=== PATIENT | male | born 1945 | race Caucasian/White ===

== ENCOUNTER → 2017-04-22 09:14 | Outpatient (CLI) | payer MEDICARE, OTHER, SELFPAY ==
[2017-04-22 12:48] LABS: ALB/GLOB Ratio 0.9 RATIO (0.9-2.4); AST(SGOT) 19 U/L (15-37); Absolute Lymphocyte Count 3.19 X10^3/ul (0.83-4.51); Absolute Neutrophil Count 5.1 X10^3/uL (2.0-7.7); Alanine Aminotransfer ALT/SGPT 41 U/L (16-61); Albumin, Serum 3.5 g/dL (3.2-5.0); Alkaline Phosphatase 57 U/L (45-117); Anion Gap 8 (5-15); BUN 15 mg/dL (7-18); BUN/Creat Ratio 13.5 RATIO (10-20); Basophil# 0.03 X10^3/uL; Basophil% 0.3 % (0-1); Calcium,Total 9.2 mg/dL (8.5-10.1); Chloride 104 mmol/L (98-107); Creatinine, Serum 1.11 mg/dL (0.70-1.30); EST Glomerular Filtration Rate 69 mL/min (>60); Eosinophil# 0.08 X10^3/uL; Eosinophils% 0.9 % (0-5); Est Glom Filt Rate - Afr Amer 84 mL/min (>60); Glucose 193 mg/dL (70-110); Hematocrit 46.2 % (40-54); Hemoglobin 15.2 g/dl (13.0-16.5); Lymphocyte # 3.19 X10^3/ul (4.0); Lymphocyte % 34.1 % (19-41); Mean Corp Hgb Conc 32.9 g/gl (32-36); Mean Corpuscular Hgb 31.5 pg (27.0-32.0); Mean Corpuscular Volume 95.7 fL (80-94); Mean Platelet Vol. 10.9 fl (6.2-12.0); Monocyte# 0.89 X10^3/uL; Monocyte% 9.5 % (0-10); Neutrophil # 5.09 X10^3/uL (2.7-7.7); Neutrophil % 54.3 % (47-70); POSITIVE COUNT NO; POSITIVE DIFFERENTIAL NO; POSITIVE MORPHOLOGY NO; Platelet Count 211 K/mm3 (150-450); Potassium 4.7 mmol/L (3.5-5.1); Protein, Total 7.5 g/dL (6.4-8.2); RBC Distribution Width CV 12.8 % (11.6-14.6); RBC Distribution Width SD 44.1 fl (35.1-43.9); Red Blood Count 4.83 M/mm3 (4.6-6.2); Sodium Level 139 mmol/L (136-145); Thyroid Stim Hormone (TSH) 0.69 uIU/mL (0.358-3.74); White Blood Count 9.4 K/mm3 (4.4-11.0)
== END ==
PROVIDERS: Family Provider Family Medicine Geriatric Medicine; PCP Family Medicine Geriatric Medicine; Visit Provider Family Medicine Geriatric Medicine
DX: E11.9 Type 2 diabetes mellitus without complications (principal); I10 Essential (primary) hypertension
CPT/HCPCS: 36415; 80053; 84443; 85025

== ENCOUNTER → 2017-07-22 09:55 | Outpatient (CLI) | payer MEDICARE, OTHER, SELFPAY ==
[2017-07-22 12:35] LABS: Absolute Lymphocyte Count 2.66 X10^3/ul (0.83-4.51); Absolute Neutrophil Count 4.4 X10^3/uL (2.0-7.7); Basophil# 0.06 X10^3/uL; Basophil% 0.7 % (0-1); Eosinophil# 0.11 X10^3/uL; Eosinophils% 1.3 % (0-5); Hematocrit 45.7 % (40-54); Hemoglobin 15.4 g/dl (13.0-16.5); Lymphocyte # 2.66 X10^3/ul (4.0); Lymphocyte % 32.6 % (19-41); Mean Corp Hgb Conc 33.7 g/gl (32-36); Mean Platelet Vol. 10.9 fl (6.2-12.0); Monocyte# 0.81 X10^3/uL; Monocyte% 9.9 % (0-10); Neutrophil # 4.41 X10^3/uL (2.7-7.7); Neutrophil % 54.2 % (47-70); Platelet Count 216 K/mm3 (150-450); RBC Distribution Width SD 43.9 fl (35.1-43.9); Red Blood Count 4.81 M/mm3 (4.6-6.2); White Blood Count 8.2 K/mm3 (4.4-11.0)
[2017-07-22 12:42] LABS: POSITIVE COUNT NO; POSITIVE DIFFERENTIAL NO; POSITIVE MORPHOLOGY NO
[2017-07-22 12:55] LABS: Vitamin D,25 Hydroxy 24.3 ng/mL (29.95-100.01)
[2017-07-22 12:59] LABS: AST(SGOT) 23 U/L (15-37); Alanine Aminotransfer ALT/SGPT 43 U/L (16-61); Albumin, Serum 3.5 g/dL (3.2-5.0); Alkaline Phosphatase 54 U/L (45-117); Anion Gap 8 (5-15); BUN 15 mg/dL (7-18); BUN/Creat Ratio 12.7 RATIO (10-20); Calcium,Total 8.9 mg/dL (8.5-10.1); Chloride 104 mmol/L (98-107); Creatinine, Serum 1.18 mg/dL (0.70-1.30); EST Glomerular Filtration Rate 65 mL/min (>60); Est Glom Filt Rate - Afr Amer 78 mL/min (>60); Globulin 3.6 g/dL (2.2-4.2); Glucose 205 mg/dL (74-106); Potassium 4.8 mmol/L (3.5-5.1); Protein, Total 7.1 g/dL (6.4-8.2); Sodium Level 136 mmol/L (136-145); Thyroid Stim Hormone (TSH) 0.72 uIU/mL (0.358-3.74)
== END ==
PROVIDERS: Family Provider Family Medicine Geriatric Medicine; PCP Family Medicine Geriatric Medicine; Visit Provider Family Medicine Geriatric Medicine
DX: E11.9 Type 2 diabetes mellitus without complications (principal); E55.9 Vitamin D deficiency, unspecified; I10 Essential (primary) hypertension
CPT/HCPCS: 36415; 80053; 82306; 84443; 85025

== ENCOUNTER → 2017-09-13 17:37 | Outpatient (CLI) | payer MEDICARE, OTHER, SELFPAY | PROVIDERS: Family Provider Family Medicine Geriatric Medicine; PCP Family Medicine Geriatric Medicine; Visit Provider Family Medicine Geriatric Medicine | DX: R68.83 Chills (without fever) (principal) | CPT/HCPCS: 87633 ==

== ENCOUNTER → 2017-10-26 10:22 | Outpatient (CLI) | payer MEDICARE, OTHER, SELFPAY ==
[2017-10-26 13:06] LABS: Absolute Lymphocyte Count 2.48 X10^3/ul (0.83-4.51); Absolute Neutrophil Count 6.2 X10^3/uL (2.0-7.7); Basophil# 0.04 X10^3/uL; Basophil% 0.4 % (0-1); Eosinophil# 0.07 X10^3/uL; Eosinophils% 0.7 % (0-5); Hematocrit 46.4 % (40-54); Hemoglobin 15.3 g/dl (13.0-16.5); Lymphocyte # 2.48 X10^3/ul (4.0); Lymphocyte % 25.5 % (19-41); Mean Corpuscular Hgb 31.5 pg (27.0-32.0); Mean Corpuscular Volume 95.7 fL (80-94); Mean Platelet Vol. 10.8 fl (6.2-12.0); Monocyte# 0.85 X10^3/uL; Monocyte% 8.8 % (0-10); Neutrophil # 6.15 X10^3/uL (2.7-7.7); Neutrophil % 63.4 % (47-70); Platelet Count 197 K/mm3 (150-450); RBC Distribution Width CV 13.3 % (11.6-14.6); RBC Distribution Width SD 46.1 fl (35.1-43.9); Red Blood Count 4.85 M/mm3 (4.6-6.2); White Blood Count 9.7 K/mm3 (4.4-11.0)
[2017-10-26 13:08] LABS: POSITIVE COUNT NO; POSITIVE DIFFERENTIAL NO; POSITIVE MORPHOLOGY NO
[2017-10-26 13:18] LABS: Vitamin D,25 Hydroxy 20.9 ng/mL (29.95-100.01)
[2017-10-26 13:24] LABS: ALB/GLOB Ratio 0.9 RATIO (0.9-2.4); AST(SGOT) 23 U/L (15-37); Alanine Aminotransfer ALT/SGPT 49 U/L (16-61); Albumin, Serum 3.5 g/dL (3.2-5.0); Alkaline Phosphatase 54 U/L (45-117); Anion Gap 11 (5-15); BUN 17 mg/dL (7-18); BUN/Creat Ratio 17.2 RATIO (10-20); Calcium,Total 9.1 mg/dL (8.5-10.1); Chloride 105 mmol/L (98-107); Creatinine, Serum 0.99 mg/dL (0.70-1.30); EST Glomerular Filtration Rate 79 mL/min (>60); Est Glom Filt Rate - Afr Amer 96 mL/min (>60); Globulin 3.9 g/dL (2.2-4.2); Glucose 116 mg/dL (74-106); Potassium 4.7 mmol/L (3.5-5.1); Protein, Total 7.4 g/dL (6.4-8.2); Sodium Level 142 mmol/L (136-145); Thyroid Stim Hormone (TSH) 0.71 uIU/mL (0.358-3.74)
== END ==
PROVIDERS: Family Provider Family Medicine Geriatric Medicine; PCP Family Medicine Geriatric Medicine; Visit Provider Family Medicine Geriatric Medicine
DX: E11.9 Type 2 diabetes mellitus without complications (principal); E55.9 Vitamin D deficiency, unspecified; I10 Essential (primary) hypertension
CPT/HCPCS: 36415; 80053; 82306; 84443; 85025

== ENCOUNTER → 2018-01-27 09:12 | Outpatient (CLI) | payer MEDICARE, OTHER, SELFPAY ==
[2018-01-27 12:28] LABS: Absolute Lymphocyte Count 3.44 X10^3/ul (0.83-4.51); Absolute Neutrophil Count 6.3 X10^3/uL (2.0-7.7); Basophil# 0.04 X10^3/uL; Basophil% 0.4 % (0-1); Eosinophil# 0.09 X10^3/uL; Eosinophils% 0.8 % (0-5); Hematocrit 49.3 % (40-54); Hemoglobin 16.2 g/dl (13.0-16.5); Lymphocyte # 3.44 X10^3/ul (4.0); Lymphocyte % 31.8 % (19-41); Mean Corp Hgb Conc 32.9 g/gl (32-36); Mean Corpuscular Volume 97.4 fL (80-94); Mean Platelet Vol. 11.4 fl (6.2-12.0); Monocyte# 0.89 X10^3/uL; Monocyte% 8.2 % (0-10); Neutrophil % 58.2 % (47-70); Platelet Count 207 K/mm3 (150-450); RBC Distribution Width CV 13.1 % (11.6-14.6); RBC Distribution Width SD 46.4 fl (35.1-43.9); Red Blood Count 5.06 M/mm3 (4.6-6.2); White Blood Count 10.8 K/mm3 (4.4-11.0)
[2018-01-27 12:32] LABS: POSITIVE COUNT NO; POSITIVE DIFFERENTIAL NO; POSITIVE MORPHOLOGY NO
[2018-01-27 12:40] LABS: ALB/GLOB Ratio 0.9 RATIO (0.9-2.4); AST(SGOT) 31 U/L (15-37); Alanine Aminotransfer ALT/SGPT 54 U/L (16-61); Albumin, Serum 3.5 g/dL (3.2-5.0); Alkaline Phosphatase 60 U/L (45-117); Anion Gap 11 (5-15); BUN 12 mg/dL (7-18); BUN/Creat Ratio 10.3 RATIO (10-20); Calcium,Total 8.7 mg/dL (8.5-10.1); Chloride 103 mmol/L (98-107); Creatinine, Serum 1.17 mg/dL (0.70-1.30); EST Glomerular Filtration Rate 65 mL/min (>60); Est Glom Filt Rate - Afr Amer 79 mL/min (>60); Glucose 148 mg/dL (74-106); Potassium 4.2 mmol/L (3.5-5.1); Protein, Total 7.5 g/dL (6.4-8.2); Sodium Level 138 mmol/L (136-145); Thyroid Stim Hormone (TSH) 0.66 uIU/mL (0.358-3.74)
[2018-01-27 13:15] LABS: Vitamin D,25 Hydroxy 19.2 ng/mL (29.95-100.01)
== END ==
PROVIDERS: Family Provider Family Medicine Geriatric Medicine; PCP Family Medicine Geriatric Medicine; Visit Provider Family Medicine Geriatric Medicine
DX: E11.9 Type 2 diabetes mellitus without complications (principal); E55.9 Vitamin D deficiency, unspecified; I10 Essential (primary) hypertension
CPT/HCPCS: 36415; 80053; 82306; 84443; 85025

== ENCOUNTER → 2018-02-01 12:50 | Outpatient (CLI) | payer MEDICARE, OTHER, SELFPAY ==
--- NOTE | 2018-02-01 12:53 | ECHOCS_ITS ---
Reason For Study: DYSPNEA/SOB Procedure This was a 2D Doppler, Color Flow transthoracic echocardiogram. The study was technically difficult. Due to body habitus. Contrast injection was performed. Exam performed in department. Left Ventricle Normal size and thickness. The estimated ejection fraction is 55 %. Septal motion consistent with IVCD. No regional wall motion abnormalities noted. Right Ventricle Normal size and thickness. Normal systolic function. Atria Normal left atrium. Normal right atrium. Normal atrial septum. Mitral Valve The mitral valve is structurally normal. No prolapse or stenosis seen. Tricuspid Valve Normal tricuspid valve. Trivial tricuspid valve insufficiency. Unable to estimate RV systolic pressure due to inadequate jet, pulmonary artery pressure probably normal. Aortic Valve Normal aortic valve. Trisinus/trileaflet aortic valve. Trivial aortic valve insufficiency. Pulmonic Valve Normal pulmonic valve. Great Vessels Normal aortic root. Normal arch. Normal inferior vena cava. Inferior vena cava collapse with sniff. Pericardium/Pleural No pericardial effusion. Medication 22 gauge I.V. with prn adaptor inserted into right arm. Diluted definity 2.0ml given slow IV push to enhance endocardial definition. Performed a rapid injection of agitated mix of 9 cc saline and 1cc air to assess for atrial septal defect. MMode/2D Measurements & Calculations LVIDd: 4.0 cm IVSd: 0.99 cm Ao root diam: 3.6 cm LVIDs: 2.7 cm LVPWd: 0.97 cm RVDd: 3.2 cm FS: 34.1 % LAV(MOD-bp): 55.3 ml LA A4 area: 19.9 cm2 LA dimension(2D): 3.2 cm LAV(MOD-bp) Indexed: 23.4 ml/m2 LAV(MOD-sp2): 47.2 ml LAV(MOD-sp4): 55.2 ml RA A4 area: 16.3 cm2 Doppler Measurements & Calculations MV E max nikos: 92.3 cm/sec Lat Peak E' Nikos: 10.1 cm/sec Med Peak E' Nikos: 6.1 cm/sec MV A max nikos: 41.8 cm/sec E/E' lat: 9.1 E/E' med: 15.0 MV E/A: 2.2 Ao V2 max: 119.4 cm/sec LV V1 max: 79.6 cm/sec PA V2 max: 76.9 cm/sec Ao max P.7 mmHg LV V1 max P.5 mmHg Interpretation Summary The estimated ejection fraction is 55 %. Unable to estimate RV systolic pressure due to inadequate jet, pulmonary artery pressure probably normal. Trivial aortic valve insufficiency. Compared to echo report dated 10/26/2013, no appreciable changes noted. Ordering Physician: Jose Avery Referring Physician: Maximino Figueroa Chi Performed By: Charlotte Lantigua RDCS, RVT
== END ==
PROVIDERS: Family Provider Family Medicine Geriatric Medicine; PCP Family Medicine Geriatric Medicine; Referring Provider Internal Medicine Cardiovascular Disease; Visit Provider Internal Medicine Cardiovascular Disease
DX: I45.2 Bifascicular block (principal)
CPT/HCPCS: 93306; Q9957; A4216; C8929

== ENCOUNTER → 2018-07-27 | Outpatient (CLI) | payer MEDICARE, OTHER, SELFPAY ==
[2018-05-25 09:46] VITALS: BMI 37.4
[2018-07-27 12:44] LABS: Absolute Neutrophil Count 5.4 X10^3/uL (2.0-7.7); Basophil# 0.05 X10^3/uL; Basophil% 0.5 % (0-1); Eosinophil# 0.16 X10^3/uL; Eosinophils% 1.7 % (0-5); Hematocrit 42.8 % (40-54); Hemoglobin 14.3 g/dl (13.0-16.5); Lymphocyte % 32.2 % (19-41); Mean Corp Hgb Conc 33.4 g/gl (32-36); Mean Corpuscular Hgb 31.4 pg (27.0-32.0); Mean Corpuscular Volume 93.9 fL (80-94); Mean Platelet Vol. 11.2 fl (6.2-12.0); Monocyte# 0.81 X10^3/uL; Monocyte% 8.4 % (0-10); Neutrophil # 5.41 X10^3/uL (2.7-7.7); Neutrophil % 56.2 % (47-70); Platelet Count 220 K/mm3 (150-450); RBC Distribution Width CV 13.2 % (11.6-14.6); RBC Distribution Width SD 45.1 fl (35.1-43.9); Red Blood Count 4.56 M/mm3 (4.6-6.2); White Blood Count 9.6 K/mm3 (4.4-11.0)
[2018-07-27 12:45] LABS: POSITIVE COUNT NO; POSITIVE DIFFERENTIAL NO; POSITIVE MORPHOLOGY NO
[2018-07-27 12:57] LABS: Vitamin D,25 Hydroxy 15.4 ng/mL (29.95-100.01)
[2018-07-27 13:03] LABS: ALB/GLOB Ratio 0.9 RATIO (0.9-2.4); AST(SGOT) 28 U/L (15-37); Alanine Aminotransfer ALT/SGPT 36 U/L (16-61); Albumin, Serum 3.4 g/dL (3.2-5.0); Alkaline Phosphatase 55 U/L (45-117); Anion Gap 10 (5-15); BUN 13 mg/dL (7-18); BUN/Creat Ratio 10.6 RATIO (10-20); Calcium,Total 8.9 mg/dL (8.5-10.1); Chloride 106 mmol/L (98-107); Creatinine, Serum 1.23 mg/dL (0.70-1.30); EST Glomerular Filtration Rate 61 mL/min (>60); Est Glom Filt Rate - Afr Amer 74 mL/min (>60); Globulin 3.8 g/dL (2.2-4.2); Glucose 135 mg/dL (74-106); Potassium 4.8 mmol/L (3.5-5.1); Protein, Total 7.2 g/dL (6.4-8.2); Sodium Level 142 mmol/L (136-145); Thyroid Stim Hormone (TSH) 0.54 uIU/mL (0.358-3.74)
== END | disposition home or self-care (01) ==
LOC: POLAB3 09:13
PROVIDERS: Family Provider Family Medicine Geriatric Medicine; PCP Family Medicine Geriatric Medicine; Visit Provider Family Medicine Geriatric Medicine
DX: E11.9 Type 2 diabetes mellitus without complications (principal); E55.9 Vitamin D deficiency, unspecified; I10 Essential (primary) hypertension
CPT/HCPCS: 36415; 80053; 82306; 84443; 85025

== ENCOUNTER 2018-08-18 15:05 | Emergency (ER) | payer MEDICARE, OTHER, SELFPAY ==
[2018-07-27 14:36] VITALS: BMI 36.2
[2018-08-18 15:07] VITALS: BP 153/82; PULSE 84; RESP 16; TEMP 36.4; O2SAT 96; BMI 38.5
--- NOTE | 2018-08-18 15:24 | CT_ITS ---
STUDY: CT BRAIN WITHOUT CONTRAST REASON FOR EXAM: Male, 73 years old. Dizziness and history of strokes RADIATION DOSAGE (If Supplied By Facility): CTDIvol = ( 60.81 ) mGy, DLP = ( 1044.28 ) mGycm TECHNIQUE: Transaxial CT imaging of the brain was performed without administration of intravenous contrast material. Individualized dose optimization techniques were used for this CT. COMPARISON: 03/03/2014 FINDINGS: Normal soft tissue structures. Normal calvarium. There is moderate cerebral atrophy with widening of the extra-axial spaces and ventricular dilatation. There are areas of decreased attenuation within the white matter tracts of the supratentorial brain, consistent with microvascular disease changes. Normal basal ganglia and thalami. Normal brainstem. Normal cerebellum. There is no intracranial hemorrhage. There are no findings of an acute ischemic infarction. Prior stroke in the right MCA territory. Normal visualized paranasal sinuses. CT/Brain/Head without Contrast IMPRESSION: Chronic involutional changes of the brain. Electronically Signed: Prabhu Mendez DO at 16:40 EDT Tel , Service support ,
--- NOTE | 2018-08-18 15:25 | RAD_ITS ---
STUDY: X-RAY - RIGHT SHOULDER REASON FOR EXAM: Male, 73 years old. Shoulder pain TECHNIQUE: 4 view(s) of the shoulder. COMPARISON: None. FINDINGS: Normal glenohumeral articulation. There is degenerative arthrosis of the acromioclavicular joint without inferior osseous spur formation. Normal acromion. Normal humeral head and visualized proximal humerus. The soft tissue structures are unremarkable. Normal visualized pulmonary apex. RAD/Shoulder min 2 Views IMPRESSION: No acute finding Electronically Signed: Prabhu Mendez DO at 17:22 EDT Tel , Service support ,
--- NOTE | 2018-08-18 15:25 | RAD_ITS ---
STUDY: X-RAY CHEST REASON FOR EXAM: Male, 73 years old. Pain and dizziness TECHNIQUE: PA and lateral views of the chest. COMPARISON: None. FINDINGS: The lungs are clear and expanded. There is no demonstrated pleural abnormality. Normal size heart. Normal mediastinum and ana. Normal visualized pulmonary arteries. Normal visualized aortic arch and descending thoracic aorta. Normal visualized thoracic spine. Normal visualized ribs, clavicles, and shoulders. There is no demonstrated abnormality of the visualized soft tissue structures of the upper abdomen. RAD/Chest PA and Lateral IMPRESSION: Normal x-ray examination of the chest. Electronically Signed: Prabhu Mendez DO at 17:21 EDT Tel , Service support ,
--- NOTE | 2018-08-18 15:25 | EKG12_ITS ---
Test Reason : DIZZINESS Blood Pressure : / mmHG Vent. Rate : 081 BPM Atrial Rate : 081 BPM P-R Int : 192 ms QRS Dur : 146 ms QT Int : 416 ms P-R-T Axes : -13 -51 068 degrees QTc Int : 483 ms Normal sinus rhythm Right bundle branch block Left anterior fascicular block Bifascicular block Possible Left ventricular hypertrophy Abnormal ECG Confirmed by LUCRECIA EWNIG, SAMUEL ([id number]), associate entertainment editor JENARO COLON ([id number]) on 08/21/2018 1:40:25 PM Referred By: VIANEY Confirmed By:SAMUEL SINGER MD
--- NOTE | 2018-08-18 15:29 | ED.DCSUM_ITS ---
- ER Visit Summary Date of Service: 08/18/18 Chief Complaint: Dizziness History of Present Illness: The patient is a 73 M who states that he has had the sensation of being dizzy for years. He has seen to neurologist, ENT, ophthalmology, and his primary care physician. He takes nothing for dizziness. He states he has had a prior stroke. He notes coronary artery disease. He states that today was worse than normal and he was nauseated. He states he is better now than when he was at home. He states when he is really dizzy he cannot turn his head but he can turn his head now without any problems. When asked to explain what he means when he feels dizzy he states he feels lightheaded. He denies any sensation of spinning. He also notes pain in the right shoulder which she would like to have checked out. He states he can move his shoulder all the way around it just aches. Physical Examination: Afebrile vital signs are stable Gen: Well-nourished well-developed obese Head: Normocephalic atraumatic Eyes: Perrl EOMI ENT: TMs clear no rhinorrhea moist mucous membranes Neck: Supple no lymphadenopathy no JVD nontender CVS: Regular rate rhythm no murmurs normal S1-S2 Respiratory: No distress clear to auscultation bilaterally chest nontender Abdomen: Soft nontender nondistended normal bowel sounds no masses Back: Nontender Extremity: Nontender no edema Skin: Normal color no rash Neuro: alert orientated ?3 CN II-XII intact normal strength sensation reflexes cerebellar ([id number] and heel yip) Psych: Normal affect normal mood Test Results: CBC CMP troponin negative. Chest x-ray shoulder films no acute disease had brain CT no acute disease EKG sinus rhythm with right bundle branch block and left anterior fascicular block a rate of 81 without ectopy. Orthostatics were negative. Emergency Department Course and Treatment: Patient is able to ambulate here. As the patient is ever done any physical therapy since his stroke he said no. Perhaps there is a muscular imbalance issue?. It sounds like the patient is seen multiple subspecialist for this problem with no cause. I do not see an emergent cause today. As far as his shoulder pain he does have a little bit of arthritic changes. He states he does not see orthopedics. I can refer him to 1. Impression: 1. Lightheadedness 2. Right shoulder pain This note was generated with [employer]AR[employer] dictation software. It may contain incorrect words, spelling, and punctuation that were not noted in review of the chart prior to signing ED Disposition - Plan for ED Patient: Disposition: Home or Assisted Living Instructions: ED Dizziness [facility] Referrals: Maximino Figueroa Chi, MD [Primary Care Provider] - (Call to arrange follow-up) Bentley Ashby MD [STAFF PHYSICIAN] - (Call if you would like to see a orthopedic surgeon for your shoulder pain.) Additional Instructions: You may discuss with your doctor the possibility of seeing physical therapy.
[2018-08-18 16:01] LABS: Absolute Neutrophil Count 4.8 X10^3/uL (2.0-7.7); Basophil# 0.05 X10^3/uL; Basophil% 0.5 % (0-1); Eosinophil# 0.15 X10^3/uL; Eosinophils% 1.6 % (0-5); Hematocrit 43.2 % (40-54); Hemoglobin 14.6 g/dl (13.0-16.5); Lymphocyte % 34.9 % (19-41); Mean Corp Hgb Conc 33.8 g/gl (32-36); Mean Corpuscular Hgb 31.4 pg (27.0-32.0); Mean Corpuscular Volume 92.9 fL (80-94); Mean Platelet Vol. 10.6 fl (6.2-12.0); Monocyte# 0.88 X10^3/uL; Monocyte% 9.6 % (0-10); Neutrophil # 4.81 X10^3/uL (2.7-7.7); Neutrophil % 52.5 % (47-70); Platelet Count 224 K/mm3 (150-450); RBC Distribution Width CV 13.1 % (11.6-14.6); RBC Distribution Width SD 43.7 fl (35.1-43.9); Red Blood Count 4.65 M/mm3 (4.6-6.2); White Blood Count 9.2 K/mm3 (4.4-11.0)
[2018-08-18 16:04] VITALS: BP 149/70; PULSE 79; RESP 19; O2SAT 95
[2018-08-18 16:04] LABS: POSITIVE COUNT NO; POSITIVE DIFFERENTIAL NO; POSITIVE MORPHOLOGY NO
[2018-08-18 16:21] LABS: ALB/GLOB Ratio 0.9 RATIO (0.9-2.4); AST(SGOT) 26 U/L (15-37); Alanine Aminotransfer ALT/SGPT 34 U/L (16-61); Albumin, Serum 3.5 g/dL (3.2-5.0); Alkaline Phosphatase 58 U/L (45-117); Anion Gap 8 (5-15); BUN 15 mg/dL (7-18); BUN/Creat Ratio 13.8 RATIO (10-20); Calcium,Total 8.7 mg/dL (8.5-10.1); Chloride 106 mmol/L (98-107); Creatinine, Serum 1.09 mg/dL (0.70-1.30); EST Glomerular Filtration Rate 71 mL/min (>60); Est Glom Filt Rate - Afr Amer 85 mL/min (>60); Estimated Creatinine Clearance 63.25 ml/min; Globulin 3.8 g/dL (2.2-4.2); Glucose 158 mg/dL (74-106); Potassium 4.2 mmol/L (3.5-5.1); Protein, Total 7.3 g/dL (6.4-8.2); Sodium Level 139 mmol/L (136-145)
[2018-08-18 16:57] VITALS: BP 149/78; BP 154/77; BP 164/79; PULSE 74; PULSE 78
[2018-08-18 16:58] LABS: Bacteria 0 SEEN /hpf (None Seen); Mucous, Urine 0 SEEN /hpf (<or=2+); Red Blood Cells-Urine 0 SEEN /hpf (0-5); White Blood Cells 0 SEEN /hpf (0-5)
[2018-08-18 17:30] LABS: Color, Urine Yellow (Yellow); Glucose, Dipstick 100 mg/dl (Normal); Ketone-Dipstick Negative (Negative); Leukocyte Esterase-Dipstick Negative /ul (Negative); Nitrite-Dipstick Negative (Negative); Occult Blood-Urine Negative /ul (Negative); Protein-Dipstick Negative (Negative); Urine Bilirubin Dipstick Negative (Negative); Urine Clarity Clear (Clear); Urine Urobilinogen Normal (Normal)
[2018-08-18 17:51] LABS: Squamous Epithelial Cells - UA 0-5 SEEN /hpf (0-5)
[2018-08-18 18:12] VITALS: BP 150/70; PULSE 67; RESP 18; O2SAT 98
== END 2018-08-18 18:13 | disposition home or self-care (01) ==
PROVIDERS: Emergency Provider Emergency Medicine; Family Provider Family Medicine Geriatric Medicine; PCP Family Medicine Geriatric Medicine
DX: R42 Dizziness and giddiness (principal); M25.511 Pain in right shoulder; R11.0 Nausea; E66.9 Obesity, unspecified; I44.4 Left anterior fascicular block; I45.10 Unspecified right bundle-branch block; I25.10 Atherosclerotic heart disease of native coronary artery without angina pectoris; E11.9 Type 2 diabetes mellitus without complications; I10 Essential (primary) hypertension; E78.00 Pure hypercholesterolemia, unspecified; F32.9 Major depressive disorder, single episode, unspecified; G47.33 Obstructive sleep apnea (adult) (pediatric); Q21.1 Atrial septal defect; Z86.73 Personal history of transient ischemic attack (TIA), and cerebral infarction without residual deficits; Z86.718 Personal history of other venous thrombosis and embolism; Z79.02 Long term (current) use of antithrombotics/antiplatelets; Z79.84 Long term (current) use of oral hypoglycemic drugs; Z79.899 Other long term (current) drug therapy; Z87.891 Personal history of nicotine dependence
CPT/HCPCS: 70450; 71046; 73030; 80053; 81001; 84484; 85025; 93005; 99284; A4216

== ENCOUNTER → 2018-12-06 12:27 | Outpatient (CLI) | payer MEDICARE, OTHER, SELFPAY ==
--- NOTE | 2018-12-06 12:31 | CT_ITS ---
STUDY: CTA HEAD AND NECK WITH CONTRAST REASON FOR EXAM: Male, 73 years old. Dizziness RADIATION DOSAGE (If Supplied By Facility): CTDIvol = ( 28.63 ) mGy, DLP = ( 1608.54 ) mGycm TECHNIQUE: CT angiography was performed with a multi-detector CT scanner. Data acquisition was obtained from the skull base through the vertex following intravenous administration of 100mL IV Isovue 370. MIP images were reconstructed from the axial data set. Post-processing of the angiographic images was performed, with multiplanar reformation and 3D reconstruction. Individualized dose optimization techniques were used for this CT. COMPARISON: 05/07/2014 FINDINGS: Normal bilateral petrous carotid arteries. Normal right cavernous carotid artery with a normal supraclinoid bifurcation. Normal left cavernous carotid artery with a normal supraclinoid bifurcation. Normal right A1 segments of the anterior cerebral artery. Normal left A1 segments of the anterior cerebral artery. Normal intact anterior communicating artery (ACOM). Normal bilateral A2 segments of the anterior cerebral arteries. Normal right M1 and M2 segments of the middle cerebral arteries, with a normal M1 bifurcation. Normal left M1 and M2 segments of the middle cerebral arteries, with a normal M1 bifurcation. Normal right posterior communicating artery (PCOM). Normal left posterior communicating artery (PCOM). Normal bilateral vertebral arteries. Normal basilar artery with a normal basilar bifurcation. The visualized bilateral superior cerebellar (SCA) arteries are normal. Normal bilateral P1, P2 and visualized P3 segments of the posterior cerebral arteries. There is no demonstrated aneurysm of the [place]. There is no demonstrated abnormality of the visualized brain. AORTIC ARCH: Normal visualized aortic arch. Normal origins of the brachiocephalic, left common carotid, and left subclavian arteries. RIGHT CAROTID ARTERIES: Normal right common carotid artery (CCA). Normal right common carotid bulb. Normal origin of the right internal carotid (ICA) artery without a hemodynamically significant stenosis. Normal visualized cervical portion of the right internal carotid artery. Normal origin of the right external carotid artery (ECA). LEFT CAROTID ARTERIES: Normal left common carotid artery (CCA). Normal left common carotid bulb. Normal origin of the left internal carotid (ICA) artery without a hemodynamically significant stenosis. Normal visualized cervical portion of the left internal carotid artery. Normal origin of the left external carotid artery (ECA). VERTEBRAL ARTERIES: There is enhancement within the bilateral vertebral arteries with a small left vertebral artery, and a dominant right vertebral artery. Soft tissue windows show multiple thyroid nodules or cysts. No suspicious enhancing lesion or airway narrowing or deviation. There is evidence of an old right parietal/occipital lobe infarct. Extensive degenerative changes noted in the cervical spine. CT/CTA Head AND Neck W/ Contrast IMPRESSION: Normal CTA Head and neck with contrast. 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
[2018-12-06 12:50] LABS: CREATININE FINGERSTICK 0.9 mg/dL (0.70-1.30)
== END ==
PROVIDERS: Family Provider Family Medicine Geriatric Medicine; PCP Family Medicine Geriatric Medicine; Referring Provider Psychiatry & Neurology Neurology; Visit Provider Psychiatry & Neurology Neurology
DX: I65.09 Occlusion and stenosis of unspecified vertebral artery (principal)
CPT/HCPCS: 70496; 70498; Q9967

== ENCOUNTER → 2019-01-05 09:51 | Outpatient (CLI) | payer MEDICARE, OTHER, SELFPAY ==
--- NOTE | 2019-01-05 09:56 | RAD_ITS ---
STUDY: X-RAY - CERVICAL SPINE REASON FOR EXAM: Male, 73 years old. Neck pain with dizziness TECHNIQUE: 8 view(s) of the cervical spine were obtained. COMPARISON: None FINDINGS: Normal anterior atlantoaxial articulation. Normal odontoid process. No subluxation on flexion, extension or neutral views. Normal cervical lordosis. Mild anterior spondylosis with disc space narrowing most conspicuous at C6-C7. Multilevel facet arthropathy suspected. Remaining disc heights are relatively preserved. Limited evaluation of the neural foramina due to suboptimal positioning but there appears to be foraminal stenosis at bilateral C3-C4 and C4-C5 as well as possibly lower levels on the right side. The soft tissue structures are unremarkable. RAD/Cerv Spine Obl/Flex/Ext Comp IMPRESSION: Multilevel degenerative disc disease with foraminal stenosis, as above. Electronically Signed: Elias Santiago MD ([place]) at 15:13 EDT , Service support ,
== END ==
PROVIDERS: Family Provider Family Medicine Geriatric Medicine; PCP Family Medicine Geriatric Medicine; Referring Provider Psychiatry & Neurology Neurology; Visit Provider Psychiatry & Neurology Neurology
DX: M54.2 Cervicalgia (principal)
CPT/HCPCS: 72052

== ENCOUNTER → 2019-01-29 10:44 | Outpatient (CLI) | payer MEDICARE, OTHER, SELFPAY ==
[2019-01-29 12:24] LABS: Absolute Lymphocyte Count 3.05 X10^3/uL (0.83-4.51); Absolute Neutrophil Count 5.9 X10^3/uL (2.0-7.7); Basophil# 0.12 X10^3/uL; Basophil% 1.2 % (0-1); Eosinophil# 0.17 X10^3/uL; Eosinophils% 1.7 % (0-5); Hematocrit 44.5 % (40-54); Hemoglobin 14.4 g/dL (13.0-16.5); Lymphocyte # 3.05 X10^3/ul (4.0); Lymphocyte % 30.2 % (19-41); Mean Corp Hgb Conc 32.4 g/dL (32-36); Mean Corpuscular Volume 95.7 fL (80-94); Mean Platelet Vol. 11.4 fl (6.2-12.0); Monocyte# 0.71 X10^3/uL; NRBC Flagged by Analyzer 0 % (0-5); Neutrophil # 5.94 X10^3/uL (2.7-7.7); Neutrophil % 58.8 % (47-70); Platelet Count 217 K/mm3 (150-450); RBC Distribution Width CV 12.7 % (11.6-14.6); RBC Distribution Width SD 45.1 fl (35.1-43.9); Red Blood Count 4.65 M/mm3 (4.6-6.2); White Blood Count 10.1 K/mm3 (4.4-11.0)
[2019-01-29 12:46] LABS: ALB/GLOB Ratio 0.9 RATIO (0.9-2.4); AST(SGOT) 18 U/L (15-37); Alanine Aminotransfer ALT/SGPT 25 U/L (16-61); Albumin, Serum 3.5 g/dL (3.2-5.0); Alkaline Phosphatase 53 U/L (45-117); Anion Gap 9 (5-15); BUN 29 mg/dL (7-18); BUN/Creat Ratio 23.4 RATIO (10-20); Calcium,Total 9.2 mg/dL (8.5-10.1); Chloride 105 mmol/L (98-107); Creatinine, Serum 1.24 mg/dL (0.70-1.30); EST Glomerular Filtration Rate 61 mL/min (>60); Est Glom Filt Rate - Afr Amer 74 mL/min (>60); Globulin 3.8 g/dL (2.2-4.2); Glucose 117 mg/dL (74-106); Potassium 4.9 mmol/L (3.5-5.1); Protein, Total 7.3 g/dL (6.4-8.2); Sodium Level 140 mmol/L (136-145); Thyroid Stim Hormone (TSH) 0.64 uIU/mL (0.358-3.74); Vitamin D,25 Hydroxy 16.6 ng/mL (29.95-100.01)
== END ==
PROVIDERS: Family Provider Family Medicine Geriatric Medicine; PCP Family Medicine Geriatric Medicine; Visit Provider Family Medicine Geriatric Medicine
DX: E11.9 Type 2 diabetes mellitus without complications (principal); E23.6 Other disorders of pituitary gland; E55.9 Vitamin D deficiency, unspecified; I10 Essential (primary) hypertension
CPT/HCPCS: 36415; 80053; 82306; 84403; 84443; 85025

== ENCOUNTER 2019-02-01 11:30 | Outpatient (RCR) | payer MEDICARE, OTHER, SELFPAY ==
--- NOTE | 2018-12-04 10:47 | HP.PTEVAL ---
Patient's Visit Information BERTO DAVIS Jr. is a 73 year old M referred to Physical Therapy by Glenn Bravo MD with a diagnosis of vertigo likely cervicogenic. cervicalgia. Date of Evaluation: 12/04/18 Physical Therapist: Jeffrey Bailon, DPT, OCS, CSCS - Visit Plan Frequency: 2x /Week Duration: 2 Months Plan: 2x/week for 4-8 weeks . Start with STM to cervical muscles, scap ROM and cervical ROM adn manual traction, emphasize L rotation and retraction /ext. Stretch cervical muscles. postural strength of scap and cervical to HEP. Monitor need for further vestibualr intervention(nothing sticking out at me today on eval.) - Subjective Findings: Dizzy spinning and falling down for the last year. Not sure why it started. Went to ER with neck pain a couple months ago with spasms. Got dizzy spinning at that time. His doctor thought it was migraines. x rays in ER and describes MRI of head. Hard time walking at the time. 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 Got it twice since then. Put on pills which helps and heart monitor. Took off migraine meds. Usually wakes up dizzy in morning which lasts two hours every morning. takes pill upon waking not sure what it is. Low level dizzynes sis always present. Has two falls, one in shower and feet went out and could not get up. Uses cane to get around, [facility]. Has a walker with wheels which he uses. Describes constant feeling as a numbness in head present since last Novemebr. Stopped driving. Spends the day sitting and mowing yard. Doesn't make him worse dizzy lopez. Dresses self and batha dn shower I. No exercises. No real pain, has some neck discomfort looking down and feels pull in center of back. - Objective L arm weak from previous stroke. R ankle weak form another stroke. ROM UE WFL. C/S AROM R 75 and L 40 rotation, ext 40 with pain centrally. - c/s compression. Posture is extreme forward head and extended upper cervical spine. Kyphosis in T/S. Very poor scapular muscle planning and coordination, hard to do scap crcles or retraction. - VAT. - B hallpike laura and - roll test. Oculomotor is unremarkable today: no nystagmus with head shake or gaze. - skew eye deviation. convergence normal. pursuit and saccades alejandro and asymptomatic. No problem withVOR horiz or veritcal. Unable to increase dizzyness with oculomotor, or positional changes today. Or with repeated neck movements. But has some cervical deficitis to wrok on. - Balance Scores Functional Gait Assessment Score: 22 % Disability: 26.6700 CATSIB Score (Max score 120 seconds): 33 - Goals Goal 1:: FGA 25/30 to diminish fall risk. Goal Time Frame: 6-8 Weeks Goal 2:: Patient feel dizzyness 75% improved adn <25% on DHI Goal Time Frame: 6-8 Weeks Goal 3:: Neck ROM symmetrical and no stiffness with retraction or L rotation. Goal Time Frame: 6-8 Weeks Goal 4:: I approp HEp to minimize future problems. Goal Time Frame: 6-8 Weeks - Rehabilitation Potential Physical Therapy Diagnosis: cervicalgia and dizzyness. Rehabilitation Potential: Fair - Anticipated Interventions Patient/Client Instruction: Educate patient on: Condition, Plan of Care For the Purpose of:: To increase tolerance to activity/condition/position, To improve balance Therapeutic Exercise to Include: Strength training, Postural training, Flexibilty training, Passive ROM, Dynamic Lumbar Stabilization, Scapular Strength/Stabilization For the Purpose of:: To improve muscle performance and motor function, To increase tolerance to activity/condition/position, To improve balance Manual Therapy Techniques to Include: Mobilization, Soft tissue mobilization For the Purpose of:: To decrease pain, To improve nutrient delivery to tissue, To increase tolerance to activity/condition/position, To improve ability of physical actions for home/community/work/leisure Thermo therapy (hot pack): Yes For the Purpose of:: To improve nutrient delivery to tissue Thank you for the opportunity to evaluate your patient. For Medicare and Medicare HMO plans, please review the plan of care and approve it. It will need to be FAXED BACK to us at [phone] for Medicare purposes. For Medicare only, by signing this I certify the plan of care. Please let me know if there are questions or concerns regarding this plan of care. Physician Signature: Date:
--- NOTE | 2019-01-03 10:58 | HP.PTREVAL ---
Glenn Bravo MD, It has been my pleasure to treat BERTO DAVIS Jr. over the last 8 visits for vertigo likely cervicogenic. cervicalgia. Please see the progress note below for an update on the physical therapy plan of care! Subjective: Doctor's visit tomorrow cancelled as they are still running tests. Says arteries in neck were cleared. Feels like dizzyness is better, can get out of bed without being dizzy. Not sure if it is therapy or a pill doctor gave him(not sure what it is) whcih he has been taking about a month. 90% better as long as he takes pill. Neck work in therapy seems to help and doing exercises at home. Numbness in neck is relieved for 2-3 days but then it comes back. Sleep is OK. Balance is a little wavy but is using quad cane 100% of time. Wants to hold on further therapy until after see doctor as dizzyness is pretty good. Objective/Function: 75 degree R rot c/s and 63 L with contrlateral pain. 60 degrees extension. Balance is +1 on the FGA. Getting around slow but safe even without cane today. Recommended he keep using it. Improved DHI but cannot recreate symptoms with head movements or activities of VOR today. - B hallpike laura. - roll test. SOB after steps adn 250 foot walk slightly. OVERALL BETTER, REASON FOR IMPROVEMENT NOT FULLY UNDERSTOOD PATIENT STARTED MEDS RIGHT AFTER STARTING THERAPY. APPROPRIATE TO COTNINUE FAIR PROGNOSIS. Plan Plan: 2x/week for 4 weeks per script for : 1. continue gentle adn wean STM neck. Ensure stretching of neck. Work on balance emphasizing vestibular inptu and head movoements. Lots of walking. Let therapist know if dizzyness returns. Emphasize SUZY of fucntional LE strength, balance with vestibular emphasis. Goals Goal 1:: FGA 25/30 to diminish fall risk. Goal Time Frame: 6-8 Weeks Goal Progress: Progressing Goal 2:: Patient feel dizzyness 75% improved adn <25% on DHI Goal Time Frame: 6-8 Weeks Goal Progress: yes on meds Goal 3:: Neck ROM symmetrical and no stiffness with retraction or L rotation. Goal Time Frame: 6-8 Weeks Goal Progress: Progressing Goal 4:: I approp HEp to minimize future problems. Goal Time Frame: 6-8 Weeks Goal Progress: Progressing Anticipated Interventions Patient/Client Instruction: Educate patient on: Condition, Plan of Care For the Purpose of:: To increase tolerance to activity/condition/position, To improve balance Therapeutic Exercise to Include: Strength training, Postural training, Flexibilty training, Passive ROM, Dynamic Lumbar Stabilization, Scapular Strength/Stabilization For the Purpose of:: To improve muscle performance and motor function, To increase tolerance to activity/condition/position, To improve balance Manual Therapy Techniques to Include: Mobilization, Soft tissue mobilization For the Purpose of:: To decrease pain, To improve nutrient delivery to tissue, To increase tolerance to activity/condition/position, To improve ability of physical actions for home/community/work/leisure Thermo therapy (hot pack): Yes For the Purpose of:: To improve nutrient delivery to tissue Please do not hesitate to contact me at [phone] by phone or if you have questions or concerns regarding this new plan of care! Sincerely, Jeffrey Bailon, DPT, OCS, CSCS
--- NOTE | 2019-03-29 18:23 | HP.PT.NRP ---
HP - Discharge Summary (1) - Patient Information BERTO DAVIS Jr. was seen in my office for initial evaluation on 12/04/18. The following Plan of Care was established for this patient: Initial Frequency: 2x /Week Initial Duration: 2 Months - Anticipated Interventions Patient/Client Instruction: Educate patient on: Condition, Plan of Care For the Purpose of:: To increase tolerance to activity/condition/position, To improve balance Therapeutic Exercise to Include: Strength training, Postural training, Flexibilty training, Passive ROM, Dynamic Lumbar Stabilization, Scapular Strength/Stabilization For the Purpose of:: To improve muscle performance and motor function, To increase tolerance to activity/condition/position, To improve balance Manual Therapy Techniques to Include: Mobilization, Soft tissue mobilization For the Purpose of:: To decrease pain, To improve nutrient delivery to tissue, To increase tolerance to activity/condition/position, To improve ability of physical actions for home/community/work/leisure Thermo therapy (hot pack): Yes For the Purpose of:: To improve nutrient delivery to tissue This patient was last seen in our office 02/01/19. Pertinent comments regarding their Physical therapy will appear below: Pt seen 15 visits in POC adn was 90% better at last recheck. He did not stay for his recheck after last visit. It has been over 6 weeks adn I iwll discontinue him at this time. At this point I will be discontinuing this patient from physical therapy. I would be happy to see this patient again in the future if found appropriate by the physician. Thank you! Jeffrey Bailon, DPT, OCS, CSCS
== END 2019-02-01 19:00 | disposition home or self-care (01) ==
LOC: PT 11:30
PROVIDERS: Family Provider Family Medicine Geriatric Medicine; PCP Family Medicine Geriatric Medicine; Referring Provider Psychiatry & Neurology Neurology; Visit Provider Psychiatry & Neurology Neurology
DX: M54.2 Cervicalgia (principal); R42 Dizziness and giddiness
CPT/HCPCS: 97110; 97140; 97162; 97530

== ENCOUNTER 2019-06-24 19:57 | Inpatient (IN) | payer MEDICARE, OTHER, SELFPAY ==
[2019-02-19 13:51] VITALS: BMI 35.2
[2019-06-24] VITALS (8 sets, daily range): BP systolic 96–187; BP diastolic 64–92; PULSE 92–107; RESP 12–18; TEMP 35.8–36.5; O2SAT 92–97; BMI 35.9; BMI 33.0; BMI 33.1
--- NOTE | 2019-06-24 20:01 | CT_ITS ---
STUDY: CT FACIAL BONES WITHOUT CONTRAST REASON FOR EXAM: Male, 74 years old. MULTIPLE FALLS RECENTLY, ALT LOC, BLACK EYE LT SIDE, LAST KNOWN WELL: YESTERDAY. RADIATION DOSAGE (If Supplied By Facility): CTDIvol = ( 29.38 ) mGy, DLP = ( 574.19 ) mGycm TECHNIQUE: The patient was scanned in a multi detector CT scanner. Sagittal and coronal images were reconstructed. Individualized dose optimization techniques were used for this CT. COMPARISON: None. FINDINGS: There is soft tissue swelling overlying the forehead and left eye. Normal orbital hyatt and orbital contents. Normal nasal bones and anterior nasal spine. Normal facial bones. There is no demonstrated fracture. Normal visualized paranasal sinuses. CT/Sinus/Facial Bone IMPRESSION: Soft tissue swelling overlying the forehead and left eye. No orbital hematoma. No facial fracture. Clear sinuses. Electronically Signed: Bentley Eisenberg, at 20:47 EDT Tel , Service support ,
--- NOTE | 2019-06-24 20:01 | CT_ITS ---
STUDY: CT BRAIN WITHOUT CONTRAST REASON FOR EXAM: Male, 74 years old. Fall. Stroke alert. RADIATION DOSAGE (If Supplied By Facility): CTDIvol = ( 44.99 ) mGy, DLP = ( 796.11 ) mGycm TECHNIQUE: Transaxial CT imaging of the brain was performed without administration of intravenous contrast material. Individualized dose optimization techniques were used for this CT. COMPARISON: 08/18/2018 FINDINGS: There are stable old infarcts in the right temporal and parietal lobes and right cerebellum. There is no acute bleed or infarct. There are stable chronic ischemic and atrophic changes. The ventricles are normal in configuration. There is no hydrocephalus. The visualized paranasal sinuses are clear. The mastoid air cells are well aerated. There is no skull fracture. CT/Brain/Head without Contrast IMPRESSION: 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 Stable chronic ischemic and atrophic changes. No acute intracranial abnormality. N.B. : The above information has been verbally conveyed by Bentley Eisenberg to Jose Lopez on 06/24/2019 20:28:12 (ET). Electronically Signed: Bentley Eisenberg, at 20:29 EDT Tel , Service support ,
--- NOTE | 2019-06-24 20:01 | EKG12_ITS ---
Test Reason : DYSRHYTHMIA Blood Pressure : / mmHG Vent. Rate : 104 BPM Atrial Rate : 104 BPM P-R Int : 264 ms QRS Dur : 144 ms QT Int : 380 ms P-R-T Axes : 000 -60 089 degrees QTc Int : 499 ms Sinus tachycardia with 1st degree A-V block Right bundle branch block Left anterior fascicular block Bifascicular block Consider Left ventricular hypertrophy Abnormal ECG Confirmed by LUCRECIA EWING, SAMUEL ([id number]), writer editor SYLVIA HACKETT ([id number]) on 06/26/2019 1:20:43 PM Referred By: Angel Mason Confirmed By:SAMUEL SINGER MD
--- NOTE | 2019-06-24 20:01 | CT_ITS ---
STUDY: CT CERVICAL SPINE WITHOUT CONTRAST REASON FOR EXAM: Male, 74 years old. Fall RADIATION DOSAGE (If Supplied By Facility): CTDIvol = ( 27.82 ) mGy, DLP = ( 602.78 ) mGycm TECHNIQUE: High resolution transaxial imaging was performed without contrast material. Sagittal and coronal images were reconstructed. Individualized dose optimization techniques were used for this CT. COMPARISON: None available. FINDINGS: There is no evidence of fracture or dislocation in the cervical spine. The dens is intact. There is straightening of the normal cervical lordosis which may be due to paraspinal muscle spasm or may be positional in nature. The vertebral body heights are well-maintained. There are mild multilevel degenerative changes with disc space narrowing, facet hypertrophy and anterior osteophytes. This is most pronounced at C6/C7. The visualized paraspinal soft tissues are within normal limits. CT/Spine Cervical without Contras IMPRESSION: No fracture or dislocation in the cervical spine. Mild degenerative change. Straightening of the normal cervical lordosis which may be due to paraspinal muscle spasm or may be positional in nature. Electronically Signed: Bentley Eisenberg, at 21:17 EDT Tel , Service support ,
--- NOTE | 2019-06-24 20:10 | RAD_ITS ---
STUDY: X-RAY CHEST REASON FOR EXAM: Male, 74 years old. Confusion. Fall. TECHNIQUE: Frontal view of the chest COMPARISON: 06/18/2018. FINDINGS: The lungs are clear. There are no pleural effusions. There is no pneumothorax. The heart is stable in size. The visualized osseous structures are within normal limits. RAD/Chest 1 View (Portable) IMPRESSION: No acute thoracic pathology. Electronically Signed: Bentley Eisenberg, at 20:42 EDT Tel , Service support ,
[2019-06-24 20:42] LABS: Bacteria 0 SEEN /hpf (None Seen); Mucous, Urine 0 SEEN /hpf (<or=2+); Red Blood Cells-Urine 0 SEEN /hpf (0-5); Squamous Epithelial Cells - UA 0 SEEN /hpf (0-5); White Blood Cells 0 SEEN /hpf (0-5)
[2019-06-24 20:47] LABS: Color, Urine Yellow (Yellow); Glucose, Dipstick 250 mg/dl (Normal); Ketone-Dipstick Negative (Negative); Leukocyte Esterase-Dipstick Negative /ul (Negative); Nitrite-Dipstick Negative (Negative); Occult Blood-Urine Negative /ul (Negative); Protein-Dipstick Negative (Negative); Urine Bilirubin Dipstick Negative (Negative); Urine Clarity Clear (Clear); Urine Urobilinogen Normal (Normal)
[2019-06-24 20:58] LABS: Prothrombin Time (Protime)PT. 12.9 SECONDS (11.7-14.9)
[2019-06-24 20:59] LABS: Absolute Lymphocyte Count 0.98 X10^3/uL (0.83-4.51); Basophil# 0.01 X10^3/uL; Basophil% 0.1 % (0-1); Hematocrit 44.6 % (40-54); Hemoglobin 14.9 g/dL (13.0-16.5); Lymphocyte # 0.98 X10^3/ul (4.0); Lymphocyte % 13.4 % (19-41); Mean Corp Hgb Conc 33.4 g/dL (32-36); Mean Corpuscular Hgb 30.5 pg (27.0-32.0); Mean Corpuscular Volume 91.4 fL (80-94); Monocyte# 0.23 X10^3/uL; Monocyte% 3.2 % (0-10); NRBC Flagged by Analyzer 0 % (0-5); Neutrophil # 6.03 X10^3/uL (2.7-7.7); Neutrophil % 82.6 % (47-70); Partial Thromboplast Time 26.9 Seconds (24.1-36.2); Platelet Count 202 K/mm3 (150-450); RBC Distribution Width CV 12.1 % (11.6-14.6); RBC Distribution Width SD 40.6 fl (35.1-43.9); Red Blood Count 4.88 M/mm3 (4.6-6.2); White Blood Count 7.3 K/mm3 (4.4-11.0)
[2019-06-24 21:12] LABS: Alcohol, Blood (Medical)-Serum < 3.0 mg/dL
[2019-06-24 21:13] LABS: ALB/GLOB Ratio 0.9 RATIO (0.9-2.4); AST(SGOT) 21 U/L (15-37); Alanine Aminotransfer ALT/SGPT 32 U/L (16-61); Albumin, Serum 3.6 g/dL (3.2-5.0); Alkaline Phosphatase 60 U/L (45-117); Anion Gap 8 (5-15); BUN 41 mg/dL (7-18); BUN/Creat Ratio 27.5 RATIO (10-20); Calcium,Total 9.1 mg/dL (8.5-10.1); Chloride 108 mmol/L (98-107); Creatinine, Serum 1.49 mg/dL (0.70-1.30); EST Glomerular Filtration Rate 49 mL/min (>60); Est Glom Filt Rate - Afr Amer 59 mL/min (>60); Estimated Creatinine Clearance 45.59 ml/min; Globulin 3.8 g/dL (2.2-4.2); Glucose 300 mg/dL (74-106); Protein, Total 7.4 g/dL (6.4-8.2); Sodium Level 135 mmol/L (136-145); Thyroid Stim Hormone (TSH) 0.17 uIU/mL (0.358-3.74)
[2019-06-24 21:22] LABS: Amphetamine Urine VISTA NEGATIVE (<1000 ng/mL); Barbiturate Urine VISTA NEGATIVE (< 200 ng/mL); Benzodiazepine Urine VISTA NEGATIVE (< 200 ng/mL); Cocaine Urine VISTA NEGATIVE (< 300 ng/mL); Ecstacy Urine VISTA NEGATIVE (< 500 ng/mL); Methadone Urine VISTA NEGATIVE (< 300 ng/mL); PCP Urine VISTA NEGATIVE (< 25 ng/mL); THC Urine VISTA NEGATIVE (< 50 ng/mL); Vista UDS pH Range 6
--- NOTE | 2019-06-24 21:35 | PCM.HP.STD ---
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 (9) Right bundle branch block Status: Chronic (10) Bifascicular block Status: Chronic (11) Atrial septal defect Status: Chronic (12) CVA (cerebral vascular accident) Status: Chronic (13) TIA (transient ischemic attack) Status: Chronic (14) Diabetes mellitus, type II Status: Chronic Comment: for at least 20 years (15) CRYSTAL (obstructive sleep apnea) Status: Chronic (16) HTN (hypertension) Status: Chronic (17) Hyperlipidemia Status: Chronic History of Present Illness Date of Admission: 06/24/19 Chief Complaint: altered mental status The patient is a 74 year old M with a significant history of diabetes mellitus; hypertension; hyperlipidemia and TIA who presents emergency department with altered mental status that started on the same day of presentation. Associated for symptoms is weakness. Patient fell twice a day before presentation and twice on the same day of presentation. History was taken from emergency department doctor and patient daughter since patient is confused. Per daughter patient's is weak. His legs buckled up and he fall. Patient has visual hallucination. Patient was noted to be dozing off and waving in his hand in the air. Emergent department doctor and imaging department nurse reported akathisia-like symptoms with patient picking up things whiles at emergency department. Patient has had back pain for about a week. He saw his PCP Dr. Figueroa who started patient on prednisone; baclofen; naproxen and gabapentin. His follow medications were started a day before presentation. Brain CT showed stable old infarcts. CT facial bones without contrast showed soft tissue swelling overlying the forehead and left eye. Past Medical History Past Medical History (Chronic Problems): Chronic Problems (Last Reviewed 06/24/19 @ 22:[address] 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) Right bundle branch block (Chronic) Bifascicular block (Chronic) Atrial septal defect (Chronic) CVA (cerebral vascular accident) (Chronic ~07/2006) TIA (transient ischemic attack) (Chronic ~10/2013) Diabetes mellitus, type II (Chronic) for at least 20 years CRYSTAL (obstructive sleep apnea) (Chronic) HTN (hypertension) (Chronic) Hyperlipidemia (Chronic) Medical History: Medical History (Last Reviewed 06/24/19 @ 22:[address] Angel Mason MD) Anterolisthesis (Chronic) M43.10 L5 on S1 DDD (degenerative disc disease), lumbar (Chronic) M51.36 Deep vein thrombophlebitis of right leg (Chronic) I80.201 Right bundle branch block (Chronic) I45.10 Bifascicular block (Chronic) I45.2 Atrial septal defect (Chronic) Q21.1 CVA (cerebral vascular accident) (Chronic) Onset Date: ~07/2006 I63.9 TIA (transient ischemic attack) (Chronic) Onset Date: ~10/2013 G45.9 Diabetes mellitus, type II (Chronic) E11.9 for at least 20 years CRYSTAL (obstructive sleep apnea) (Chronic) G47.33 HTN (hypertension) (Chronic) I10 Hyperlipidemia (Chronic) E78.5 Migraines G43.909 Syncope and collapse R55 x2 episodes in October 2013 Depression F32.9 Allergies Sulfa (Sulfonamide Antibiotics) Allergy (Verified 06/24/19 20:07) Hives Home Medications: Ambulatory Orders Medication Instructions Recorded Clopidogrel Bisulfate [Plavix] 75 mg PO DAILY 12/21/13 atorvastatin 80 mg tablet 80 mg PO QHS tab 06/22/17 diltiazem HCl 240 mg 240 mg PO QDAY cap 06/22/17 capsule,extended release 24 hr metformin 1,000 mg tablet 1,000 mg PO BID 06/22/17 albuterol sulfate 90 mcg/actuation 1 puff INHALATION Q6H PRN 01/23/18 aerosol inhaler glimepiride 4 mg tablet 4 mg PO QDAY tab 01/23/18 lisinopril 40 mg tablet 40 mg PO DAILY 01/23/18 furosemide 20 mg tablet 20 mg PO DAILY #90 tab 07/27/18 Baclofen 10 mg PO QHS PRN PRN 08/18/18 Diclofenac [Voltaren] 50 mg PO BIDCM 08/18/18 meclizine 25 mg tablet 25 mg PO .qid PRN tab 02/19/19 Surgical History: Surgical History (Last Reviewed 06/24/19 @ 22:[address] Angel Mason MD) Hx of local excision of skin lesion Z98.890 from chest 2014 Surgical History: - - Skin CA removal on chest. Psychiatric History: No pertinent psych hx Smoking Status: Unknown if ever smoked - *Family History Maternal Family History: Family History (Last Reviewed 06/24/19 @ 22:[address] Agnel Mason MD) Mother Hypertension History Items: Hypertension Paternal Family History: Family History (Last Reviewed 06/24/19 @ 22:[address] Angel Mason MD) Mother Hypertension History Items: - - of an aneurysm Review of Systems Constitutional: Reports: Weakness. Denies: Chills, Fever, Weight Change HEENT: Denies: Head Aches, Sinus Congestion, Sinus Drainage Cardiovascular: Denies: Chest Pain, Palpitations Respiratory: Denies: Cough, Shortness of breath at rest, Sputum production Gastrointestinal: Denies: Abdominal Pain, Nausea, Vomiting Genitourinary: Denies: Dysuria Musculoskeletal: Denies: Joint Pain, Joint Tenderness Skin: Denies: Rash, Wounds Neurological: Reports: Confusion. Denies: Focal weakness, Numbness, Tingling Psychiatric: Denies: Anxiety, Depression, Homicidal Ideations, Suicidal Ideations Hematologic/ Lymphatic: Denies: Easy Bruising, Easy Bleeding VTE Information - Inpt Only VTE Present on Admission: No VTE Mechan Device Prophylaxis: None VTE Pharm Prophylaxis ordered?: Yes Patient Problems: Active and Suspected Problems (Last Reviewed 06/24/19 @ 22:[address] Angel Mason MD) Encephalopathy acute (Acute) - Physical Exam Vitals/I&O's: Vital Signs Temp Pulse Resp BP Pulse Ox 97.7 F L 96 12 103/68 93 06/24/19 19:59 06/24/19 21:28 06/24/19 21:28 06/24/19 21:28 06/24/19 21:28 Oxygen Flow Rate (L/min) 2 Oxygen Delivery Method Room Air Weight: 113.4 kg Body Mass Index (BMI) 35.9 Finger Stick Blood Glucose 298 Intake and Output for Last 24 Hours 06/22/19 06/23/19 06/24/19 23:59 23:59 23:59 Intake Total 500 / 500 Balance 500 / 500 General: Alert, Confused HEENT: Normocephalic, - - Swelling of left forehead and alek-orbital ecchymosis of the left eye. Neck: Supple, Trachea Midline Lungs: Clear to auscultation, Normal air movement, No rhonchi, No wheeze, No rales Cardiovascular: Regular rate, Regular Rhythm, Normal S1, Normal S2, No murmurs Abdomen: Bowel Sounds Present, Soft, Non Tender Extremities: No edema, Capillary Refill Less than 3 Seconds Skin: No rashes, No breakdown Musculoskeletal: No Tenderness to Palpation of Joints or Extremities Neurological: Cranial nerves II-XII grossly intact Psych/Mental Status: Normal Affect, Appropriate Laboratory Results 06/24/19 20:35: WBC 7.3, RBC 4.88, Hgb 14.9, Hct 44.6, MCV 91.4, MCH 30.5, MCHC 33.4, RDW Std Deviation 40.6, RDW Coeff of Blanco 12.1, Plt Count 202, MPV 11.0, Immature Gran % (Auto) 0.700, Neut % (Auto) 82.6 H, Lymph % (Auto) 13.4 L, Guthrie % (Auto) 3.2, Eos % (Auto) 0.0, Baso % (Auto) 0.1, Absolute Neuts (auto) 6.0, Absolute Lymphs (auto) 0.98, Nucleated RBC % 0 06/24/19 20:35: PT 12.9, INR 1.0, APTT 26.9 06/24/19 20:35: Sodium 135 L, Potassium 5.0, Chloride 108 H, Carbon Dioxide 19.0 L, Anion Gap 8, BUN 41 H, Creatinine 1.49 H, Estim Creat Clear Calc 45.59, Est GFR (MDRD) Af Amer 59 L, Est GFR (MDRD) Non-Af 49 L, BUN/Creatinine Ratio 27.5 H, Glucose 300 H, Calcium 9.1, Total Bilirubin 0.60, AST 21, ALT 32, Alkaline Phosphatase 60, Troponin I < 0.015, Total Protein 7.4, Albumin 3.6, Globulin 3.8, Albumin/Globulin Ratio 0.9, TSH 0.17 L 06/24/19 20:35: Ethyl Alcohol < 3.0 06/24/19 20:35: Urine Opiates Screen NEGATIVE, Urine Methadone Screen NEGATIVE, Ur Barbiturates Screen NEGATIVE, Ur Phencyclidine Scrn NEGATIVE, Ur Amphetamines Screen NEGATIVE, U Methamphetamin-MDMA NEGATIVE, U Benzodiazepines Scrn NEGATIVE, Urine Cocaine Screen NEGATIVE, U Cannabinoids Screen NEGATIVE, Ur Drug Screen Comment 06/24/19 20:35: Urine Color Yellow, Urine Clarity Clear, Urine pH 5.0, Ur Specific [place] 1.010, Urine Protein Negative, Urine Glucose (UA) 250 H, Urine Ketones Negative, Urine Occult Blood Negative, Urine Nitrite Negative, Urine Bilirubin Negative, Urine Urobilinogen Normal, Ur Leukocyte Esterase Negative, Urine RBC 0 SEEN, Urine WBC 0 SEEN, Ur Squamous Epith Cells 0 SEEN, Urine Bacteria 0 SEEN, Urine Mucus 0 SEEN Assessment/Plan All Active Problems (Last Reviewed 06/24/19 @ 22:[address] Angel Mason MD) Encephalopathy acute (Acute) The patient is a 74 year old M with a significant history of diabetes mellitus; hypertension; hyperlipidemia and TIA who presents at the emergency department with altered mental status; weakness; and multiple falls in the setting of being started on new medication for back pain. Acute encephalopathy Likely from new medication started for back pain. Hold prednisone; baclofen; and gabapentin. His TSH was low. We will get a T4 level. SIOMARA On presentation his creatinine was 1.49. Review of old records shows a creatinine baseline around 1.09-1.24. Urine over creatinine is 27.5. Likely prerenal. IV hydration. Avoid nephrotoxins. Hold JENNIFER inhibitor's and NSAIDs. Hold home Lasix. Trend BMP. Diabetes mellitus with hyperglycemia on presentation: Blood glucose on presentation was 300. Hold home metformin since it is too early in his admission. Continue glimepiride if patient is still taking. Accu-Cheks QACHS with correction scale insulin. Generalized weakness After encephalopathy resolved consider PT OT consult for further evaluation and training. Swelling of left forehead; and left periorbital area swelling and ecchymosis Likely from fall. Ice to affected area Hypertension Patient with some normal to low normal blood pressures. Hold home lisinopril. And of note the patient is an SIOMARA. Hold home Cardizem. Trend blood pressures. Resume blood pressure medication when necessary. DVT prophylaxis Subcutaneous Lovenox Inpatient E&M: 29862 Init Hosp L3
--- NOTE | 2019-06-24 21:57 | ED.VISSUMM ---
- ER Visit Summary Date of Service: 06/24/19 Chief Complaint: Altered mental status History of Present Illness: The patient is a 74 M who presents by EMS for altered mental status and possible stroke. Patient had difficulty providing history because he was confused and hard of hearing, so it was obtained from EMS and from his daughter Catherine. It sounds like the patient fell twice yesterday. He hit his left eye and has a black eye. He had been complaining of back pain and was prescribed baclofen, gabapentin, naproxen, and prednisone. Today, he fell again. At one point his legs gave out. He was also confused today. Family thought he might of had some slurred speech. He was hallucinating. They called his primary doctor who advised stopping his new medicines and following up tomorrow, but he fell again. EMS noted that he had incoordination with his bilateral upper extremities, and so they were concerned for stroke. His blood glucose was normal. Physical Examination: Afebrile and vital signs unremarkable except for heart rate of 107. Patient is oriented to person only. HEENT exam is unremarkable except for left eye ecchymosis. Neck is nontender. Heart regular. Lungs clear. Abdomen soft. Extremities nontender with no edema. Skin otherwise unremarkable. Cranial nerves grossly intact. Normal strength and sensation. He is incoordinated with his upper extremities on the cerebellar testing. This is bilateral. He is also picking at things like his IV. His speech is otherwise unremarkable without dysarthria. Nursing noted that he was restless and tapping his feet, but I did not appreciate this on my exam. Test Results: EKG showed sinus rhythm at a rate of 104 with first-degree AV block, right bundle branch block and left anterior fascicular block pattern. No signs of acute ischemia or infarction pattern. Chest x-ray showed nothing acute. CT brain showed old and stable infarcts with nothing acute. CT cervical spine and face showed soft tissue swelling over his forehead and left eye but otherwise unremarkable for anything acute. CBC unremarkable. Sodium 135, chloride 108. Glucose 300, BUN 41, creatinine 1.49. Hepatic panel and coags unremarkable. Urinalysis unremarkable. Troponin normal. TSH 0.17. Alcohol negative. Tox negative. Emergency Department Course and Treatment: I did not activate a stroke team. The patient did not have any focal neurologic abnormalities. It was unclear when his symptoms started today and if they started suddenly. He has more of a delirium presentation and restlessness/akathisia. He was placed on the monitor. Eldridge catheter was obtained to monitor output. Work-up as above was all fairly unremarkable. TSH was low, he is hyperglycemic, but otherwise everything looks chronic. He is not having any other symptoms or complaints. He is resting comfortably on reevaluation. Patient will need further inpatient evaluation and hospitalist was contacted. Treatment Plan: As above Disposition: PCU Impression: Delirium Frequent falls Facial contusion This note was generated with [employer] dictation software. It may contain incorrect words, spelling, and punctuation that were not noted in review of the chart prior to signing
[2019-06-24 22:58] LABS: T4 Free Direct 1.18 ng/dL (0.76-1.46)
[2019-06-24] MEDS: 0.9% Normal Saline 1,000 ML 75 ML IV (23:15)
[2019-06-24 23:26] LABS: Bedside Glucose 186 mg/dL (70-110)
[2019-06-24] MEDS: Insulin Lispro 100 UNIT/ML INSULN.PEN SC (23:31)
[2019-06-25] VITALS (13 sets, daily range): BP systolic 122–139; BP diastolic 55–73; PULSE 47–81; RESP 16–20; TEMP 36.4–36.8; O2SAT 96–97
[2019-06-25 06:21] LABS: Absolute Lymphocyte Count 2.43 X10^3/uL (0.83-4.51); Absolute Neutrophil Count 7.8 X10^3/uL (2.0-7.7); Basophil# 0.03 X10^3/uL; Basophil% 0.3 % (0-1); Eosinophils% 0.9 % (0-5); Hematocrit 43.9 % (40-54); Hemoglobin 14.5 g/dL (13.0-16.5); Lymphocyte # 2.43 X10^3/ul (4.0); Mean Corpuscular Hgb 30.5 pg (27.0-32.0); Mean Corpuscular Volume 92.2 fL (80-94); Mean Platelet Vol. 11.3 fl (6.2-12.0); Monocyte# 1.11 X10^3/uL; Monocyte% 9.6 % (0-10); NRBC Flagged by Analyzer 0 % (0-5); Neutrophil # 7.81 X10^3/uL (2.7-7.7); Neutrophil % 67.5 % (47-70); Platelet Count 178 K/mm3 (150-450); RBC Distribution Width CV 12.6 % (11.6-14.6); RBC Distribution Width SD 42.5 fl (35.1-43.9); Red Blood Count 4.76 M/mm3 (4.6-6.2); White Blood Count 11.6 K/mm3 (4.4-11.0)
[2019-06-25 06:41] LABS: Anion Gap 8 (5-15); BUN 34 mg/dL (7-18); BUN/Creat Ratio 26.8 RATIO (10-20); Calcium,Total 8.8 mg/dL (8.5-10.1); Chloride 113 mmol/L (98-107); Creatinine, Serum 1.27 mg/dL (0.70-1.30); EST Glomerular Filtration Rate 59 mL/min (>60); Est Glom Filt Rate - Afr Amer 71 mL/min (>60); Estimated Creatinine Clearance 55.17 ml/min; Glucose 113 mg/dL (74-106); Potassium 4.6 mmol/L (3.5-5.1); Sodium Level 140 mmol/L (136-145)
[2019-06-25 06:55] LABS: Bedside Glucose 99 mg/dL (70-110)
[2019-06-25] MEDS: Nystatin Powder 15gm Bottle 1 APPLIC TOPICAL ×2 (09:24→21:44)
[2019-06-25] MEDS: Clopidogrel Bisulfate 75 MG Tablet PO (09:25)
[2019-06-25] MEDS: Glimepiride 4 MG Tablet PO (09:25)
--- NOTE | 2019-06-25 11:18 | CASEMGMT ---
RN CM assessment: Call to for initial transition planning/care coordination assessment as pt has a GCS of 14 at this time. RN CM introduced self and role at [facility], voices and consents to assessment via phone at this time. answers all questions appropriately at this time. Care providers, pharmacy, and demographics verified at this time. Presentation: To [facility] ED via EMS for frequents falls and confusion Admitting dx: Acute encephalopathy PCP: Henry Specialists: Lawrence, neuro for vertigo Preferred Pharmacy: [facility] Insurance: MCR A/B, [employer] Prescription Benefit: [employer] LNOK: Tameka Kiser, edson Living Arrangements: Per , pt is normally A/Ox4 and able to care for self at home but states that pt has had falls for the last week or so and pt has refused to shower or change clothing. states that pt was scared to shower d/t vertigo and risk for fall but she is not sure why pt would not change clothing. states pt has no hx of dementia. states they live in 1 story home with ramp entrance and she has been assisting with ADL's since last tuesday. Transportation: states that she drives pt and states no transportation concerns at this time. DME/HHC: states that pt has a cane, walker, w/c and bench in shower/tub. states no need for any further DME at this time. states no hx of HHC or SNF in the past but states pt has had OP therapy set up in the past at [facility]. does state concerns with pt coming home at discharge d/t freq falls and states 'I can't get him up.' This RN CM discussed options at discharge, including but not limited to: SNF, Home w/ HHC, or OP therapy. states that she would like to speak with other family at this time and and then call this RN CM back. Therapy has not evaluated pt yet at this time. Per , pt is retired and does chew tobacco throughout the day, but pt does not drink ETOH. Per , she has no further questions/concerns/needs at this time. CM to follow for PT/OT evals and for any further discharge planning/needs. Advised to call this RN CM for any further questions/concerns/needs, voices understanding. Plan: TBD [place] RN CM
--- NOTE | 2019-06-25 11:19 | PN_ITS ---
Patient Problems: Active and Suspected Problems (Last Reviewed 06/24/19 @ 22:[address] Angel Mason MD) Encephalopathy acute (Acute) Reason for Visit: Altered mental status on top of mild dementia Objective: Patient is admitted with confusion, altered mental status and recurrent fall, 4 times in the last 2 days prior to admission. Currently, patient is alert, awake and oriented x3. Patient has retrograde amnesia and forgot the name of current year and has hard time to recall. Patient still independent on activities of daily living but he does not do grocery, finances care independently with for the same. Patient has history of chronic dizziness and disequilibrium and was on Antivert at one time recently. Patient further said, his knees gave out on walking and was the reason for fall but not dizziness this time. As per H&P, patient was also noted to be dozing off and waving his hand in the air and visual hallucinations Vitals/I&O's: Vital Signs Temp Pulse Resp BP Pulse Ox 98 F 70 18 122/73 H 96 06/25/19 09:21 06/25/19 09:21 06/25/19 09:21 06/25/19 09:21 06/25/19 09:21 Oxygen Flow Rate (L/min) 2 Oxygen Delivery Method Room Air Weight: 240 lb 11.916 oz Body Mass Index (BMI) 33.0 Finger Stick Blood Glucose 298 Intake and Output for Last 24 Hours 06/23/19 06/24/19 06/25/19 23:59 23:59 23:59 Intake Total 500 / 500 120 / 120 Output Total 1500 / 1500 Balance 500 / -200 -1380 / -1380 General: Alert, Oriented x3, Cooperative HEENT: Atraumatic, PERRLA, EOMI, Normocephalic Oral: No Gingival or Mucosal Lesions/ Ulcerations, Dry Mucosa Neck: Supple, No JVD, Negative Carotid Bruits Lungs: Clear to auscultation, Normal air movement, No rhonchi, No wheeze, No rales Cardiovascular: Regular rate, Regular Rhythm, Normal S1, Normal S2, No murmurs Abdomen: Bowel Sounds Present, Soft, Non Tender, Non-Distended Extremities: No edema, Capillary Refill Less than 3 Seconds Skin: No rashes, No breakdown Musculoskeletal: No Tenderness to Palpation of Joints or Extremities, Arthritic Changes Neurological: Cranial nerves II-XII grossly intact, Deep Tendon Reflexes 2+/4 and Symmetrical, Neuro grossly intact, Motor Exam 5/5 strength throughout Psych/Mental Status: Restless Laboratory Results 06/24/19 20:35: WBC 7.3, RBC 4.88, Hgb 14.9, Hct 44.6, MCV 91.4, MCH 30.5, MCHC 33.4, RDW Std Deviation 40.6, RDW Coeff of Blanco 12.1, Plt Count 202, MPV 11.0, Immature Gran % (Auto) 0.700, Neut % (Auto) 82.6 H, Lymph % (Auto) 13.4 L, Mower % (Auto) 3.2, Eos % (Auto) 0.0, Baso % (Auto) 0.1, Absolute Neuts (auto) 6.0, Absolute Lymphs (auto) 0.98, Nucleated RBC % 0 06/24/19 20:35: PT 12.9, INR 1.0, APTT 26.9 06/24/19 20:35: Sodium 135 L, Potassium 5.0, Chloride 108 H, Carbon Dioxide 19.0 L, Anion Gap 8, BUN 41 H, Creatinine 1.49 H, Estim Creat Clear Calc 45.59, Est GFR (MDRD) Af Amer 59 L, Est GFR (MDRD) Non-Af 49 L, BUN/Creatinine Ratio 27.5 H , Glucose 300 H, Calcium 9.1, Total Bilirubin 0.60, AST 21, ALT 32, Alkaline Phosphatase 60, Troponin I < 0.015, Total Protein 7.4, Albumin 3.6, Globulin 3.8, Albumin/Globulin Ratio 0.9, TSH 0.17 L 06/24/19 20:35: Ethyl Alcohol < 3.0 06/24/19 20:35: Urine Opiates Screen NEGATIVE, Urine Methadone Screen NEGATIVE, Ur Barbiturates Screen NEGATIVE, Ur Phencyclidine Scrn NEGATIVE, Ur Amphetamines Screen NEGATIVE, U Methamphetamin-MDMA NEGATIVE, U Benzodiazepines Scrn NEGATIVE, Urine Cocaine Screen NEGATIVE, U Cannabinoids Screen NEGATIVE, Ur Drug Screen Comment 06/24/19 20:35: Urine Color Yellow, Urine Clarity Clear, Urine pH 5.0, Ur Specific Falkner 1.010, Urine Protein Negative, Urine Glucose (UA) 250 H, Urine Ketones Negative, Urine Occult Blood Negative, Urine Nitrite Negative, Urine Bilirubin Negative, Urine Urobilinogen Normal, Ur Leukocyte Esterase Negative, Urine RBC 0 SEEN, Urine WBC 0 SEEN, Ur Squamous Epith Cells 0 SEEN, Urine Bacteria 0 SEEN, Urine Mucus 0 SEEN 06/24/19 20:35: Free T4 1.18 06/24/19 23:18: POC Glucose 186 H 06/25/19 06:10: WBC 11.6 H, RBC 4.76, Hgb 14.5, Hct 43.9, MCV 92.2, MCH 30.5, MCHC 33.0, RDW Std Deviation 42.5, RDW Coeff of Blanco 12.6, Plt Count 178, MPV 11.3, Immature Gran % (Auto) 0.700, Neut % (Auto) 67.5, Lymph % (Auto) 21.0, Mower % (Auto) 9.6, Eos % (Auto) 0.9, Baso % (Auto) 0.3, Absolute Neuts (auto) 7.8 H, Absolute Lymphs (auto) 2.43, Nucleated RBC % 0 06/25/19 06:10: Sodium 140, Potassium 4.6, Chloride 113 H, Carbon Dioxide 19.0 L , Anion Gap 8, BUN 34 H, Creatinine 1.27, Estim Creat Clear Calc 55.17, Est GFR (MDRD) Af Amer 71, Est GFR (MDRD) Non-Af 59 L, BUN/Creatinine Ratio 26.8 H, Glucose 113 H, Calcium 8.8 06/25/19 06:41: POC Glucose 99 Current Medications Acetaminophen (Tylenol) 650 mg PO Q6H PRN PRN PRN Reason: Pain Score 1-10/Temp > 100.7 F Atorvastatin Calcium (Lipitor) 80 mg PO QHS [facility] Clopidogrel Bisulfate (Plavix) 75 mg PO DAILY [facility] Last Admin: 06/25/19 09:25 Dose: 75 mg Documented by: Dextrose (D50w Syringe) 0 gm IV X1 PRN; Protocol PRN Reason: Hypoglycemia [facility] Last Admin: 06/25/19 09:25 Dose: 4 mg Documented by: Glucagon () 1 mg IM .X1 PRN PRN Reason: Hypoglycemia Sodium Chloride () 1,000 mls @ 75 mls/hr IV .[id number] [facility] Last Admin: 06/24/19 23:15 Dose: 75 mls/hr Documented by: Insulin Human Lispro (Humalog Kwikpen (Bkc)) 0 unit SC ACHS [facility]; Protocol Last Admin: 06/25/19 07:35 Dose: Not Given Documented by: Nystatin (Mycostatin Powder) 1 applic TOPICAL BID [facility]; Protocol Last Admin: 06/25/19 09:24 Dose: 1 applicatio Documented by: Ondansetron HCl (Zofran) 4 mg IV Q8H PRN PRN PRN Reason: NAUSEA/VOMITING Sodium Chloride () 10 - 40 ml IV UD PRN PRN Reason: SALINE FLUSH STROKE Vital Signs/Narrative: Vital Signs Temp Pulse Resp BP Pulse Ox 06/25/19 09:21 98 F 70 18 122/73 H 96 06/25/19 08:32 96 Medical Necessity - Tobacco Use Smoking Status: Unknown if ever smoked Assessment/Plan All Active Problems (Last Reviewed 06/24/19 @ 22:[address] Angel Mason MD) Encephalopathy acute (Acute) The patient is a 74 year old M with a significant history of diabetes mellitus; hypertension; hyperlipidemia and TIA who presents at the emergency department with altered mental status; weakness; and multiple falls in the setting of being started on new medication for back pain. 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 No acute change. No enlargement of ventricles. Hold prednisone, baclofen and gabapentin. I think acute encephalopathy is resolved. U tox negative and alcohol level normal SIOMARA on CKD stage III: Patient baseline creatinine is about 1.0-1.24. Elevated with 1.49. It got better 1.27 with IV fluid. Likely prerenal. IV hydration. Avoid nephrotoxins. Hold JENNIFER inhibitor's and NSAIDs. Hold home Lasix. Trend BMP. UA is negative. Diabetes mellitus with hyperglycemia on presentation: Blood glucose on presentation was 300. Blood sugar is controlled. Is between 100 to 150 mg/dL. Hold metformin. Continue glimepiride. Accu-Cheks QACHS with correction sliding scale insulin. Generalized weakness: PT and OT ordered. Swelling of left forehead; and left periorbital area swelling and ecchymosis patient fell down from toilet seat forward and hit the sidewall. Conservative management. Hypertension: Admitted with low normal blood pressure 103/68, 96/64. Currently 123/73. Hold home lisinopril. Hold home Cardizem. Heart rate is 70/min DVT prophylaxis Subcutaneous Lovenox Subclinical hyperthyroidism: TSH low 0.17. Free T4 normal 1.18. Repeat thyroid function test in 6 weeks as an outpatient. Laboratory Results 06/24/19 20:35: WBC 7.3, RBC 4.88, Hgb 14.9, Hct 44.6, MCV 91.4, MCH 30.5, MCHC 33.4, RDW Std Deviation 40.6, RDW Coeff of Blanco 12.1, Plt Count 202, MPV 11.0, Immature Gran % (Auto) 0.700, Neut % (Auto) 82.6 H, Lymph % (Auto) 13.4 L, Mower % (Auto) 3.2, Eos % (Auto) 0.0, Baso % (Auto) 0.1, Absolute Neuts (auto) 6.0, Absolute Lymphs (auto) 0.98, Nucleated RBC % 0 06/24/19 20:35: PT 12.9, INR 1.0, APTT 26.9 06/24/19 20:35: Sodium 135 L, Potassium 5.0, Chloride 108 H, Carbon Dioxide 19.0 L, Anion Gap 8, BUN 41 H, Creatinine 1.49 H, Estim Creat Clear Calc 45.59, Est GFR (MDRD) Af Amer 59 L, Est GFR (MDRD) Non-Af 49 L, BUN/Creatinine Ratio 27.5 H , Glucose 300 H, Calcium 9.1, Total Bilirubin 0.60, AST 21, ALT 32, Alkaline Ph osphatase 60, Troponin I < 0.015, Total Protein 7.4, Albumin 3.6, Globulin 3.8, Albumin/Globulin Ratio 0.9, TSH 0.17 L 06/24/19 20:35: Ethyl Alcohol < 3.0 06/24/19 20:35: Urine Opiates Screen NEGATIVE, Urine Methadone Screen NEGATIVE, Ur Barbiturates Screen NEGATIVE, Ur Phencyclidine Scrn NEGATIVE, Ur Amphetamines Screen NEGATIVE, U Methamphetamin-MDMA NEGATIVE, U Benzodiazepines Scrn NEGATIVE, Urine Cocaine Screen NEGATIVE, U Cannabinoids Screen NEGATIVE, Ur Drug Screen Comment 06/24/19 20:35: Urine Color Yellow, Urine Clarity Clear, Urine pH 5.0, Ur Specific Falkner 1.010, Urine Protein Negative, Urine Glucose (UA) 250 H, Urine Ketones Negative, Urine Occult Blood Negative, Urine Nitrite Negative, Urine Bilirubin Negative, Urine Urobilinogen Normal, Ur Leukocyte Esterase Negative, Urine RBC 0 SEEN, Urine WBC 0 SEEN, Ur Squamous Epith Cells 0 SEEN, Urine Bacteria 0 SEEN, Urine Mucus 0 SEEN 06/24/19 20:35: Free T4 1.18 06/24/19 23:18: POC Glucose 186 H 06/25/19 06:10: WBC 11.6 H, RBC 4.76, Hgb 14.5, Hct 43.9, MCV 92.2, MCH 30.5, MCHC 33.0, RDW Std Deviation 42.5, RDW Coeff of Blanco 12.6, Plt Count 178, MPV 11.3, Immature Gran % (Auto) 0.700, Neut % (Auto) 67.5, Lymph % (Auto) 21.0, Mower % (Auto) 9.6, Eos % (Auto) 0.9, Baso % (Auto) 0.3, Absolute Neuts (auto) 7.8 H, Absolute Lymphs (auto) 2.43, Nucleated RBC % 0 06/25/19 06:10: Sodium 140, Potassium 4.6, Chloride 113 H, Carbon Dioxide 19.0 L , Anion Gap 8, BUN 34 H, Creatinine 1.27, Estim Creat Clear Calc 55.17, Est GFR (MDRD) Af Amer 71, Est GFR (MDRD) Non-Af 59 L, BUN/Creatinine Ratio 26.8 H, Glucose 113 H, Calcium 8.8 06/25/19 06:41: POC Glucose 99 06/25/19 11:34: POC Glucose 147 H Clinical Impression(s) from Imaging Studies Brain CT 06/24/19 20:01 IMPRESSION: 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 Stable chronic ischemic and atrophic changes. No acute intracranial abnormality. Cervical Spine CT 06/24/19 20:01 IMPRESSION: No fracture or dislocation in the cervical spine. Mild degenerative change. Straightening of the normal cervical lordosis which may be due to paraspinal muscle spasm or may be positional in nature. Electronically Signed: Bentley Eisenberg, at 21:17 EDT Tel , Service support , Facial/Sinus 06/24/19 20:01 IMPRESSION: Soft tissue swelling overlying the forehead and left eye. No orbital hematoma. No facial fracture. Clear sinuses. Electronically Signed: Bentley Eisenberg, at 20:47 EDT Tel , Service support , Chest X-Ray 06/24/19 20:10 IMPRESSION: No acute thoracic pathology. Inpatient E&M: 16343 Subs Hosp L2
[2019-06-25] MEDS: 0.9% Normal Saline 1,000 ML 75 ML IV (11:36)
[2019-06-25 11:45] LABS: Bedside Glucose 147 mg/dL (70-110)
--- NOTE | 2019-06-25 14:26 | CASEMGMT ---
Patient's called RN TAMIKO and left her a voice mail indicating they would like patient to go to a assisted. SW called patient's back and went over assisted list with her. Her choices were [facility] and [facility]. WENDY told her SW will reach out to these facilities and SW will be in touch. She asked if there was anyway one of them can come into the hospital to talk with him and explain why they want him to go to a assisted. WENDY told her due to COVID no visitors are allowed. SW told her she can call him. She said he would not be able to hear. WENDY also told her they would not be allowed to visit him at the assisted and when he gets there he will be quarantined for 14 days. She verbalized understanding. Juli OSEGUERA
--- NOTE | 2019-06-25 15:13 | CASEMGMT ---
SW faxed referrals to both [facility] and [facility]. WENDY also called both facilities with referral. Juli VELASCO MSW
[2019-06-25 17:11] LABS: Bedside Glucose 161 mg/dL (70-110)
[2019-06-25] MEDS: dilTIAZem CD 240 MG Capsule PO (17:12)
[2019-06-25] MEDS: Furosemide 20 MG Tablet PO (17:12)
[2019-06-25] MEDS: Insulin Lispro 100 UNIT/ML INSULN.PEN SC (17:19)
[2019-06-25] MEDS: Atorvastatin Calcium 80 MG Tablet PO (21:44)
[2019-06-25 22:01] LABS: Bedside Glucose 146 mg/dL (70-110)
[2019-06-26] VITALS (11 sets, daily range): BP systolic 124–154; BP diastolic 44–68; PULSE 49–73; RESP 15–18; TEMP 36.4–36.9; O2SAT 95–98
[2019-06-26] MEDS: 0.9% Normal Saline 1,000 ML 75 ML IV (00:37)
[2019-06-26 06:50] LABS: Bedside Glucose 133 mg/dL (70-110)
--- NOTE | 2019-06-26 07:24 | CASEMGMT ---
SW received messages from both facilities stating they can accept patient. [facility] did say if patient chooses their facility they have some screening questions they have to ask and the referral will have to be looked at daily to determine if they can still accept. SW will talk with patient's . Juli VELASCO MSW
[2019-06-26] MEDS: Furosemide 20 MG Tablet PO (08:50)
[2019-06-26] MEDS: Clopidogrel Bisulfate 75 MG Tablet PO (08:50)
[2019-06-26] MEDS: dilTIAZem CD 240 MG Capsule PO (08:50)
[2019-06-26] MEDS: Glimepiride 4 MG Tablet PO (08:50)
[2019-06-26] MEDS: Nystatin Powder 15gm Bottle 1 APPLIC TOPICAL ×2 (08:51→23:04)
[2019-06-26] MEDS: Acetaminophen 325 MG Tablet 650 MG PO ×2 (08:53→17:02)
--- NOTE | 2019-06-26 09:39 | CASEMGMT ---
WENDY spoke with patient's and let her know [facility] can take her and she would like [facility]. WENDY told her he will likely go tomorrow. She thanked WENDY for the update. Patient is still confused so WENDY has not talked with patient. Plan: [facility] under skilled level of care Juli OSEGUERA
--- NOTE | 2019-06-26 10:00 | RAD_ITS ---
STUDY: X-RAY - PELVIS AND RIGHT HIP REASON FOR EXAM: Male, 74 years old. PATIENT FELL. PAIN IN RIGHT HIP. TECHNIQUE: 3 views of the pelvis and hip. COMPARISON: None. FINDINGS: There is a non-specific bowel gas pattern. Normal visualized soft tissue structures. Normal bilateral iliac wings, sacroiliac joints and visualized sacrum. Normal bilateral superior and inferior pubic rami. Normal pubic symphysis. Normal bilateral ischial tuberosities. Normal visualized femoral head. Normal acetabulum. There is severe articular joint space narrowing of the hip. Moderate degree of degenerative changes involving the left hip joint. Bilateral femoral acetabular impingement. RAD/HIP, UNI W/ Pelvis 2-3 Views IMPRESSION: Osteoarthritis and joint space narrowing bilaterally worse on the right side. Bilateral femoral acetabular impingement. Electronically Signed: Ruel Caro, at 10:24 EDT , Service support ,
--- NOTE | 2019-06-26 10:10 | CASEMGMT ---
WENDY notified Sue at [facility] that patient will be coming to them tomorrow. WENDY also left a message for Nahomi at [facility] letting her know family's choice. Juli VELASCO MSW
--- NOTE | 2019-06-26 10:58 | PN_ITS ---
Patient Problems: Active and Suspected Problems (Last Reviewed 06/24/19 @ 22:[address] Angel Mason MD) Encephalopathy acute (Acute) Reason for Visit: Recurrent fall, acute encephalopathy on dementia. Objective: Patient walked on walker under the supervision of physical therapist. He complained of pain over the right lateral pelvic wall. Chest x-ray of pelvis and hip ordered as it was not done in ER. Patient is more awake and alert oriented times. PT recommended SNF. Blood pressure 154/68. Vitals/I&O's: Vital Signs Temp Pulse Resp BP Pulse Ox 98.4 F 73 17 154/68 H 97 06/26/19 08:24 06/26/19 08:24 06/26/19 08:24 06/26/19 08:24 06/26/19 08:24 Oxygen Flow Rate (L/min) 2 Oxygen Delivery Method Room Air Weight: 240 lb 11.916 oz Body Mass Index (BMI) 33.0 Finger Stick Blood Glucose 298 Intake and Output for Last 24 Hours 06/24/19 06/25/19 06/26/19 23:59 23:59 23:59 Intake Total 500 / 500 2478.75 / 2978.75 1343.75 / 1343.75 Output Total 1500 / 2250 1250 / 1250 Balance 500 / -200 978.75 / 728.75 93.75 / 93.75 General: Alert, Oriented x3, Cooperative HEENT: Atraumatic, PERRLA, EOMI, Normocephalic Neck: Supple, No JVD, Negative Carotid Bruits Lungs: Clear to auscultation, No rhonchi, No wheeze, No rales, Diminished Cardiovascular: Regular rate, Regular Rhythm, Normal S1, Normal S2, No murmurs Abdomen: Bowel Sounds Present, Soft, Non Tender, Non-Distended Extremities: No edema, Capillary Refill Less than 3 Seconds Skin: No rashes, No breakdown Musculoskeletal: Arthritic Changes, Tenderness - Mild tenderness on deep palpation over right lateral pelvic wall and ASIS. Neurological: Cranial nerves II-XII grossly intact, Deep Tendon Reflexes 2+/4 and Symmetrical, Neuro grossly intact Psych/Mental Status: Normal Affect, Appropriate Laboratory Results 06/25/19 11:34: POC Glucose 147 H 06/25/19 17:05: POC Glucose 161 H 06/25/19 21:42: POC Glucose 146 H 06/26/19 06:43: POC Glucose 133 H Current Medications Acetaminophen (Tylenol) 650 mg PO Q6H PRN PRN PRN Reason: Pain Score 1-10/Temp > 100.7 F Last Admin: 06/26/19 08:53 Dose: 650 mg Documented by: Albuterol Sulfate (Ventolin Aerosols) 2.5 mg INHALATION Q6H PRN PRN Reason: SOB & OR WHEEZING Atorvastatin Calcium (Lipitor) 80 mg PO QHS [facility] Last Admin: 06/25/19 21:44 Dose: 80 mg Documented by: Clopidogrel Bisulfate (Plavix) 75 mg PO DAILY [facility] Last Admin: 06/26/19 08:50 Dose: 75 mg Documented by: Dextrose (D50w Syringe) 0 gm IV X1 PRN; Protocol PRN Reason: Hypoglycemia Diltiazem HCl (Cardizem Cd) 240 mg PO DAILY [facility] Last Admin: 06/26/19 08:50 Dose: 240 mg Documented by: Furosemide (Lasix) 20 mg PO DAILY [facility] Last Admin: 06/26/19 08:50 Dose: 20 mg Documented by: Glimepiride (Amaryl) 4 mg PO DAILYCM [facility] Last Admin: 06/26/19 08:50 Dose: 4 mg Documented by: Glucagon () 1 mg IM .X1 PRN PRN Reason: Hypoglycemia Sodium Chloride () 1,000 mls @ 75 mls/hr IV .[id number] [facility] Last Admin: 06/26/19 00:37 Dose: 75 mls/hr Documented by: Insulin Human Lispro (Humalog Kwikpen (Bkc)) 0 unit SC ACHS [facility]; Protocol Last Admin: 06/26/19 06:44 Dose: Not Given Documented by: Nystatin (Mycostatin Powder) 1 applic TOPICAL BID [facility]; Protocol Last Admin: 06/26/19 08:51 Dose: 1 applicatio Documented by: Ondansetron HCl (Zofran) 4 mg IV Q8H PRN PRN PRN Reason: NAUSEA/VOMITING Sodium Chloride () 10 - 40 ml IV UD PRN PRN Reason: SALINE FLUSH STROKE Vital Signs/Narrative: Vital Signs Temp Pulse Resp BP Pulse Ox 06/26/19 08:24 98.4 F 73 17 154/68 H 97 06/26/19 07:52 96 06/26/19 07:19 60 Medical Necessity - Tobacco Use Smoking Status: Unknown if ever smoked Assessment/Plan All Active Problems (Last Reviewed 06/24/19 @ 22:[address] Angel Mason MD) Encephalopathy acute (Acute) The patient is a 74 year old M with a significant history of diabetes mellitus; hypertension; hyperlipidemia and TIA who presents at the emergency department with altered mental status; weakness; and multiple falls in the setting of being started on new medication for back pain. 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 No acute change. No enlargement of ventricles. Hold prednisone, baclofen and gabapentin. I think acute encephalopathy is resolved. U tox negative and alcohol level normal 06/25: Patient is on baseline mental status. No confusion. Acute encephalopathy resolved. SIOMARA on CKD stage III: Patient baseline creatinine is about 1.0-1.24. Elevated with 1.49. It got better 1.27 with IV fluid. Likely prerenal. IV hydration. Avoid nephrotoxins. Hold JENNIFER inhibitor's and NSAIDs. Hold home Lasix. Trend BMP. UA is negative. 06/25: SIOMARA resolved. Diabetes mellitus with hyperglycemia on presentation: Blood glucose on presentation was 300. Blood sugar is controlled. Is between 100 to 150 mg/dL. Hold metformin. Continue glimepiride. Accu-Cheks QACHS with correction sliding scale insulin. 06/25: Glucose is in good control. Generalized weakness: PT and OT ordered. Patient was seen by physical and occupational therapist recommended additional PT. Possible SNF. Patient has impaired bed mobility, ambulation status and transfer ability. Swelling of left forehead; and left periorbital area swelling and ecchymosis patient fell down from toilet seat forward and hit the sidewall. Conservative management. Hypertension: Admitted with low normal blood pressure 103/68, 96/64. Currently 123/73. Hold home lisinopril. Hold home Cardizem. Heart rate is 70/min DVT prophylaxis Subcutaneous Lovenox Subclinical hyperthyroidism: TSH low 0.17. Free T4 normal 1.18. Repeat thyroid function test in 6 weeks as an outpatient. Laboratory Results 06/24/19 20:35: Free T4 1.18 06/24/19 23:18: POC Glucose 186 H 06/25/19 06:10: WBC 11.6 H, RBC 4.76, Hgb 14.5, Hct 43.9, MCV 92.2, MCH 30.5, MCHC 33.0, RDW Std Deviation 42.5, RDW Coeff of Blanco 12.6, Plt Count 178, MPV 11.3, Immature Gran % (Auto) 0.700, Neut % (Auto) 67.5, Lymph % (Auto) 21.0, [place] % (Auto) 9.6, Eos % (Auto) 0.9, Baso % (Auto) 0.3, Absolute Neuts (auto) 7.8 H, Absolute Lymphs (auto) 2.43, Nucleated RBC % 0 06/25/19 06:10: Sodium 140, Potassium 4.6, Chloride 113 H, Carbon Dioxide 19.0 L , Anion Gap 8, BUN 34 H, Creatinine 1.27, Estim Creat Clear Calc 55.17, Est GFR (MDRD) Af Amer 71, Est GFR (MDRD) Non-Af 59 L, BUN/Creatinine Ratio 26.8 H, Glucose 113 H, Calcium 8.8 06/25/19 06:41: POC Glucose 99 06/25/19 11:34: POC Glucose 147 H Clinical Impression(s) from Imaging Studies Brain CT 06/24/19 20:01 IMPRESSION: 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 Stable chronic ischemic and atrophic changes. No acute intracranial abnormality. Cervical Spine CT 06/24/19 20:01 IMPRESSION: No fracture or dislocation in the cervical spine. Mild degenerative change. Straightening of the normal cervical lordosis which may be due to paraspinal muscle spasm or may be positional in nature. Electronically Signed: Bentley Eisenebrg, at 21:17 EDT Tel , Service support , Facial/Sinus 06/24/19 20:01 IMPRESSION: Soft tissue swelling overlying the forehead and left eye. No orbital hematoma. No facial fracture. Clear sinuses. Electronically Signed: Bentley Eisenberg at 20:47 EDT Tel , Service support , Chest X-Ray 06/24/19 20:10 IMPRESSION: No acute thoracic pathology. Hip/Pelvis X-Ray 06/26/19 10:00 IMPRESSION: Osteoarthritis and joint space narrowing bilaterally worse on the right side. Bilateral femoral acetabular impingement. Inpatient E&M: 10709 Subs Hosp L2
[2019-06-26 12:01] LABS: Bedside Glucose 165 mg/dL (70-110)
[2019-06-26] MEDS: Insulin Lispro 100 UNIT/ML INSULN.PEN SC (12:01)
[2019-06-26] MEDS: Meclizine 12.5 MG Tablet PO (14:17)
--- NOTE | 2019-06-26 15:14 | CHAPLAIN ---
Type of Pastoral Visit _x__ Initial Visit ___ Follow-up Visit ___ On-call Visit ___ General Patient Visit ___ Spiritual Assessment ___ Family Conference ___ Bereavement ___ Rapid Response ___ Code Blue ___ Other (describe below) Pastoral Care Referral From _x__ Patient ___ Family _x__ Nurse ___ Physician ___ [place] ___ Business Process Associate ___ Other (describe below) Sacrament/Intervention _x__ Active listening ___ Anointing ___ Episcopal ___ Bereavement ___ Communion ___ Mayda exploration ___ ___ Life review _x__ Prayer ___ Reconciliation ___ Sacrament of Sick _x__ Supportive presence ___ Wedding ___ Other (describe below) Pastoral Comments
[2019-06-26 17:35] LABS: Bedside Glucose 135 mg/dL (70-110)
[2019-06-26] MEDS: Atorvastatin Calcium 80 MG Tablet PO (23:04)
[2019-06-26 23:10] LABS: Bedside Glucose 130 mg/dL (70-110)
[2019-06-27 03:00] VITALS: PULSE 66
[2019-06-27 05:12] VITALS: BP 148/67; PULSE 71; RESP 16; TEMP 37.1; O2SAT 97
[2019-06-27 06:28] LABS: Anion Gap 5 (5-15); BUN 20 mg/dL (7-18); BUN/Creat Ratio 18.9 RATIO (10-20); Calcium,Total 8.7 mg/dL (8.5-10.1); Chloride 114 mmol/L (98-107); Creatinine, Serum 1.06 mg/dL (0.70-1.30); EST Glomerular Filtration Rate 73 mL/min (>60); Est Glom Filt Rate - Afr Amer 88 mL/min (>60); Glucose 101 mg/dL (74-106); Potassium 4.1 mmol/L (3.5-5.1); Sodium Level 141 mmol/L (136-145)
[2019-06-27] MEDS: Meclizine 12.5 MG Tablet PO (06:37)
[2019-06-27 06:41] LABS: Bedside Glucose 99 mg/dL (70-110)
[2019-06-27 07:00] VITALS: PULSE 70
[2019-06-27 08:55] VITALS: BP 138/64; PULSE 77; RESP 16; TEMP 36.6; O2SAT 97
[2019-06-27] MEDS: Glimepiride 4 MG Tablet PO (08:57)
[2019-06-27] MEDS: Nystatin Powder 15gm Bottle 1 APPLIC TOPICAL (08:59)
[2019-06-27] MEDS: Clopidogrel Bisulfate 75 MG Tablet PO (08:59)
[2019-06-27] MEDS: dilTIAZem CD 240 MG Capsule PO (09:00)
[2019-06-27] MEDS: Furosemide 20 MG Tablet PO (09:00)
[2019-06-27] MEDS: Lisinopril 10 MG Tablet PO (09:02)
--- NOTE | 2019-06-27 11:01 | PCM.TXEXTCAR ---
- Diet 06/24/19 22:27 Diet: Cardiac: Calorie-Controlled How many daily calories?: 1800 calorie - Routine Orders/Code Status Suppository Type: Dulcolax 10mg Suppository Frequency: Daily PRN Code Status: Full Code - Wound(s) bilat shins Wound Type: healing scabs - Therapies Physical Therapy: Eval and Treat Occupational Therapy: Eval and Treat Speech Therapy: Eval and Treat - Allergies/Procedures Done in Hospital Allergies/Adverse Reactions: Allergies Sulfa (Sulfonamide Antibiotics) Allergy (Verified 06/24/19 20:07) Hives - Type of Care/Length of Stay Estimated LOS: Convalescent Care Less Than 30 days Type of Care Needed: Skilled Rehab Potential: Good Prognosis: Good - Additional Orders/Day of Discharge Day of Discharge: 06/27/19 - Dietary and Speech Recommendations Dietitian Recommendations/Changes: Continue 1800 gorge/cardiac diet. - Follow Up Care Primary Care Physician: Maximino Figueroa Chi, MD [Primary Care Provider] - Please follow up with your Primary Care Physician in: in 2 weeks
--- NOTE | 2019-06-27 11:04 | DS.PCM_ITS ---
Discharge Date and Diagnosis Date of Admission: 06/24/19 Date of Discharge: 06/27/19 - Primary Discharge Diagnosis Active and Suspected Problems (Last Reviewed 06/24/19 @ 22:[address] Angel Mason MD) Encephalopathy acute (Acute) - Secondary Discharge Diagnosis Chronic Problems (Last Reviewed 06/24/19 @ 22:[address] 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) Right bundle branch block (Chronic) Bifascicular block (Chronic) Atrial septal defect (Chronic) CVA (cerebral vascular accident) (Chronic ~07/2006) TIA (transient ischemic attack) (Chronic ~10/2013) Diabetes mellitus, type II (Chronic) for at least 20 years CRYSTAL (obstructive sleep apnea) (Chronic) HTN (hypertension) (Chronic) Hyperlipidemia (Chronic) Hospital Course and Treatment Summary of Care Provided: [] The patient is a 74 year old M with a significant history of diabetes mellitus; hypertension; hyperlipidemia and TIA who presents at the emergency department with altered mental status; weakness; and multiple falls in the setting of being started on new medication for back pain. 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 No acute change. Hold prednisone, baclofen and gabapentin. I think acute encephalopathy is resolved. U tox negative and alcohol level normal 06/25: Patient is on baseline mental status. No confusion. Acute encephalopathy resolved. 06/26: On gabapentin regimen. Baclofen as needed for muscle spasm. Meclizine as needed for dizziness/vertigo. SIOMARA on CKD stage III: Patient baseline creatinine is about 1.0-1.24. Elevated with 1.49. It got better 1.27 with IV fluid. Likely prerenal. IV hydration. Avoid nephrotoxins. Hold JENNIFER inhibitor's and NSAIDs. Hold home Lasix. Trend BMP. UA is negative. 06/25: SIOMARA resolved. Diabetes mellitus with hyperglycemia on presentation: Blood glucose on presentation was 300. Blood sugar is controlled. Is between 100 to 150 mg/dL. Hold metformin. Continue glimepiride. Accu-Cheks QACHS with correction sliding scale insulin. 06/25: Glucose is in good control. 06/26: Continue holding metformin for 3 more days. Generalized weakness: PT and OT ordered. Patient was seen by physical and occupational therapist recommended additional PT. Possible SNF. Patient has impaired bed mobility, ambulation status and transfer ability. Swelling of left forehead; and left periorbital area swelling and ecchymosis patient fell down from toilet seat forward and hit the sidewall. Conservative management. Hypertension: Admitted with low normal blood pressure 103/68, 96/64. Currently 123/73. Hold home lisinopril. Hold home Cardizem. Heart rate is 70/min DVT prophylaxis Subcutaneous Lovenox Subclinical hyperthyroidism: TSH low 0.17. Free T4 normal 1.18. Repeat thyroid function test in 6 weeks as an outpatient Discharge medication reconciliation done. Discharge follow-up instructions completed. Discharge process discussed with the patient and all questions were answered to patient's satisfaction. Total time spent, exact 35 minutes on discharge meds reconciliation, examination, coordination of care with nurses and ancillary staff, review of imaging and blood test and discussion with the patient on follow-up instructions Subjective: Patient is hemodynamically stable blood pressure 138/64. Heart rate 77/min. Patient approved for SNF. Complain of sometimes hard stool/mild constipation. On Colace at home - Physical Exam Vitals/I&O's: Vital Signs Temp Pulse Resp BP Pulse Ox 97.8 F 77 16 138/64 H 97 06/27/19 08:55 06/27/19 08:55 06/27/19 08:55 06/27/19 08:55 06/27/19 08:55 Oxygen Flow Rate (L/min) 2 Oxygen Delivery Method Room Air Weight: 240 lb 11.916 oz Body Mass Index (BMI) 33.0 Finger Stick Blood Glucose 298 Intake and Output for Last 24 Hours 06/25/19 06/26/19 06/27/19 23:59 23:59 23:59 Intake Total 2478.75 / 2978.75 3193.75 / 3693.75 1040 / 1040 Output Total 1500 / 2250 1250 / 1550 1050 / 1050 Balance 978.75 / 728.75 1943.75 / 2143.75 -10 General: Alert, Oriented x3, Cooperative HEENT: Atraumatic, PERRLA, EOMI, Normocephalic Neck: Supple, No JVD, Negative Carotid Bruits Lungs: Clear to auscultation, Normal air movement, No rhonchi, No wheeze, No rales Cardiovascular: Regular rate, Regular Rhythm, Normal S1, Normal S2, No murmurs Abdomen: Bowel Sounds Present, Soft, Non Tender Extremities: No edema, Capillary Refill Less than 3 Seconds Skin: No rashes, No breakdown Musculoskeletal: No Tenderness to Palpation of Joints or Extremities, Arthritic Changes Neurological: Cranial nerves II-XII grossly intact, Deep Tendon Reflexes 2+/4 and Symmetrical, Neuro grossly intact Psych/Mental Status: Normal Affect, Appropriate Laboratory Results 06/26/19 11:57: POC Glucose 165 H 06/26/19 16:50: POC Glucose 135 H 06/26/19 23:02: POC Glucose 130 H 06/27/19 06:02: Sodium 141, Potassium 4.1, Chloride 114 H, Carbon Dioxide 22.0, Anion Gap 5, BUN 20 H, Creatinine 1.06, Estim Creat Clear Calc 66.10, Est GFR (M DRD) Af Amer 88, Est GFR (MDRD) Non-Af 73, BUN/Creatinine Ratio 18.9, Glucose 101, Calcium 8.7 06/27/19 06:32: POC Glucose 99 Current Medications Acetaminophen (Tylenol) 650 mg PO Q6H PRN PRN PRN Reason: Pain Score 1-10/Temp > 100.7 F Last Admin: 06/26/19 17:02 Dose: 650 mg Documented by: Albuterol Sulfate (Ventolin Aerosols) 2.5 mg INHALATION Q6H PRN PRN Reason: SOB & OR WHEEZING Atorvastatin Calcium (Lipitor) 80 mg PO QHS [facility] Last Admin: 06/26/19 23:04 Dose: 80 mg Documented by: Clopidogrel Bisulfate (Plavix) 75 mg PO DAILY [facility] Last Admin: 06/27/19 08:59 Dose: 75 mg Documented by: Dextrose (D50w Syringe) 0 gm IV X1 PRN; Protocol PRN Reason: Hypoglycemia Diltiazem HCl (Cardizem Cd) 240 mg PO DAILY [facility] Last Admin: 06/27/19 09:00 Dose: 240 mg Documented by: Furosemide (Lasix) 20 mg PO DAILY [facility] Last Admin: 06/27/19 09:00 Dose: 20 mg Documented by: Glimepiride (Amaryl) 4 mg PO DAILYCM [facility] Last Admin: 06/27/19 08:57 Dose: 4 mg Documented by: Glucagon () 1 mg IM .X1 PRN PRN Reason: Hypoglycemia Insulin Human Lispro (Humalog Kwikpen (Bkc)) 0 unit SC [facility]; Protocol Last Admin: 06/27/19 06:38 Dose: Not Given Documented by: Lisinopril (Zestril) 10 mg PO DAILY [facility] Last Admin: 06/27/19 09:02 Dose: 10 mg Documented by: Meclizine HCl (Antivert) 12.5 mg PO 4X/DAY PRN PRN PRN Reason: VERTIGO/DIZZINESS Last Admin: 06/27/19 06:37 Dose: 12.5 mg Documented by: Nystatin (Mycostatin Powder) 1 applic TOPICAL BID [facility]; Protocol Last Admin: 06/27/19 08:59 Dose: 1 applicatio Documented by: Ondansetron HCl (Zofran) 4 mg IV Q8H PRN PRN PRN Reason: NAUSEA/VOMITING Sodium Chloride () 10 - 40 ml IV UD PRN PRN Reason: SALINE FLUSH Home Medications: Medications to take at Discharge Clopidogrel Bisulfate [Plavix] 75 mg PO DAILY 12/21/13 atorvastatin 80 mg tablet 80 mg PO QHS tab 06/22/17 diltiazem HCl 240 mg capsule,extended release 24 hr 240 mg PO QDAY cap 06/22/17 albuterol sulfate 90 mcg/actuation aerosol inhaler 1 puff INHALATION Q6H PRN 01/23/18 glimepiride 4 mg tablet 4 mg PO QDAY tab 01/23/18 meclizine 25 mg tablet 25 mg PO .qid PRN tab 02/19/19 Furosemide [Lasix] 20 mg PO DAILY 06/25/19 Baclofen 10 mg PO QHS PRN PRN #0 06/27/19 Gabapentin 300 mg PO DAILY #0 06/27/19 Insulin Lispro [Humalog KwikPen] See Protocol [facility] insuln.pen 06/27/19 Lisinopril [Zestril] 10 mg PO DAILY tab 06/27/19 Meclizine HCl [Antivert] 12.5 mg PO 4X/DAY PRN PRN tab 06/27/19 Nystatin Powder [Mycostatin Powder] 1 applic TOPICAL BID bottle 06/27/19 metFORMIN HCl [Glucophage] 500 mg PO BID #0 06/27/19 Primary Care Physician: Maximino Figueroa Chi, MD [Primary Care Provider] - Please follow up with your Primary Care Physician in: in 2 weeks Medical Necessity - Tobacco Use Smoking Status: Unknown if ever smoked Meaningful Use Info Meaningful Use Diagnoses (Choose all that apply): None applicable Inpatient E&M: 40176 [facility]
[2019-06-27] MEDS: Insulin Lispro 100 UNIT/ML INSULN.PEN SC (11:17)
--- NOTE | 2019-06-27 11:28 | CASEMGMT ---
Patient is ready for discharge to [facility]. WENDY faxed orders to [facility] Completed convalescent on [facility]. Called [facility] and arranged for patient to get picked up at 1200 via [facility] van. WENDY notified Sue at [facility], RN, patient, left messages for his daughter and . WENDY then did get a return call from patient's daughter and she is aware of charge for [facility] van. They already dropped of patient's clothes at [facility]. All in agreement with d/c plan. Plan: [facility] under skilled level of care on a convalescent stay. [facility] transported via [employer] van. [facility]
[2019-06-27 11:31] LABS: Bedside Glucose 226 mg/dL (70-110)
== END 2019-06-27 12:24 | disposition skilled nursing facility (03) | DRG 92 ==
LOC: ED 20:07 → PCU 22:01
PROVIDERS: Admitting Provider Hospitalist; Emergency Provider Emergency Medicine; PCP Family Medicine Geriatric Medicine; Referring Provider Hospitalist; Visit Provider Internal Medicine
DX: G92 Toxic encephalopathy (principal); I45.2 Bifascicular block; Q21.1 Atrial septal defect; N17.9 Acute kidney failure, unspecified; T38.0X5A Adverse effect of glucocorticoids and synthetic analogues, initial encounter; T42.8X5A Adverse effect of antiparkinsonism drugs and other central muscle-tone depressants, initial encounter; T39.315A Adverse effect of propionic acid derivatives, initial encounter; T42.6X5A Adverse effect of other antiepileptic and sedative-hypnotic drugs, initial encounter; Y92.9 Unspecified place or not applicable; I12.9 Hypertensive chronic kidney disease with stage 1 through stage 4 chronic kidney disease, or unspecified chronic kidney disease; N18.3 Chronic kidney disease, stage 3 (moderate); M51.36 Other intervertebral disc degeneration, lumbar region; M99.02 Segmental and somatic dysfunction of thoracic region; M99.03 Segmental and somatic dysfunction of lumbar region; M99.05 Segmental and somatic dysfunction of pelvic region; I45.10 Unspecified right bundle-branch block; G47.33 Obstructive sleep apnea (adult) (pediatric); E78.5 Hyperlipidemia, unspecified; M43.17 Spondylolisthesis, lumbosacral region; Z86.73 Personal history of transient ischemic attack (TIA), and cerebral infarction without residual deficits; E11.22 Type 2 diabetes mellitus with diabetic chronic kidney disease; E11.65 Type 2 diabetes mellitus with hyperglycemia; F03.90 Unspecified dementia, unspecified severity, without behavioral disturbance, psychotic disturbance, mood disturbance, and anxiety; Z79.02 Long term (current) use of antithrombotics/antiplatelets; Z79.84 Long term (current) use of oral hypoglycemic drugs; Z86.72 Personal history of thrombophlebitis; Z79.899 Other long term (current) drug therapy
CPT/HCPCS: 36415; 70450; 70486; 71045; 72125; 73502; 80048; 80053; 80307; 80320; 81001; 82962; 84439; 84443; 84484; 85025; 85610; 85730; 93005; 97110; 97116; 97162; 97166; 97530; 99285; J7030; J7040; P9612; A4216; G0480

== ENCOUNTER → 2019-07-31 15:53 | Outpatient (CLI) | payer MEDICARE, OTHER, SELFPAY ==
[2019-06-24 22:37] VITALS: BMI 33.0
[2019-07-31 17:33] LABS: Absolute Lymphocyte Count 2.95 X10^3/uL (0.83-4.51); Absolute Neutrophil Count 5.5 X10^3/uL (2.0-7.7); Basophil# 0.07 X10^3/uL; Basophil% 0.7 % (0-1); Eosinophil# 0.17 X10^3/uL; Eosinophils% 1.8 % (0-5); Hematocrit 43.5 % (40-54); Lymphocyte # 2.95 X10^3/ul (4.0); Lymphocyte % 30.5 % (19-41); Mean Corp Hgb Conc 32.2 g/dL (32-36); Mean Corpuscular Hgb 30.4 pg (27.0-32.0); Mean Corpuscular Volume 94.6 fL (80-94); Mean Platelet Vol. 11.2 fl (6.2-12.0); Monocyte# 0.89 X10^3/uL; Monocyte% 9.2 % (0-10); NRBC Flagged by Analyzer 0 % (0-5); Neutrophil % 56.9 % (47-70); Platelet Count 227 K/mm3 (150-450); RBC Distribution Width CV 12.6 % (11.6-14.6); RBC Distribution Width SD 43.2 fl (35.1-43.9); White Blood Count 9.7 K/mm3 (4.4-11.0)
[2019-07-31 17:37] LABS: ALB/GLOB Ratio 0.8 RATIO (0.9-2.4); AST(SGOT) 21 U/L (15-37); Alanine Aminotransfer ALT/SGPT 31 U/L (16-61); Albumin, Serum 3.3 g/dL (3.2-5.0); Alkaline Phosphatase 68 U/L (45-117); Anion Gap 10 (5-15); BUN 20 mg/dL (7-18); BUN/Creat Ratio 14.8 RATIO (10-20); Calcium,Total 8.9 mg/dL (8.5-10.1); Chloride 103 mmol/L (98-107); Creatinine, Serum 1.35 mg/dL (0.70-1.30); EST Glomerular Filtration Rate 55 mL/min (>60); Est Glom Filt Rate - Afr Amer 67 mL/min (>60); Glucose 251 mg/dL (74-106); Potassium 4.6 mmol/L (3.5-5.1); Protein, Total 7.3 g/dL (6.4-8.2); Sodium Level 141 mmol/L (136-145); Thyroid Stim Hormone (TSH) 0.64 uIU/mL (0.358-3.74)
== END ==
PROVIDERS: PCP Family Medicine Geriatric Medicine; Visit Provider Family Medicine Geriatric Medicine
DX: E11.9 Type 2 diabetes mellitus without complications (principal); E55.9 Vitamin D deficiency, unspecified; I10 Essential (primary) hypertension
CPT/HCPCS: 36415; 80053; 82306; 84443; 85025

== ENCOUNTER → 2019-08-07 16:12 | Outpatient (CLI) | payer MEDICARE, OTHER, SELFPAY ==
[2019-06-24 22:37] VITALS: BMI 33.0
[2019-08-07 16:59] LABS: Anion Gap 11 (5-15); BUN 25 mg/dL (7-18); BUN/Creat Ratio 16.8 RATIO (10-20); Calcium,Total 9.3 mg/dL (8.5-10.1); Chloride 98 mmol/L (98-107); Creatinine, Serum 1.49 mg/dL (0.70-1.30); EST Glomerular Filtration Rate 49 mL/min (>60); Est Glom Filt Rate - Afr Amer 59 mL/min (>60); Glucose 304 mg/dL (74-106); Potassium 4.4 mmol/L (3.5-5.1); Sodium Level 136 mmol/L (136-145)
== END ==
PROVIDERS: PCP Family Medicine Geriatric Medicine; Visit Provider Family Medicine Geriatric Medicine
DX: R60.9 Edema, unspecified (principal)
CPT/HCPCS: 36415; 80048

== ENCOUNTER → 2019-08-23 16:16 | Outpatient (CLI) | payer MEDICARE, OTHER, SELFPAY ==
[2019-08-23 13:52] VITALS: BMI 34.0
[2019-08-23 17:17] LABS: Absolute Lymphocyte Count 3.62 X10^3/uL (0.83-4.51); Absolute Neutrophil Count 8.8 X10^3/uL (2.0-7.7); Basophil% 0.7 % (0-1); Eosinophil# 0.13 X10^3/uL; Eosinophils% 0.9 % (0-5); Hematocrit 48.6 % (40-54); Hemoglobin 15.7 g/dL (13.0-16.5); Lymphocyte # 3.62 X10^3/ul (4.0); Lymphocyte % 25.8 % (19-41); Mean Corp Hgb Conc 32.3 g/dL (32-36); Mean Platelet Vol. 11.4 fl (6.2-12.0); Monocyte# 1.15 X10^3/uL; Monocyte% 8.2 % (0-10); NRBC Flagged by Analyzer 0 % (0-5); Neutrophil # 8.82 X10^3/uL (2.7-7.7); Neutrophil % 62.8 % (47-70); Platelet Count 211 K/mm3 (150-450); RBC Distribution Width CV 12.6 % (11.6-14.6); RBC Distribution Width SD 44.5 fl (35.1-43.9); Red Blood Count 5.06 M/mm3 (4.6-6.2); White Blood Count 14.1 K/mm3 (4.4-11.0)
[2019-08-23 17:58] LABS: ALB/GLOB Ratio 0.8 RATIO (0.9-2.4); AST(SGOT) 17 U/L (15-37); Alanine Aminotransfer ALT/SGPT 39 U/L (16-61); Albumin, Serum 3.4 g/dL (3.2-5.0); Alkaline Phosphatase 70 U/L (45-117); Anion Gap 10 (5-15); BUN 33 mg/dL (7-18); BUN/Creat Ratio 24.6 RATIO (10-20); Chloride 105 mmol/L (98-107); Creatinine, Serum 1.34 mg/dL (0.70-1.30); EST Glomerular Filtration Rate 56 mL/min (>60); Est Glom Filt Rate - Afr Amer 67 mL/min (>60); Globulin 4.1 g/dL (2.2-4.2); Glucose 194 mg/dL (74-106); Potassium 4.8 mmol/L (3.5-5.1); Protein, Total 7.5 g/dL (6.4-8.2); Sodium Level 137 mmol/L (136-145)
== END ==
PROVIDERS: PCP Family Medicine Geriatric Medicine; Visit Provider Family Medicine Geriatric Medicine
DX: R53.83 Other fatigue (principal)
CPT/HCPCS: 36415; 80053; 85025

== ENCOUNTER 2019-10-22 10:00 | Outpatient (RCR) | payer MEDICARE, OTHER, SELFPAY ==
[2019-06-24 22:37] VITALS: BMI 33.0
[2019-08-23 13:52] VITALS: BMI 34.0
--- NOTE | 2019-09-10 10:01 | HP.PTEVAL_ITS ---
Patient's Visit Information BERTO DAVIS Jr. is a 74 year old M referred to Physical Therapy by Dr. Maximino Figueroa MD with a diagnosis of BPPV. Date of Evaluation: 09/10/19 Physical Therapist: KENIA Curtis - Visit Plan Frequency: 1-2x /Week Duration: 6 Weeks Plan: Progress vertical saccades and horizontal VOR X 1. Test pts balance. - Subjective Pt reports that he is taking meclazine in the morning before he showers but it is not as affective as it was in the begining. It started 2-3 years ago... he feel standing up and just fell down. The first of June he got really bad and looked like he was having a stroke and they took him to ER and only found vertigo and then was in hospital for 2 months. He is not dizzy sitting here right now. He did get dizzy with his driving up here. He uses a rollator. He has not thrown up in a long time. If he stands for a long time he wants to fall to his Right side. He complains of neck numbness and in the side of his R face and his ears go numb. He had x-rays of his neck and came up normal. PT in home did the R EPLY.... and it seemed to help. He sleeps in a recliner... and does not get dizzy. If he is walking and has to look R and L fast, he will get dizzy. He did fall and he thinks that his R hip is bruised. He feel several times the weekend the squad came.....and hit his head a few times. He feels that his dizziness has gotten worse since then. He gets dizziness and room spins and lasts 5-10 minutes..... - Objective -Hallpike B for dizziness and nystagmus. Saccades horizontal in sitting X 60 sec... no dizziness and able to track fairly well with only a few catchups at extreme end ranges. Saccades vertical.... pt had a hard time staying focused on the pen each time he looked down he would overshoot the pen..... VOR X 1 hor izontal in sitting X 28 seconds... + dizziness and pt had to touch the table to brace himself. VOR X 1 vertical in sitting.... no dizziness. Pt could feel pressure in his eyes with eye movements - Goals Goal 1:: I HEP Goal Time Frame: 4-6 Weeks Goal 2:: Be able to complete vertical and horizontal saccades without issue X 60 seconds... Goal Time Frame: 4-6 Weeks Goal 3:: Be able to complete VOR X 1 horizontal with walking X 150 feet without getting dizzy Goal Time Frame: 4-6 Weeks Goal 4:: Test balance Goal Time Frame: 2 Weeks - Rehabilitation Potential Rehabilitation Potential: Good - Anticipated Interventions Patient/Client Instruction: Educate patient on: Plan of Care For the Purpose of:: To improve nutrient delivery to tissue, To improve muscle performance and motor function, To improve ability to perform ADL's, To increase tolerance to activity/condition/position, To improve performance and independence with ADL's, To decrease level of supervision to perform tasks, To improve ability of physical actions for home/community/work/leisure, To improve gait and locomotor functions, To improve endurance, To improve balance, To improve safety with gait Therapeutic Exercise to Include: Strength training, Endurance training, Balance training, Gait and locomotor training For the Purpose of:: To improve nutrient delivery to tissue, To improve muscle performance and motor function, To improve ability to perform ADL's, To increase tolerance to activity/condition/position, To improve performance and independence with ADL's, To decrease level of supervision to perform tasks, To improve ability of physical actions for home/community/work/leisure, To improve gait and locomotor functions, To improve balance, To improve safety with gait Functional Training to Include: Gait training For the Purpose of:: To improve gait and locomotor functions, To improve balance Thank you for the opportunity to evaluate your patient. For Medicare and Medicare HMO plans, please review the plan of care and approve it. It will need to be FAXED BACK to us at [phone] for Medicare purposes. For Medicare only, by signing this I certify the plan of care. Please let me know if there are questions or concerns regarding this plan of care. Physician Signature: Date:
--- NOTE | 2019-10-22 11:57 | HP.PTDCSUM ---
It has been my pleasure to treat BERTO DAVIS Jr. referred by Dr. Maximino Figueroa MD, with the diagnosis of BPPV for a total of 11 visit(s). Discharge Date: 10/22/19 Please see the following information for a summary of their discharge status. Subjective: I was dizzy all morning. He felt good after last time he was here but he just got up and felt his head numb. no spinning. He wants to be done with PT today. He does not feel like he will fall. He is does his exercises at home. Walking and turning his head does make him feel dizzy. neck pain Pain Intensity (Out of 10): 0 % Improvement: 60 Objective/Function: standing with head turns brings on his dizziness when he does get dizzy. Standing head turns did bring on the dizziness after about 20 seconds today. Pt sat and recovered quicly. Walking with slow head turns did not elicit dizziness today only standing with medium pace head turns. Goal 1:: I HEP Goal Progress: Goal Met Goal 2:: Be able to complete vertical and horizontal saccades without issue X 60 seconds... Goal Progress: Goal Met Goal 3:: Be able to complete VOR X 1 horizontal with walking X 150 feet without getting dizzy Goal Progress: Progressing Goal 4:: Test balance Plan: DC PT to HEP per pt request. Discharge Comments: DC PT per pt request. He will continue to do his HEP. If there are questions or concerns regarding this patient's physical therapy, please feel free to call me at [phone]. Thank you for the referral of this patient. Sincerely, Praveena Stroud, MPT
== END 2019-10-22 19:00 | disposition home or self-care (01) ==
LOC: PT 10:00
PROVIDERS: PCP Family Medicine Geriatric Medicine; Referring Provider Family Medicine Geriatric Medicine; Visit Provider Family Medicine Geriatric Medicine
DX: H81.10 Benign paroxysmal vertigo, unspecified ear (principal)
CPT/HCPCS: 97110; 97161

== ENCOUNTER → 2019-10-31 14:39 | Outpatient (CLI) | payer MEDICARE, OTHER, SELFPAY ==
[2019-08-23 13:52] VITALS: BMI 34.0
[2019-10-31 15:44] LABS: Absolute Lymphocyte Count 3.12 X10^3/uL (0.83-4.51); Basophil# 0.11 X10^3/uL; Basophil% 1.3 % (0-1); Eosinophil# 0.09 X10^3/uL; Eosinophils% 1.1 % (0-5); Lymphocyte # 3.12 X10^3/ul (4.0); Lymphocyte % 37.2 % (19-41); Mean Corp Hgb Conc 33.3 g/dL (32-36); Mean Corpuscular Hgb 31.1 pg (27.0-32.0); Mean Corpuscular Volume 93.4 fL (80-94); Mean Platelet Vol. 11.4 fl (6.2-12.0); Monocyte# 0.89 X10^3/uL; Monocyte% 10.6 % (0-10); NRBC Flagged by Analyzer 0 % (0-5); Neutrophil # 3.97 X10^3/uL (2.7-7.7); Neutrophil % 47.4 % (47-70); Platelet Count 191 K/mm3 (150-450); RBC Distribution Width CV 12.6 % (11.6-14.6); RBC Distribution Width SD 43.2 fl (35.1-43.9); Red Blood Count 4.82 M/mm3 (4.6-6.2); White Blood Count 8.4 K/mm3 (4.4-11.0)
[2019-10-31 15:54] LABS: Vitamin D,25 Hydroxy 25.7 ng/mL
[2019-10-31 16:04] LABS: ALB/GLOB Ratio 0.9 RATIO (0.9-2.4); AST(SGOT) 18 U/L (15-37); Alanine Aminotransfer ALT/SGPT 26 U/L (16-61); Albumin, Serum 3.4 g/dL (3.2-5.0); Alkaline Phosphatase 55 U/L (45-117); Anion Gap 5 (5-15); BUN 14 mg/dL (7-18); BUN/Creat Ratio 12.5 RATIO (10-20); Calcium,Total 8.6 mg/dL (8.5-10.1); Chloride 107 mmol/L (98-107); Creatinine, Serum 1.12 mg/dL (0.70-1.30); EST Glomerular Filtration Rate 68 mL/min (>60); Est Glom Filt Rate - Afr Amer 83 mL/min (>60); Globulin 3.9 g/dL (2.2-4.2); Glucose 256 mg/dL (74-106); Potassium 4.5 mmol/L (3.5-5.1); Protein, Total 7.3 g/dL (6.4-8.2); Sodium Level 139 mmol/L (136-145); Thyroid Stim Hormone (TSH) 0.57 uIU/mL (0.358-3.74)
== END ==
PROVIDERS: PCP Family Medicine Geriatric Medicine; Visit Provider Family Medicine Geriatric Medicine
DX: E11.9 Type 2 diabetes mellitus without complications (principal); E55.9 Vitamin D deficiency, unspecified; I10 Essential (primary) hypertension
CPT/HCPCS: 36415; 80053; 82306; 84443; 85025

== ENCOUNTER → 2020-01-31 14:25 | Outpatient (CLI) | payer MEDICARE, OTHER, SELFPAY ==
[2019-08-23 13:52] VITALS: BMI 34.0
[2020-01-31 16:47] LABS: Absolute Lymphocyte Count 2.71 X10^3/uL (0.83-4.51); Basophil# 0.08 X10^3/uL; Basophil% 0.9 % (0-1); Eosinophil# 0.22 X10^3/uL; Eosinophils% 2.5 % (0-5); Hematocrit 43.6 % (40-54); Hemoglobin 13.4 g/dL (13.0-16.5); Lymphocyte # 2.71 X10^3/ul (4.0); Lymphocyte % 30.4 % (19-41); Mean Corp Hgb Conc 30.7 g/dL (32-36); Mean Corpuscular Hgb 30.3 pg (27.0-32.0); Mean Corpuscular Volume 98.6 fL (80-94); Monocyte# 0.82 X10^3/uL; Monocyte% 9.2 % (0-10); NRBC Flagged by Analyzer 0 % (0-5); Neutrophil # 5.02 X10^3/uL (2.7-7.7); Neutrophil % 56.2 % (47-70); Platelet Count 227 K/mm3 (150-450); RBC Distribution Width CV 13.6 % (11.6-14.6); RBC Distribution Width SD 49.1 fl (35.1-43.9); Red Blood Count 4.42 M/mm3 (4.6-6.2); White Blood Count 8.9 K/mm3 (4.4-11.0)
[2020-01-31 16:57] LABS: Vitamin D,25 Hydroxy 17.7 ng/mL
[2020-01-31 17:03] LABS: ALB/GLOB Ratio 0.8 RATIO (0.9-2.4); AST(SGOT) 16 U/L (15-37); Alanine Aminotransfer ALT/SGPT 25 U/L (16-61); Albumin, Serum 3.2 g/dL (3.2-5.0); Alkaline Phosphatase 53 U/L (45-117); Anion Gap 6 (5-15); BUN 18 mg/dL (7-18); BUN/Creat Ratio 16.2 RATIO (10-20); Calcium,Total 8.4 mg/dL (8.5-10.1); Chloride 108 mmol/L (98-107); Creatinine, Serum 1.11 mg/dL (0.70-1.30); EST Glomerular Filtration Rate 69 mL/min (>60); Est Glom Filt Rate - Afr Amer 83 mL/min (>60); Globulin 4.1 g/dL (2.2-4.2); Glucose 146 mg/dL (74-106); Potassium 4.9 mmol/L (3.5-5.1); Protein, Total 7.3 g/dL (6.4-8.2); Sodium Level 141 mmol/L (136-145); Thyroid Stim Hormone (TSH) 0.78 uIU/mL (0.358-3.74)
== END ==
PROVIDERS: PCP Family Medicine Geriatric Medicine; Visit Provider Family Medicine Geriatric Medicine
DX: I10 Essential (primary) hypertension (principal); E55.9 Vitamin D deficiency, unspecified; E11.9 Type 2 diabetes mellitus without complications
CPT/HCPCS: 36415; 80053; 82306; 84443; 85025

== ENCOUNTER → 2020-03-12 06:27 | Outpatient (CLI) | payer MEDICARE, OTHER, SELFPAY ==
[2020-02-28 16:16] VITALS: BMI 36.0
--- NOTE | 2020-03-12 06:29 | ECHOD_ITS ---
Reason For Study: DYSPNEA ON EXERTION Procedure This was a 2D Doppler, Color Flow transthoracic echocardiogram. The study was technically difficult. Technically difficult due to body habitus. Contrast injection was performed. Exam performed in department. Left Ventricle Based upon the 2D echocardiographic and contrast enhanced images obtained there appears to be grossly normal left ventricular size, wall motion, and systolic function. The estimated ejection fraction is 70 %. Diastolic function is indeterminate. Right Ventricle Based upon the 2D echocardiographic and contrast enhanced images obtained there appears to be grossly normal right ventricular size and systolic function. Atria Normal left atrium. Normal right atrium. No doppler evidence for ASD. Mitral Valve There is no mitral annular calcification. Normal mitral valve. Trivial mitral valve insufficiency. Tricuspid Valve The tricuspid valve is not well visualized. Trivial tricuspid valve insufficiency. Right ventricular systolic pressure estimated to be 24 mmHg. Aortic Valve Trisinus/trileaflet aortic valve. The aortic valve is not well visualized. Pulmonic Valve The pulmonic valve is not well visualized. Great Vessels The aortic root is not well visualized. Pericardium/Pleural No pericardial effusion. Medication Diluted definity 4.0ml given slow IV push to enhance endocardial definition. MMode/2D Measurements & Calculations LVIDd: 5.5 cm IVSd: 1.0 cm Ao root diam: 3.7 cm LVIDs: 3.3 cm LVPWd: 1.1 cm FS: 40.0 % LAV(MOD-bp): 82.7 ml LA A4 area: 27.9 cm2 LA dimension(2D): 4.0 cm LAV(MOD-bp) Indexed: 36.0 ml/m2 LAV(MOD-sp2): 70.0 ml LAV(MOD-sp4): 77.8 ml RA A4 area: 24.9 cm2 Doppler Measurements & Calculations MV E max nikos: 44.0 cm/sec Lat Peak E' Nikos: 9.7 cm/sec Med Peak E' Nikos: 6.2 cm/sec MV A max nikos: 101.6 cm/sec E/E' lat: 4.5 E/E' med: 7.1 MV E/A: 0.43 Ao V2 max: 133.6 cm/sec LV V1 max: 86.7 cm/sec PA V2 max: 94.2 cm/sec Ao max P.1 mmHg LV V1 max P.0 mmHg TR max nikos: 231.1 cm/sec TR max P.4 mmHg Interpretation Summary The study was technically difficult. Contrast injection was performed. Based upon the 2D echocardiographic and contrast enhanced images obtained there appears to be grossly normal left ventricular size, wall motion, and systolic function. The estimated ejection fraction is 70 %. Trivial mitral valve insufficiency. Trivial tricuspid valve insufficiency. Right ventricular systolic pressure estimated to be 24 mmHg. Diastolic function is indeterminate. Ordering Physician: Dimitri Richard Referring Physician: Maximino Figueroa Performed By: Charlotte Lantigua, ABELINO, RVT
--- NOTE | 2020-03-12 10:52 | STRESSREP_ITS ---
Stress Test Report Date: 03-12-2020 Procedure: Pharmacologic stress nuclear imaging study Indications: Shortness of breath/dyspnea on exertion Consent: Per the patient Procedure: The patient underwent pharmacologic (Regadenoson) evaluation with a peak heart rate of 106 beats per minute (72%predicted maximal heart rate) and a peak blood pressure of 148/62 mmHg. The baseline ECG demonstrated sinus rhythm; right bundle branch block pattern. The peak pharmacologic ECG demonstrated no obvious ECG changes. There were no cardiac dysrhythmias pretest, during pharmacologic infusion, or recovery. There was no complaint of chest discomfort during pharmacologic infusion or recovery. The examination was discontinued secondary to completion of protocol. Impression: 1. Pharmacologic (Regadenoson) evaluation 2. Peak pharmacologic ECG with no obvious ECG changes. 3. There were no cardiac dysrhythmias pretest, during pharmacologic infusion, or recovery. 4. Nuclear images pending Myocardial perfusion imaging study: Technique: The patient was injected with 14.5 millicuries of technetium 99m Cardiolite and subsequently rest SPECT Cardiolite nuclear imaging was obtained in the horizontal long, vertical long, and short axis views. The patient underwent pharmacologic (Regadenoson) evaluation with a peak heart rate of 106 beats per minute (72% percent predicted maximal heart rate) and a peak blood pressure of 148/62 mmHg. The patient was injected with 44.6 millicuries of technetium 99m Cardiolite and subsequently stress SPECT Cardiolite nuclear imaging was obtained in the horizontal long, vertical long, and short axis views. A gated Cardiolite study at peak stress was obtained. Interpretation: Rest and stress SPECT Cardiolite nuclear imaging status post realignment, normalization, and attenuation correction demonstrate relative uniform tracer uptake and myocardial perfusion appearing within normal limits. There is end systolic thickening and brightening. The gated Cardiolite study demonstrates myocardial thickening and inward wall motion. The reported LVEF is 61%. Impression: 1. Rest and stress SPECT Cardiolite nuclear imaging demonstrate relative uniform tracer uptake and myocardial perfusion appearing within normal limits. 2. The gated Cardiolite study reports an LVEF of 61%. This note was generated with [employer]roec[employer] software. It may contain incorrect words, spelling, and punctuation that were not noted in checking the note before signing.
== END ==
PROVIDERS: PCP Family Medicine Geriatric Medicine; Referring Provider Internal Medicine Cardiovascular Disease; Visit Provider Internal Medicine Cardiovascular Disease
DX: R06.00 Dyspnea, unspecified (principal)
CPT/HCPCS: 78452; 93017; 93306; A9500; Q9957; A4216; C8929; J2785

== ENCOUNTER → 2020-05-05 15:16 | Outpatient (CLI) | payer MEDICARE, OTHER, SELFPAY ==
[2020-05-05 15:48] LABS: Absolute Lymphocyte Count 3.02 X10^3/uL (0.83-4.51); Absolute Neutrophil Count 4.8 X10^3/uL (2.0-7.7); Basophil# 0.07 X10^3/uL; Basophil% 0.8 % (0-1); Eosinophil# 0.15 X10^3/uL; Eosinophils% 1.7 % (0-5); Hematocrit 46.7 % (40-54); Hemoglobin 14.7 g/dL (13.0-16.5); Lymphocyte # 3.02 X10^3/ul (4.0); Lymphocyte % 33.8 % (19-41); Mean Corp Hgb Conc 31.5 g/dL (32-36); Mean Corpuscular Hgb 29.8 pg (27.0-32.0); Mean Corpuscular Volume 94.7 fL (80-94); NRBC Flagged by Analyzer 0 % (0-5); Neutrophil # 4.83 X10^3/uL (2.7-7.7); Platelet Count 219 K/mm3 (150-450); RBC Distribution Width CV 13.9 % (11.6-14.6); Red Blood Count 4.93 M/mm3 (4.6-6.2); White Blood Count 8.9 K/mm3 (4.4-11.0)
[2020-05-05 16:13] LABS: Vitamin D,25 Hydroxy 21.9 ng/mL
[2020-05-05 16:19] LABS: ALB/GLOB Ratio 0.8 RATIO (0.9-2.4); AST(SGOT) 16 U/L (15-37); Alanine Aminotransfer ALT/SGPT 23 U/L (16-61); Albumin, Serum 3.4 g/dL (3.2-5.0); Alkaline Phosphatase 60 U/L (45-117); Anion Gap 8 (5-15); BUN 25 mg/dL (7-18); BUN/Creat Ratio 21.9 RATIO (10-20); Calcium,Total 9.2 mg/dL (8.5-10.1); Chloride 109 mmol/L (98-107); Creatinine, Serum 1.14 mg/dL (0.70-1.30); EST Glomerular Filtration Rate 67 mL/min (>60); Est Glom Filt Rate - Afr Amer 81 mL/min (>60); Glucose 128 mg/dL (74-106); Potassium 4.4 mmol/L (3.5-5.1); Protein, Total 7.4 g/dL (6.4-8.2); Sodium Level 141 mmol/L (136-145); Thyroid Stim Hormone (TSH) 0.82 uIU/mL (0.358-3.74); Uric Acid 4.7 mg/dL (3.5-7.2)
== END ==
PROVIDERS: PCP Family Medicine Geriatric Medicine; Referring Provider Family Medicine Geriatric Medicine; Visit Provider Family Medicine Geriatric Medicine
DX: E11.9 Type 2 diabetes mellitus without complications (principal); E55.9 Vitamin D deficiency, unspecified; I10 Essential (primary) hypertension; M10.9 Gout, unspecified
CPT/HCPCS: 36415; 80053; 82306; 84443; 84550; 85025

== ENCOUNTER 2020-05-14 13:32 | Outpatient (RCR) | payer MEDICARE, OTHER, SELFPAY ==
[2020-02-28 16:16] VITALS: BMI 36.0
== END 2020-05-14 23:59 ==
LOC: IMMUN 13:32
PROVIDERS: PCP Family Medicine Geriatric Medicine; Referring Provider Family Medicine; Visit Provider Family Medicine
DX: Z23 Encounter for immunization (principal)
CPT/HCPCS: 0011A; 0012A

== ENCOUNTER → 2020-08-11 17:00 | Outpatient (CLI) | payer MEDICARE, OTHER, SELFPAY ==
[2020-08-11 17:23] LABS: Absolute Lymphocyte Count 2.53 X10^3/uL (0.83-4.51); Absolute Neutrophil Count 4.5 X10^3/uL (2.0-7.7); Basophil# 0.06 X10^3/uL; Basophil% 0.8 % (0-1); Eosinophil# 0.13 X10^3/uL; Eosinophils% 1.6 % (0-5); Hemoglobin 14.1 g/dL (13.0-16.5); Lymphocyte # 2.53 X10^3/ul (0.83-4.51); Lymphocyte % 31.8 % (19-41); Mean Corpuscular Hgb 30.4 pg (27.0-32.0); Mean Corpuscular Volume 94.8 fL (80-94); Mean Platelet Vol. 10.5 fl (6.2-12.0); Monocyte# 0.71 X10^3/uL; Monocyte% 8.9 % (0-10); NRBC Flagged by Analyzer 0 % (0-5); Neutrophil # 4.47 X10^3/uL (2.7-7.7); Neutrophil % 56.1 % (47-70); Platelet Count 229 K/mm3 (150-450); RBC Distribution Width CV 13.6 % (11.6-14.6); RBC Distribution Width SD 47.3 fl (35.1-43.9); Red Blood Count 4.64 M/mm3 (4.6-6.2)
[2020-08-11 18:33] LABS: ALB/GLOB Ratio 0.8 RATIO (0.9-2.4); AST(SGOT) 17 U/L (15-37); Alanine Aminotransfer ALT/SGPT 17 U/L (16-61); Albumin, Serum 3.5 g/dL (3.2-5.0); Alkaline Phosphatase 69 U/L (45-117); Anion Gap 4 (5-15); BUN 17 mg/dL (7-18); BUN/Creat Ratio 13.4 RATIO (10-20); Calcium,Total 9.6 mg/dL (8.5-10.1); Chloride 107 mmol/L (98-107); Creatinine, Serum 1.27 mg/dL (0.70-1.30); EST Glomerular Filtration Rate 59 mL/min (>60); Est Glom Filt Rate - Afr Amer 71 mL/min (>60); Globulin 4.3 g/dL (2.2-4.2); Glucose 110 mg/dL (74-106); Potassium 4.9 mmol/L (3.5-5.1); Protein, Total 7.8 g/dL (6.4-8.2); Sodium Level 139 mmol/L (136-145); Thyroid Stim Hormone (TSH) 0.58 uIU/mL (0.358-3.74)
[2020-08-14 12:42] LABS: Vitamin D,25 Hydroxy 21.6 ng/mL
== END ==
PROVIDERS: PCP Family Medicine Geriatric Medicine; Visit Provider Family Medicine Geriatric Medicine
DX: E11.9 Type 2 diabetes mellitus without complications (principal); E55.9 Vitamin D deficiency, unspecified; I10 Essential (primary) hypertension
CPT/HCPCS: 36415; 80053; 82306; 84443; 85025

== ENCOUNTER → 2020-11-19 10:09 | Outpatient (CLI) | payer MEDICARE, OTHER, SELFPAY ==
[2020-11-19 10:40] LABS: Absolute Lymphocyte Count 2.05 X10^3/uL (0.83-4.51); Absolute Neutrophil Count 3.7 X10^3/uL (2.0-7.7); Basophil# 0.05 X10^3/uL; Basophil% 0.8 % (0-1); Eosinophil# 0.12 X10^3/uL; Eosinophils% 1.8 % (0-5); Hematocrit 44.3 % (40-54); Lymphocyte # 2.05 X10^3/ul (0.83-4.51); Lymphocyte % 31.2 % (19-41); Mean Corp Hgb Conc 31.6 g/dL (32-36); Mean Corpuscular Hgb 30.8 pg (27.0-32.0); Mean Corpuscular Volume 97.4 fL (80-94); Monocyte# 0.64 X10^3/uL; Monocyte% 9.7 % (0-10); NRBC Flagged by Analyzer 0 % (0-5); Neutrophil # 3.68 X10^3/uL (2.7-7.7); Neutrophil % 55.9 % (47-70); Platelet Count 217 K/mm3 (150-450); RBC Distribution Width CV 14.4 % (11.6-14.6); RBC Distribution Width SD 51.7 fl (35.1-43.9); Red Blood Count 4.55 M/mm3 (4.6-6.2); White Blood Count 6.6 K/mm3 (4.4-11.0)
[2020-11-19 11:26] LABS: Vitamin D,25 Hydroxy 33.6 ng/mL
[2020-11-19 11:43] LABS: ALB/GLOB Ratio 0.8 RATIO (0.9-2.4); AST(SGOT) 14 U/L (15-37); Alanine Aminotransfer ALT/SGPT 19 U/L (16-61); Albumin, Serum 3.6 g/dL (3.2-5.0); Alkaline Phosphatase 53 U/L (45-117); Anion Gap 7 (5-15); BUN 24 mg/dL (7-18); BUN/Creat Ratio 19.2 RATIO (10-20); Calcium,Total 9.3 mg/dL (8.5-10.1); Chloride 107 mmol/L (98-107); Creatinine, Serum 1.25 mg/dL (0.70-1.30); EST Glomerular Filtration Rate 60 mL/min (>60); Est Glom Filt Rate - Afr Amer 73 mL/min (>60); Globulin 4.3 g/dL (2.2-4.2); Glucose 88 mg/dL (74-106); Potassium 3.7 mmol/L (3.5-5.1); Protein, Total 7.9 g/dL (6.4-8.2); Sodium Level 139 mmol/L (136-145); Thyroid Stim Hormone (TSH) 0.36 uIU/mL (0.358-3.74)
== END ==
PROVIDERS: PCP Family Medicine Geriatric Medicine; Referring Provider Family Medicine Geriatric Medicine; Visit Provider Family Medicine Geriatric Medicine
DX: E11.9 Type 2 diabetes mellitus without complications (principal); E55.9 Vitamin D deficiency, unspecified; I10 Essential (primary) hypertension; M10.9 Gout, unspecified
CPT/HCPCS: 36415; 80053; 82306; 84443; 84550; 85025

== ENCOUNTER → 2021-02-05 11:25 | Outpatient (CLI) | payer MEDICARE, OTHER, SELFPAY ==
[2021-02-05 12:30] LABS: Absolute Lymphocyte Count 2.53 X10^3/uL (0.83-4.51); Absolute Neutrophil Count 3.8 X10^3/uL (2.0-7.7); Basophil# 0.08 X10^3/uL; Basophil% 1.1 % (0-1); Eosinophil# 0.14 X10^3/uL; Eosinophils% 1.9 % (0-5); Hemoglobin 15.1 g/dL (13.0-16.5); Lymphocyte # 2.53 X10^3/ul (0.83-4.51); Lymphocyte % 34.6 % (19-41); Mean Corp Hgb Conc 31.5 g/dL (32-36); Mean Corpuscular Hgb 30.9 pg (27.0-32.0); Mean Corpuscular Volume 98.4 fL (80-94); Mean Platelet Vol. 10.9 fl (6.2-12.0); Monocyte# 0.71 X10^3/uL; Monocyte% 9.7 % (0-10); NRBC Flagged by Analyzer 0 % (0-5); Neutrophil # 3.77 X10^3/uL (2.7-7.7); Neutrophil % 51.5 % (47-70); Platelet Count 240 K/mm3 (150-450); RBC Distribution Width CV 13.8 % (11.6-14.6); RBC Distribution Width SD 50.1 fl (35.1-43.9); Red Blood Count 4.88 M/mm3 (4.6-6.2); White Blood Count 7.3 K/mm3 (4.4-11.0)
[2021-02-05 12:43] LABS: Vitamin D,25 Hydroxy 21.9 ng/mL
[2021-02-05 12:46] LABS: ALB/GLOB Ratio 0.7 RATIO (0.9-2.4); AST(SGOT) 20 U/L (15-37); Alanine Aminotransfer ALT/SGPT 30 U/L (16-61); Albumin, Serum 3.1 g/dL (3.2-5.0); Alkaline Phosphatase 64 U/L (45-117); Anion Gap 5 (5-15); BUN 17 mg/dL (7-18); BUN/Creat Ratio 12.8 RATIO (10-20); Calcium,Total 9.2 mg/dL (8.5-10.1); Chloride 109 mmol/L (98-107); Creatinine, Serum 1.33 mg/dL (0.70-1.30); EST Glomerular Filtration Rate 56 mL/min (>60); Est Glom Filt Rate - Afr Amer 67 mL/min (>60); Globulin 4.2 g/dL (2.2-4.2); Glucose 128 mg/dL (74-106); Potassium 5.3 mmol/L (3.5-5.1); Protein, Total 7.3 g/dL (6.4-8.2); Sodium Level 141 mmol/L (136-145); Thyroid Stim Hormone (TSH) 0.85 uIU/mL (0.358-3.74)
== END ==
PROVIDERS: PCP Family Medicine Geriatric Medicine; Visit Provider Family Medicine Geriatric Medicine
DX: E11.9 Type 2 diabetes mellitus without complications (principal); E55.9 Vitamin D deficiency, unspecified; I10 Essential (primary) hypertension
CPT/HCPCS: 36415; 80053; 82306; 84443; 85025

== ENCOUNTER → 2021-02-07 15:53 | Outpatient (CLI) | payer MEDICARE, OTHER, SELFPAY ==
[2021-02-07 16:31] LABS: Anion Gap 6 (5-15); BUN 12 mg/dL (7-18); BUN/Creat Ratio 12.4 RATIO (10-20); Calcium,Total 8.8 mg/dL (8.5-10.1); Chloride 108 mmol/L (98-107); Creatinine, Serum 0.96 mg/dL (0.70-1.30); EST Glomerular Filtration Rate 81 mL/min (>60); Est Glom Filt Rate - Afr Amer 98 mL/min (>60); Glucose 109 mg/dL (74-106); Potassium 3.4 mmol/L (3.5-5.1); Sodium Level 139 mmol/L (136-145)
== END ==
PROVIDERS: PCP Family Medicine Geriatric Medicine; Visit Provider Family Medicine Geriatric Medicine
DX: E87.5 Hyperkalemia (principal)
CPT/HCPCS: 36415; 80048

== ENCOUNTER 2021-06-15 14:15 | Outpatient (CLI) | payer MEDICARE, OTHER, SELFPAY ==
--- NOTE | 2021-06-15 14:21 | RAD_ITS ---
STUDY: X-RAY - PELVIS AND RIGHT HIP REASON FOR EXAM: Male, 76 years old. RT HIP INJURY -- PT HARD OF HEARING TECHNIQUE: XR Hip Unilateral with Pelvis when performed; 2-3 Views COMPARISON: None. FINDINGS: There is a non-specific bowel gas pattern. There are atherosclerotic vascular calcifications of the pelvic arteries. There are degenerative changes of the lumbar spine. Normal bilateral iliac wings, sacroiliac joints and visualized sacrum. Normal bilateral superior and inferior pubic rami. Normal pubic symphysis. Normal bilateral ischial tuberosities. There are osteoarthritic changes of the femoral head with marginal osteophyte formation. There is osteoarthritic spur formation of the acetabular rim. There is mild articular joint space narrowing of the hip. IMPRESSION:There is mild articular joint space narrowing of the right hip. Electronically Signed: Tao Jacques MD at 17:16 EDT Reading Location ID and State: [facility] / [place] , Service support , RAD/HIP, UNI W/ Pelvis 2-3 Views
== END 2021-06-15 23:59 | disposition home or self-care (01) ==
LOC: RAD 14:18
PROVIDERS: PCP Family Medicine Geriatric Medicine; Referring Provider Anesthesiology Pain Medicine; Visit Provider Anesthesiology Pain Medicine
DX: M25.551 Pain in right hip (principal)
CPT/HCPCS: 73502

== ENCOUNTER → 2021-08-06 | Outpatient (CLI) | payer MEDICARE, OTHER, SELFPAY ==
[2021-08-06 12:37] LABS: Absolute Lymphocyte Count 3.45 X10^3/uL (0.83-4.51); Absolute Neutrophil Count 5.1 X10^3/uL (2.0-7.7); Basophil# 0.07 X10^3/uL; Basophil% 0.7 % (0-1); Eosinophil# 0.11 X10^3/uL; Eosinophils% 1.1 % (0-5); Hematocrit 44.9 % (40-54); Hemoglobin 14.6 g/dL (13.0-16.5); Lymphocyte # 3.45 X10^3/ul (0.83-4.51); Mean Corp Hgb Conc 32.5 g/dL (32-36); Mean Corpuscular Hgb 31.1 pg (27.0-32.0); Mean Corpuscular Volume 95.5 fL (80-94); Mean Platelet Vol. 11.1 fl (6.2-12.0); Monocyte# 0.78 X10^3/uL; Monocyte% 8.1 % (0-10); NRBC Flagged by Analyzer 0 % (0-5); Neutrophil # 5.07 X10^3/uL (2.7-7.7); Platelet Count 243 K/mm3 (150-450); RBC Distribution Width CV 14.1 % (11.6-14.6); RBC Distribution Width SD 50.1 fl (35.1-43.9); White Blood Count 9.6 K/mm3 (4.4-11.0)
[2021-08-06 12:46] LABS: Vitamin D,25 Hydroxy 17.2 ng/mL
[2021-08-06 13:02] LABS: ALB/GLOB Ratio 0.8 RATIO (0.9-2.4); AST(SGOT) 14 U/L (15-37); Alanine Aminotransfer ALT/SGPT 18 U/L (16-61); Albumin, Serum 3.2 g/dL (3.2-5.0); Alkaline Phosphatase 59 U/L (45-117); Anion Gap 10 (5-15); BUN 14 mg/dL (7-18); BUN/Creat Ratio 12.2 RATIO (10-20); Calcium,Total 9.4 mg/dL (8.5-10.1); Chloride 101 mmol/L (98-107); Creatinine, Serum 1.15 mg/dL (0.70-1.30); EST Glomerular Filtration Rate 66 mL/min (>60); Est Glom Filt Rate - Afr Amer 80 mL/min (>60); Globulin 4.1 g/dL (2.2-4.2); Glucose 136 mg/dL (74-106); Potassium 4.7 mmol/L (3.5-5.1); Protein, Total 7.3 g/dL (6.4-8.2); Sodium Level 138 mmol/L (136-145); Thyroid Stim Hormone (TSH) 0.55 uIU/mL (0.358-3.74); Uric Acid 5.6 mg/dL (3.5-7.2)
== END | disposition home or self-care (01) ==
LOC: POLAB3 11:43
PROVIDERS: PCP Family Medicine Geriatric Medicine; Visit Provider Family Medicine Geriatric Medicine
DX: E11.9 Type 2 diabetes mellitus without complications (principal); E55.9 Vitamin D deficiency, unspecified; I10 Essential (primary) hypertension; M10.9 Gout, unspecified
CPT/HCPCS: 36415; 80053; 82306; 84443; 84550; 85025

== ENCOUNTER 2022-02-18 13:55 | Outpatient (CLI) | payer MEDICARE, OTHER, SELFPAY ==
[2022-02-18 16:59] LABS: Absolute Lymphocyte Count 2.71 X10^3/uL (0.83-4.51); Absolute Neutrophil Count 4.9 X10^3/uL (2.0-7.7); Basophil# 0.07 X10^3/uL; Basophil% 0.8 % (0-1); Eosinophils% 1.2 % (0-5); Hematocrit 44.9 % (40-54); Hemoglobin 14.2 g/dL (13.0-16.5); Lymphocyte # 2.71 X10^3/ul (0.83-4.51); Lymphocyte % 31.5 % (19-41); Mean Corp Hgb Conc 31.6 g/dL (32-36); Mean Corpuscular Hgb 30.3 pg (27.0-32.0); Mean Corpuscular Volume 95.9 fL (80-94); Mean Platelet Vol. 11.2 fl (6.2-12.0); Monocyte# 0.73 X10^3/uL; Monocyte% 8.5 % (0-10); NRBC Flagged by Analyzer 0 % (0-5); Neutrophil # 4.93 X10^3/uL (2.7-7.7); Neutrophil % 57.4 % (47-70); Platelet Count 233 K/mm3 (150-450); RBC Distribution Width CV 13.4 % (11.6-14.6); RBC Distribution Width SD 47.4 fl (35.1-43.9); Red Blood Count 4.68 M/mm3 (4.6-6.2); White Blood Count 8.6 K/mm3 (4.4-11.0)
[2022-02-18 17:36] LABS: Vitamin D,25 Hydroxy 22.1 ng/mL
[2022-02-18 17:54] LABS: ALB/GLOB Ratio 0.9 RATIO (0.9-2.4); AST(SGOT) 14 U/L (15-37); Alanine Aminotransfer ALT/SGPT 20 U/L (16-61); Albumin, Serum 3.4 g/dL (3.2-5.0); Alkaline Phosphatase 65 U/L (45-117); Anion Gap 11 (5-15); BUN 23 mg/dL (7-18); BUN/Creat Ratio 17.4 RATIO (10-20); Calcium,Total 8.8 mg/dL (8.5-10.1); Chloride 101 mmol/L (98-107); Creatinine, Serum 1.32 mg/dL (0.70-1.30); EST Glomerular Filtration Rate 56 mL/min (>60); Est Glom Filt Rate - Afr Amer 68 mL/min (>60); Globulin 3.9 g/dL (2.2-4.2); Glucose 180 mg/dL (74-106); Potassium 4.3 mmol/L (3.5-5.1); Protein, Total 7.3 g/dL (6.4-8.2); Sodium Level 137 mmol/L (136-145); Thyroid Stim Hormone (TSH) 0.82 uIU/mL (0.358-3.74)
== END 2022-02-18 23:59 | disposition home or self-care (01) ==
LOC: POLAB3 13:57
PROVIDERS: PCP Family Medicine Geriatric Medicine; Visit Provider Family Medicine Geriatric Medicine
DX: I10 Essential (primary) hypertension (principal); E11.9 Type 2 diabetes mellitus without complications; E55.9 Vitamin D deficiency, unspecified
CPT/HCPCS: 36415; 80053; 82306; 84443; 85025

== ENCOUNTER 2022-06-28 16:13 | Observation (INO) | payer MEDICARE, OTHER, SELFPAY ==
[2022-06-28 16:14] VITALS: BP 156/70; PULSE 109; RESP 18; TEMP 36.6; O2SAT 100
[2022-06-28 17:03] VITALS: TEMP 36.6; O2SAT 97
--- NOTE | 2022-06-28 17:08 | ED.RN ---
PT IS ON BLOOD THINNERS PER PT .
[2022-06-28 17:31] LABS: Bedside Glucose 177 mg/dL (74-106)
[2022-06-28] MEDS: HYDROcodone Bitartrate/Apap 5/325 Tablet PO (18:25)
[2022-06-28 18:26] LABS: Absolute Lymphocyte Count 1.16 X10^3/uL (0.83-4.51); Absolute Neutrophil Count 11.1 X10^3/uL (2.0-7.7); Basophil# 0.07 X10^3/uL; Basophil% 0.5 % (0-1); Eosinophil# 0.01 X10^3/uL; Eosinophils% 0.1 % (0-5); Hematocrit 44.6 % (40-54); Hemoglobin 14.1 g/dL (13.0-16.5); Lymphocyte # 1.16 X10^3/ul (0.83-4.51); Lymphocyte % 8.6 % (19-41); Mean Corp Hgb Conc 31.6 g/dL (32-36); Mean Corpuscular Hgb 30.7 pg (27.0-32.0); Mean Platelet Vol. 10.6 fl (6.2-12.0); Monocyte# 1.04 X10^3/uL; Monocyte% 7.7 % (0-10); NRBC Flagged by Analyzer 0 % (0-5); Neutrophil # 11.09 X10^3/uL (2.7-7.7); Neutrophil % 82.4 % (47-70); Platelet Count 231 K/mm3 (150-450); RBC Distribution Width SD 50.2 fl (35.1-43.9); White Blood Count 13.5 K/mm3 (4.4-11.0)
[2022-06-28 18:29] VITALS: BMI 36.1
[2022-06-28 18:42] LABS: Bacteria 0 SEEN /hpf (None Seen); Mucous, Urine 0 SEEN /hpf (<or=2+); Red Blood Cells-Urine 0 SEEN /hpf (0-5); Squamous Epithelial Cells - UA 0 SEEN /hpf (0-5); White Blood Cells 0 SEEN /hpf (0-5)
[2022-06-28 18:46] LABS: Anion Gap 5 (5-15); BUN 21 mg/dL (7-18); BUN/Creat Ratio 16.4 RATIO (10-20); Calcium,Total 9.2 mg/dL (8.5-10.1); Chloride 108 mmol/L (98-107); Creatinine, Serum 1.28 mg/dL (0.70-1.30); EST Glomerular Filtration Rate 58 mL/min (>60); Est Glom Filt Rate - Afr Amer 70 mL/min (>60); Estimated Creatinine Clearance 50.69 ml/min; Glucose 171 mg/dL (74-106); Potassium 4.3 mmol/L (3.5-5.1); Sodium Level 140 mmol/L (136-145)
--- NOTE | 2022-06-28 18:50 | RAD_ITS ---
STUDY: XR Hip Unilateral with Pelvis when performed; 2-3 Views 06/28/2022 6:49 PM REASON FOR EXAM: Male, 77 years old. pain Pain TECHNIQUE: XR Hip Unilateral with Pelvis when performed; 2-3 Views COMPARISON: None FINDINGS: There is a non-specific bowel gas pattern. There are atherosclerotic vascular calcifications of the pelvic arteries.There are degenerative changes of the lumbar spine. Normal bilateral iliac wings, sacroiliac joints and visualized sacrum. Normal visualized bilateral superior and inferior pubic rami. Normal pubic symphysis. Normal ischial tuberosities. There are osteoarthritic changes of the right femoral head with marginal osteophyte formation. There is osteoarthritic spur formation of the right acetabular rim. There is mild articular joint space narrowing of the right hip. There are osteoarthritic changes of the left femoral head with marginal osteophyte formation. There is osteoarthritic spur formation of the left acetabular rim. There is mild articular joint space narrowing of the left hip. RAD/HIP, UNI W/ Pelvis 2-3 Views IMPRESSION: Degenerative findings of the hips. Electronically Signed: Tao Jacques MD at 19:14 EDT Reading Location ID and State: [facility] / [place] , Service support ,
--- NOTE | 2022-06-28 18:50 | RAD_ITS ---
EXAM: XR CHEST, 1 VIEW CLINICAL INDICATION: weakness TECHNIQUE: Frontal view of the chest. This report was created using [employer] report generation technology. COMPARISON: 06.24.19 FINDINGS: LUNGS AND PLEURAL SPACES: Unremarkable. No consolidation or edema. No pneumothorax. No effusion. HEART: Unremarkable. Cardiac silhouette not enlarged. MEDIASTINUM: Central airways and mediastinal contour are unremarkable. BONES/JOINTS: Unremarkable. SOFT TISSUES: Unremarkable. RAD/Chest 1 View (Portable) IMPRESSION: No radiographic evidence of acute cardiopulmonary disease. Electronically Signed: Tao Jacques MD at 19:14 EDT ,
--- NOTE | 2022-06-28 18:50 | RAD_ITS ---
STUDY: XR Knee Complete 4 Views or More 06/28/2022 7:11 PM REASON FOR EXAM: Male, 77 years old. pain TECHNIQUE: XR Knee Complete 4 Views or More LEFT COMPARISON: None FINDINGS: Normal visualized distal femur. Normal visualized proximal tibia and fibula. Normal proximal tibiofibular articulation. There is moderate degenerative arthrosis of the medial femorotibial compartment with moderate joint space narrowing. There is moderate degenerative arthrosis of the lateral femorotibial compartment with moderate joint space narrowing. There is moderate degenerative arthrosis of the patellofemoral articulation. There is a moderate volume joint effusion. There are atherosclerotic calcifications. RAD/Knee 4 or More Views IMPRESSION: Degenerative arthrosis.There is a moderate volume joint effusion. Electronically Signed: Tao Jacques MD at 19:13 EDT ,
[2022-06-28 18:57] LABS: Color, Urine Yellow (Yellow); Glucose, Dipstick Normal (Normal); Ketone-Dipstick 5 mg/dl (Negative); Leukocyte Esterase-Dipstick Negative /ul (Negative); Nitrite-Dipstick Negative (Negative); Occult Blood-Urine 10 /ul (Negative); Protein-Dipstick Negative (Negative); Specific Gravity, Urine 1.015 (1.002-1.030); Urine Bilirubin Dipstick Negative (Negative); Urine Clarity Clear (Clear); Urine Urobilinogen Normal (Normal)
--- NOTE | 2022-06-28 20:12 | ED.VIS.LOWEX ---
HPI History of Present Illness Chief Complaint: Fall Narrative Narrative: 77-year-old male presenting with left knee pain and right hip pain. He states his left knee gave out and he fell down hitting his left knee and somehow his back. He thinks he may have fallen backwards onto his hip. No head injury or LOC. Patient states he is unable to ambulate. states that he initially refused EMS to the hospital. He sat at home all day. He was not taking his meds today. She is not sure why. Patient's states he cannot take care of him at home and this condition. He is too heavy. [facility] Medical History Anterolisthesis Atrial septal defect Bifascicular block CVA (cerebral vascular accident) (~07/2006) DDD (degenerative disc disease), lumbar Deep vein thrombophlebitis of right leg Depression Diabetes mellitus, type II Essential hypertension Hyperlipidemia Migraines CRYSTAL (obstructive sleep apnea) Right bundle branch block Syncope and collapse TIA (transient ischemic attack) (~10/2013) Home Medications atorvastatin 80 mg tablet 80 mg PO QHS cholesterol 06/22/17 [History Last Taken Unknown] diltiazem HCl 240 mg capsule,extended release 24 hr (Cardizem CD) 240 mg PO QDAY blood pressure 06/22/17 [History Last Taken Unknown] meclizine 12.5 mg tablet 12.5 mg PO 4X/DAY PRN PRN VERTIGO/DIZZINESS 06/27/19 [Rx Last Taken Unknown] insulin degludec 100 unit/mL (3 mL) subcutaneous pen (Tresiba FlexTouch U-100 insulin) 20 unit subcut QHS 02/28/20 [History Last Taken Unknown] metformin 1,000 mg tablet 1,000 mg PO BID diabetes 02/28/20 [History Last Taken Unknown] pioglitazone 30 mg tablet 30 mg PO QHS 02/28/20 [History Last Taken Unknown] clopidogrel 75 mg tablet (Plavix) 75 mg PO DAILY 09/03/20 [History Last Taken Unknown] furosemide 20 mg tablet (Lasix) 20 mg PO DAILY #30 tabs 08/24/21 [Rx Last Taken Unknown] Allergy/AdvReac Type Severity Reaction Status Date / Time Sulfa (Sulfonamide Allergy Hives Verified 06/28/22 17:01 Antibiotics) Family History Mother Hypertension Surgical History Hx of local excision of skin lesion Social History (Updated 06/28/22 @ 22:[address] Linda Berrios DO) household members: spouse housing: house Smoking Status: Former smoker alcohol intake: never substance use type: does not use what type of physical activity do you participate in: none ROS ROS ED Constitutional Constitutional ED: Denies chills or fever(s) Eyes Eyes: Denies change in vision or diplopia ENT ENT ED: Denies rhinorrhea or sore throat Cardiovascular Cardiovascular: Denies chest pain or palpitations Respiratory/Chest Respiratory/Chest: Denies cough or dyspnea Gastrointestinal Gastrointestinal: Denies nausea or vomiting Genitourinary Genitourinary ED: Denies dysuria Musculoskeletal Musculoskeletal: Reports other Details: Left knee pain and right hip pain. Integumentary Denies abscess Neurologic Neurologic: Denies headache(s) Psychiatric Psychiatric: Denies anxiety or depression EXAM Physical Exam Const Vital Signs: 06/28/22 16:14 06/28/22 17:03 06/28/22 20:29 Temperature 98 F 98 F Temperature Source Temporal Pulse Rate 109 H 88 Respiratory Rate 18 18 Respiratory Effort Normal Non-Labored Respiratory Depth Normal Respiratory Pattern Normal Blood Pressure 156/70 H 147/58 H Blood Pressure Mean 98 87 Pulse Ox 100 97 95 Oxygen Delivery Method Room Air Room Air Room Air 06/28/22 22:43 Temperature 97.7 F L Temperature Source Temporal Pulse Rate 98 Respiratory Rate 17 Respiratory Effort Respiratory Depth Respiratory Pattern Blood Pressure 148/70 H Blood Pressure Mean 96 Pulse Ox 57 Oxygen Delivery Method Room Air Positive well nourished General Appearance ED: NAD HEENT Reports moist mucous membranes normocephalic Resp normal respiratory effort and no retractions Cardio regular rate and regular rhythm Extremity Extremity Narrative: Tenderness to palpation over the left knee diffusely. There is some edema here. There is pain and swelling to the medial aspect of the knee. No obvious deformity. Right hip minimally tender to palpation. No deformity. Patient able to flex to off the bed. Negative logroll. Neuro oriented x3 and CN's II-XII intact bilaterally Sensorium / Orientation: alert Motor Exam: strength 5/5 throughout Psych mental status grossly normal MDM MDM MDM Narrative Medical decision making narrative: Patient given [place] for pain. Examination of his left knee shows tenderness and swelling. He points to the medial aspect of the left knee. Is difficult to examine his extensor mechanism because he refuses to hold his leg up because it hurts. It does appear that his extensor mechanism is intact. X-ray of the left knee on my interpretation shows degenerative changes and a moderate effusion. No fracture. Right hip x-ray on my interpretation shows no acute fracture either. Because of the patient's debility and inability to ambulate I did obtain blood work and his CBC shows a leukocytosis of 13.5. Hemoglobin macular stable. Platelets are normal. Creatinine near baseline. Glucose 171 without anion gap. Chest x-ray which does not show any acute cardiopulmonary findings. Urinalysis was negative. Patient's expressed concern that the patient would need to be admitted due to debility. I spoke with the hospitalist about this. Patient will be admitted pending placement. Impression: 1. Mechanical fall 2. Left knee contusion 3. Right hip contusion 4. Debility Lab Data Labs: Laboratory Results - last 24 hr 06/28/22 06/28/22 06/28/22 17:11 18:19 18:19 WBC 13.5 H RBC 4.60 Hgb 14.1 Hct 44.6 MCV 97.0 H MCH 30.7 MCHC 31.6 L RDW Std Deviation 50.2 H RDW Coeff of Blanco 14.0 Plt Count 231 MPV 10.6 Immature Gran % (Auto) 0.700 Neut % (Auto) 82.4 H Lymph % (Auto) 8.6 L [place] % (Auto) 7.7 Eos % (Auto) 0.1 Baso % (Auto) 0.5 Absolute Neuts (auto) 11.1 H Absolute Lymphs (auto) 1.16 Nucleated RBC % 0 Sodium 140 Potassium 4.3 Chloride 108 H Carbon Dioxide 27.0 Anion Gap 5 BUN 21 H Creatinine 1.28 Estim Creat Clear Calc 50.69 Est GFR (MDRD) Af Amer 70 Est GFR (MDRD) Non-Af 58 L BUN/Creatinine Ratio 16.4 Glucose 171 H Calcium 9.2 Urine Color Urine Clarity Urine pH Ur Specific [place] Urine Protein Urine Glucose (UA) Urine Ketones Urine Occult Blood Urine Nitrite Urine Bilirubin Urine Urobilinogen Ur Leukocyte Esterase Urine RBC Urine WBC Ur Squamous Epith Cells Urine Bacteria Urine Mucus POC Glucose 177 H 06/28/22 18:35 WBC RBC Hgb Hct MCV MCH MCHC RDW Std Deviation RDW Coeff of [place] Plt Count MPV Immature Gran % (Auto) Neut % (Auto) Lymph % (Auto) [place] % (Auto) Eos % (Auto) Baso % (Auto) Absolute Neuts (auto) Absolute Lymphs (auto) Nucleated RBC % Sodium Potassium Chloride Carbon Dioxide Anion Gap BUN Creatinine Estim Creat Clear Calc Est GFR (MDRD) Af Amer Est GFR (MDRD) Non-Af BUN/Creatinine Ratio Glucose Calcium Urine Color Yellow Urine Clarity Clear Urine pH 5.0 Ur Specific [place] 1.015 Urine Protein Negative Urine Glucose (UA) Normal Urine Ketones 5 H Urine Occult Blood 10 H Urine Nitrite Negative Urine Bilirubin Negative Urine Urobilinogen Normal Ur Leukocyte Esterase Negative Urine RBC 0 SEEN Urine WBC 0 SEEN Ur Squamous Epith Cells 0 SEEN Urine Bacteria 0 SEEN Urine Mucus 0 SEEN POC Glucose Radiography Diagnostic Testing: Clinical Impression(s) from Imaging Studies Chest X-Ray 06/28/22 18:50 IMPRESSION: No radiographic evidence of acute cardiopulmonary disease. Electronically Signed: Tao Jacques MD at 19:14 EDT , Hip/Pelvis X-Ray 06/28/22 18:50 IMPRESSION: Degenerative findings of the hips. Electronically Signed: Tao Jacques MD at 19:14 EDT , Knee X-Ray 06/28/22 18:50 IMPRESSION: Degenerative arthrosis.There is a moderate volume joint effusion. Electronically Signed: Tao Jacques MD at 19:13 EDT , Discharge Plan Disposition Disposition: Acute Care Hospital [facility] Discharge Date/Time: 06/28/22 23:02
[2022-06-28 20:29] VITALS: BP 147/58; PULSE 88; RESP 18; O2SAT 95
--- NOTE | 2022-06-28 22:29 | PCM.HP.STD ---
HPI - General General Date of Admission: 06/28/22 Date of Service: 06/28/22 Chief Complaint: Mechanical fall/inability to ambulate HPI Narrative BERTO DAVIS, is a 77 M who presented to the emergency department at [facility] on 06/28/2022 after experiencing a mechanical fall where his right knee gave way and he fell and hit his left hip and knee. He came in because he was having pain and difficulty ambulating. He reported prior to that he was feeling fine and would not have come in if it was not due to the fall. Since his fall he has had increased pain in the left knee with swelling. The swelling was not there prior to the fall and he is currently not able to ambulate. His indicates she is not able to take him home because she will not be able to help him get around. They are amenable to group home facility that he with preference to the TCU if possible at the time of discharge if needed. Vital signs at presentation demonstrated temperature of 98, heart rate 109 with improvement to 88 subsequently, blood pressure 156/70, respiratory to 18 and oxygen saturations have been 95 to 100% on room air. CBC shows a mild leukocytosis with a left shift but no signs of acute infection. CBC was otherwise unremarkable. Chemistry panel is overall unremarkable other than a glucose of 171. Urine is unremarkable. EKG shows normal sinus rhythm with no interval changes and no ST-T wave changes concerning for acute ischemia. Chest x-ray is unremarkable for any acute findings. Hip and pelvis x-ray showed degenerative changes with no acute fractures. Left knee imaging shows degenerative arthrosis with moderate joint effusion. Given patient's inability to ambulate and go home with his he was admitted for placement. [facility] Medical History Anterolisthesis Atrial septal defect Bifascicular block CVA (cerebral vascular accident) (~07/2006) DDD (degenerative disc disease), lumbar Deep vein thrombophlebitis of right leg Depression Diabetes mellitus, type II Essential hypertension Hyperlipidemia Migraines CRYSTAL (obstructive sleep apnea) Right bundle branch block Syncope and collapse TIA (transient ischemic attack) (~10/2013) Home Medications atorvastatin 80 mg tablet 80 mg PO QHS cholesterol 06/22/17 [History Last Taken Unknown] diltiazem HCl 240 mg capsule,extended release 24 hr (Cardizem CD) 240 mg PO QDAY blood pressure 06/22/17 [History Last Taken Unknown] meclizine 12.5 mg tablet 12.5 mg PO 4X/DAY PRN PRN VERTIGO/DIZZINESS 06/27/19 [Rx Last Taken Unknown] insulin degludec 100 unit/mL (3 mL) subcutaneous pen (Tresiba FlexTouch U-100 insulin) 20 unit subcut QHS 02/28/20 [History Last Taken Unknown] metformin 1,000 mg tablet 1,000 mg PO BID diabetes 02/28/20 [History Last Taken Unknown] pioglitazone 30 mg tablet 30 mg PO QHS 02/28/20 [History Last Taken Unknown] clopidogrel 75 mg tablet (Plavix) 75 mg PO DAILY 09/03/20 [History Last Taken Unknown] furosemide 20 mg tablet (Lasix) 20 mg PO DAILY #30 tabs 08/24/21 [Rx Last Taken Unknown] Allergy/AdvReac Type Severity Reaction Status Date / Time Sulfa (Sulfonamide Allergy Hives Verified 06/28/22 17:01 Antibiotics) Family History Mother Hypertension Surgical History Hx of local excision of skin lesion Social History household members: spouse housing: house Smoking Status: Former smoker alcohol intake: never substance use type: does not use what type of physical activity do you participate in: none ROS Constitutional Constitutional: Denies anorexia, change in weight, chills, fatigue, fever(s), malaise, night sweats, weakness or other Eyes Eyes: Denies blurry vision, change in eye color, change in vision, discharge from eye(s), double vision, erythema, eye pain, loss of vision or other ENT HEENT: Reports abnormal hearing and hearing loss; Denies dysphagia, ear pain, epistaxis, headache(s), nasal congestion, nasal discharge, post nasal drip, sinus pressure, sore throat or other Cardiovascular Cardiovascular: Denies chest pain, claudication, dyspnea on exertion, edema, lightheadedness, orthopnea, palpitations, paroxysmal nocturnal dyspnea, rapid heart rate, syncope or other Respiratory/Chest Respiratory/Chest: Denies cough, dyspnea, excessive phlegm production, hemoptysis, productive cough, shortness of breath at rest, shortness of breath with exertion, wheezing or other Gastrointestinal Gastrointestinal: Denies abdominal pain, coffee ground emesis, constipation, diarrhea, dyspepsia, hematemesis, hematochezia, loose stools, melena, nausea, vomiting or other Genitourinary Genitourinary: Denies burning urination, difficulty urinating, dysuria, hematuria, nocturia, urinary frequency, urinary hesitancy, urinary incontinence, urinary urgency or other Musculoskeletal Musculoskeletal: Reports back pain, joint pain, joint stiffness and joint swelling; Denies arthralgias, myalgias, neck pain or other Neurologic Neurologic: Reports abnormal gait; Denies abnormal speech, confusion, disequilibrium, dizziness, focal weakness, headache(s), numbness, paresthesias, seizure-like activity, seizures, syncope, tingling, tremor(s) or other Psychiatric Psychiatric: Denies anxiety, depression, homicidal ideation, suicidal ideation or other Endocrine Endocrinology: Denies change in body appearance, cold intolerance, excessive sweating, heat intolerance, polydipsia, polyuria or other Hematologic/Lymphatic Hematologic/Lymphatic: Denies anemia, easy bleeding, easy bruising, lymphadenopathy or other Allergic/Immunologic Allergic/Immunologic: Denies rhinitis, hives, eczemia, asthma or other Vital Signs Vital Signs Vital Signs: 06/28/22 16:14 06/28/22 17:03 06/28/22 20:29 Temperature 98 F 98 F Temperature Source Temporal Pulse Rate 109 H 88 Respiratory Rate 18 18 Respiratory Effort Normal Non-Labored Respiratory Depth Normal Respiratory Pattern Normal Blood Pressure 156/70 H 147/58 H Blood Pressure Mean 98 87 Pulse Ox 100 97 95 Oxygen Delivery Method Room Air Room Air Room Air Weight Weight: 114.1 kg Body Mass Index (BMI) 36.1 Physical Exam Const alert, oriented x3, no apparent distress and well nourished Constitutional Narrative: Very pleasant, elderly, obese, white male, sitting up in bed, at bedside, appears comfortable, joking intermittently, nontoxic HEENT normocephalic, head/scalp atraumatic and moist oral mucous membranes; Negative for hearing grossly normal bilaterally HEENT Narrative: Moderate to severe hearing loss, Mallampati 3, no thrush, dentition is fair Eyes PERRL, EOMs intact bilaterally and conjunctivae normal Eyes Narrative: No scleral icterus Neck no lymphadenopathy, supple, no JVD and no carotid bruits Neck Narrative: Achy midline, neck is short and thick Resp normal respiratory effort, no retractions, no use of accessory muscles and clear to auscultation bilaterally Auscultation: Negative for rales, rhonchi or wheezes Cardio regular rate, regular rhythm, S1 normal heart sound, S2 normal heart sound, no murmurs, no rub, no gallops and no clicks GI normal to inspection, nondistended, normoactive bowel sounds, soft to palpation and non-tender Extremity no clubbing, cyanosis or edema Peripheral Pulses: Yes pulses 2+ throughout Right Lower Extremity: knee joint other (Positive changes consistent with osteoarthritis in appearance but no swelling) Left Lower Extremity: knee joint ROM (Reduced secondary to pain but patient can independently extend and bend knee) and other (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, joint effusion with ballotable patella) Skin No no rashes or lesions noted, no wounds, skin turgor normal, no jaundice, no petechiae and no mottling Skin Narrative: Ecchymosis over left foot from fall, bilateral lower extremity onychomycosis, tinea on right leg Neuro oriented x3, CN's II-XII intact bilaterally, moves all extremities and no focal motor deficits Neuro Narrative: Decreased movement left lower extremity secondary to pain Speech: speech normal Psych affect normal Psych Narrative: Very pleasant, jovial, appropriately interactive Results Lab / Micro Data Attestation: I reviewed the patient's lab results. Result Diagrams: 06/28/22 18:19 06/28/22 18:19 Labs: Laboratory Results - last 24 hr 06/28/22 17:11: POC Glucose 177 H 06/28/22 18:19: WBC 13.5 H, RBC 4.60, Hgb 14.1, Hct 44.6, MCV 97.0 H, MCH 30.7, MCHC 31.6 L, RDW Std Deviation 50.2 H, RDW Coeff of Blanco 14.0, Plt Count 231, MPV 10.6, Immature Gran % (Auto) 0.700, Neut % (Auto) 82.4 H, Lymph % (Auto) 8.6 L, [place] % (Auto) 7.7, Eos % (Auto) 0.1, Baso % (Auto) 0.5, Absolute Neuts (auto) 11.1 H, Absolute Lymphs (auto) 1.16, Nucleated RBC % 0 06/28/22 18:19: Sodium 140, Potassium 4.3, Chloride 108 H, Carbon Dioxide 27.0, Anion Gap 5, BUN 21 H, Creatinine 1.28, Estim Creat Clear Calc 50.69, Est GFR (MDRD) Af Amer 70, Est GFR (MDRD) Non-Af 58 L, BUN/Creatinine Ratio 16.4, Glucose 171 H, Calcium 9.2 06/28/22 18:35: Urine Color Yellow, Urine Clarity Clear, Urine pH 5.0, Ur Specific [place] 1.015, Urine Protein Negative, Urine Glucose (UA) Normal, Urine Ketones 5 H, Urine Occult Blood 10 H, Urine Nitrite Negative, Urine Bilirubin Negative, Urine Urobilinogen Normal, Ur Leukocyte Esterase Negative, Urine RBC 0 SEEN, Urine WBC 0 SEEN, Ur Squamous Epith Cells 0 SEEN, Urine Bacteria 0 SEEN, Urine Mucus 0 SEEN Radiology Impression Chest X-Ray 06/28/22 18:50 IMPRESSION: No radiographic evidence of acute cardiopulmonary disease. Electronically Signed: Tao Jacques MD at 19:14 EDT , Hip/Pelvis X-Ray 06/28/22 18:50 IMPRESSION: Degenerative findings of the hips. Electronically Signed: Tao Jacques MD at 19:14 EDT , Knee X-Ray 06/28/22 18:50 IMPRESSION: Degenerative arthrosis.There is a moderate volume joint effusion. Electronically Signed: Tao Jacques MD at 19:13 EDT , Assessment & Plan Assessment/Plan (1) Left knee pain: (2) Fall: (3) Debility: (4) Effusion, left knee: PLAN: Plan Mechanical fall -PT/OT consultation -Case management consultation as patient will likely need place -Family and patient are preferring TCU at this time if bed available and required Left knee pain/left knee effusion -Effusion was not present prior to fall -Imaging on admission was unremarkable but if does not improve may need more extensive visualization -Extensor mechanism seems to be intact but if does not improve would recommend CT of the knee to rule any occult fracture -PT/OT consultation -Scheduled Tylenol -As needed oxycodone -Topical lidocaine patch -We will avoid NSAIDs with age and comorbidities -Ice pack Debility -See above History of stroke/TIA -Continue Plavix -No significant residual deficits Remote history of DVT -Patient is currently not anticoagulated -Prophylaxis ordered Hypertension/HPL -Continue diltiazem -Continue home Lasix -continue home statin DM-2 -Continue home basal insulin -Hold home metformin and Actos while hospitalized -SSI -Accu-Cheks as ordered -Cardiac/carb controlled diet History of vertigo -Continue as needed meclizine Obesity -BMI 34.9 -Complicates treatment, prognosis, outcomes -Recommend weight loss DVT prophylaxis -Lovenox daily CODE STATUS -DNR CCA as per discussion on admission-no intubation Charges/Coding Visit Charges Inpatient E&M: 94027 Init Hosp L2
[2022-06-28 22:43] VITALS: BP 148/70; PULSE 98; RESP 17; TEMP 36.5; O2SAT 57
[2022-06-28 23:19] VITALS: BMI 34.8
[2022-06-28 23:30] VITALS: BP 149/97; PULSE 90; RESP 17; TEMP 36.6; O2SAT 95
[2022-06-29] MEDS: Acetaminophen 500 MG Tablet 1000 MG PO ×3 (05:24→22:09)
[2022-06-29] MEDS: Menthol/Lanolin/Calamine/Znox 113 GM Tube 1 APPLIC TOPICAL ×3 (05:25→22:01)
[2022-06-29] MEDS: Nystatin Powder 15gm Bottle 1 APPLIC TOPICAL ×3 (05:25→22:02)
[2022-06-29 05:30] VITALS: BP 116/71; PULSE 88; RESP 18; TEMP 36.8; O2SAT 93
[2022-06-29 06:55] LABS: Bedside Glucose 151 mg/dL (74-106)
[2022-06-29 06:55] LABS: Absolute Lymphocyte Count 2.21 X10^3/uL (0.83-4.51); Basophil# 0.04 X10^3/uL; Basophil% 0.4 % (0-1); Eosinophil# 0.04 X10^3/uL; Eosinophils% 0.4 % (0-5); Hematocrit 39.1 % (40-54); Hemoglobin 12.7 g/dL (13.0-16.5); Lymphocyte # 2.21 X10^3/ul (0.83-4.51); Lymphocyte % 23.1 % (19-41); Mean Corp Hgb Conc 32.5 g/dL (32-36); Mean Corpuscular Hgb 30.9 pg (27.0-32.0); Mean Corpuscular Volume 95.1 fL (80-94); Mean Platelet Vol. 10.5 fl (6.2-12.0); Monocyte# 1.22 X10^3/uL; Monocyte% 12.8 % (0-10); NRBC Flagged by Analyzer 0 % (0-5); Neutrophil % 62.8 % (47-70); Platelet Count 209 K/mm3 (150-450); RBC Distribution Width CV 14.2 % (11.6-14.6); RBC Distribution Width SD 49.5 fl (35.1-43.9); Red Blood Count 4.11 M/mm3 (4.6-6.2); White Blood Count 9.6 K/mm3 (4.4-11.0)
[2022-06-29 07:16] LABS: Magnesium 1.7 mg/dL (1.6-2.6); Phosphorus 3.7 mg/dL (2.5-4.9); Thyroid Stim Hormone (TSH) 0.48 uIU/mL (0.358-3.74)
[2022-06-29] MEDS: Enoxaparin 40 MG/0.4 ML Syringe SC (08:52)
[2022-06-29] MEDS: dilTIAZem CD 240 MG Capsule PO (08:53)
[2022-06-29] MEDS: Clopidogrel Bisulfate 75 MG Tablet PO (08:53)
[2022-06-29] MEDS: Lidocaine 5% Patch 1 PATCH TOPICAL (08:53)
[2022-06-29] MEDS: Furosemide 20 MG Tablet PO (08:53)
[2022-06-29 09:10] VITALS: BP 143/70; PULSE 80; RESP 18; TEMP 37.2; O2SAT 95
[2022-06-29] MEDS: oxyCODONE 5 MG Tablet PO (09:14)
--- NOTE | 2022-06-29 11:26 | CASEMGMT ---
Social work SW spoke to pt , Tameka, on TC. Tameka reports pt does have HCPOA/LW documents and named herself, pt , as agent. SW asked Tameka to bring in documents when Tameka comes to [facility]. Tameka agreeable, stated would be in to [facility] later this afternoon. JESSE Haque
--- NOTE | 2022-06-29 11:28 | CASEMGMT ---
Addendum entered by Elizabeth Orosco 06/29/22 13:22: WENDY noticed therapy evaluations were entered into [facility]. SW in to speak with pt and reviewed PT/OT recommendations with pt. Pt stated willing to go somewhere for therapy. Pt declined a list of SNF providers including quality and resource use data consistent with the patient?s preferred geographic region, medical needs, and insurance network from the [employer] and stated prefers the place that DR. Figueroa runs ([facility]). WENDY reached out to Rebeca at [facility]. Rebeca able to accept pt but will not have a bed open until tomorrow. SW notified pt, MD Brody and pt , aTmeka, of acceptance and discharge to TCU tomorrow. All parties voiced understanding. Original Note: Social Work SW spoke to pt , Tameka via telephone. Tameka asking questions regarding discharge planning and what the next steps would be for pt. SW explained waiting on therapy evaluation to determine level of need for rehab/skilled therapy. Tameka expressed concern about the process and appeared anxious to have a plan in place and indicated TCU would be family choice for SNF. WENDY offered support and validation for anxious feelings regarding the situation. WENDY explained once therapy has completed an evaluation a referral can be sent to [facility], if pt is agreeable to this plan. Tameka voiced understanding. SW to follow for therapy evaluations. WENDY received message from Rebeca at [facility]. Rebeca aware of pt as family spoke to MD Figueroa before pt admitted to [facility]. Rebeca planning to review pt case for acceptance, if necessary. WENDY explained therapy has not yet seen pt but Rebeca welcome to review information that is available at this time. PLAN: TBD, pending therapy evaluations JESSE Haque
[2022-06-29] MEDS: Insulin Lispro 100 UNIT/ML INSULN.PEN SC ×2 (11:43→16:35)
[2022-06-29 11:56] LABS: Bedside Glucose 203 mg/dL (74-106)
--- NOTE | 2022-06-29 13:49 | CASEMGMT ---
BOYD CM in to discuss CROW form with patient. RN CM explained CROW form, patient voiced understanding. Pt signed form and filed in chart. Pt provided with a copy of signed CROW form. Patient had no further questions or concerns at this time.
[2022-06-29 15:30] VITALS: BP 140/67; PULSE 71; RESP 17; TEMP 36.5; O2SAT 95
[2022-06-29 16:56] LABS: Bedside Glucose 220 mg/dL (74-106)
--- NOTE | 2022-06-29 20:30 | PN.HOSP_ITS ---
Reason for Visit Reason for Visit: Diagnoses Effusion, left knee (06/28/22) Pain in left knee (06/28/22) Other malaise (06/28/22) Unspecified fall, initial encounter (06/28/22) Subjective Subjective Patient was seen and examined today, had a brief conversation with the patient, he is very hard of hearing, he initially told me he did not want to go to a nursing facility for rehab services, later on, case management told me that the family had requested that he go to an extended care facility for rehab services and the patient relented and agreed. Objective Data Objective Data Vital Signs: Vital Signs Temp Pulse Resp BP Pulse Ox O2 Del Method 97.7 F L 71 17 140/67 H 95 Room Air 06/29/22 15:30 06/29/22 15:30 06/29/22 15:30 06/29/22 15:30 06/29/22 15:30 06/29/22 15:30 Oxygen Delivery Method Room Air Weight: 110.178 kg Body Mass Index (BMI) 34.8 Intake & Output: Intake and Output for Last 24 Hours 06/27/22 06/28/22 06/29/22 23:59 23:59 23:59 Intake Total 660 / 660 Output Total 0 / 0 525 / 525 Balance 0 / 0 135 / 135 Lab / Micro Data Result Diagrams: 06/29/22 06:38 06/28/22 18:19 Labs: Laboratory Results - last 24 hr 06/29/22 06:32: POC Glucose 151 H 06/29/22 06:38: WBC 9.6, RBC 4.11 L, Hgb 12.7 L, Hct 39.1 L, MCV 95.1 H, MCH 30.9, MCHC 32.5, RDW Std Deviation 49.5 H, RDW Coeff of [place] 14.2, Plt Count 209, MPV 10.5, Immature Gran % (Auto) 0.500, Neut % (Auto) 62.8, Lymph % (Auto) 23.1, [place] % (Auto) 12.8 H, Eos % (Auto) 0.4, Baso % (Auto) 0.4, Absolute Neuts (auto) 6.0, Absolute Lymphs (auto) 2.21, Nucleated RBC % 0 06/29/22 06:38: Phosphorus 3.7, Magnesium 1.7, TSH 0.48 06/29/22 11:37: POC Glucose 203 H 06/29/22 16:34: POC Glucose 220 H Physical Exam Const alert and no apparent distress Constitutional Narrative: Patient is alert, he is very hard of hearing, he appears to have mild confusion General Appearance: cooperative, well kempt and well developed Orientation / Consciousness: awake, oriented to person, oriented to place and oriented to time HEENT normocephalic, head/scalp atraumatic and moist oral mucous membranes Eyes PERRL, EOMs intact bilaterally and conjunctivae normal Neck supple, no JVD, thyroid normal and no carotid bruits General: trachea midline Resp normal respiratory effort, no retractions, no use of accessory muscles and clear to auscultation bilaterally Auscultation: Negative for rales, rhonchi or wheezes Cardio regular rate, regular rhythm, S1 normal heart sound, S2 normal heart sound, no murmurs, no rub and no gallops GI normal to inspection, nondistended, normoactive bowel sounds, soft to palpation, non-tender and non-distended Extremity no clubbing, cyanosis or edema Skin no rashes or lesions noted General Skin Exam: no breakdown Neuro CN's II-XII intact bilaterally, no focal motor deficits and no sensory deficits noted Sensorium / Orientation: awake, alert, oriented to person and oriented to place Speech: speech normal Psych affect normal Assessment & Plan Assessment/Plan (1) Debility: PLAN: Plan 1. Acute debility-he will continue seeing PT and OT, arranges are being made for him to go to a [place] [facility] facility for short-term inpatient rehab s ervices #2 cerebrovascular disease-remain on present medication #3 essential hypertension-patient is to remain on his present medication #4 type 2 diabetes-continue to monitor blood sugars Total clinical time spent by myself addressing the patient's medical issues, reviewing all of his data, collaborating with patient's care team: 35 minutes Charges/Coding Visit Charges Inpatient E&M: 18296 Subs Hosp L2
[2022-06-29 21:44] VITALS: BP 124/62; PULSE 82; RESP 16; TEMP 36.6; O2SAT 94
[2022-06-29] MEDS: 0.9% Saline Lock 10 ML Syringe IV (22:03)
[2022-06-29] MEDS: Insulin Glargine-YFGN 100 UNIT/ML Pen 20 UNIT SC (22:04)
[2022-06-29] MEDS: Atorvastatin Calcium 80 MG Tablet PO (22:08)
[2022-06-29 22:30] LABS: Bedside Glucose 147 mg/dL (74-106)
[2022-06-30 02:38] VITALS: BP 155/70; PULSE 83; RESP 18; TEMP 36.4; O2SAT 98
[2022-06-30] MEDS: Acetaminophen 500 MG Tablet 1000 MG PO (06:33)
[2022-06-30 06:56] LABS: Bedside Glucose 137 mg/dL (74-106)
[2022-06-30 07:02] VITALS: O2SAT 98
[2022-06-30] MEDS: dilTIAZem CD 240 MG Capsule PO (09:22)
[2022-06-30] MEDS: Furosemide 20 MG Tablet PO (09:22)
[2022-06-30] MEDS: Menthol/Lanolin/Calamine/Znox 113 GM Tube 1 APPLIC TOPICAL (09:22)
[2022-06-30] MEDS: Nystatin Powder 15gm Bottle 1 APPLIC TOPICAL (09:23)
[2022-06-30] MEDS: Enoxaparin 40 MG/0.4 ML Syringe SC (09:23)
[2022-06-30] MEDS: Lidocaine 5% Patch 1 PATCH TOPICAL (09:23)
[2022-06-30 09:28] VITALS: BP 132/90; PULSE 84; RESP 18; TEMP 36.8; O2SAT 100
[2022-06-30] MEDS: Clopidogrel Bisulfate 75 MG Tablet PO (09:35)
[2022-06-30] MEDS: Insulin Lispro 100 UNIT/ML INSULN.PEN SC (11:16)
[2022-06-30 11:36] LABS: Bedside Glucose 265 mg/dL (74-106)
--- NOTE | 2022-06-30 12:01 | PCM.TXEXTCAR ---
Diet Diet Order/Speech Therapy: 06/28/22 23:16 Diet: Cardiac - Heart Healthy Food consistency:: Regular Liquid Consistency:: Regular/Thin Is pt able to select menu?: Yes Diet: Consistent Carb - Calorie Controlled Food consistency:: Regular Liquid Consistency:: Regular/Thin How many daily calories?: 1800 calorie Routine Orders/Code Status Routine Lab Work: - (Fingerstick blood sugars ACQHS-Humalog SQ per scale: 200-250: 5 units, 251-300: 8 units, 301-350: 12 units, 351-400: 15 units) Code Status: DNRCC-A (no intubation) Therapies Weight Bearing: Weight bearing as tolerated (with walker) Problem/Diagnosis (1) Left knee pain: Status: Acute Code(s): M25.562 - Pain in left knee (2) Fall: Status: Acute Code(s): W19.XXXA - Unspecified fall, initial encounter (3) Debility: Status: Acute Code(s): R53.81 - Other malaise (4) Effusion, left knee: Status: Acute Code(s): M25.462 - Effusion, left knee (5) Diabetes mellitus, type II: Status: Chronic Code(s): E11.9 - Type 2 diabetes mellitus without complications Comment: for at least 20 years (6) Essential hypertension: Status: Chronic Code(s): I10 - Essential (primary) hypertension Allergies/Procedures Done in Hospital Allergies Sulfa (Sulfonamide Antibiotics) Allergy (Verified 06/28/22 17:01) Hives Procedures: None Type of Care/Length of Stay Estimated LOS: Convalescent Care Less Than 30 days Type of Care Needed: Skilled Rehab Potential: Good Prognosis: Good Additional Orders/Day of Discharge H&P will serve as current which was dated: 06/28/22 Day of Discharge: 06/30/22 Discharge Plan Admission Admit Date/Time: 06/28/22 22:24 Attending Provider: Beni Brody Primary Care Provider: Maximino Figueroa [employer] Providers: Linda Berrios Discharge Orders/Prescriptions Prescriptions: New acetaminophen 500 mg Tablet 1,000 mg PO Q8 Qty: 0 0RF nystatin [Nyamyc] 100,000 unit/gram Powder 1 applic topical BID Qty: 0 0RF Protocol: *Topical Application Instructions APPLICATION INSTRUCTIONS: groin oxycodone 5 mg Tablet 5 mg PO Q4H PRN PRN (Reason: Pain Score 4-10) 3 Days Qty: 8 0RF Continued diltiazem HCl [Cardizem CD] 240 mg capsule,extended release 24hr 240 mg PO QDAY atorvastatin 80 mg tablet 80 mg PO QHS metformin 1,000 mg tablet 1,000 mg PO BID pioglitazone 30 mg tablet 30 mg PO QHS Tresiba FlexTouch U-100 100 unit/mL (3 mL) insulin pen 20 unit SC QHS clopidogrel [Plavix] 75 mg tablet 75 mg PO DAILY meclizine 12.5 MG tablet 12.5 mg PO 4X/DAY PRN PRN (Reason: VERTIGO/DIZZINESS) 0RF furosemide [Lasix] 20 mg tablet 20 mg PO DAILY Qty: 30 12RF Referrals / Follow Up: Maximino Figueroa Chi, MD [Primary Care Provider] - Disposition Disposition (needs filled in before D/C Order can be placed): Detention Facility
--- NOTE | 2022-06-30 12:12 | PCM.DC.SUM ---
Providers Date of Admission: 06/28/22 Date of Discharge: 06/30/22 Primary Care Physician: Dr. Maximino Figueroa MD Reason For Visit: MECHANICAL FALL AND INABILITY TO AMBULATE Diagnosis Discharge Diagnosis (1) Left knee pain: Status: Acute Code(s): M25.562 - Pain in left knee (2) Fall: Status: Acute Code(s): W19.XXXA - Unspecified fall, initial encounter (3) Debility: Status: Acute Code(s): R53.81 - Other malaise (4) Effusion, left knee: Status: Acute Code(s): M25.462 - Effusion, left knee (5) Diabetes mellitus, type II: Status: Chronic Code(s): E11.9 - Type 2 diabetes mellitus without complications (6) Essential hypertension: Status: Chronic Code(s): I10 - Essential (primary) hypertension Plan 1.? Acute debility-he will continue seeing PT and OT, arranges are being made for him to go to a group home facility for short-term inpatient rehab services #2 cerebrovascular disease-remain on present medication #3 essential hypertension-patient is to remain on his present medication #4 type 2 diabetes-continue to monitor blood sugars Medications at Discharge Home Medications atorvastatin 80 mg tablet 80 mg PO QHS cholesterol 06/22/17 diltiazem HCl 240 mg capsule,extended release 24 hr (Cardizem CD) 240 mg PO QDAY blood pressure 06/22/17 meclizine 12.5 mg tablet 12.5 mg PO 4X/DAY PRN PRN VERTIGO/DIZZINESS 06/27/19 insulin degludec 100 unit/mL (3 mL) subcutaneous pen (Tresiba FlexTouch U-100 insulin) 20 unit subcut QHS diabetes 02/28/20 metformin 1,000 mg tablet 1,000 mg PO BID diabetes 02/28/20 pioglitazone 30 mg tablet 30 mg PO QHS diabetes 02/28/20 clopidogrel 75 mg tablet (Plavix) 75 mg PO DAILY blood thinner 09/03/20 acetaminophen 500 mg tablet 1,000 mg PO Q8 pain 06/30/22 furosemide 20 mg tablet (Lasix) 20 mg PO DAILY swelling 06/30/22 nystatin 100,000 unit/gram topical powder (Nyamyc) 1 applic topical BID redness 06/30/22 oxycodone 5 mg tablet 5 mg PO Q4H PRN PRN Pain Score 4-10 3 days #8 tabs 06/30/22 Hospital Course Operations None Procedures None Summary of Care Provided Minutes Spent on Discharge: 32 Hospital Course: 77-year-old white male was seen in the emergency room at [facility] after sustaining a fall at home, patient had minimal injuries, according to the patient's she was unable to care for him at home and requested short-term placement in group home facility. Patient was extended observation status on [facility], he was seen by PT and OT and was felt to be appropriate for short-term placement in a group home facility for rehab services. On 06/30/2022, patient was seen and examined: On examination he appeared his stated age, he was hard of hearing. Vital signs as documented. Skin warm and dry and without overt rashes. Neck without JVD, neck was supple, trachea midline, thyroid was normal. Lungs clear bilaterally, normal air movement was noted. Heart exam notable for regular rhythm, normal sounds and absence of murmurs, rubs or gallops. Abdomen unremarkable and without evidence of organomegaly, masses, or abdominal aortic enlargement. Bowel sounds are present, abdomen is not distended. Extremities nonedematous, no cyanosis was noted, no clubbing was noted. Neuro: Cranial nerves II through XII are grossly intact, no focal motor deficits were noted, sensation to light touch and pinprick intact, motor exam 5/5 throughout. Psych: Patient is alert and oriented x2, he does not appear anxious or depressed, he does not appear agitated. Patient was transferred to TCU for inpatient group home services on 06/30/2022. Weight / BMI Weight Weight: 110.178 kg Body Mass Index (BMI) 34.8 ABG / Lab / Microbiology Data Result Diagrams: 06/29/22 06:38 06/28/22 18:19 Laboratory: Laboratory Results - last 24 hr 06/29/22 16:34: POC Glucose 220 H 06/29/22 21:53: POC Glucose 147 H 06/30/22 06:32: POC Glucose 137 H 06/30/22 11:15: POC Glucose 265 H Microbiology: Microbiology 06/30/22 10:08 Nasal Secretion SARS-CoV-2 Antigen (Rapid) - Final Meaningful Use Info Meaningful Use Diagnoses (Choose all that apply): None applicable Discharge Plan Admission Admit Date/Time: 06/28/22 22:24 Attending Provider: Beni Brody Primary Care Provider: Maximino Figueroa [employer] Providers: Linda Berrios Discharge Orders/Prescriptions Prescriptions: New oxycodone 5 mg Tablet 5 mg PO Q4H PRN PRN (Reason: Pain Score 4-10) 3 Days Qty: 8 0RF Continued diltiazem HCl [Cardizem CD] 240 mg capsule,extended release 24hr 240 mg PO QDAY atorvastatin 80 mg tablet 80 mg PO QHS metformin 1,000 mg tablet 1,000 mg PO BID pioglitazone 30 mg tablet 30 mg PO QHS Tresiba FlexTouch U-100 100 unit/mL (3 mL) insulin pen 20 unit SC QHS clopidogrel [Plavix] 75 mg tablet 75 mg PO DAILY meclizine 12.5 MG tablet 12.5 mg PO 4X/DAY PRN PRN (Reason: VERTIGO/DIZZINESS) 0RF No Action acetaminophen 500 mg tablet 1,000 mg PO Q8 furosemide [Lasix] 20 mg tablet 20 mg PO DAILY nystatin [Nyamyc] 100,000 unit/gram powder 1 applic topical BID Protocol: *Topical Application Instructions APPLICATION INSTRUCTIONS: groin Referrals / Follow Up: Maximino Figueroa Chi, MD [Primary Care Provider] - Disposition Disposition (needs filled in before D/C Order can be placed): [facility] Charges/Coding Visit Charges Inpatient E&M: 34607 Disch Hosp >30min
--- NOTE | 2022-06-30 13:12 | CASEMGMT ---
Social Work? WENDY notified pt of discharge to TCU today. WENDY attempting to call pt , Tameka to inform of d/c plan. Call went immediately to and box was full. WENDY had no way to leave a message. WENDY called pt second contact, daughter, Catherine. Catherine made aware of the discharge plan. EWNDY faxed all discharge orders to TCU.? WENDY made copies of discharge orders and placed on pt chart. Sent original orders in envelope with pt upon discharge.? Disposition: TCU, skilled, convalescent, level of care ?? JESSE Haque?
--- NOTE | 2022-06-30 14:51 | PHA.DC.MR ---
Pharmacy Service has performed discharge medication reconciliation for this patient. The patient's discharge medication list was reviewed for discrepancies and discrepancies were resolved. Home Medications atorvastatin 80 mg tablet 80 mg PO QHS cholesterol 06/22/17 diltiazem HCl 240 mg capsule,extended release 24 hr (Cardizem CD) 240 mg PO QDAY blood pressure 06/22/17 meclizine 12.5 mg tablet 12.5 mg PO 4X/DAY PRN PRN VERTIGO/DIZZINESS 06/27/19 insulin degludec 100 unit/mL (3 mL) subcutaneous pen (Tresiba FlexTouch U-100 insulin) 20 unit subcut QHS 02/28/20 metformin 1,000 mg tablet 1,000 mg PO BID diabetes 02/28/20 pioglitazone 30 mg tablet 30 mg PO QHS 02/28/20 clopidogrel 75 mg tablet (Plavix) 75 mg PO DAILY 09/03/20 furosemide 20 mg tablet (Lasix) 20 mg PO DAILY #30 tabs 08/24/21 acetaminophen 500 mg tablet 1,000 mg PO Q8 #0 tabs 06/30/22 nystatin 100,000 unit/gram topical powder (Nyamyc) 1 applic topical BID #0 grams 06/30/22 oxycodone 5 mg tablet 5 mg PO Q4H PRN PRN Pain Score 4-10 3 days #8 tabs 06/30/22
== END 2022-06-30 14:27 | disposition skilled nursing facility (03) ==
LOC: ED 18:33 → MS3 06-29 02:18
PROVIDERS: Admitting Provider Internal Medicine; Emergency Provider Student in an Organized Health Care Education/Training Program; PCP Family Medicine Geriatric Medicine; Visit Provider Internal Medicine
DX: M25.462 Effusion, left knee (principal); E11.9 Type 2 diabetes mellitus without complications; W19.XXXA Unspecified fall, initial encounter; S70.01XA Contusion of right hip, initial encounter; H91.90 Unspecified hearing loss, unspecified ear; E78.5 Hyperlipidemia, unspecified; R53.81 Other malaise; S80.02XA Contusion of left knee, initial encounter; R26.2 Difficulty in walking, not elsewhere classified; I10 Essential (primary) hypertension; Z87.891 Personal history of nicotine dependence; Z79.02 Long term (current) use of antithrombotics/antiplatelets; Z79.899 Other long term (current) drug therapy; Z79.84 Long term (current) use of oral hypoglycemic drugs; G47.33 Obstructive sleep apnea (adult) (pediatric); E66.9 Obesity, unspecified; Z68.34 Body mass index [BMI] 34.0-34.9, adult; R42 Dizziness and giddiness
CPT/HCPCS: 36415; 71045; 73502; 73564; 80048; 81001; 82962; 83735; 84100; 84443; 85025; 87426; 94668; 96372; 97162; 97166; 97530; 97535; 99221; 99285; A4216; G0378

== ENCOUNTER 2022-06-30 14:30 | Inpatient (IN) | payer MEDICARE, OTHER, SELFPAY ==
[2022-06-30 14:54] VITALS: BP 135/58; PULSE 67; RESP 16; RESP 18; TEMP 36.7; O2SAT 98; BMI 35.1
[2022-06-30] MEDS: Nystatin Powder 15gm Bottle 1 APPLIC TOPICAL (17:30)
[2022-06-30] MEDS: metFORMIN HCl 1,000 MG Tablet 1000 MG PO (17:31)
--- NOTE | 2022-06-30 20:51 | PCM.HP.STD ---
HPI - General General Date of Admission: 06/30/22 Date of Service: 06/30/22 Chief Complaint: Here for rehabilitation. HPI Narrative 06/28/2022 BERTO DAVIS, is a 77 Male who presents to [facility] with fall. Fall, left knee pain, right hip pain, left knee gave out. Fallen backward onto his hip, unable to walk. unable to care for him at home. Avinger given. X-ray left knee showed arthritis, moderate effusion. X-ray right hip negative, WBC 13.5, Chest X-ray negative, Urinalysis negative. 06/28/2022 Admit to Hospital. PT/OT for SNF, consider TCU. Left knee extensor mechanism intact. Tylenol, Oxycodone, Lidoderm patch for pain. Avoid NSAID. 06/29/2022 Family requested SNF. 06/30/2022 Admit to TCU with debility, here for rehabilitation, strengthening, prior to discharge home with . [facility] Medical History (Updated 06/30/22 @ 20:[address] Maximino Figueroa MD) Anterolisthesis Atrial septal defect Bifascicular block CVA (cerebral vascular accident) (~07/2006) DDD (degenerative disc disease), lumbar Deep vein thrombophlebitis of right leg Depression Diabetes mellitus, type II Essential hypertension Hyperlipidemia Migraines CRYSTAL (obstructive sleep apnea) Right bundle branch block Syncope and collapse TIA (transient ischemic attack) (~10/2013) Home Medications atorvastatin 80 mg tablet 80 mg PO QHS cholesterol 06/22/17 [History Last Taken 06/27/22] diltiazem HCl 240 mg capsule,extended release 24 hr (Cardizem CD) 240 mg PO QDAY blood pressure 06/22/17 [History Last Taken 06/27/22] meclizine 12.5 mg tablet 12.5 mg PO 4X/DAY PRN PRN VERTIGO/DIZZINESS 06/27/19 [Rx Last Taken Unknown] insulin degludec 100 unit/mL (3 mL) subcutaneous pen (Tresiba FlexTouch U-100 insulin) 20 unit subcut QHS diabetes 02/28/20 [History Last Taken Unknown] metformin 1,000 mg tablet 1,000 mg PO BID diabetes 02/28/20 [History Last Taken 06/27/22] pioglitazone 30 mg tablet 30 mg PO QHS diabetes 02/28/20 [History Last Taken 06/27/22] clopidogrel 75 mg tablet (Plavix) 75 mg PO DAILY blood thinner 09/03/20 [History Last Taken 06/27/22] acetaminophen 500 mg tablet 1,000 mg PO Q8 pain 06/30/22 [History Last Taken Unknown] furosemide 20 mg tablet (Lasix) 20 mg PO DAILY swelling 06/30/22 [History Last Taken Unknown] nystatin 100,000 unit/gram topical powder (Nyamyc) 1 applic topical BID redness 06/30/22 [History Last Taken Unknown] oxycodone 5 mg tablet 5 mg PO Q4H PRN PRN Pain Score 4-10 3 days #8 tabs 06/30/22 [Rx Last Taken Unknown] Allergy/AdvReac Type Severity Reaction Status Date / Time Sulfa (Sulfonamide Allergy Hives Verified 06/28/22 17:01 Antibiotics) Family History Mother Hypertension Surgical History Hx of local excision of skin lesion Social History household members: spouse housing: house Smoking Status: Former smoker alcohol intake: never substance use type: does not use what type of physical activity do you participate in: none ROS Constitutional Constitutional: Denies chills, fever(s) or weight gain ENT HEENT: Denies headache(s), nasal congestion or nasal discharge Cardiovascular Cardiovascular: Denies chest pain or palpitations Respiratory/Chest Respiratory/Chest: Denies cough, excessive phlegm production or shortness of breath with exertion Gastrointestinal Gastrointestinal: Denies abdominal pain, nausea or vomiting Genitourinary Genitourinary: Denies dysuria Musculoskeletal Musculoskeletal: Denies joint pain or joint swelling Integumentary Integumentary: Denies rash or wounds Neurologic Neurologic: Denies focal weakness, numbness or tingling Psychiatric Psychiatric: Denies anxiety, auditory hallucinations, depression, homicidal ideation or suicidal ideation Vital Signs Vital Signs Vital Signs: 06/30/22 14:54 06/30/22 14:54 Temperature 98.0 F Temperature Source Temporal Pulse Rate 67 Pulse Rhythm Regular Pulse Strength Normal (2+) Respiratory Rate 18 16 Respiratory Effort Normal Non-Labored Respiratory Depth Normal Respiratory Pattern Normal Blood Pressure 135/58 H Blood Pressure Mean 83 Blood Pressure Source Monitor Blood Pressure Position Semi-Fowlers Blood Pressure Location Right Arm Pulse Ox 98 Oxygen Delivery Method Room Air Room Air Weight Weight: 111.085 kg Body Mass Index (BMI) 35.1 Physical Exam Const alert General Appearance: cooperative HEENT normocephalic Eyes PERRL and EOMs intact bilaterally Neck supple, no JVD and no carotid bruits Resp normal respiratory effort, normal air movement and clear to auscultation bilaterally Cardio regular rate and regular rhythm GI normal to inspection, nondistended, normoactive bowel sounds, non-tender and non-distended Extremity normal capillary refill General Extremity: Negative for edema Skin no rashes or lesions noted General Skin Exam: no breakdown Psych affect normal Appearance: appropriate Assessment & Plan Assessment/Plan (1) Debility: (2) Fall: (3) Left knee pain: (4) Effusion, left knee: (5) Contusion of right hip: (6) Diabetes mellitus: (7) Hypertension: (8) Dizziness: (9) Stroke: PLAN: Plan 77 year old male with below past medical history hospitalized for fall, left knee contusion, right hip contusion, admitted to TCU with debility, here for rehabilitation, strengthening, prior to discharge home with . Debility - PT/OT. Pain - Tylenol 1000mg q8, Oxycodone 5mg q4h prn pain (4-10). Bowel - senna/colace 2 tablets bid, MOM 30ml po x 1 prn. Adult immunization - Administer pneumonia vaccine, covid19 vaccine, flu vaccine as appropriate. DVT prophylaxis - Monitor. Hyperlipidemia - Atorvastatin 80mg qhs. Stroke - Plavix 75mg daily. Hypertension - Diltiazem CD 240mg daily. Edema - Furosemide 20mg daily. Diabetes Mellitus II - Metformin 1000mg bidcm, Pioglitazone 30mg daily, Glargine 20 units qhs. Dizziness - Meclizine 12.5mg 4x/day prn. Skin irritation - Calmoseptine topical bid. Tinea Corporis - Nystatin powder topical bid.
[2022-06-30] MEDS: Acetaminophen 500 MG Tablet 1000 MG PO (20:59)
[2022-06-30] MEDS: Atorvastatin Calcium 80 MG Tablet PO (21:00)
[2022-06-30] MEDS: Pioglitazone Hydrochloride 30 MG Tablet PO (21:00)
[2022-06-30] MEDS: oxyCODONE 5 MG Tablet PO (21:02)
[2022-06-30 21:56] LABS: Bedside Glucose 164 mg/dL (74-106)
[2022-06-30] MEDS: Senna/Docusate Sodium 1 Tablet 2 TABLET PO (22:09)
[2022-06-30] MEDS: Insulin Glargine-YFGN 100 UNIT/ML Pen 20 UNIT SC (22:10)
[2022-07-01 05:32] LABS: Absolute Neutrophil Count 4.2 X10^3/uL (2.0-7.7); Basophil# 0.06 X10^3/uL; Basophil% 0.7 % (0-1); Eosinophil# 0.32 X10^3/uL; Eosinophils% 3.9 % (0-5); Hematocrit 38.9 % (40-54); Hemoglobin 12.3 g/dL (13.0-16.5); Lymphocyte % 32.8 % (19-41); Mean Corp Hgb Conc 31.6 g/dL (32-36); Mean Corpuscular Hgb 30.4 pg (27.0-32.0); Monocyte# 0.89 X10^3/uL; Monocyte% 10.8 % (0-10); NRBC Flagged by Analyzer 0 % (0-5); Neutrophil # 4.19 X10^3/uL (2.7-7.7); Neutrophil % 50.8 % (47-70); Platelet Count 195 K/mm3 (150-450); RBC Distribution Width CV 14.1 % (11.6-14.6); RBC Distribution Width SD 49.8 fl (35.1-43.9); Red Blood Count 4.05 M/mm3 (4.6-6.2); White Blood Count 8.2 K/mm3 (4.4-11.0)
[2022-07-01] MEDS: dilTIAZem CD 240 MG Capsule PO (05:36)
[2022-07-01] MEDS: Furosemide 20 MG Tablet PO (05:36)
[2022-07-01] MEDS: Senna/Docusate Sodium 1 Tablet 2 TABLET PO (05:36)
[2022-07-01] MEDS: Acetaminophen 500 MG Tablet 1000 MG PO ×3 (05:36→21:19)
[2022-07-01] MEDS: Clopidogrel Bisulfate 75 MG Tablet PO (05:36)
[2022-07-01] MEDS: Menthol/Lanolin/Calamine/Znox 113 GM Tube 1 APPLIC TOPICAL ×2 (05:42→18:16)
[2022-07-01] MEDS: Nystatin Powder 15gm Bottle 1 APPLIC TOPICAL ×2 (05:43→18:15)
[2022-07-01 05:55] LABS: Anion Gap 2 (5-15); BUN 18 mg/dL (7-18); BUN/Creat Ratio 17.1 RATIO (10-20); Calcium,Total 8.7 mg/dL (8.5-10.1); Chloride 108 mmol/L (98-107); Creatinine, Serum 1.05 mg/dL (0.70-1.30); EST Glomerular Filtration Rate 73 mL/min (>60); Est Glom Filt Rate - Afr Amer 88 mL/min (>60); Glucose 151 mg/dL (74-106); Potassium 3.5 mmol/L (3.5-5.1); Sodium Level 139 mmol/L (136-145)
[2022-07-01 06:55] LABS: Bedside Glucose 150 mg/dL (74-106)
[2022-07-01] MEDS: metFORMIN HCl 1,000 MG Tablet 1000 MG PO ×2 (07:58→18:15)
[2022-07-01] MEDS: Tuberculin,Purif.prot.deriv. 50 TU/ML Vial 0.1 ML ID (11:39)
[2022-07-01] MEDS: oxyCODONE 5 MG Tablet PO (12:45)
[2022-07-01 14:17] VITALS: BP 121/57; PULSE 59; RESP 16; TEMP 36.1; O2SAT 96
--- NOTE | 2022-07-01 16:23 | PHA.CONS_ITS ---
TCU RX Drug Regimen Review Subjective: 77 YOM admitted to TCU 06/30/22 S/P hospitalization due to a fall. Patient admitted for strengthening and rehabilitation prior to discharge home. Objective: Allergies Sulfa (Sulfonamide Antibiotics) Allergy (Verified 06/28/22 17:01) Hives Current Medications Generic Name Dose Route Start Last Admin Trade Name Freq PRN Reason Stop Dose Admin Acetaminophen 1,000 mg 06/30/22 22:00 07/01/22 13:49 Acetaminophen 500 Mg Tablet PO 1,000 mg Q8 ROBBIN Administration Atorvastatin Calcium 80 mg 06/30/22 22:00 06/30/22 21:00 Atorvastatin Calcium 80 Mg Tablet PO 80 mg QHS ROBBIN Administration Calamine/Phenol 1 applic 07/01/22 06:00 07/01/22 05:42 Menthol/Lanolin/Calamine/Znox 113 Gm Tube TOPICAL 1 applic BID ROBBIN Administration Protocol Clopidogrel Bisulfate 75 mg 07/01/22 06:00 07/01/22 05:36 Clopidogrel Bisulfate 75 Mg Tablet PO 75 mg DAILY ROBBIN Administration Diltiazem HCl 240 mg 07/01/22 06:00 07/01/22 05:36 Diltiazem Cd 240 Mg Capsule PO 240 mg DAILY ROBBIN Administration Furosemide 20 mg 07/01/22 06:00 07/01/22 05:36 Furosemide 20 Mg Tablet PO 20 mg DAILY ROBBIN Administration Insulin Glargine 20 unit 06/30/22 22:00 06/30/22 22:10 Insulin Glargine-Yfgn 100 Unit/Ml Pen SC 20 unit QHS ROBBIN Administration Magnesium Hydroxide 30 ml 06/30/22 21:08 Magnesium Hydroxide 30 Ml Udc PO X1 PRN Constipation Meclizine HCl 12.5 mg 06/30/22 15:24 Meclizine 12.5 Mg Tablet PO 4X/DAY PRN PRN VERTIGO/DIZZINESS Metformin HCl 1,000 mg 06/30/22 17:00 07/01/22 07:58 Metformin Hcl 1,000 Mg Tablet PO 1,000 mg BIDCM ROBBIN Administration Nystatin 1 applic 06/30/22 18:00 07/01/22 05:43 Nystatin Powder 15gm Bottle TOPICAL 1 applic BID ROBBIN Administration Protocol Oxycodone HCl 5 mg 06/30/22 15:24 07/01/22 12:45 Oxycodone 5 Mg Tablet PO 07/03/22 15:25 5 mg Q4H PRN PRN Administration Pain Score 4-10 Pioglitazone HCl 30 mg 06/30/22 22:00 06/30/22 21:00 Pioglitazone Hydrochloride 30 Mg Tablet PO 30 mg QHS ROBBIN Administration Senna/Docusate Sodium 2 tablet 06/30/22 21:15 07/01/22 05:36 Senna/Docusate Sodium 1 Tablet PO 2 tablet BID ROBBIN Administration Sodium Chloride 10 - 40 ml 06/30/22 15:23 0.9% Saline Lock 10 Ml Syringe IV UD PRN SALINE FLUSH Tuberculin PPD 0.1 ml 07/08/22 10:00 Tuberculin,Purif.Prot.Deriv. 50 Tu/Ml Vial ID 07/08/22 10:01 X1 ONE Problem List (Last Reviewed 06/30/22 @ 20:[address] Maximino Figueroa MD) Stroke (Acute) Dizziness (Acute) Hypertension (Chronic) Diabetes mellitus (Acute) Contusion of right hip (Acute) Effusion, left knee (Acute) Debility (Acute) Fall (Acute) Left knee pain (Acute) Vital Signs Temp Pulse Resp BP Pulse Ox O2 Del Method 96.9 F L 59 L 16 121/57 H 96 Room Air 07/01/22 14:17 07/01/22 14:17 07/01/22 14:17 07/01/22 14:17 07/01/22 14:17 07/01/22 14:17 Oxygen Delivery Method Room Air Weight: 111.085 kg Body Mass Index (BMI) 35.1 Sodium 139 mmol/L (136-145) 07/01/22 05:07 Potassium 3.5 mmol/L (3.5-5.1) 07/01/22 05:07 Chloride 108 mmol/L (98-107) H 07/01/22 05:07 Carbon Dioxide 29.0 mmol/L (21.0-32.0) 07/01/22 05:07 Anion Gap 2 (5-15) L 07/01/22 05:07 BUN 18 mg/dL (7-18) 07/01/22 05:07 Creatinine 1.05 mg/dL (0.70-1.30) 07/01/22 05:07 Est GFR (MDRD) Af Amer 88 mL/min (>60) 07/01/22 05:07 Est GFR (MDRD) Non-Af 73 mL/min (>60) 07/01/22 05:07 BUN/Creatinine Ratio 17.1 RATIO (10-20) 07/01/22 05:07 Glucose 151 mg/dL (74-106) H 07/01/22 05:07 Assessment/Plan: 1. Pain: Tylenol 1000mg PO Q8h, Oxycodone 5mg PO Q4h PRN Pain 4-10. Please continue to monitor for increased/decreased S/S pain, PRN medication usage, constipation with narcotic use, respiratory depression, oversedation. - To date, the patient has used 2 doses of PRN oxycodone. Pain (located in the knee) ranging from 8-10 pre-medication and 0-7 post medication. The patient's pain appears to be manged at this time. 2. HTN/Stroke/ Edema: Lipitor 80mg PO QHS, Plavix 75mg PO Daily, Diltiazem 240mg PO Daily, Lasix 20mg PO Daily. Please continue to monitor lipid panel annually if clinically indicated, pulse (range 59-67), BP (range 121-135/57-58), S/S bleeding/bruising, H/H (stable), electrolytes (stable). 3. DM2: Glargine 20 unit SC QHS, Metformin 1000mg PO BID, Actos 30mg PO QHS. Please continue to monitor A1c, BG levels, S/S hypoglycemia, S/S swelling. Please evaluate if Actos may be able to be discontinued given the patient has underlying issues with swelling. Taking Actos can increase swelling in populations, thank you. 4. Dizziness: Meclizine 12.5mg PO 4x/day PRN. Please continue to monitor for PRN medication usage, medication effectiveness, given patient history of falls. 5. Skin Integrity: Nystatin powder topically BID, Calmoseptine lotion topically BID. Please continue to monitor for S/S skin irritation, redness, infection, u lcerations. 6. Bowel: Senna/Docusate 2 tab PO BID, MOM 30mL PO x1 PRN. Please continue to monitor for increased/decreased constipation and/or diarrhea. Assessment/Plan for indications treated with psychotropic medications: The patient is not being maintained on any psychotropic medications at this time. Medical chart and medication regimen reviewed. The following medication irregularities or issues were identified: 1. Lipid Panel: The patient is on atorvastatin and last documented lipid panel in EMR is from 10/2013. Please consider obtaining a lipid panel if clinically indicated, thank you. 2. A1c: The patient's last A1c was taken in 10/2013 per EMR review. Please consider obtaining an A1c level, thank you. Date of Note:: 07/01/22
--- NOTE | 2022-07-01 16:37 | CASEMGMT ---
Social Work Met with patient to complete initial assessment. Introduced self and role. After introduction, pt stated let me get my for this. And proceeds to yell behind him, his 's name, Tameka. SW paused unsure if as visiting and out of the room at the present time. Pt again yelled, Tameka. She is in the back somewhere. SW reoriented pt to being in TCU and asked if was visiting. Pt paused and shook his head and stated, oh yeah. I forgot I'm not at home. SW entered ST order. Discussed code status and MOLST form. Pt confirmed DNR-CCA, no intubation. MOLST placed in Dr folder. Per chart review, is aware to provide documents of advanced directives. Educated to Medicare benefit. Pt's goal is to return home with . SW will continue to follow for DC planning. OUMAR HowardW
[2022-07-01 19:30] VITALS: O2SAT 97
[2022-07-01] MEDS: Insulin Glargine-YFGN 100 UNIT/ML Pen 20 UNIT SC (21:17)
[2022-07-01] MEDS: Pioglitazone Hydrochloride 30 MG Tablet PO (21:19)
[2022-07-01] MEDS: Atorvastatin Calcium 80 MG Tablet PO (21:19)
[2022-07-01 21:41] LABS: Bedside Glucose 194 mg/dL (74-106)
[2022-07-02] MEDS: Acetaminophen 500 MG Tablet 1000 MG PO ×3 (04:28→21:30)
[2022-07-02] MEDS: Senna/Docusate Sodium 1 Tablet 2 TABLET PO ×2 (04:28→18:28)
[2022-07-02] MEDS: Clopidogrel Bisulfate 75 MG Tablet PO (04:29)
[2022-07-02] MEDS: Furosemide 20 MG Tablet PO (04:29)
[2022-07-02] MEDS: dilTIAZem CD 240 MG Capsule PO (04:29)
[2022-07-02] MEDS: Menthol/Lanolin/Calamine/Znox 113 GM Tube 1 APPLIC TOPICAL ×2 (04:31→18:27)
[2022-07-02] MEDS: Nystatin Powder 15gm Bottle 1 APPLIC TOPICAL ×2 (04:31→18:27)
[2022-07-02 06:35] LABS: Bedside Glucose 148 mg/dL (74-106)
[2022-07-02] MEDS: oxyCODONE 5 MG Tablet PO (08:06)
[2022-07-02] MEDS: metFORMIN HCl 1,000 MG Tablet 1000 MG PO ×2 (08:07→18:27)
[2022-07-02] MEDS: Magnesium Hydroxide 30 ML UDC PO (09:06)
--- NOTE | 2022-07-02 09:08 | NURSING ---
PT HAS NOT HAD A BM IN 4 DAYS PER REPORT. MOM AND PRUNE JUICE GIVEN. WILL CONTINUE TO MONITOR.
[2022-07-02 09:10] VITALS: PULSE 82; RESP 18; O2SAT 95
--- NOTE | 2022-07-02 13:17 | NS ---
Provided copy of daily specials/first choice menu w/ instructions on how to order. Res likes most foods, likes only iceberg lettuce in salads.
--- NOTE | 2022-07-02 13:18 | NURSING ---
Still Operator Whiskey Note; Activity Asset: Daniel Jeffries prefers to be called Bora He is independent in his choice of daily activities. Bora enjoys word search, reading the paper, watching tv and spending time w/family and friends. He welcomes visit from the hide examiner and therapy dog as well. He is not interested in group activities at this time, will continue to do social visit and encourage small group activities for social well-being.
[2022-07-02 14:24] VITALS: BP 159/74; PULSE 85; RESP 16; TEMP 36.1; O2SAT 96
[2022-07-02] MEDS: Insulin Glargine-YFGN 100 UNIT/ML Pen 20 UNIT SC (21:28)
[2022-07-02] MEDS: Atorvastatin Calcium 80 MG Tablet PO (21:29)
[2022-07-02] MEDS: Pioglitazone Hydrochloride 30 MG Tablet PO (21:31)
[2022-07-02 22:00] LABS: Bedside Glucose 162 mg/dL (74-106)
[2022-07-03 05:25] VITALS: BP 142/59; PULSE 71
[2022-07-03] MEDS: Acetaminophen 500 MG Tablet 1000 MG PO ×3 (05:28→21:40)
[2022-07-03] MEDS: Clopidogrel Bisulfate 75 MG Tablet PO (05:28)
[2022-07-03] MEDS: Senna/Docusate Sodium 1 Tablet 2 TABLET PO ×2 (05:28→17:14)
[2022-07-03] MEDS: Nystatin Powder 15gm Bottle 1 APPLIC TOPICAL ×2 (05:28→17:14)
[2022-07-03] MEDS: Furosemide 20 MG Tablet PO (05:29)
[2022-07-03] MEDS: dilTIAZem CD 240 MG Capsule PO (05:29)
[2022-07-03] MEDS: Menthol/Lanolin/Calamine/Znox 113 GM Tube 1 APPLIC TOPICAL ×2 (05:29→17:15)
[2022-07-03 06:31] LABS: Bedside Glucose 130 mg/dL (74-106)
[2022-07-03] MEDS: metFORMIN HCl 1,000 MG Tablet 1000 MG PO ×2 (07:49→17:14)
[2022-07-03] MEDS: oxyCODONE 5 MG Tablet PO (08:59)
[2022-07-03 14:12] VITALS: BP 144/57; PULSE 76; RESP 16; TEMP 36.4; O2SAT 96
[2022-07-03 20:09] VITALS: PULSE 81; RESP 18; O2SAT 94
[2022-07-03 21:31] LABS: Bedside Glucose 160 mg/dL (74-106)
[2022-07-03] MEDS: Pioglitazone Hydrochloride 30 MG Tablet PO (21:39)
[2022-07-03] MEDS: Insulin Glargine-YFGN 100 UNIT/ML Pen 20 UNIT SC (21:39)
[2022-07-03] MEDS: Atorvastatin Calcium 80 MG Tablet PO (21:40)
[2022-07-04] MEDS: Nystatin Powder 15gm Bottle 1 APPLIC TOPICAL ×2 (05:58→18:01)
[2022-07-04] MEDS: dilTIAZem CD 240 MG Capsule PO (05:59)
[2022-07-04] MEDS: Furosemide 20 MG Tablet PO (05:59)
[2022-07-04] MEDS: Clopidogrel Bisulfate 75 MG Tablet PO (05:59)
[2022-07-04] MEDS: Menthol/Lanolin/Calamine/Znox 113 GM Tube 1 APPLIC TOPICAL ×2 (05:59→18:02)
[2022-07-04] MEDS: Acetaminophen 500 MG Tablet 1000 MG PO ×3 (06:00→21:49)
[2022-07-04] MEDS: Senna/Docusate Sodium 1 Tablet 2 TABLET PO ×2 (06:00→18:01)
[2022-07-04 06:03] VITALS: BP 152/69; PULSE 80
[2022-07-04 06:15] LABS: Bedside Glucose 128 mg/dL (74-106)
[2022-07-04] MEDS: metFORMIN HCl 1,000 MG Tablet 1000 MG PO ×2 (07:27→18:01)
[2022-07-04 08:32] VITALS: PULSE 84; RESP 18; O2SAT 93
--- NOTE | 2022-07-04 14:16 | NURSING ---
Son brought in hearing aide batteries, states that the batteries quickly. Please put fresh batteries in before therapy sessions so he can hear
[2022-07-04 14:32] VITALS: BP 139/74; PULSE 74; RESP 16; TEMP 36.2; O2SAT 98
[2022-07-04 21:45] LABS: Bedside Glucose 161 mg/dL (74-106)
[2022-07-04] MEDS: Pioglitazone Hydrochloride 30 MG Tablet PO (21:48)
[2022-07-04] MEDS: Insulin Glargine-YFGN 100 UNIT/ML Pen 20 UNIT SC (21:48)
[2022-07-04] MEDS: Atorvastatin Calcium 80 MG Tablet PO (21:50)
[2022-07-05] MEDS: Menthol/Lanolin/Calamine/Znox 113 GM Tube 1 APPLIC TOPICAL ×2 (06:00→17:42)
[2022-07-05] MEDS: Clopidogrel Bisulfate 75 MG Tablet PO (06:01)
[2022-07-05] MEDS: Acetaminophen 500 MG Tablet 1000 MG PO ×3 (06:01→22:49)
[2022-07-05] MEDS: dilTIAZem CD 240 MG Capsule PO (06:01)
[2022-07-05] MEDS: Senna/Docusate Sodium 1 Tablet 2 TABLET PO ×2 (06:01→17:39)
[2022-07-05] MEDS: Furosemide 20 MG Tablet PO (06:01)
[2022-07-05] MEDS: Nystatin Powder 15gm Bottle 1 APPLIC TOPICAL ×2 (06:01→17:43)
[2022-07-05 06:14] VITALS: BP 151/77; PULSE 78
[2022-07-05 06:16] LABS: Bedside Glucose 102 mg/dL (74-106)
[2022-07-05] MEDS: metFORMIN HCl 1,000 MG Tablet 1000 MG PO ×2 (07:59→17:38)
[2022-07-05 08:01] VITALS: PULSE 72
[2022-07-05] MEDS: Metoprolol Tartrate 25 MG Tablet 12.5 MG PO ×2 (08:01→17:39)
--- NOTE | 2022-07-05 11:11 | NURSING ---
Offered bivalent Covid booster, patient states he thinks he had it at Dr. Figueroa' office. Left message w/ Dr Figueroa's office to request date/time of vaccine to update chart.
[2022-07-05 14:15] VITALS: BP 140/62; PULSE 56; RESP 16; TEMP 35.9; O2SAT 96
--- NOTE | 2022-07-05 15:59 | NURSING ---
Dr. Miller office called and talked to Chelsea. Consult placed for general foot care.
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
[2022-07-05 17:39] VITALS: PULSE 84
[2022-07-05] MEDS: traMADol 50 MG Tablet PO (17:39)
[2022-07-05 18:55] LABS: Bedside Glucose 165 mg/dL (74-106)
[2022-07-05] MEDS: Carbamide Peroxide 15 ML Bottle 5 DRP OTIC (20:23)
[2022-07-05 22:00] LABS: Bedside Glucose 135 mg/dL (74-106)
[2022-07-05] MEDS: Insulin Glargine-YFGN 100 UNIT/ML Pen 20 UNIT SC (22:47)
[2022-07-05] MEDS: Pioglitazone Hydrochloride 30 MG Tablet PO (22:48)
[2022-07-05] MEDS: Atorvastatin Calcium 80 MG Tablet PO (22:49)
[2022-07-06] MEDS: Senna/Docusate Sodium 1 Tablet 2 TABLET PO ×2 (04:27→17:27)
[2022-07-06 04:28] VITALS: BP 149/67; PULSE 71
[2022-07-06] MEDS: Metoprolol Tartrate 25 MG Tablet 12.5 MG PO ×2 (04:28→17:27)
[2022-07-06] MEDS: Clopidogrel Bisulfate 75 MG Tablet PO (04:28)
[2022-07-06] MEDS: Acetaminophen 500 MG Tablet 1000 MG PO ×3 (04:28→21:18)
[2022-07-06] MEDS: Furosemide 20 MG Tablet PO (04:29)
[2022-07-06] MEDS: dilTIAZem CD 240 MG Capsule PO (04:29)
[2022-07-06] MEDS: Nystatin Powder 15gm Bottle 1 APPLIC TOPICAL ×2 (04:30→17:25)
[2022-07-06] MEDS: Menthol/Lanolin/Calamine/Znox 113 GM Tube 1 APPLIC TOPICAL ×2 (04:30→17:29)
--- NOTE | 2022-07-06 04:35 | NURSING ---
Patient woke up to void in urinal and requested all AM meds at this time due to being awake.
[2022-07-06 07:01] LABS: Bedside Glucose 102 mg/dL (74-106)
[2022-07-06] MEDS: metFORMIN HCl 1,000 MG Tablet 1000 MG PO ×2 (08:12→17:27)
[2022-07-06 09:40] VITALS: PULSE 65; RESP 18; O2SAT 96
[2022-07-06] MEDS: traMADol 50 MG Tablet PO (10:03)
[2022-07-06 11:40] LABS: Bedside Glucose 142 mg/dL (74-106)
[2022-07-06 14:10] VITALS: BMI 34.5
[2022-07-06 16:00] VITALS: BP 138/68; PULSE 67; RESP 16; TEMP 35.9; O2SAT 96
[2022-07-06 17:06] LABS: Bedside Glucose 104 mg/dL (74-106)
[2022-07-06 17:27] VITALS: BP 138/69; PULSE 67
[2022-07-06] MEDS: Insulin Glargine-YFGN 100 UNIT/ML Pen 20 UNIT SC (21:15)
[2022-07-06] MEDS: Atorvastatin Calcium 80 MG Tablet PO (21:19)
[2022-07-06] MEDS: Pioglitazone Hydrochloride 30 MG Tablet PO (21:19)
[2022-07-06 21:41] LABS: Bedside Glucose 121 mg/dL (74-106)
[2022-07-07] MEDS: Furosemide 20 MG Tablet PO (05:16)
[2022-07-07] MEDS: dilTIAZem CD 240 MG Capsule PO (05:16)
[2022-07-07] MEDS: Senna/Docusate Sodium 1 Tablet 2 TABLET PO ×2 (05:16→17:21)
[2022-07-07] MEDS: Acetaminophen 500 MG Tablet 1000 MG PO ×3 (05:16→21:39)
[2022-07-07 05:17] VITALS: BP 160/59; PULSE 76
[2022-07-07] MEDS: Metoprolol Tartrate 25 MG Tablet 12.5 MG PO ×2 (05:17→17:20)
[2022-07-07] MEDS: Clopidogrel Bisulfate 75 MG Tablet PO (05:17)
[2022-07-07] MEDS: Nystatin Powder 15gm Bottle 1 APPLIC TOPICAL ×2 (05:19→17:19)
[2022-07-07] MEDS: Menthol/Lanolin/Calamine/Znox 113 GM Tube 1 APPLIC TOPICAL ×2 (05:19→17:18)
[2022-07-07 06:50] LABS: Bedside Glucose 132 mg/dL (74-106)
[2022-07-07] MEDS: metFORMIN HCl 1,000 MG Tablet 1000 MG PO ×2 (08:16→17:21)
[2022-07-07] MEDS: traMADol 50 MG Tablet PO (09:14)
--- NOTE | 2022-07-07 09:25 | CASEMGMT ---
Social Work IDT met with patient, then dtr via conference call for care plan meeting. Discussed patient's progress in PT/OT/ST/SN. Discussed interventions with Golf Range Attendant to assist with improved appetite, ie.e changing to regular diet, smaller portions. Currently pt is a x1-[address] identified cognitive deficits as well. confirmed pt is more confused during stay. However, pt is very TRIBE and can impact cognition. IDT expressed concern with DC plan at home with . SW inquired about alternative DC plan. Family understanding of possibly needing a facility or hiring extra help at home. Family to discuss amongst themselves and speak with this worker for assistance. SW to continue to follow. Leidy Jolly, DEFENCE FORCE SENIOR OFFICER MOLECULAR TECHNOLOGIST
[2022-07-07 11:40] LABS: Bedside Glucose 222 mg/dL (74-106)
[2022-07-07 16:00] VITALS: BP 151/70; PULSE 65; RESP 16; TEMP 36.1; O2SAT 96
[2022-07-07 16:45] LABS: Bedside Glucose 137 mg/dL (74-106)
--- NOTE | 2022-07-07 17:05 | NURSING ---
INTO SEE PT AND TRIM TOE NAILS.
--- NOTE | 2022-07-07 17:15 | CON.PCM_ITS ---
Assessment & Plan Assessment/Plan (1) Contusion of left foot: (2) Pain in left foot: (3) Nail dystrophy: (4) Pain in left toe(s): (5) Pain in toes of both feet: PLAN: Plan Evaluation performed. Ordered left foot xrays. Debrided toenails 1-5 bilateral using a nail nipper removing bulk, this was done without incident. Will follow up after left foot xrays are obtained. Thank you for consultation. HPI Consult Data Date of Consult: 07/08/22 HPI Narrative Reason for Consultation: Foot care HPI Narrative: BERTO DAVIS, is a 77 M who was seen for feet. He relates he injured his left foot and has pain and difficulty walking on it. There is bruising. He points to 2nd toe as site of greatest pain. He also needs toenails reduced, they are long, thick and painful. He is not able to maintain them himself. He has hx of diabetes. [facility] Medical History (Updated 07/08/22 @ 07:[address] Geovany Miller, DPM) Anterolisthesis Atrial septal defect Bifascicular block CVA (cerebral vascular accident) (~07/2006) DDD (degenerative disc disease), lumbar Deep vein thrombophlebitis of right leg Depression Diabetes mellitus, type II Essential hypertension Fall Hyperlipidemia Migraines CRYSTAL (obstructive sleep apnea) Right bundle branch block Syncope and collapse TIA (transient ischemic attack) (~10/2013) Home Medications atorvastatin 80 mg tablet 80 mg PO QHS cholesterol 06/22/17 [History Last Taken 06/27/22] diltiazem HCl 240 mg capsule,extended release 24 hr (Cardizem CD) 240 mg PO QDAY blood pressure 06/22/17 [History Last Taken 06/27/22] meclizine 12.5 mg tablet 12.5 mg PO 4X/DAY PRN PRN VERTIGO/DIZZINESS 06/27/19 [Rx Last Taken Unknown] insulin degludec 100 unit/mL (3 mL) subcutaneous pen (Tresiba FlexTouch U-100 insulin) 20 unit subcut QHS diabetes 02/28/20 [History Last Taken Unknown] metformin 1,000 mg tablet 1,000 mg PO BID diabetes 02/28/20 [History Last Taken 06/27/22] pioglitazone 30 mg tablet 30 mg PO QHS diabetes 02/28/20 [History Last Taken 06/27/22] clopidogrel 75 mg tablet (Plavix) 75 mg PO DAILY blood thinner 09/03/20 [History Last Taken 06/27/22] acetaminophen 500 mg tablet 1,000 mg PO Q8 pain 06/30/22 [History Last Taken Unknown] furosemide 20 mg tablet (Lasix) 20 mg PO DAILY swelling 06/30/22 [History Last Taken Unknown] nystatin 100,000 unit/gram topical powder (Nyamyc) 1 applic topical BID redness 06/30/22 [History Last Taken Unknown] oxycodone 5 mg tablet 5 mg PO Q4H PRN PRN Pain Score 4-10 3 days #8 tabs 06/30/22 [Rx Last Taken Unknown] Allergy/AdvReac Type Severity Reaction Status Date / Time Sulfa (Sulfonamide Allergy Hives Verified 06/28/22 17:01 Antibiotics) Family History Mother Hypertension Surgical History Hx of local excision of skin lesion Social History household members: spouse housing: house Smoking Status: Former smoker alcohol intake: never substance use type: does not use what type of physical activity do you participate in: none Physical Exam Narrative Hard of hearing. There is ecchymosis and swelling of left forefoot, there is POP to the 2nd toe and central forefoot. Toenails 1-5 bilateral are elongated, thickened, dystrophic, yellow, painful with subungual debris. There are no open lesions or tissue break down bilateral foot, no erythema, no cellulitis, to foot bilateral. CFT < 2 seconds to all toes bilateral. Pedal pulses palpable bilateral. There is edema to left foot. Sensation is intact to light touch bilateral foot. There is chronic appearing contracture of lesser toes bilateral foot. Const alert, oriented x3 and no apparent distress Lab / Micro Data Result Diagrams: 07/08/22 05:07 07/08/22 05:07 Labs: Laboratory Results - last 24 hr 07/07/22 11:18: POC Glucose 222 H 07/07/22 16:16: POC Glucose 137 H 07/07/22 21:36: POC Glucose 144 H 07/08/22 05:07: WBC 7.7, RBC 4.11 L, Hgb 12.6 L, Hct 39.4 L, MCV 95.9 H, MCH 30.7, MCHC 32.0, RDW Std Deviation 50.5 H, RDW Coeff of Blanco 14.6, Plt Count 272, MPV 10.1, Immature Gran % (Auto) 2.500 H, Neut % (Auto) 52.2, Lymph % (Auto) 29.5, Bolivar % (Auto) 10.8 H, Eos % (Auto) 4.0, Baso % (Auto) 1.0, Absolute Neuts (auto) 4.0, Absolute Lymphs (auto) 2.26, Nucleated RBC % 0 07/08/22 05:07: Sodium 137, Potassium 3.9, Chloride 105, Carbon Dioxide 29.0, Anion Gap 3 L, BUN 19 H, Creatinine 1.10, Estim Creat Clear Calc 58.99, Est GFR (MDRD) Af Amer 84, Est GFR (MDRD) Non-Af 69, BUN/Creatinine Ratio 17.3, Glucose 110 H, Calcium 9.2 07/08/22 05:59: POC Glucose 111 H Radiology Impression Foot X-Ray 07/07/22 17:35 IMPRESSION: Osteopenia and degenerative changes of the foot. There is no visualized fracture or dislocation. Electronically Signed: Mike Hewitt DO at 17:54 EDT Reading Location ID and State: [address] [place] [address] Tel [phone], Service support ,
[2022-07-07 17:20] VITALS: BP 151/70; PULSE 65
--- NOTE | 2022-07-07 17:35 | RAD_ITS ---
STUDY: X-RAY - LEFT FOOT CLINICAL: Male, 77 years old. Pain. Bruising along the dorsal aspect of the foot. TECHNIQUE: 3 view(s) of the foot. COMPARISON: None. FINDINGS: Marked osteopenia. Normal talus, calcaneus, and tarsal bones. Arthrosis of the visualized subtalar, talonavicular, calcaneocuboid, tarsal and tarsometatarsal articulations. Normal metatarsi. Normal metatarsophalangeal joint of the great toe. Normal tibial and fibular sesamoid bones. Normal interphalangeal joint of the great toe. Normal phalanges of the great toe. Normal second through fifth metatarsophalangeal joints. Normal interphalangeal joints and phalanges of the lesser toes. Vascular calcifications are seen within the soft tissues. There is no soft tissue swelling or mass. No foreign body. RAD/Foot min 3 Views IMPRESSION: Osteopenia and degenerative changes of the foot. There is no visualized fracture or dislocation. Electronically Signed: Mike Hewitt DO at 17:54 EDT ,
--- NOTE | 2022-07-07 18:07 | NURSING ---
dr celis ordered MRI LT knee d/t pain, faxed order. no prior authorization required.
--- NOTE | 2022-07-07 18:46 | NURSING ---
CALLED AND UPDATED PT ON PT WITH SEEING PT/XRAY OF FOOT, MRI TO BE DONE AND EARS TO BE FLUSHED. PT ALSO UPDATED. THANKED THIS NURSE AND STATED SHE WOULD LET HER DAUGHTER KNOW.
[2022-07-07] MEDS: Insulin Glargine-YFGN 100 UNIT/ML Pen 20 UNIT SC (21:36)
[2022-07-07] MEDS: Pioglitazone Hydrochloride 30 MG Tablet PO (21:39)
[2022-07-07] MEDS: Atorvastatin Calcium 80 MG Tablet PO (21:39)
--- NOTE | 2022-07-07 21:54 | NURSING ---
Bilateral ears flushed at this time, several times with warm water. Minimal amounts of pale earwax noted during flushing. Pt tolerated well, no discomfort or dizziness noted.
[2022-07-07 22:01] LABS: Bedside Glucose 144 mg/dL (74-106)
[2022-07-07 22:22] VITALS: O2SAT 94
[2022-07-08] MEDS: Senna/Docusate Sodium 1 Tablet 2 TABLET PO ×2 (05:09→17:38)
[2022-07-08 05:10] VITALS: BP 151/72; PULSE 73
[2022-07-08] MEDS: dilTIAZem CD 240 MG Capsule PO (05:10)
[2022-07-08] MEDS: Metoprolol Tartrate 25 MG Tablet 12.5 MG PO ×2 (05:10→17:38)
[2022-07-08] MEDS: Acetaminophen 500 MG Tablet 1000 MG PO ×3 (05:10→21:25)
[2022-07-08] MEDS: Furosemide 20 MG Tablet PO (05:10)
[2022-07-08] MEDS: Clopidogrel Bisulfate 75 MG Tablet PO (05:10)
[2022-07-08] MEDS: Menthol/Lanolin/Calamine/Znox 113 GM Tube 1 APPLIC TOPICAL ×2 (05:12→17:37)
[2022-07-08] MEDS: Nystatin Powder 15gm Bottle 1 APPLIC TOPICAL ×2 (05:13→17:36)
[2022-07-08 05:29] LABS: Absolute Lymphocyte Count 2.26 X10^3/uL (0.83-4.51); Basophil# 0.08 X10^3/uL; Eosinophil# 0.31 X10^3/uL; Hematocrit 39.4 % (40-54); Hemoglobin 12.6 g/dL (13.0-16.5); Lymphocyte # 2.26 X10^3/ul (0.83-4.51); Lymphocyte % 29.5 % (19-41); Mean Corpuscular Hgb 30.7 pg (27.0-32.0); Mean Corpuscular Volume 95.9 fL (80-94); Mean Platelet Vol. 10.1 fl (6.2-12.0); Monocyte# 0.83 X10^3/uL; Monocyte% 10.8 % (0-10); NRBC Flagged by Analyzer 0 % (0-5); Neutrophil # 3.99 X10^3/uL (2.7-7.7); Neutrophil % 52.2 % (47-70); Platelet Count 272 K/mm3 (150-450); RBC Distribution Width CV 14.6 % (11.6-14.6); RBC Distribution Width SD 50.5 fl (35.1-43.9); Red Blood Count 4.11 M/mm3 (4.6-6.2); White Blood Count 7.7 K/mm3 (4.4-11.0)
[2022-07-08 05:49] LABS: Anion Gap 3 (5-15); BUN 19 mg/dL (7-18); BUN/Creat Ratio 17.3 RATIO (10-20); Calcium,Total 9.2 mg/dL (8.5-10.1); Chloride 105 mmol/L (98-107); EST Glomerular Filtration Rate 69 mL/min (>60); Est Glom Filt Rate - Afr Amer 84 mL/min (>60); Estimated Creatinine Clearance 58.99 ml/min; Glucose 110 mg/dL (74-106); Potassium 3.9 mmol/L (3.5-5.1); Sodium Level 137 mmol/L (136-145)
[2022-07-08 06:21] LABS: Bedside Glucose 111 mg/dL (74-106)
[2022-07-08] MEDS: metFORMIN HCl 1,000 MG Tablet 1000 MG PO ×2 (07:48→17:38)
[2022-07-08 09:12] VITALS: PULSE 62; RESP 16; O2SAT 94
[2022-07-08] MEDS: Tuberculin,Purif.prot.deriv. 50 TU/ML Vial 0.1 ML ID (10:43)
[2022-07-08 13:54] VITALS: BP 147/61; PULSE 65; RESP 18; TEMP 36.1; O2SAT 95
[2022-07-08 17:38] VITALS: BP 147/61; PULSE 65
[2022-07-08] MEDS: Pioglitazone Hydrochloride 30 MG Tablet PO (21:25)
[2022-07-08] MEDS: Atorvastatin Calcium 80 MG Tablet PO (21:25)
[2022-07-08] MEDS: Insulin Glargine-YFGN 100 UNIT/ML Pen 20 UNIT SC (21:26)
[2022-07-08 21:45] LABS: Bedside Glucose 177 mg/dL (74-106)
[2022-07-09] MEDS: Acetaminophen 500 MG Tablet 1000 MG PO ×3 (04:43→21:47)
[2022-07-09] MEDS: Senna/Docusate Sodium 1 Tablet 2 TABLET PO ×2 (04:43→17:41)
[2022-07-09] MEDS: dilTIAZem CD 240 MG Capsule PO (04:43)
[2022-07-09] MEDS: Clopidogrel Bisulfate 75 MG Tablet PO (04:43)
[2022-07-09 04:44] VITALS: BP 124/59; PULSE 69
[2022-07-09] MEDS: Metoprolol Tartrate 25 MG Tablet 12.5 MG PO ×2 (04:44→17:42)
[2022-07-09] MEDS: Furosemide 20 MG Tablet PO (04:44)
[2022-07-09] MEDS: Nystatin Powder 15gm Bottle 1 APPLIC TOPICAL ×2 (04:45→17:40)
[2022-07-09] MEDS: Menthol/Lanolin/Calamine/Znox 113 GM Tube 1 APPLIC TOPICAL ×2 (04:45→17:41)
[2022-07-09 06:20] LABS: Bedside Glucose 107 mg/dL (74-106)
[2022-07-09] MEDS: metFORMIN HCl 1,000 MG Tablet 1000 MG PO ×2 (08:00→17:41)
--- NOTE | 2022-07-09 09:06 | NURSING ---
[facility] able to get patient in for appt today @10:30 w/ Dr. Hunt. Transport called, wheelchair transport to picking supervisor patient @0930. updated, she is aware there might be a cost billed to patient. She will meet patient at appointment.
--- NOTE | 2022-07-09 09:56 | NURSING ---
Pt left floor in transport wheelchair at [phone] for ortho appointment
--- NOTE | 2022-07-09 11:28 | NURSING ---
Pt returned to floor from ortho appointment at [phone]
[2022-07-09 15:34] VITALS: BP 146/68; PULSE 77; RESP 16; TEMP 36.2; O2SAT 97
[2022-07-09 17:42] VITALS: BP 146/68; PULSE 77
[2022-07-09 20:48] VITALS: PULSE 63; RESP 18; O2SAT 93
[2022-07-09 21:41] LABS: Bedside Glucose 289 mg/dL (74-106)
[2022-07-09] MEDS: Atorvastatin Calcium 80 MG Tablet PO (21:47)
[2022-07-09] MEDS: Pioglitazone Hydrochloride 30 MG Tablet PO (21:47)
[2022-07-09] MEDS: Insulin Glargine-YFGN 100 UNIT/ML Pen 20 UNIT SC (21:48)
[2022-07-10 06:22] VITALS: BP 138/68; PULSE 83
[2022-07-10] MEDS: Senna/Docusate Sodium 1 Tablet 2 TABLET PO ×2 (06:22→17:40)
[2022-07-10] MEDS: Metoprolol Tartrate 25 MG Tablet 12.5 MG PO ×2 (06:22→17:40)
[2022-07-10] MEDS: Acetaminophen 500 MG Tablet 1000 MG PO ×3 (06:22→21:59)
[2022-07-10] MEDS: Clopidogrel Bisulfate 75 MG Tablet PO (06:22)
[2022-07-10] MEDS: Nystatin Powder 15gm Bottle 1 APPLIC TOPICAL ×2 (06:23→21:58)
[2022-07-10] MEDS: Menthol/Lanolin/Calamine/Znox 113 GM Tube 1 APPLIC TOPICAL ×2 (06:23→17:38)
[2022-07-10] MEDS: dilTIAZem CD 240 MG Capsule PO (06:23)
[2022-07-10] MEDS: Furosemide 20 MG Tablet PO (06:23)
[2022-07-10 06:35] VITALS: BP 138/68; PULSE 83
[2022-07-10 06:35] LABS: Bedside Glucose 211 mg/dL (74-106)
[2022-07-10] MEDS: metFORMIN HCl 1,000 MG Tablet 1000 MG PO ×2 (07:50→17:40)
[2022-07-10 10:40] VITALS: PULSE 87; RESP 18; O2SAT 97
[2022-07-10 15:30] VITALS: BP 134/59; PULSE 81; RESP 14; TEMP 36.8; O2SAT 98
[2022-07-10 17:40] VITALS: BP 134/59; PULSE 81
[2022-07-10 21:26] LABS: Bedside Glucose 231 mg/dL (74-106)
[2022-07-10] MEDS: Pioglitazone Hydrochloride 30 MG Tablet PO (21:59)
[2022-07-10] MEDS: Atorvastatin Calcium 80 MG Tablet PO (22:00)
[2022-07-10] MEDS: Insulin Glargine-YFGN 100 UNIT/ML Pen 20 UNIT SC (22:00)
[2022-07-11] MEDS: Menthol/Lanolin/Calamine/Znox 113 GM Tube 1 APPLIC TOPICAL ×2 (05:14→17:22)
[2022-07-11] MEDS: dilTIAZem CD 240 MG Capsule PO (05:15)
[2022-07-11] MEDS: Acetaminophen 500 MG Tablet 1000 MG PO ×3 (05:15→22:22)
[2022-07-11] MEDS: Nystatin Powder 15gm Bottle 1 APPLIC TOPICAL ×2 (05:15→22:24)
[2022-07-11] MEDS: Senna/Docusate Sodium 1 Tablet 2 TABLET PO ×2 (05:15→17:24)
[2022-07-11 05:16] VITALS: BP 136/67; PULSE 80
[2022-07-11] MEDS: Metoprolol Tartrate 25 MG Tablet 12.5 MG PO ×2 (05:16→17:23)
[2022-07-11] MEDS: Furosemide 20 MG Tablet PO (05:16)
[2022-07-11] MEDS: Clopidogrel Bisulfate 75 MG Tablet PO (05:16)
--- NOTE | 2022-07-11 05:29 | NURSING ---
Pt c/o upset stomach and thinks he is constipated. Informed pt he had an x-lg BM during the night. Does not recall BM. Offere diet karen yoandy and accepts. Consumes karen yoandy while this nurse in room and reports relief. Will continue to monitor.
[2022-07-11 06:41] LABS: Bedside Glucose 157 mg/dL (74-106)
[2022-07-11] MEDS: metFORMIN HCl 1,000 MG Tablet 1000 MG PO ×2 (07:43→17:23)
[2022-07-11 17:23] VITALS: BP 148/61; PULSE 68
[2022-07-11 21:31] LABS: Bedside Glucose 211 mg/dL (74-106)
[2022-07-11] MEDS: Pioglitazone Hydrochloride 30 MG Tablet PO (22:22)
[2022-07-11] MEDS: Atorvastatin Calcium 80 MG Tablet PO (22:22)
[2022-07-11] MEDS: Insulin Glargine-YFGN 100 UNIT/ML Pen 20 UNIT SC (22:23)
[2022-07-12] MEDS: Senna/Docusate Sodium 1 Tablet 2 TABLET PO ×2 (05:40→17:22)
[2022-07-12 05:41] VITALS: BP 143/61; PULSE 74
[2022-07-12] MEDS: Acetaminophen 500 MG Tablet 1000 MG PO ×3 (05:41→19:28)
[2022-07-12] MEDS: Metoprolol Tartrate 25 MG Tablet 12.5 MG PO ×2 (05:41→17:22)
[2022-07-12] MEDS: Clopidogrel Bisulfate 75 MG Tablet PO (05:42)
[2022-07-12] MEDS: dilTIAZem CD 240 MG Capsule PO (05:42)
[2022-07-12] MEDS: Furosemide 20 MG Tablet PO (05:42)
[2022-07-12] MEDS: Nystatin Powder 15gm Bottle 1 APPLIC TOPICAL ×2 (05:42→17:22)
[2022-07-12] MEDS: Menthol/Lanolin/Calamine/Znox 113 GM Tube 1 APPLIC TOPICAL ×2 (05:43→17:22)
[2022-07-12 06:31] LABS: Bedside Glucose 137 mg/dL (74-106)
[2022-07-12] MEDS: metFORMIN HCl 1,000 MG Tablet 1000 MG PO ×2 (07:49→17:22)
[2022-07-12 15:37] VITALS: BP 158/71; PULSE 72; RESP 16; TEMP 36.3; O2SAT 96
[2022-07-12 17:22] VITALS: BP 158/71; PULSE 72
[2022-07-12] MEDS: Atorvastatin Calcium 80 MG Tablet PO (19:29)
[2022-07-12] MEDS: Pioglitazone Hydrochloride 30 MG Tablet PO (19:29)
[2022-07-12] MEDS: traMADol 50 MG Tablet PO (19:31)
[2022-07-12 19:35] VITALS: O2SAT 95
[2022-07-12] MEDS: Insulin Glargine-YFGN 100 UNIT/ML Pen 20 UNIT SC (21:27)
[2022-07-12 21:50] LABS: Bedside Glucose 168 mg/dL (74-106)
[2022-07-13 05:06] VITALS: BP 155/74; PULSE 71
[2022-07-13] MEDS: Acetaminophen 500 MG Tablet 1000 MG PO ×3 (05:06→20:21)
[2022-07-13] MEDS: Metoprolol Tartrate 25 MG Tablet 12.5 MG PO (05:06)
[2022-07-13] MEDS: Senna/Docusate Sodium 1 Tablet 2 TABLET PO ×2 (05:06→17:17)
[2022-07-13] MEDS: Clopidogrel Bisulfate 75 MG Tablet PO (05:07)
[2022-07-13] MEDS: Nystatin Powder 15gm Bottle 1 APPLIC TOPICAL ×2 (05:07→17:19)
[2022-07-13] MEDS: Menthol/Lanolin/Calamine/Znox 113 GM Tube 1 APPLIC TOPICAL ×2 (05:07→17:20)
[2022-07-13] MEDS: dilTIAZem CD 240 MG Capsule PO (05:07)
[2022-07-13] MEDS: Furosemide 20 MG Tablet PO (05:07)
[2022-07-13 06:41] LABS: Bedside Glucose 109 mg/dL (74-106)
[2022-07-13] MEDS: metFORMIN HCl 1,000 MG Tablet 1000 MG PO ×2 (07:54→17:17)
[2022-07-13 10:31] VITALS: BMI 34.2
[2022-07-13 14:57] VITALS: BP 151/68; PULSE 62; RESP 16; TEMP 36.3; O2SAT 99
[2022-07-13 17:15] LABS: Bedside Glucose 81 mg/dL (74-106)
[2022-07-13 17:17] VITALS: PULSE 79
[2022-07-13] MEDS: Metoprolol Tartrate 25 MG Tablet PO (17:17)
[2022-07-13] MEDS: Meclizine 12.5 MG Tablet PO (17:18)
[2022-07-13 17:38] LABS: Absolute Lymphocyte Count 3.13 X10^3/uL (0.83-4.51); Absolute Neutrophil Count 7.7 X10^3/uL (2.0-7.7); Basophil# 0.03 X10^3/uL; Basophil% 0.2 % (0-1); Eosinophil# 0.06 X10^3/uL; Eosinophils% 0.5 % (0-5); Hematocrit 43.1 % (40-54); Hemoglobin 14.1 g/dL (13.0-16.5); Lymphocyte # 3.13 X10^3/ul (0.83-4.51); Lymphocyte % 25.5 % (19-41); Mean Corp Hgb Conc 32.7 g/dL (32-36); Mean Corpuscular Hgb 31.5 pg (27.0-32.0); Mean Corpuscular Volume 96.2 fL (80-94); Mean Platelet Vol. 10.5 fl (6.2-12.0); Monocyte# 1.09 X10^3/uL; Monocyte% 8.9 % (0-10); NRBC Flagged by Analyzer 0 % (0-5); Neutrophil # 7.71 X10^3/uL (2.7-7.7); Neutrophil % 62.8 % (47-70); Platelet Count 268 K/mm3 (150-450); RBC Distribution Width CV 14.6 % (11.6-14.6); RBC Distribution Width SD 51.8 fl (35.1-43.9); Red Blood Count 4.48 M/mm3 (4.6-6.2); White Blood Count 12.3 K/mm3 (4.4-11.0)
[2022-07-13] MEDS: Pioglitazone Hydrochloride 30 MG Tablet PO (20:21)
[2022-07-13] MEDS: Atorvastatin Calcium 80 MG Tablet PO (20:21)
[2022-07-13] MEDS: 0.9% Normal Saline 1,000 ML 999 ML IV (20:55)
[2022-07-13 22:00] LABS: Bedside Glucose 93 mg/dL (74-106)
--- NOTE | 2022-07-14 00:47 | NURSING ---
24g SL placed in left hand after several attempts. Patient tolerated well. Patient received 1000mL fluids. IV site remains patent. Will continue to monitor.
--- NOTE | 2022-07-14 00:49 | NURSING ---
Urine collected for UA, C&S.
[2022-07-14 04:24] VITALS: BP 163/69; PULSE 82
[2022-07-14] MEDS: Metoprolol Tartrate 25 MG Tablet PO ×2 (04:24→17:47)
[2022-07-14] MEDS: Furosemide 20 MG Tablet PO (04:24)
[2022-07-14] MEDS: dilTIAZem CD 240 MG Capsule PO (04:24)
[2022-07-14] MEDS: Acetaminophen 500 MG Tablet 1000 MG PO ×3 (04:24→20:49)
[2022-07-14] MEDS: Clopidogrel Bisulfate 75 MG Tablet PO (04:24)
[2022-07-14] MEDS: Menthol/Lanolin/Calamine/Znox 113 GM Tube 1 APPLIC TOPICAL ×2 (04:25→17:48)
[2022-07-14] MEDS: Nystatin Powder 15gm Bottle 1 APPLIC TOPICAL ×2 (04:25→17:49)
[2022-07-14 04:37] LABS: Bacteria 0 SEEN /hpf (None Seen); Mucous, Urine 0 SEEN /hpf (<or=2+); Red Blood Cells-Urine 0 SEEN /hpf (0-5); Squamous Epithelial Cells - UA 0 SEEN /hpf (0-5); White Blood Cells 0 SEEN /hpf (0-5)
[2022-07-14 04:43] LABS: Color, Urine Yellow (Yellow); Glucose, Dipstick Normal (Normal); Ketone-Dipstick Negative (Negative); Leukocyte Esterase-Dipstick 25 /ul (Negative); Nitrite-Dipstick Negative (Negative); Occult Blood-Urine Negative /ul (Negative); Protein-Dipstick Negative (Negative); Urine Bilirubin Dipstick Negative (Negative); Urine Clarity Clear (Clear); Urine Urobilinogen Normal (Normal)
[2022-07-14] MEDS: metFORMIN HCl 1,000 MG Tablet 1000 MG PO ×2 (08:10→17:47)
[2022-07-14 08:50] LABS: Bedside Glucose 90 mg/dL (74-106)
--- NOTE | 2022-07-14 11:20 | CASEMGMT ---
Social Work BIMS () and PHQ-9 (03/16) completed for MDS assessment. Pt's PHQ-9 score has decreased. Pt continues to deny thoughts of self-harm. Protective factors are grandkids and . Pt is looking forward to [place] home. Pt continues to deny resources or medication management for mood. Leidy Jolly, CHIROPRACTIC NEUROLOGIST TELEVISION WRITER
[2022-07-14 13:34] VITALS: BP 129/64; PULSE 68; RESP 16; TEMP 36.1; O2SAT 96
--- NOTE | 2022-07-14 16:12 | NURSING ---
Dr Nicholas office to get updated Pneumococcal vaccine record for PT. Nurse updated PT and PT wants updated pneumococcal vaccine. Nurse will administer when pharmacy sends and educate PT.
[2022-07-14 17:47] VITALS: BP 129/64; PULSE 68
[2022-07-14] MEDS: Senna/Docusate Sodium 1 Tablet 2 TABLET PO (17:48)
[2022-07-14 20:33] VITALS: PULSE 89; RESP 16; O2SAT 99
[2022-07-14] MEDS: Pioglitazone Hydrochloride 30 MG Tablet PO (20:49)
[2022-07-14] MEDS: Atorvastatin Calcium 80 MG Tablet PO (20:49)
[2022-07-14 22:10] LABS: Bedside Glucose 162 mg/dL (74-106)
[2022-07-15 05:22] VITALS: BP 152/61; PULSE 71
[2022-07-15] MEDS: Clopidogrel Bisulfate 75 MG Tablet PO (05:22)
[2022-07-15] MEDS: Nystatin Powder 15gm Bottle 1 APPLIC TOPICAL ×2 (05:22→18:25)
[2022-07-15] MEDS: Menthol/Lanolin/Calamine/Znox 113 GM Tube 1 APPLIC TOPICAL ×2 (05:22→18:25)
[2022-07-15] MEDS: Acetaminophen 500 MG Tablet 1000 MG PO ×3 (05:22→21:35)
[2022-07-15] MEDS: Metoprolol Tartrate 25 MG Tablet PO ×2 (05:22→18:25)
[2022-07-15] MEDS: Senna/Docusate Sodium 1 Tablet 2 TABLET PO ×2 (05:22→18:25)
[2022-07-15] MEDS: Furosemide 20 MG Tablet PO (05:23)
[2022-07-15] MEDS: dilTIAZem CD 240 MG Capsule PO (05:23)
[2022-07-15 05:44] LABS: Absolute Lymphocyte Count 2.67 X10^3/uL (0.83-4.51); Absolute Neutrophil Count 6.8 X10^3/uL (2.0-7.7); Basophil# 0.06 X10^3/uL; Basophil% 0.6 % (0-1); Eosinophil# 0.19 X10^3/uL; Eosinophils% 1.8 % (0-5); Hematocrit 39.8 % (40-54); Hemoglobin 12.7 g/dL (13.0-16.5); Lymphocyte # 2.67 X10^3/ul (0.83-4.51); Lymphocyte % 24.7 % (19-41); Mean Corp Hgb Conc 31.9 g/dL (32-36); Mean Corpuscular Hgb 30.8 pg (27.0-32.0); Mean Corpuscular Volume 96.6 fL (80-94); Mean Platelet Vol. 10.8 fl (6.2-12.0); Monocyte# 0.87 X10^3/uL; Monocyte% 8.1 % (0-10); NRBC Flagged by Analyzer 0 % (0-5); Neutrophil # 6.76 X10^3/uL (2.7-7.7); Neutrophil % 62.6 % (47-70); Platelet Count 231 K/mm3 (150-450); RBC Distribution Width CV 14.9 % (11.6-14.6); RBC Distribution Width SD 52.7 fl (35.1-43.9); Red Blood Count 4.12 M/mm3 (4.6-6.2); White Blood Count 10.8 K/mm3 (4.4-11.0)
[2022-07-15 06:07] LABS: Anion Gap 6 (5-15); BUN 25 mg/dL (7-18); BUN/Creat Ratio 27.6 RATIO (10-20); Calcium,Total 8.2 mg/dL (8.5-10.1); Chloride 108 mmol/L (98-107); Creatinine, Serum 0.91 mg/dL (0.70-1.30); EST Glomerular Filtration Rate 86 mL/min (>60); Est Glom Filt Rate - Afr Amer 105 mL/min (>60); Estimated Creatinine Clearance 71.31 ml/min; Glucose 120 mg/dL (74-106); Potassium 3.6 mmol/L (3.5-5.1); Sodium Level 138 mmol/L (136-145)
[2022-07-15 06:35] LABS: Bedside Glucose 114 mg/dL (74-106)
[2022-07-15] MEDS: metFORMIN HCl 1,000 MG Tablet 1000 MG PO ×2 (07:36→18:24)
--- NOTE | 2022-07-15 07:37 | MDS.RN ---
Information for the mds was obtained from review of the clinical record, interview of resident, staff, and direct observation of resident's care.
[2022-07-15 10:00] VITALS: PULSE 76; RESP 20; O2SAT 96
[2022-07-15] MEDS: Pneumococcal Vaccine 20 Valent 0.5 ML Syringe IM (10:57)
[2022-07-15 14:01] VITALS: BP 158/60; PULSE 77; RESP 14; TEMP 36.3; O2SAT 96
[2022-07-15 18:25] VITALS: BP 160/58; PULSE 77
[2022-07-15] MEDS: Pioglitazone Hydrochloride 30 MG Tablet PO (21:35)
[2022-07-15] MEDS: Atorvastatin Calcium 80 MG Tablet PO (21:35)
[2022-07-15 22:05] LABS: Bedside Glucose 156 mg/dL (74-106)
[2022-07-16 06:17] VITALS: BP 146/59; PULSE 68
[2022-07-16] MEDS: Furosemide 20 MG Tablet PO (06:17)
[2022-07-16] MEDS: dilTIAZem CD 240 MG Capsule PO (06:17)
[2022-07-16] MEDS: Metoprolol Tartrate 25 MG Tablet PO ×2 (06:17→18:54)
[2022-07-16] MEDS: Acetaminophen 500 MG Tablet 1000 MG PO ×3 (06:18→22:11)
[2022-07-16] MEDS: Senna/Docusate Sodium 1 Tablet 2 TABLET PO ×2 (06:18→18:55)
[2022-07-16] MEDS: Clopidogrel Bisulfate 75 MG Tablet PO (06:18)
[2022-07-16] MEDS: Nystatin Powder 15gm Bottle 1 APPLIC TOPICAL ×2 (06:18→18:55)
[2022-07-16] MEDS: Menthol/Lanolin/Calamine/Znox 113 GM Tube 1 APPLIC TOPICAL ×2 (06:19→18:55)
[2022-07-16 06:36] LABS: Bedside Glucose 121 mg/dL (74-106)
[2022-07-16 06:44] VITALS: BP 146/59; PULSE 68
[2022-07-16] MEDS: metFORMIN HCl 1,000 MG Tablet 1000 MG PO ×2 (07:54→18:55)
[2022-07-16 14:09] VITALS: BP 142/59; PULSE 65; RESP 18; TEMP 36.2; O2SAT 98
[2022-07-16 18:54] VITALS: BP 142/63; PULSE 83
[2022-07-16 20:05] VITALS: PULSE 62; RESP 18; O2SAT 95
[2022-07-16] MEDS: Pioglitazone Hydrochloride 30 MG Tablet PO (22:11)
[2022-07-16] MEDS: Atorvastatin Calcium 80 MG Tablet PO (22:11)
[2022-07-16 22:16] LABS: Bedside Glucose 182 mg/dL (74-106)
[2022-07-17] MEDS: dilTIAZem CD 240 MG Capsule PO (04:59)
[2022-07-17] MEDS: Furosemide 20 MG Tablet PO (04:59)
[2022-07-17] MEDS: Menthol/Lanolin/Calamine/Znox 113 GM Tube 1 APPLIC TOPICAL ×2 (04:59→17:42)
[2022-07-17] MEDS: Nystatin Powder 15gm Bottle 1 APPLIC TOPICAL ×2 (04:59→17:42)
[2022-07-17 05:00] VITALS: BP 140/65; PULSE 74
[2022-07-17] MEDS: Clopidogrel Bisulfate 75 MG Tablet PO (05:00)
[2022-07-17] MEDS: Metoprolol Tartrate 25 MG Tablet PO ×2 (05:00→17:42)
[2022-07-17] MEDS: Senna/Docusate Sodium 1 Tablet 2 TABLET PO ×2 (05:00→17:42)
[2022-07-17] MEDS: Acetaminophen 500 MG Tablet 1000 MG PO ×3 (05:00→20:32)
[2022-07-17 06:36] LABS: Bedside Glucose 127 mg/dL (74-106)
[2022-07-17] MEDS: metFORMIN HCl 1,000 MG Tablet 1000 MG PO ×2 (08:05→17:42)
--- NOTE | 2022-07-17 12:56 | NURSING ---
Patient's came to nurses station and stated my has a black eye and stated he fell in the middle of the night walking to the bathroom by himself and I was just wondering if you could put something on his eye. This nurse immediately went to assess patient and no black eye or other s/s of injury noted. When this nurse asked patient what had happened he stated I walked by myself to the bathroom last night and well down and hit my eye and now I have a black eye. When asked how he got up and if staff was aware of his fall he stated no I got myself up. personal alarm on and working along with room camera. This nurse spoke with warehouse forklift operator and charge nurse regarding incident. Charge nurse assessed patient and also did not observe a black eye or any other injury. When patient was asked again what had happened he stated I fell the other day when I was walking to the bathroom by myself. When resident was asked again about how he got up after the fall he stated staff helped me up. then stated that patient gets confused sometimes. Dr. Figueroa updated.
[2022-07-17 15:49] VITALS: BP 151/59; PULSE 63; RESP 20; TEMP 36; O2SAT 98
[2022-07-17 17:42] VITALS: PULSE 63
[2022-07-17] MEDS: Atorvastatin Calcium 80 MG Tablet PO (20:33)
[2022-07-17] MEDS: Pioglitazone Hydrochloride 30 MG Tablet PO (20:33)
[2022-07-17 21:36] LABS: Bedside Glucose 220 mg/dL (74-106)
[2022-07-18 05:21] VITALS: BP 137/55; PULSE 60
[2022-07-18] MEDS: Senna/Docusate Sodium 1 Tablet 2 TABLET PO ×2 (05:21→17:26)
[2022-07-18] MEDS: Furosemide 20 MG Tablet PO (05:21)
[2022-07-18] MEDS: dilTIAZem CD 240 MG Capsule PO (05:21)
[2022-07-18] MEDS: Acetaminophen 500 MG Tablet 1000 MG PO ×3 (05:21→20:26)
[2022-07-18] MEDS: Metoprolol Tartrate 25 MG Tablet PO ×2 (05:21→17:26)
[2022-07-18] MEDS: Nystatin Powder 15gm Bottle 1 APPLIC TOPICAL ×2 (05:22→17:27)
[2022-07-18] MEDS: Menthol/Lanolin/Calamine/Znox 113 GM Tube 1 APPLIC TOPICAL ×2 (05:22→17:26)
[2022-07-18] MEDS: Clopidogrel Bisulfate 75 MG Tablet PO (05:22)
[2022-07-18 06:51] LABS: Bedside Glucose 141 mg/dL (74-106)
[2022-07-18] MEDS: metFORMIN HCl 1,000 MG Tablet 1000 MG PO ×2 (07:25→17:26)
[2022-07-18 14:58] VITALS: BP 148/63; PULSE 53; RESP 18; TEMP 36.1; O2SAT 97
[2022-07-18 17:26] VITALS: PULSE 66
[2022-07-18 19:55] VITALS: PULSE 67; RESP 18; O2SAT 95
[2022-07-18] MEDS: Atorvastatin Calcium 80 MG Tablet PO (20:26)
[2022-07-18] MEDS: Pioglitazone Hydrochloride 30 MG Tablet PO (20:26)
[2022-07-18 21:31] LABS: Bedside Glucose 159 mg/dL (74-106)
[2022-07-19] MEDS: Senna/Docusate Sodium 1 Tablet 2 TABLET PO ×2 (05:32→17:36)
[2022-07-19 05:33] VITALS: BP 158/61; PULSE 68
[2022-07-19] MEDS: dilTIAZem CD 240 MG Capsule PO (05:33)
[2022-07-19] MEDS: Clopidogrel Bisulfate 75 MG Tablet PO (05:33)
[2022-07-19] MEDS: Furosemide 20 MG Tablet PO (05:33)
[2022-07-19] MEDS: Menthol/Lanolin/Calamine/Znox 113 GM Tube 1 APPLIC TOPICAL ×2 (05:33→17:34)
[2022-07-19] MEDS: Acetaminophen 500 MG Tablet 1000 MG PO ×3 (05:33→20:28)
[2022-07-19] MEDS: Nystatin Powder 15gm Bottle 1 APPLIC TOPICAL ×2 (05:33→17:35)
[2022-07-19] MEDS: Metoprolol Tartrate 25 MG Tablet PO ×2 (05:33→17:36)
[2022-07-19 06:30] LABS: Bedside Glucose 111 mg/dL (74-106)
[2022-07-19] MEDS: metFORMIN HCl 1,000 MG Tablet 1000 MG PO ×2 (07:54→17:34)
[2022-07-19 13:40] VITALS: PULSE 81; RESP 18; O2SAT 97
[2022-07-19 13:53] VITALS: BP 144/64; PULSE 66; RESP 18; TEMP 36.3; O2SAT 98
[2022-07-19 17:36] VITALS: BP 144/64; PULSE 66
[2022-07-19] MEDS: Pioglitazone Hydrochloride 30 MG Tablet PO (20:29)
[2022-07-19] MEDS: Atorvastatin Calcium 80 MG Tablet PO (20:29)
[2022-07-19 21:25] LABS: Bedside Glucose 157 mg/dL (74-106)
[2022-07-20] MEDS: Senna/Docusate Sodium 1 Tablet 2 TABLET PO ×2 (05:08→17:28)
[2022-07-20 05:09] VITALS: BP 147/63; PULSE 62
[2022-07-20] MEDS: Metoprolol Tartrate 25 MG Tablet PO ×2 (05:09→17:28)
[2022-07-20] MEDS: Clopidogrel Bisulfate 75 MG Tablet PO (05:09)
[2022-07-20] MEDS: Furosemide 20 MG Tablet PO (05:09)
[2022-07-20] MEDS: Acetaminophen 500 MG Tablet 1000 MG PO ×3 (05:09→20:53)
[2022-07-20] MEDS: dilTIAZem CD 240 MG Capsule PO (05:09)
[2022-07-20] MEDS: Menthol/Lanolin/Calamine/Znox 113 GM Tube 1 APPLIC TOPICAL ×2 (05:11→17:27)
[2022-07-20] MEDS: Nystatin Powder 15gm Bottle 1 APPLIC TOPICAL ×2 (05:12→17:27)
[2022-07-20 06:16] LABS: Bedside Glucose 105 mg/dL (74-106)
[2022-07-20] MEDS: metFORMIN HCl 1,000 MG Tablet 1000 MG PO ×2 (07:41→17:28)
[2022-07-20 09:15] VITALS: O2SAT 98
[2022-07-20 09:24] VITALS: BMI 34.4
[2022-07-20 14:09] VITALS: BP 135/65; PULSE 67; RESP 17; TEMP 36.1; O2SAT 98
[2022-07-20 17:28] VITALS: BP 135/65; PULSE 67
[2022-07-20 20:46] VITALS: PULSE 64; O2SAT 94
[2022-07-20] MEDS: Pioglitazone Hydrochloride 30 MG Tablet PO (20:53)
[2022-07-20] MEDS: Atorvastatin Calcium 80 MG Tablet PO (20:53)
[2022-07-21 02:36] LABS: Bedside Glucose 151 mg/dL (74-106)
[2022-07-21 06:08] VITALS: BP 125/62; PULSE 67
[2022-07-21] MEDS: Menthol/Lanolin/Calamine/Znox 113 GM Tube 1 APPLIC TOPICAL ×2 (06:08→17:27)
[2022-07-21] MEDS: dilTIAZem CD 240 MG Capsule PO (06:08)
[2022-07-21] MEDS: Acetaminophen 500 MG Tablet 1000 MG PO ×3 (06:08→22:42)
[2022-07-21] MEDS: Senna/Docusate Sodium 1 Tablet 2 TABLET PO ×2 (06:08→17:26)
[2022-07-21] MEDS: Clopidogrel Bisulfate 75 MG Tablet PO (06:08)
[2022-07-21] MEDS: Nystatin Powder 15gm Bottle 1 APPLIC TOPICAL ×2 (06:08→17:27)
[2022-07-21] MEDS: Furosemide 20 MG Tablet PO (06:08)
[2022-07-21] MEDS: Metoprolol Tartrate 25 MG Tablet PO ×2 (06:08→17:26)
[2022-07-21 06:50] LABS: Bedside Glucose 129 mg/dL (74-106)
[2022-07-21] MEDS: metFORMIN HCl 1,000 MG Tablet 1000 MG PO ×2 (07:41→17:26)
[2022-07-21 08:38] VITALS: PULSE 68; RESP 16; O2SAT 96
[2022-07-21] MEDS: traMADol 50 MG Tablet PO ×2 (13:24→22:41)
[2022-07-21 14:13] VITALS: BP 151/65; PULSE 68; RESP 16; TEMP 36; O2SAT 97
[2022-07-21 17:26] VITALS: BP 151/65; PULSE 68
[2022-07-21 22:16] LABS: Bedside Glucose 126 mg/dL (74-106)
[2022-07-21] MEDS: Atorvastatin Calcium 80 MG Tablet PO (22:42)
[2022-07-21] MEDS: Pioglitazone Hydrochloride 30 MG Tablet PO (22:42)
[2022-07-22] MEDS: Acetaminophen 500 MG Tablet 1000 MG PO ×3 (05:15→20:24)
[2022-07-22] MEDS: Senna/Docusate Sodium 1 Tablet 2 TABLET PO ×2 (05:15→17:22)
[2022-07-22 05:16] VITALS: BP 146/68; PULSE 69
[2022-07-22] MEDS: dilTIAZem CD 240 MG Capsule PO (05:16)
[2022-07-22] MEDS: Clopidogrel Bisulfate 75 MG Tablet PO (05:16)
[2022-07-22] MEDS: Furosemide 20 MG Tablet PO (05:16)
[2022-07-22] MEDS: Metoprolol Tartrate 25 MG Tablet PO ×2 (05:16→17:19)
[2022-07-22] MEDS: Nystatin Powder 15gm Bottle 1 APPLIC TOPICAL ×2 (05:17→20:30)
[2022-07-22] MEDS: Menthol/Lanolin/Calamine/Znox 113 GM Tube 1 APPLIC TOPICAL ×2 (05:17→17:19)
[2022-07-22 05:35] LABS: Absolute Lymphocyte Count 2.16 X10^3/uL (0.83-4.51); Absolute Neutrophil Count 5.3 X10^3/uL (2.0-7.7); Basophil# 0.08 X10^3/uL; Basophil% 0.9 % (0-1); Eosinophil# 0.25 X10^3/uL; Eosinophils% 2.9 % (0-5); Hematocrit 37.8 % (40-54); Hemoglobin 12.2 g/dL (13.0-16.5); Lymphocyte # 2.16 X10^3/ul (0.83-4.51); Lymphocyte % 24.8 % (19-41); Mean Corp Hgb Conc 32.3 g/dL (32-36); Mean Corpuscular Hgb 31.4 pg (27.0-32.0); Mean Corpuscular Volume 97.4 fL (80-94); Mean Platelet Vol. 11.1 fl (6.2-12.0); Monocyte% 9.2 % (0-10); NRBC Flagged by Analyzer 0 % (0-5); Neutrophil % 60.9 % (47-70); Platelet Count 165 K/mm3 (150-450); RBC Distribution Width CV 15.3 % (11.6-14.6); RBC Distribution Width SD 54.4 fl (35.1-43.9); Red Blood Count 3.88 M/mm3 (4.6-6.2); White Blood Count 8.7 K/mm3 (4.4-11.0)
[2022-07-22 05:58] LABS: Anion Gap 4 (5-15); BUN 22 mg/dL (7-18); BUN/Creat Ratio 21.4 RATIO (10-20); Calcium,Total 8.5 mg/dL (8.5-10.1); Chloride 105 mmol/L (98-107); Creatinine, Serum 1.03 mg/dL (0.70-1.30); EST Glomerular Filtration Rate 75 mL/min (>60); Est Glom Filt Rate - Afr Amer 90 mL/min (>60); Glucose 106 mg/dL (74-106); Potassium 4.5 mmol/L (3.5-5.1); Sodium Level 140 mmol/L (136-145)
[2022-07-22 06:41] LABS: Bedside Glucose 105 mg/dL (74-106)
[2022-07-22] MEDS: metFORMIN HCl 1,000 MG Tablet 1000 MG PO ×2 (07:43→17:19)
[2022-07-22] MEDS: traMADol 50 MG Tablet PO (10:21)
--- NOTE | 2022-07-22 10:48 | CASEMGMT ---
Social Work SW contacted to discuss DC Plans. agreed pt cannot return home with needing current level of assist. SW suggested SNF placement and educated to financial liability. agrees to SNF and can pay privately. SW inquired about SNF choices and offered to provided list. agreed to SNF list. SW to provided printed list in pt's room that includes quality and resource data via [employer] Guide. SW to continue to follow. Leidy Jolly, STEAM HAND MECHANICAL INTERN
[2022-07-22 14:35] VITALS: BP 161/54; PULSE 57; RESP 16; TEMP 36.1; O2SAT 97
[2022-07-22 17:19] VITALS: BP 161/54; PULSE 57
[2022-07-22] MEDS: Pioglitazone Hydrochloride 30 MG Tablet PO (20:25)
[2022-07-22] MEDS: Atorvastatin Calcium 80 MG Tablet PO (20:25)
[2022-07-22 21:40] LABS: Bedside Glucose 175 mg/dL (74-106)
[2022-07-22 21:46] VITALS: O2SAT 95
[2022-07-23] MEDS: Acetaminophen 500 MG Tablet 1000 MG PO ×3 (04:00→21:25)
[2022-07-23] MEDS: dilTIAZem CD 240 MG Capsule PO (04:01)
[2022-07-23] MEDS: Furosemide 20 MG Tablet PO (04:01)
[2022-07-23] MEDS: Clopidogrel Bisulfate 75 MG Tablet PO (04:01)
[2022-07-23 04:02] VITALS: BP 139/56; PULSE 64
[2022-07-23] MEDS: Metoprolol Tartrate 25 MG Tablet PO ×2 (04:02→17:43)
[2022-07-23] MEDS: Senna/Docusate Sodium 1 Tablet 2 TABLET PO ×2 (04:04→17:42)
[2022-07-23 06:35] LABS: Bedside Glucose 124 mg/dL (74-106)
--- NOTE | 2022-07-23 07:49 | NURSING ---
Addendum entered by Quinten Killian 07/23/22 07:56: AND URINE STAT! Original Note: THIS NURSE WALKED INTO PT ROOM AND FOUND PT GOWN IN BATHROOM ON FLOOR AND THEN PT NAKED IN RECLINER. ASKED PT WHAT HAPPENED PT STATED I DONT KNOW. CHECKED ALARMS AND BOTH WERE ON. PT THEN STATED HE WAS GOING TO THROW UP. GREEN BAG GIVEN, ASKED PT IF HE HAD A HEADACHE ETC. PT STATED NO I JUST WHAT TO THROW UP AND WISH I WOULD JUST . ON FLOOR AND REPORTED TO HIM. PT CONTINUES TO HAVE DRY HEVES. NEW ORDERS FROM [facility].
--- NOTE | 2022-07-23 07:50 | RAD_ITS ---
STUDY: X-RAY - ABDOMEN/PELVIS REASON FOR EXAM: Male, 77 years old. Nausea TECHNIQUE: Three AP supine views of the abdomen and pelvis. COMPARISON: None. FINDINGS: Normal visualized lung bases. There is an unremarkable bowel gas pattern. No dilated loops of bowel. There is moderate stool. There is no demonstrated free abdominal air. Normal soft tissue structures. There are diffuse degenerative changes of the visualized lumbar spine. RAD/Abdomen Single View IMPRESSION: No obstruction. Electronically Signed: Rishabh Robles MD at 8:46 EDT ,
[2022-07-23] MEDS: Ondansetron ODT 4 MG Tablet 8 MG PO (08:32)
[2022-07-23 08:37] LABS: Bacteria 0 SEEN /hpf (None Seen); Mucous, Urine 0 SEEN /hpf (<or=2+); Red Blood Cells-Urine 0 SEEN /hpf (0-5); Squamous Epithelial Cells - UA 0 SEEN /hpf (0-5); White Blood Cells 0 SEEN /hpf (0-5)
[2022-07-23 08:44] LABS: Color, Urine Yellow (Yellow); Glucose, Dipstick Normal (Normal); Ketone-Dipstick Negative (Negative); Leukocyte Esterase-Dipstick Negative /ul (Negative); Nitrite-Dipstick Negative (Negative); Occult Blood-Urine Negative /ul (Negative); Protein-Dipstick Negative (Negative); Urine Bilirubin Dipstick Negative (Negative); Urine Clarity Clear (Clear); Urine Urobilinogen Normal (Normal)
[2022-07-23] MEDS: metFORMIN HCl 1,000 MG Tablet 1000 MG PO ×2 (09:23→17:44)
[2022-07-23 09:25] VITALS: PULSE 58; RESP 18; O2SAT 95
[2022-07-23] MEDS: Nystatin Powder 15gm Bottle 1 APPLIC TOPICAL ×2 (09:32→21:24)
[2022-07-23] MEDS: Menthol/Lanolin/Calamine/Znox 113 GM Tube 1 APPLIC TOPICAL ×2 (09:33→17:37)
--- NOTE | 2022-07-23 10:49 | NURSING ---
CALLED AND UPDATED PT ON PT BEING SICK AND KUB/URINE DONE AND NEW ORDER FOR ZOFRAN. THANKED THIS NURSE AND STATED SHE WOULD BE IN LATER.
[2022-07-23 13:54] VITALS: BP 136/58; PULSE 82; RESP 16; TEMP 36.8; O2SAT 95
[2022-07-23] MEDS: Electrolyte Solution/Peg's 4000 ML 1000 ML PO (16:04)
[2022-07-23 17:43] VITALS: BP 136/58; PULSE 82
[2022-07-23] MEDS: NYSTATIN 500,000 UNIT/5 ML UDC 500000 UNIT PO (21:25)
[2022-07-23] MEDS: Atorvastatin Calcium 80 MG Tablet PO (21:25)
[2022-07-23] MEDS: Pioglitazone Hydrochloride 30 MG Tablet PO (21:26)
[2022-07-23 22:00] LABS: Bedside Glucose 145 mg/dL (74-106)
[2022-07-24] MEDS: Nystatin Powder 15gm Bottle 1 APPLIC TOPICAL ×2 (05:22→17:12)
[2022-07-24] MEDS: Menthol/Lanolin/Calamine/Znox 113 GM Tube 1 APPLIC TOPICAL ×2 (05:23→17:11)
[2022-07-24] MEDS: NYSTATIN 500,000 UNIT/5 ML UDC 500000 UNIT PO ×4 (05:23→21:36)
[2022-07-24] MEDS: Senna/Docusate Sodium 1 Tablet 2 TABLET PO (05:23)
[2022-07-24] MEDS: Acetaminophen 500 MG Tablet 1000 MG PO ×3 (05:24→21:35)
[2022-07-24] MEDS: Furosemide 20 MG Tablet PO (05:24)
[2022-07-24 05:25] VITALS: BP 151/62; PULSE 64
[2022-07-24] MEDS: Metoprolol Tartrate 25 MG Tablet PO ×2 (05:25→17:11)
[2022-07-24] MEDS: dilTIAZem CD 240 MG Capsule PO (05:25)
[2022-07-24] MEDS: Clopidogrel Bisulfate 75 MG Tablet PO (05:25)
[2022-07-24 05:35] VITALS: BP 151/62; PULSE 64
[2022-07-24 06:50] LABS: Bedside Glucose 130 mg/dL (74-106)
[2022-07-24] MEDS: Losartan Potassium 100 MG Tablet PO (08:57)
[2022-07-24] MEDS: metFORMIN HCl 1,000 MG Tablet 1000 MG PO ×2 (08:57→17:10)
[2022-07-24] MEDS: traMADol 50 MG Tablet PO ×2 (14:33→21:34)
[2022-07-24 15:03] VITALS: BP 147/61; PULSE 64; RESP 16; TEMP 36.2; O2SAT 98
[2022-07-24 17:11] VITALS: PULSE 64
[2022-07-24 19:45] VITALS: PULSE 68; RESP 16; O2SAT 97
[2022-07-24] MEDS: Pioglitazone Hydrochloride 30 MG Tablet PO (21:35)
[2022-07-24] MEDS: Atorvastatin Calcium 80 MG Tablet PO (21:35)
[2022-07-24 21:41] LABS: Bedside Glucose 153 mg/dL (74-106)
[2022-07-25] MEDS: Acetaminophen 500 MG Tablet 1000 MG PO ×3 (05:15→21:35)
[2022-07-25 05:16] VITALS: BP 130/60; PULSE 60
[2022-07-25] MEDS: Losartan Potassium 100 MG Tablet PO (05:16)
[2022-07-25] MEDS: Metoprolol Tartrate 25 MG Tablet PO ×2 (05:16→17:09)
[2022-07-25] MEDS: Clopidogrel Bisulfate 75 MG Tablet PO (05:16)
[2022-07-25] MEDS: Senna/Docusate Sodium 1 Tablet 2 TABLET PO ×2 (05:16→17:10)
[2022-07-25] MEDS: dilTIAZem CD 240 MG Capsule PO (05:16)
[2022-07-25] MEDS: Nystatin Powder 15gm Bottle 1 APPLIC TOPICAL ×2 (05:17→17:12)
[2022-07-25] MEDS: Menthol/Lanolin/Calamine/Znox 113 GM Tube 1 APPLIC TOPICAL ×2 (05:17→17:12)
[2022-07-25] MEDS: NYSTATIN 500,000 UNIT/5 ML UDC 500000 UNIT PO ×4 (05:17→21:35)
[2022-07-25] MEDS: Furosemide 20 MG Tablet PO (05:17)
[2022-07-25 06:41] LABS: Bedside Glucose 124 mg/dL (74-106)
[2022-07-25] MEDS: metFORMIN HCl 1,000 MG Tablet 1000 MG PO ×2 (08:04→17:09)
[2022-07-25 13:32] VITALS: BP 140/53; PULSE 53; RESP 12; TEMP 36.2; O2SAT 96
[2022-07-25] MEDS: traMADol 50 MG Tablet PO (17:08)
[2022-07-25 17:09] VITALS: BP 140/64; PULSE 68
[2022-07-25 19:28] VITALS: PULSE 63; RESP 16; O2SAT 95
[2022-07-25] MEDS: Pioglitazone Hydrochloride 30 MG Tablet PO (21:30)
[2022-07-25] MEDS: Atorvastatin Calcium 80 MG Tablet PO (21:35)
[2022-07-25 22:10] LABS: Bedside Glucose 154 mg/dL (74-106)
[2022-07-26] MEDS: Senna/Docusate Sodium 1 Tablet 2 TABLET PO ×2 (05:30→17:16)
[2022-07-26] MEDS: Acetaminophen 500 MG Tablet 1000 MG PO ×3 (05:30→20:12)
[2022-07-26 05:31] VITALS: BP 141/66; PULSE 76
[2022-07-26] MEDS: Metoprolol Tartrate 25 MG Tablet PO ×2 (05:31→17:16)
[2022-07-26] MEDS: Nystatin Powder 15gm Bottle 1 APPLIC TOPICAL ×2 (05:31→20:17)
[2022-07-26] MEDS: Furosemide 20 MG Tablet PO (05:31)
[2022-07-26] MEDS: NYSTATIN 500,000 UNIT/5 ML UDC 500000 UNIT PO ×4 (05:31→20:16)
[2022-07-26] MEDS: Losartan Potassium 100 MG Tablet PO (05:31)
[2022-07-26] MEDS: Clopidogrel Bisulfate 75 MG Tablet PO (05:31)
[2022-07-26] MEDS: dilTIAZem CD 240 MG Capsule PO (05:32)
[2022-07-26] MEDS: Menthol/Lanolin/Calamine/Znox 113 GM Tube 1 APPLIC TOPICAL ×2 (05:32→17:16)
[2022-07-26 05:35] VITALS: BP 141/66; PULSE 76
[2022-07-26 06:45] LABS: Bedside Glucose 133 mg/dL (74-106)
[2022-07-26] MEDS: metFORMIN HCl 1,000 MG Tablet 1000 MG PO ×2 (07:49→17:15)
[2022-07-26 14:21] VITALS: BP 158/62; PULSE 66; RESP 18; TEMP 36.2; O2SAT 96
[2022-07-26] MEDS: traMADol 50 MG Tablet PO ×2 (14:27→20:31)
--- NOTE | 2022-07-26 15:34 | CASEMGMT ---
Social Work contacted this worker requesting referrals to [facility] and [facility]. IDT to set DC date in [place] tomorrow as planned. Referrals placed to SNFs via [facility]. OUMAR Howard
[2022-07-26 17:16] VITALS: BP 158/62; PULSE 66
--- NOTE | 2022-07-26 19:46 | PN.TCU_ITS ---
Subjective Subjective Resident seen, examined for regulatory visit. He has no new complains. Of late, he had nausea secondary to constipation, improved with Golytely 1 liter po x 1 dose. He has oral thrush, and he was started on Nystatin swish and swallow for treatment. His blood pressure has been difficult to control and I have bee adjusting his medications. Objective Data Objective Data Vital Signs: Vital Signs Temp Pulse Resp BP Pulse Ox O2 Del Method 97.1 F L 66 18 158/62 H 96 Room Air 07/26/22 14:21 07/26/22 17:16 07/26/22 14:21 07/26/22 17:16 07/26/22 14:21 07/26/22 14:21 Oxygen Delivery Method Room Air Weight: 108.953 kg Body Mass Index (BMI) 34.4 Intake & Output: Intake and Output for Last 24 Hours 07/24/22 07/25/22 07/26/22 23:59 23:59 23:59 Intake Total 840 / 840 1080 / 1080 480 / 480 Balance 840 / 840 1080 / 1080 480 / 480 Lab / Micro Data Result Diagrams: 07/22/22 05:07 07/22/22 05:07 Labs: Laboratory Results - last 24 hr 07/25/22 21:37: POC Glucose 154 H 07/26/22 06:26: POC Glucose 133 H Micro: Microbiology 07/23/22 08:35 Urine Catheter - Catheter Urine Culture - Final Culture exhibits no growth. 07/14/22 00:04 Urine, Clean Catch Urine Culture - Final Mixed Gram Positive Organisms 07/04/22 06:00 Nasal Secretion SARS-CoV-2 Antigen (Rapid) - Final 07/02/22 06:15 Nasal Secretion SARS-CoV-2 Antigen (Rapid) - Final Physical Exam Const alert General Appearance: cooperative HEENT normocephalic Eyes PERRL and EOMs intact bilaterally Neck supple, no JVD and no carotid bruits Resp normal respiratory effort, normal air movement and clear to auscultation bilaterally Cardio regular rate and regular rhythm GI normal to inspection, nondistended, normoactive bowel sounds, non-tender and non-distended Extremity normal capillary refill General Extremity: Negative for edema Skin no rashes or lesions noted General Skin Exam: no breakdown Psych affect normal Appearance: appropriate Assessment & Plan Assessment/Plan (1) Debility: (2) Fall: (3) Left knee pain: (4) Effusion, left knee: (5) Contusion of right hip: (6) Diabetes mellitus: (7) Hypertension: (8) Dizziness: (9) Stroke: PLAN: Plan 77 year old male with below past medical history hospitalized for fall, left knee contusion, right hip contusion, admitted to TCU with debility, here for rehabilitation, strengthening, prior to discharge home with . * Debility - PT/OT. * Pain - Tylenol 1000mg q8, Tramadol 50mg q6h prn pain (1-10). * Bowel - senna/colace 2 tablets bid, MOM 30ml po x 1 prn. * Adult immunization - Administer pneumonia vaccine, covid19 vaccine, flu vaccine as appropriate. * DVT prophylaxis - Monitor. * Hyperlipidemia - Atorvastatin 80mg qhs. * Stroke - Plavix 75mg daily. * Hypertension - Metoprolol 25mg bid, Increase Diltiazem CD from 240mg to 360mg daily, Losartan 100mg daily added. * Edema - Furosemide 20mg daily. * Diabetes Mellitus II - Metformin 1000mg bidcm, Pioglitazone 30mg daily. * Dizziness - Meclizine 12.5mg 4x/day prn. * Skin irritation - Calmoseptine topical bid. * Tinea Corporis - Nystatin powder topical bid. * Thrush - Nystatin 500,00 swis and swallow 4/day x 7 days. * Nausea - Zofran odt 8mg q8h prn. Capacity Capacity Assessment Tool Can the patient make a choice & communicate that choice?: Yes Can the patient understand benefits, risks and alternatives?: Yes Can the patient make a logical, rational choice?: Yes Is the choice the patient makes consistent w/ their values?: Yes Is there an impending, emergent risk to the patient?: No Does the patient have an Advance Directive?: Yes Is there a Surrogate Available?: Yes i.e. HCPOA: Yes i.e. close relative (spouse, child, parent, sibling)?: Yes
[2022-07-26] MEDS: Pioglitazone Hydrochloride 30 MG Tablet PO (20:16)
[2022-07-26] MEDS: Atorvastatin Calcium 80 MG Tablet PO (20:17)
[2022-07-26 20:22] VITALS: O2SAT 96
[2022-07-26 21:55] LABS: Bedside Glucose 173 mg/dL (74-106)
[2022-07-27] MEDS: Senna/Docusate Sodium 1 Tablet 2 TABLET PO ×2 (06:04→17:13)
[2022-07-27] MEDS: Acetaminophen 500 MG Tablet 1000 MG PO ×3 (06:04→21:44)
[2022-07-27] MEDS: Furosemide 20 MG Tablet PO (06:04)
[2022-07-27 06:05] VITALS: BP 133/60; PULSE 72
[2022-07-27] MEDS: Losartan Potassium 100 MG Tablet PO (06:05)
[2022-07-27] MEDS: Metoprolol Tartrate 25 MG Tablet PO ×2 (06:05→17:12)
[2022-07-27] MEDS: Clopidogrel Bisulfate 75 MG Tablet PO (06:06)
[2022-07-27] MEDS: NYSTATIN 500,000 UNIT/5 ML UDC 500000 UNIT PO ×4 (06:06→21:45)
[2022-07-27] MEDS: dilTIAZem CD 180 MG Capsule 360 MG PO (06:06)
[2022-07-27] MEDS: Nystatin Powder 15gm Bottle 1 APPLIC TOPICAL ×2 (06:07→21:43)
[2022-07-27] MEDS: Menthol/Lanolin/Calamine/Znox 113 GM Tube 1 APPLIC TOPICAL ×2 (06:07→21:43)
[2022-07-27 06:26] LABS: Bedside Glucose 104 mg/dL (74-106)
[2022-07-27] MEDS: metFORMIN HCl 1,000 MG Tablet 1000 MG PO ×2 (08:14→17:13)
--- NOTE | 2022-07-27 13:58 | CASEMGMT ---
Addendum entered by Leidy Jolly 07/27/22 15:44: PASRR completed. W/C transport scheduled through [facility] for 1100 Original Note: Social Work [facility] accepted pt. SW contacted to update and request FOC. states [facility] is [facility] and agreeable to DC 08/03. SW updated [facility] and [facility]. [facility] can accept for 08/03. PASRR to be completed. Transport to be scheduled. Plan: DC 08/03 to [place], intermediate, private pay, part B therapies Leidy Jolly, OUMAR JOW
[2022-07-27 15:00] VITALS: BMI 34.7
[2022-07-27 15:17] VITALS: BP 130/48; PULSE 60; RESP 16; TEMP 36.2; O2SAT 96
[2022-07-27 17:12] VITALS: BP 130/48; PULSE 60
[2022-07-27] MEDS: traMADol 50 MG Tablet PO (17:12)
--- NOTE | 2022-07-27 20:19 | DS.PCM_ITS ---
Providers Date of Admission: 06/30/22 Primary Care Physician: Dr. Maximino Figueroa MD Reason For Visit: MECHANICAL FALL AND INABILITY TO AMBULATE Diagnosis Discharge Diagnosis (1) Debility: Status: Acute Code(s): R53.81 - Other malaise (2) Fall: Status: Inactive Code(s): W19.XXXA - Unspecified fall, initial encounter (3) Left knee pain: Status: Acute Code(s): M25.562 - Pain in left knee (4) Effusion, left knee: Status: Acute Code(s): M25.462 - Effusion, left knee (5) Contusion of right hip: Status: Acute Code(s): S70.01XA - Contusion of right hip, initial encounter (6) Diabetes mellitus: Status: Acute Code(s): E11.9 - Type 2 diabetes mellitus without complications (7) Hypertension: Status: Chronic Code(s): I10 - Essential (primary) hypertension (8) Dizziness: Status: Acute Code(s): R42 - Dizziness and giddiness (9) Stroke: Status: Acute Code(s): I63.9 - Cerebral infarction, unspecified Plan 77 year old male with below past medical history hospitalized for fall, left knee contusion, right hip contusion, admitted to TCU with debility, here for rehabilitation, strengthening, prior to discharge home with . * Debility - PT/OT. * Pain - Tylenol 1000mg q8, Tramadol 50mg q6h prn pain (1-10). * Bowel - senna/colace 2 tablets bid, MOM 30ml po x 1 prn. * Adult immunization - Administer pneumonia vaccine, covid19 vaccine, flu vaccine as appropriate. * DVT prophylaxis - Monitor. * Hyperlipidemia - Atorvastatin 80mg qhs. * Stroke - Plavix 75mg daily. * Hypertension - Metoprolol 25mg bid, Increase Diltiazem CD from 240mg to 360mg daily, Losartan 100mg daily added. * Edema - Furosemide 20mg daily. * Diabetes Mellitus II - Metformin 1000mg bidcm, Pioglitazone 30mg daily. * Dizziness - Meclizine 12.5mg 4x/day prn. * Skin irritation - Calmoseptine topical bid. * Tinea Corporis - Nystatin powder topical bid. * Thrush - Nystatin 500,00 swis and swallow 4/xday x 7 days. * Nausea - Zofran odt 8mg q8h prn. Medications at Discharge Home Medications atorvastatin 80 mg tablet 80 mg PO QHS cholesterol 06/22/17 meclizine 12.5 mg tablet 12.5 mg PO 4X/DAY PRN PRN VERTIGO/DIZZINESS 06/27/19 metformin 1,000 mg tablet 1,000 mg PO BID diabetes 02/28/20 pioglitazone 30 mg tablet 30 mg PO QHS diabetes 02/28/20 clopidogrel 75 mg tablet (Plavix) 75 mg PO DAILY blood thinner 09/03/20 acetaminophen 500 mg tablet 1,000 mg PO Q8 pain 06/30/22 furosemide 20 mg tablet (Lasix) 20 mg PO DAILY swelling 06/30/22 nystatin 100,000 unit/gram topical powder (Nyamyc) 1 applic topical BID redness 06/30/22 diltiazem HCl 180 mg capsule,extended release 24 hr 360 mg PO DAILY #0 caps 07/27/22 losartan 100 mg tablet 100 mg PO DAILY #0 tabs 07/27/22 menthol 0.44 %-zinc oxide 20.6 % topical ointment (Calmoseptine) 1 applic topical BID #0 grams 07/27/22 metoprolol tartrate 25 mg tablet 25 mg PO BID #0 tabs 07/27/22 sennosides 8.6 mg-docusate sodium 50 mg tablet (Stool Softener-Stimulant Laxative) 2 tab PO BID #0 tabs 07/27/22 Hospital Course Operations None Procedures None Summary of Care Provided Minutes Spent on Discharge: 35 Hospital Course: 77 year old male with below past medical history hospitalized for fall, left knee contusion, right hip contusion, admitted to TCU with debility, here for rehabilitation, strengthening, prior to discharge home with . Discharge to [facility] 08/03/2022, intermediate, private pay, part B therapies. Physical Exam Const alert General Appearance: cooperative HEENT normocephalic Eyes PERRL and EOMs intact bilaterally Neck supple, no JVD and no carotid bruits Resp normal respiratory effort, normal air movement and clear to auscultation bilaterally Cardio regular rate and regular rhythm GI normal to inspection, nondistended, normoactive bowel sounds, non-tender and non-distended Extremity normal capillary refill General Extremity: Negative for edema Skin no rashes or lesions noted General Skin Exam: no breakdown Psych affect normal Appearance: appropriate Weight / BMI Weight Weight: 110.087 kg Body Mass Index (BMI) 34.7 ABG / Lab / Microbiology Data Result Diagrams: 07/22/22 05:07 07/22/22 05:07 Laboratory: Laboratory Results - last 24 hr 07/26/22 21:31: POC Glucose 173 H 07/27/22 05:57: POC Glucose 104 Microbiology: Microbiology 07/23/22 08:35 Urine Catheter - Catheter Urine Culture - Final Culture exhibits no growth. 07/14/22 00:04 Urine, Clean Catch Urine Culture - Final Mixed Gram Positive Organisms 07/04/22 06:00 Nasal Secretion SARS-CoV-2 Antigen (Rapid) - Final 07/02/22 06:15 Nasal Secretion SARS-CoV-2 Antigen (Rapid) - Final D/C Instructions Discharge Diet: No restrictions Discharge Activity: Return to Normal Activity, May Shower and Use Walker Weight Bearing Status: Weight bearing as tolerated Call your doctor if you observe: Fever of 101 or Higher, Inability to urinate, Inability to have a bowel movement, Shortness of breath, Dizziness, Fainting spells, Swelling in the ankles, Chest pain and Uncontrolled pain Additional Instructions: Discharge to [facility] 08/03/2022, intermediate, private pay, part B therapies. Please Follow Up With: Dr. Hunt When: 08/20/2022. Meaningful Use Info Meaningful Use Diagnoses (Choose all that apply): None applicable Discharge Plan Admission Admit Date/Time: 06/30/22 14:30 Primary Reason for Your Visit: Debility. Attending Provider: Maximino Figueroa Chi Primary Care Provider: Maximino Figueroa Chi Instructions Additional Instructions / Restrictions: Discharge to [facility] 08/03/2022, intermediate, private pay, part B therapies. Discharge Orders/Prescriptions Prescriptions: New diltiazem HCl 180 mg Capsule,Extended Release 24hr 360 mg PO DAILY Qty: 0 0RF sennosides-docusate sodium [Stool Softener-Stimulant Laxat] 8.6-50 mg Tablet 2 tab PO BID Qty: 0 0RF losartan 100 mg Tablet 100 mg PO DAILY Qty: 0 0RF metoprolol tartrate 25 mg Tablet 25 mg PO BID Qty: 0 0RF menthol-zinc oxide [Calmoseptine] 0.44-20.6 % Ointment 1 applic topical BID Qty: 0 0RF Protocol: *Topical Application Instructions APPLICATION INSTRUCTIONS: bilateral buttocks Continued atorvastatin 80 mg tablet 80 mg PO QHS metformin 1,000 mg tablet 1,000 mg PO BID pioglitazone 30 mg tablet 30 mg PO QHS clopidogrel [Plavix] 75 mg tablet 75 mg PO DAILY meclizine 12.5 MG tablet 12.5 mg PO 4X/DAY PRN PRN (Reason: VERTIGO/DIZZINESS) 0RF acetaminophen 500 mg tablet 1,000 mg PO Q8 furosemide [Lasix] 20 mg tablet 20 mg PO DAILY nystatin [Nyamyc] 100,000 unit/gram powder 1 applic topical BID Protocol: *Topical Application Instructions APPLICATION INSTRUCTIONS: groin Discontinued diltiazem HCl [Cardizem CD] 240 mg capsule,extended release 24hr 240 mg PO QDAY Tresiba FlexTouch U-100 100 unit/mL (3 mL) insulin pen 20 unit SC QHS oxycodone 5 mg Tablet 5 mg PO Q4H PRN PRN (Reason: Pain Score 4-10) 3 Days Qty: 8 0RF Referrals / Follow Up: Maximino Figueroa Chi, MD [Primary Care Provider] - Disposition Disposition (needs filled in before D/C Order can be placed): NonSkilled NH /Intermed Care
--- NOTE | 2022-07-27 20:25 | TREXTCAR_ITS ---
Diet Diet Order/Speech Therapy: 07/07/22 11:41 Diet: Regular - General Food consistency:: Regular Liquid Consistency:: Regular/Thin Type of Dietary Supplement:: 8 oz EPHP vanilla tid Is pt able to select menu?: Yes Diet Comments: small portions per res request Routine Orders/Code Status Code Status: DNRCC-A (No intubation.) Wound(s) Right forehead: Wound Type: Scab Scrotal Abrasions: Wound Type: Abrasion BLE abrasions: Wound Type: Abrasion Toes left foot: Wound Type: Abrasion Therapies Weight Bearing: Weight bearing as tolerated Extremity Affected:: Bilateral Lower Physical Therapy: Eval and Treat Occupational Therapy: Eval and Treat Speech Therapy: Eval and Treat Problem/Diagnosis (1) Debility: Status: Acute Code(s): R53.81 - Other malaise (2) Fall: Status: Inactive Code(s): W19.XXXA - Unspecified fall, initial encounter (3) Left knee pain: Status: Acute Code(s): M25.562 - Pain in left knee (4) Effusion, left knee: Status: Acute Code(s): M25.462 - Effusion, left knee (5) Contusion of right hip: Status: Acute Code(s): S70.01XA - Contusion of right hip, initial encounter (6) Diabetes mellitus: Status: Acute Code(s): E11.9 - Type 2 diabetes mellitus without complications (7) Hypertension: Status: Chronic Code(s): I10 - Essential (primary) hypertension (8) Dizziness: Status: Acute Code(s): R42 - Dizziness and giddiness (9) Stroke: Status: Acute Code(s): I63.9 - Cerebral infarction, unspecified Plan 77 year old male with below past medical history hospitalized for fall, left knee contusion, right hip contusion, admitted to TCU with debility, here for rehabilitation, strengthening, prior to discharge home with . * Debility - PT/OT. * Pain - Tylenol 1000mg q8, Tramadol 50mg q6h prn pain (1-10). * Bowel - senna/colace 2 tablets bid, MOM 30ml po x 1 prn. * Adult immunization - Administer pneumonia vaccine, covid19 vaccine, flu vaccine as appropriate. * DVT prophylaxis - Monitor. * Hyperlipidemia - Atorvastatin 80mg qhs. * Stroke - Plavix 75mg daily. * Hypertension - Metoprolol 25mg bid, Increase Diltiazem CD from 240mg to 360mg daily, Losartan 100mg daily added. * Edema - Furosemide 20mg daily. * Diabetes Mellitus II - Metformin 1000mg bidcm, Pioglitazone 30mg daily. * Dizziness - Meclizine 12.5mg 4x/day prn. * Skin irritation - Calmoseptine topical bid. * Tinea Corporis - Nystatin powder topical bid. * Thrush - Nystatin 500,00 swis and swallow 4/day x 7 days. * Nausea - Zofran odt 8mg q8h prn. Allergies/Procedures Done in Hospital Allergies Sulfa (Sulfonamide Antibiotics) Allergy (Verified 07/09/22 10:22) Hives Procedures: None Type of Care/Length of Stay Estimated LOS: More Than 30 Days Type of Care Needed: Intermediate Rehab Potential: Poor Prognosis: Fair Additional Orders/Day of Discharge Additional Orders: part B therapies Day of Discharge: 08/03/22 Dietary and Speech Recommendations Dietitian Recommendations/Changes: Will continue Regular w/ Small Portions per res/ request. Continue to give vanilla ensure plus high protein w/ meals for increased nutrition if consumed. Follow Up Care Please Follow Up With: Dr. Hunt When: Follow up in 6 weeks Discharge Plan Admission Admit Date/Time: 06/30/22 14:30 Primary Reason for Your Visit: Debility. Attending Provider: Maximino Figueroa Chi Primary Care Provider: Maximino Figueroa Chi Instructions Additional Instructions / Restrictions: Discharge to [facility] 08/03/2022, intermediate, private pay, part B therapies. Discharge Orders/Prescriptions Prescriptions: New diltiazem HCl 180 mg Capsule,Extended Release 24hr 360 mg PO DAILY Qty: 0 0RF sennosides-docusate sodium [Stool Softener-Stimulant Laxat] 8.6-50 mg Tablet 2 tab PO BID Qty: 0 0RF losartan 100 mg Tablet 100 mg PO DAILY Qty: 0 0RF metoprolol tartrate 25 mg Tablet 25 mg PO BID Qty: 0 0RF menthol-zinc oxide [Calmoseptine] 0.44-20.6 % Ointment 1 applic topical BID Qty: 0 0RF Protocol: *Topical Application Instructions APPLICATION INSTRUCTIONS: bilateral buttocks Continued atorvastatin 80 mg tablet 80 mg PO QHS metformin 1,000 mg tablet 1,000 mg PO BID pioglitazone 30 mg tablet 30 mg PO QHS clopidogrel [Plavix] 75 mg tablet 75 mg PO DAILY meclizine 12.5 MG tablet 12.5 mg PO 4X/DAY PRN PRN (Reason: VERTIGO/DIZZINESS) 0RF acetaminophen 500 mg tablet 1,000 mg PO Q8 furosemide [Lasix] 20 mg tablet 20 mg PO DAILY nystatin [Nyamyc] 100,000 unit/gram powder 1 applic topical BID Protocol: *Topical Application Instructions APPLICATION INSTRUCTIONS: groin Discontinued diltiazem HCl [Cardizem CD] 240 mg capsule,extended release 24hr 240 mg PO QDAY Tresiba FlexTouch U-100 100 unit/mL (3 mL) insulin pen 20 unit SC QHS oxycodone 5 mg Tablet 5 mg PO Q4H PRN PRN (Reason: Pain Score 4-10) 3 Days Qty: 8 0RF Referrals / Follow Up: Maximino Figueroa Chi, MD [Primary Care Provider] - Disposition Disposition (needs filled in before D/C Order can be placed): NonSkilled NH/Intermed Care
[2022-07-27 21:36] LABS: Bedside Glucose 117 mg/dL (74-106)
[2022-07-27] MEDS: Pioglitazone Hydrochloride 30 MG Tablet PO (21:44)
[2022-07-27] MEDS: Atorvastatin Calcium 80 MG Tablet PO (21:44)
[2022-07-28 05:48] VITALS: BP 168/69; PULSE 67
[2022-07-28] MEDS: Metoprolol Tartrate 25 MG Tablet PO ×2 (05:48→17:14)
[2022-07-28] MEDS: Senna/Docusate Sodium 1 Tablet 2 TABLET PO ×2 (05:49→17:14)
[2022-07-28] MEDS: dilTIAZem CD 180 MG Capsule 360 MG PO (05:49)
[2022-07-28] MEDS: Clopidogrel Bisulfate 75 MG Tablet PO (05:49)
[2022-07-28] MEDS: NYSTATIN 500,000 UNIT/5 ML UDC 500000 UNIT PO ×4 (05:49→20:26)
[2022-07-28] MEDS: Furosemide 20 MG Tablet PO (05:49)
[2022-07-28] MEDS: Acetaminophen 500 MG Tablet 1000 MG PO ×3 (05:49→20:25)
[2022-07-28] MEDS: Menthol/Lanolin/Calamine/Znox 113 GM Tube 1 APPLIC TOPICAL ×2 (05:50→17:13)
[2022-07-28] MEDS: Nystatin Powder 15gm Bottle 1 APPLIC TOPICAL ×2 (05:50→17:14)
[2022-07-28] MEDS: Losartan Potassium 100 MG Tablet PO (05:50)
[2022-07-28 06:40] LABS: Bedside Glucose 105 mg/dL (74-106)
[2022-07-28] MEDS: metFORMIN HCl 1,000 MG Tablet 1000 MG PO ×2 (07:40→17:14)
[2022-07-28] MEDS: traMADol 50 MG Tablet PO (13:39)
[2022-07-28 14:07] VITALS: BP 121/58; PULSE 50; RESP 16; TEMP 36.2; O2SAT 97
[2022-07-28 17:14] VITALS: BP 121/58; PULSE 79
[2022-07-28] MEDS: Atorvastatin Calcium 80 MG Tablet PO (20:26)
[2022-07-28] MEDS: Pioglitazone Hydrochloride 30 MG Tablet PO (20:26)
[2022-07-28 21:00] VITALS: O2SAT 97
[2022-07-28 22:10] LABS: Bedside Glucose 106 mg/dL (74-106)
[2022-07-29] MEDS: Acetaminophen 500 MG Tablet 1000 MG PO ×3 (04:10→21:31)
[2022-07-29] MEDS: Clopidogrel Bisulfate 75 MG Tablet PO (04:10)
[2022-07-29 04:11] VITALS: BP 157/59; PULSE 68
[2022-07-29] MEDS: dilTIAZem CD 180 MG Capsule 360 MG PO (04:11)
[2022-07-29] MEDS: Furosemide 20 MG Tablet PO (04:11)
[2022-07-29] MEDS: NYSTATIN 500,000 UNIT/5 ML UDC 500000 UNIT PO ×4 (04:11→21:31)
[2022-07-29] MEDS: Metoprolol Tartrate 25 MG Tablet PO ×2 (04:11→18:54)
[2022-07-29] MEDS: Losartan Potassium 100 MG Tablet PO (04:12)
[2022-07-29] MEDS: Senna/Docusate Sodium 1 Tablet 2 TABLET PO ×2 (04:13→18:55)
[2022-07-29] MEDS: Nystatin Powder 15gm Bottle 1 APPLIC TOPICAL ×2 (04:16→18:55)
[2022-07-29] MEDS: Menthol/Lanolin/Calamine/Znox 113 GM Tube 1 APPLIC TOPICAL ×2 (04:16→18:55)
[2022-07-29 05:24] LABS: Absolute Lymphocyte Count 2.08 X10^3/uL (0.83-4.51); Absolute Neutrophil Count 3.2 X10^3/uL (2.0-7.7); Basophil# 0.06 X10^3/uL; Eosinophil# 0.19 X10^3/uL; Eosinophils% 3.1 % (0-5); Hemoglobin 11.9 g/dL (13.0-16.5); Lymphocyte # 2.08 X10^3/ul (0.83-4.51); Lymphocyte % 33.6 % (19-41); Mean Corp Hgb Conc 33.1 g/dL (32-36); Mean Corpuscular Hgb 32.3 pg (27.0-32.0); Mean Corpuscular Volume 97.8 fL (80-94); Mean Platelet Vol. 10.2 fl (6.2-12.0); Monocyte# 0.64 X10^3/uL; Monocyte% 10.3 % (0-10); NRBC Flagged by Analyzer 0 % (0-5); Neutrophil # 3.16 X10^3/uL (2.7-7.7); Platelet Count 174 K/mm3 (150-450); RBC Distribution Width CV 15.1 % (11.6-14.6); RBC Distribution Width SD 54.7 fl (35.1-43.9); Red Blood Count 3.68 M/mm3 (4.6-6.2); White Blood Count 6.2 K/mm3 (4.4-11.0)
[2022-07-29 05:47] LABS: Anion Gap 3 (5-15); BUN 21 mg/dL (7-18); BUN/Creat Ratio 21.1 RATIO (10-20); Calcium,Total 8.7 mg/dL (8.5-10.1); Chloride 108 mmol/L (98-107); Creatinine, Serum 0.99 mg/dL (0.70-1.30); EST Glomerular Filtration Rate 78 mL/min (>60); Est Glom Filt Rate - Afr Amer 94 mL/min (>60); Estimated Creatinine Clearance 65.54 ml/min; Glucose 111 mg/dL (74-106); Potassium 4.4 mmol/L (3.5-5.1); Sodium Level 138 mmol/L (136-145)
[2022-07-29 07:46] LABS: Bedside Glucose 108 mg/dL (74-106)
[2022-07-29] MEDS: metFORMIN HCl 1,000 MG Tablet 1000 MG PO ×2 (08:04→18:54)
[2022-07-29 10:00] VITALS: PULSE 74; RESP 18; O2SAT 98
[2022-07-29] MEDS: traMADol 50 MG Tablet PO (10:11)
[2022-07-29] MEDS: Ondansetron ODT 4 MG Tablet 8 MG PO (12:15)
[2022-07-29 15:06] VITALS: BP 142/60; PULSE 64; RESP 16; TEMP 36.3; O2SAT 94
[2022-07-29 18:54] VITALS: BP 142/60; PULSE 64
[2022-07-29] MEDS: Atorvastatin Calcium 80 MG Tablet PO (21:31)
[2022-07-29] MEDS: Pioglitazone Hydrochloride 30 MG Tablet PO (21:31)
[2022-07-29 21:36] LABS: Bedside Glucose 157 mg/dL (74-106)
[2022-07-30] MEDS: Nystatin Powder 15gm Bottle 1 APPLIC TOPICAL ×2 (04:59→17:23)
[2022-07-30] MEDS: Menthol/Lanolin/Calamine/Znox 113 GM Tube 1 APPLIC TOPICAL ×2 (05:00→17:23)
[2022-07-30] MEDS: Senna/Docusate Sodium 1 Tablet 2 TABLET PO ×2 (05:00→17:21)
[2022-07-30] MEDS: Acetaminophen 500 MG Tablet 1000 MG PO ×3 (05:00→21:00)
[2022-07-30 05:01] VITALS: BP 144/66; PULSE 67
[2022-07-30] MEDS: dilTIAZem CD 180 MG Capsule 360 MG PO (05:01)
[2022-07-30] MEDS: Clopidogrel Bisulfate 75 MG Tablet PO (05:01)
[2022-07-30] MEDS: Losartan Potassium 100 MG Tablet PO (05:01)
[2022-07-30] MEDS: Furosemide 20 MG Tablet PO (05:01)
[2022-07-30] MEDS: Metoprolol Tartrate 25 MG Tablet PO ×2 (05:01→17:21)
[2022-07-30] MEDS: NYSTATIN 500,000 UNIT/5 ML UDC 500000 UNIT PO ×4 (05:03→20:57)
[2022-07-30 05:05] VITALS: BP 147/66; PULSE 67
[2022-07-30 06:36] LABS: Bedside Glucose 119 mg/dL (74-106)
[2022-07-30] MEDS: metFORMIN HCl 1,000 MG Tablet 1000 MG PO ×2 (08:08→17:21)
[2022-07-30 10:00] VITALS: PULSE 65; RESP 16; O2SAT 94
[2022-07-30 16:00] VITALS: BP 149/55; PULSE 63; RESP 18; TEMP 36.1; O2SAT 96
[2022-07-30 17:21] VITALS: PULSE 67
[2022-07-30] MEDS: Pioglitazone Hydrochloride 30 MG Tablet PO (20:59)
[2022-07-30] MEDS: Atorvastatin Calcium 80 MG Tablet PO (21:00)
[2022-07-30 21:46] LABS: Bedside Glucose 122 mg/dL (74-106)
[2022-07-31] MEDS: traMADol 50 MG Tablet PO ×2 (02:50→20:34)
[2022-07-31] MEDS: Acetaminophen 500 MG Tablet 1000 MG PO ×3 (05:03→20:33)
[2022-07-31 05:04] VITALS: BP 122/63; PULSE 71
[2022-07-31] MEDS: dilTIAZem CD 180 MG Capsule 360 MG PO (05:04)
[2022-07-31] MEDS: Metoprolol Tartrate 25 MG Tablet PO ×2 (05:04→17:15)
[2022-07-31] MEDS: Senna/Docusate Sodium 1 Tablet 2 TABLET PO ×2 (05:05→17:15)
[2022-07-31] MEDS: Losartan Potassium 100 MG Tablet PO (05:05)
[2022-07-31] MEDS: Clopidogrel Bisulfate 75 MG Tablet PO (05:06)
[2022-07-31] MEDS: Furosemide 20 MG Tablet PO (05:06)
[2022-07-31] MEDS: NYSTATIN 500,000 UNIT/5 ML UDC 500000 UNIT PO ×4 (05:11→20:35)
[2022-07-31] MEDS: Menthol/Lanolin/Calamine/Znox 113 GM Tube 1 APPLIC TOPICAL ×2 (05:11→17:18)
[2022-07-31] MEDS: Nystatin Powder 15gm Bottle 1 APPLIC TOPICAL (05:12)
[2022-07-31 06:50] LABS: Bedside Glucose 98 mg/dL (74-106)
[2022-07-31] MEDS: metFORMIN HCl 1,000 MG Tablet 1000 MG PO ×2 (07:54→17:14)
[2022-07-31 11:05] VITALS: PULSE 55; RESP 18; O2SAT 97
[2022-07-31 14:45] VITALS: BP 144/73; PULSE 61; RESP 16; TEMP 36.3; O2SAT 94
[2022-07-31 17:15] VITALS: BP 144/73; PULSE 61
[2022-07-31] MEDS: Pioglitazone Hydrochloride 30 MG Tablet PO (20:34)
[2022-07-31] MEDS: Atorvastatin Calcium 80 MG Tablet PO (20:34)
[2022-07-31 21:31] LABS: Bedside Glucose 174 mg/dL (74-106)
[2022-08-01] MEDS: Acetaminophen 500 MG Tablet 1000 MG PO ×3 (04:35→20:49)
[2022-08-01] MEDS: traMADol 50 MG Tablet PO ×2 (04:35→17:07)
[2022-08-01] MEDS: Senna/Docusate Sodium 1 Tablet 2 TABLET PO ×2 (04:36→17:01)
[2022-08-01] MEDS: Furosemide 20 MG Tablet PO (04:36)
[2022-08-01 04:37] VITALS: BP 139/50; PULSE 62
[2022-08-01] MEDS: Metoprolol Tartrate 25 MG Tablet PO ×2 (04:37→17:08)
[2022-08-01] MEDS: Losartan Potassium 100 MG Tablet PO (04:37)
[2022-08-01] MEDS: Clopidogrel Bisulfate 75 MG Tablet PO (04:37)
[2022-08-01] MEDS: dilTIAZem CD 180 MG Capsule 360 MG PO (04:37)
[2022-08-01] MEDS: NYSTATIN 500,000 UNIT/5 ML UDC 500000 UNIT PO ×4 (04:38→20:50)
[2022-08-01] MEDS: Nystatin Powder 15gm Bottle 1 APPLIC TOPICAL ×2 (04:38→21:02)
[2022-08-01] MEDS: Menthol/Lanolin/Calamine/Znox 113 GM Tube 1 APPLIC TOPICAL ×2 (04:40→17:01)
[2022-08-01 06:45] LABS: Bedside Glucose 115 mg/dL (74-106)
[2022-08-01] MEDS: metFORMIN HCl 1,000 MG Tablet 1000 MG PO ×2 (08:04→17:01)
[2022-08-01] MEDS: Magnesium Hydroxide 30 ML UDC PO (08:06)
[2022-08-01 15:24] VITALS: BP 138/55; PULSE 51; RESP 16; TEMP 36.2; O2SAT 97
[2022-08-01 17:08] VITALS: BP 138/55; PULSE 51
[2022-08-01] MEDS: Pioglitazone Hydrochloride 30 MG Tablet PO (20:50)
[2022-08-01] MEDS: Atorvastatin Calcium 80 MG Tablet PO (20:50)
[2022-08-01 21:06] VITALS: O2SAT 96
[2022-08-01 21:36] LABS: Bedside Glucose 145 mg/dL (74-106)
[2022-08-02] MEDS: Senna/Docusate Sodium 1 Tablet 2 TABLET PO ×2 (05:31→17:09)
[2022-08-02] MEDS: Acetaminophen 500 MG Tablet 1000 MG PO ×3 (05:32→20:20)
[2022-08-02 05:33] VITALS: BP 134/57; PULSE 72
[2022-08-02] MEDS: Clopidogrel Bisulfate 75 MG Tablet PO (05:33)
[2022-08-02] MEDS: Metoprolol Tartrate 25 MG Tablet PO ×2 (05:33→17:08)
[2022-08-02] MEDS: Furosemide 20 MG Tablet PO (05:33)
[2022-08-02] MEDS: dilTIAZem CD 180 MG Capsule 360 MG PO (05:33)
[2022-08-02] MEDS: NYSTATIN 500,000 UNIT/5 ML UDC 500000 UNIT PO ×3 (05:34→17:08)
[2022-08-02] MEDS: Losartan Potassium 100 MG Tablet PO (05:34)
[2022-08-02] MEDS: Menthol/Lanolin/Calamine/Znox 113 GM Tube 1 APPLIC TOPICAL ×2 (05:37→17:07)
[2022-08-02] MEDS: Nystatin Powder 15gm Bottle 1 APPLIC TOPICAL ×2 (05:38→17:07)
[2022-08-02 06:15] LABS: Bedside Glucose 106 mg/dL (74-106)
--- NOTE | 2022-08-02 06:39 | NURSING ---
This nurse notified by [employer] DIVISION CAPTAIN that patient was vomiting. Upon entering pt's bathroom, pt noted to be sitting on toilet, leaning over and dry heaving into waste basket and stated his stomach was aching. Bowel sounds normal x4. Vomit appeared to be minimal and clear, possibly saliva. Pt assisted into recliner and offered crackers and karen yoandy. Patient believes 0600 medications upset his stomach. RN aware.
[2022-08-02] MEDS: Ondansetron ODT 4 MG Tablet 8 MG PO (06:54)
[2022-08-02] MEDS: metFORMIN HCl 1,000 MG Tablet 1000 MG PO ×2 (07:53→17:08)
[2022-08-02 09:44] VITALS: PULSE 53; RESP 16; O2SAT 95
--- NOTE | 2022-08-02 11:52 | NURSING ---
Pt's last bowel movement 07/29/22, nauseous and an aching stomach. Bowel sounds hypoactive. Dr. Henry corona, received order for KUB and Lactulose 20grams PO x1. properties supervisor aware.
--- NOTE | 2022-08-02 12:58 | RAD_ITS ---
EXAM: XR ABDOMEN, 1 VIEW CLINICAL INDICATION: constipation,nausea TECHNIQUE: Frontal supine view of the abdomen/pelvis. COMPARISON: No relevant prior studies available. FINDINGS: GASTROINTESTINAL TRACT: Normal bowel gas pattern. ORGANS: No organomegaly. BONES/JOINTS: No acute abnormality. SOFT TISSUES: No pathological calcification. RAD/Abdomen Single View IMPRESSION: Non-obstructive bowel gas pattern. Electronically Signed: Delfino Miller MD at 15:44 EDT ,
[2022-08-02] MEDS: traMADol 50 MG Tablet PO ×2 (13:43→20:20)
[2022-08-02] MEDS: Lactulose 20 GM/30 ML UDC PO (13:43)
[2022-08-02 13:56] VITALS: BP 143/58; PULSE 48; RESP 16; TEMP 36.2; O2SAT 94
[2022-08-02 17:08] VITALS: BP 143/58; PULSE 54
[2022-08-02] MEDS: Atorvastatin Calcium 80 MG Tablet PO (20:21)
[2022-08-02] MEDS: Pioglitazone Hydrochloride 30 MG Tablet PO (20:21)
[2022-08-02 22:05] LABS: Bedside Glucose 183 mg/dL (74-106)
[2022-08-03] MEDS: Acetaminophen 500 MG Tablet 1000 MG PO (04:32)
[2022-08-03] MEDS: Senna/Docusate Sodium 1 Tablet 2 TABLET PO (04:32)
[2022-08-03] MEDS: Clopidogrel Bisulfate 75 MG Tablet PO (04:33)
[2022-08-03] MEDS: dilTIAZem CD 180 MG Capsule 360 MG PO (04:33)
[2022-08-03 04:34] VITALS: BP 132/59; PULSE 68
[2022-08-03] MEDS: Losartan Potassium 100 MG Tablet PO (04:34)
[2022-08-03] MEDS: Furosemide 20 MG Tablet PO (04:34)
[2022-08-03] MEDS: Metoprolol Tartrate 25 MG Tablet PO (04:34)
[2022-08-03] MEDS: Menthol/Lanolin/Calamine/Znox 113 GM Tube 1 APPLIC TOPICAL (04:52)
[2022-08-03] MEDS: Nystatin Powder 15gm Bottle 1 APPLIC TOPICAL (04:52)
[2022-08-03 06:40] LABS: Bedside Glucose 116 mg/dL (74-106)
[2022-08-03] MEDS: metFORMIN HCl 1,000 MG Tablet 1000 MG PO (08:28)
--- NOTE | 2022-08-03 11:08 | CASEMGMT ---
Social Work BIMS and PHQ-9 completed for MDS assessment. Leidy Jolly, SENIOR DATA QUALITY ANALYST SWING SAW OPERATOR
== END 2022-08-03 11:10 | disposition intermediate care facility (04) | DRG 565 ==
PROVIDERS: Admitting Provider Family Medicine Geriatric Medicine; PCP Family Medicine Geriatric Medicine; Visit Provider Family Medicine Geriatric Medicine
DX: M25.462 Effusion, left knee (principal); B37.0 Candidal stomatitis; E11.9 Type 2 diabetes mellitus without complications; E78.5 Hyperlipidemia, unspecified; G47.33 Obstructive sleep apnea (adult) (pediatric); B35.4 Tinea corporis; Z79.4 Long term (current) use of insulin; I10 Essential (primary) hypertension; W19.XXXD Unspecified fall, subsequent encounter; S70.01XD Contusion of right hip, subsequent encounter; Z87.891 Personal history of nicotine dependence; Z79.899 Other long term (current) drug therapy; Z79.84 Long term (current) use of oral hypoglycemic drugs; Z79.02 Long term (current) use of antithrombotics/antiplatelets; Z23 Encounter for immunization; S90.32XD Contusion of left foot, subsequent encounter
CPT/HCPCS: 36415; 73630; 74018; 80048; 81001; 82962; 85025; 87086; 87088; 87426; 87811; 90677; 92507; 92523; 92526; 97110; 97116; 97162; 97166; 97530; 97535; 97802; G0009; J7030

== ENCOUNTER → 2022-07-08 | Outpatient (CLI) | payer MEDICARE, OTHER, SELFPAY ==
--- NOTE | 2022-07-08 15:50 | MRI_ITS ---
EXAM: MR LEFT LOWER EXTREMITY WITHOUT INTRAVENOUS CONTRAST, KNEE CLINICAL INDICATION: knee pain after fall 3 wks ago TECHNIQUE: Multiplanar and multisequence MR images of the left knee without intravenous contrast. This report was created using [employer] report [employer] technology. COMPARISON: X-ray 06/28/2022. FINDINGS: LIMITATIONS: Quality: Limited due to patient motion on all pulse sequences. BONES/JOINTS: Bone contusion in the medial femoral condyle and posteromedial tibia. Bone contusion in the fibular head and posterolateral tibia. Nondisplaced cortical fracture of the posterolateral tibial cortex, best demonstrated on series 5 images 22-23. There is 2 to 3 mm cortical depression. EXTENSOR MECHANISM: Unremarkable. MEDIAL MENISCUS: Truncation of the inner third of the medial meniscus consistent with small meniscal tear. LATERAL MENISCUS: Unremarkable. MEDIAL CAPSULE/SUPPORTING STRUCTURES: Unremarkable. Intact. LATERAL CAPSULE/SUPPORTING STRUCTURES: Unremarkable. Intact. ANTERIOR CRUCIATE LIGAMENT: Unremarkable. Intact. POSTERIOR CRUCIATE LIGAMENT: Unremarkable. Intact. MUSCLES: Unremarkable. CARTILAGE: Unremarkable. Intact. FLUID: 2.8 x 5.5 cm popliteal cyst. Small joint effusion. MRI/Lower Ext Joint Only (Routine) IMPRESSION: 1. Limited due to patient motion. 2. Cortical fracture of the posterolateral tibial plateau. 3. Small medial meniscal tear. 4. Bone contusions. 5. Joint effusion. 6. Popliteal cyst. Electronically Signed: Armida Lobo MD at 16:37 EDT Reading Location ID and State: [id number] / Tel , Service support ,
== END | disposition home or self-care (01) ==
LOC: MRI 14:43
PROVIDERS: PCP Family Medicine Geriatric Medicine; Visit Provider Family Medicine Geriatric Medicine
DX: M25.562 Pain in left knee (principal)
CPT/HCPCS: 73721

== ENCOUNTER → 2022-08-04 | Outpatient (REF) | payer MEDICARE, OTHER, SELFPAY ==
[2022-08-04 09:24] LABS: Absolute Lymphocyte Count 1.94 X10^3/uL (0.83-4.51); Absolute Neutrophil Count 4.6 X10^3/uL (2.0-7.7); Basophil# 0.07 X10^3/uL; Basophil% 0.9 % (0-1); Eosinophil# 0.15 X10^3/uL; Hematocrit 43.2 % (40-54); Hemoglobin 13.7 g/dL (13.0-16.5); Lymphocyte # 1.94 X10^3/ul (0.83-4.51); Lymphocyte % 25.3 % (19-41); Mean Corp Hgb Conc 31.7 g/dL (32-36); Mean Corpuscular Hgb 31.5 pg (27.0-32.0); Mean Corpuscular Volume 99.3 fL (80-94); Mean Platelet Vol. 11.2 fl (6.2-12.0); Monocyte# 0.83 X10^3/uL; Monocyte% 10.8 % (0-10); NRBC Flagged by Analyzer 0 % (0-5); Neutrophil # 4.61 X10^3/uL (2.7-7.7); Platelet Count 206 K/mm3 (150-450); RBC Distribution Width CV 15.1 % (11.6-14.6); RBC Distribution Width SD 55.4 fl (35.1-43.9); Red Blood Count 4.35 M/mm3 (4.6-6.2); White Blood Count 7.7 K/mm3 (4.4-11.0)
[2022-08-04 09:40] LABS: ALB/GLOB Ratio 0.9 RATIO (0.9-2.4); AST(SGOT) 11 U/L (15-37); Alanine Aminotransfer ALT/SGPT 21 U/L (16-61); Alkaline Phosphatase 62 U/L (45-117); Anion Gap 7 (5-15); BUN 16 mg/dL (7-18); BUN/Creat Ratio 17.1 RATIO (10-20); Calcium,Total 8.6 mg/dL (8.5-10.1); Chloride 108 mmol/L (98-107); Cholesterol 109 mg/dL (200); Creatinine, Serum 0.94 mg/dL (0.70-1.30); EST Glomerular Filtration Rate 83 mL/min (>60); Est Glom Filt Rate - Afr Amer 101 mL/min (>60); Globulin 3.5 g/dL (2.2-4.2); Glucose 114 mg/dL (74-106); High Density Lipoprotein 51 mg/dL; Potassium 4.2 mmol/L (3.5-5.1); Protein, Total 6.5 g/dL (6.4-8.2); Sodium Level 140 mmol/L (136-145); Triglycerides 86 mg/dL; Very Low Density Lipoprotein 17 mg/dL (5-40)
[2022-08-04 10:25] LABS: Hemoglobin A1c 6.2 % (3.8-5.6)
== END ==
LOC: OLS.WHLEAS 05:00
PROVIDERS: PCP Family Medicine Geriatric Medicine; Visit Provider Internal Medicine
DX: E11.9 Type 2 diabetes mellitus without complications (principal); M25.462 Effusion, left knee; M25.562 Pain in left knee; S70.01XD Contusion of right hip, subsequent encounter; M62.81 Muscle weakness (generalized); R26.2 Difficulty in walking, not elsewhere classified; R27.8 Other lack of coordination
CPT/HCPCS: 36415; 80053; 80061; 83036; 85025

== ENCOUNTER → 2022-08-10 | Outpatient (REF) | payer MEDICARE, OTHER, SELFPAY ==
[2022-08-10 08:34] LABS: Vitamin B12 216 pg/mL (211-911)
== END ==
LOC: OLS.WHLCAR 05:00
PROVIDERS: PCP Family Medicine Geriatric Medicine; Visit Provider Internal Medicine
DX: G43.909 Migraine, unspecified, not intractable, without status migrainosus (principal); Z79.899 Other long term (current) drug therapy
CPT/HCPCS: 36415; 82607

== ENCOUNTER → 2022-08-18 | Outpatient (REF) | payer MEDICARE, OTHER, SELFPAY ==
[2022-08-18 06:27] LABS: Absolute Lymphocyte Count 2.99 X10^3/uL (0.83-4.51); Absolute Neutrophil Count 3.2 X10^3/uL (2.0-7.7); Basophil# 0.06 X10^3/uL; Basophil% 0.8 % (0-1); Eosinophil# 0.15 X10^3/uL; Eosinophils% 2.1 % (0-5); Hematocrit 45.8 % (40-54); Hemoglobin 14.8 g/dL (13.0-16.5); Lymphocyte # 2.99 X10^3/ul (0.83-4.51); Lymphocyte % 41.9 % (19-41); Mean Corp Hgb Conc 32.3 g/dL (32-36); Mean Corpuscular Hgb 31.6 pg (27.0-32.0); Mean Corpuscular Volume 97.9 fL (80-94); Mean Platelet Vol. 11.3 fl (6.2-12.0); Monocyte# 0.64 X10^3/uL; NRBC Flagged by Analyzer 0 % (0-5); Neutrophil # 3.16 X10^3/uL (2.7-7.7); Neutrophil % 44.4 % (47-70); Platelet Count 190 K/mm3 (150-450); RBC Distribution Width CV 14.6 % (11.6-14.6); RBC Distribution Width SD 53.1 fl (35.1-43.9); Red Blood Count 4.68 M/mm3 (4.6-6.2); White Blood Count 7.1 K/mm3 (4.4-11.0)
[2022-08-18 06:55] LABS: Anion Gap 8 (5-15); BUN 18 mg/dL (7-18); BUN/Creat Ratio 17.5 RATIO (10-20); Calcium,Total 8.5 mg/dL (8.5-10.1); Chloride 109 mmol/L (98-107); Creatinine, Serum 1.03 mg/dL (0.70-1.30); EST Glomerular Filtration Rate 75 mL/min (>60); Est Glom Filt Rate - Afr Amer 90 mL/min (>60); Glucose 100 mg/dL (74-106); Potassium 3.6 mmol/L (3.5-5.1); Sodium Level 140 mmol/L (136-145)
== END ==
LOC: OLS.WHLCAR 05:00
PROVIDERS: PCP Family Medicine Geriatric Medicine; Visit Provider Internal Medicine
DX: E11.9 Type 2 diabetes mellitus without complications (principal)
CPT/HCPCS: 36415; 80048; 85025

== ENCOUNTER → 2022-09-01 | Outpatient (REF) | payer MEDICARE, OTHER, SELFPAY ==
[2022-09-01 10:12] LABS: Absolute Neutrophil Count 3.4 X10^3/uL (2.0-7.7); Basophil# 0.12 X10^3/uL; Basophil% 1.5 % (0-1); Eosinophil# 0.14 X10^3/uL; Eosinophils% 1.8 % (0-5); Hematocrit 45.3 % (40-54); Hemoglobin 14.5 g/dL (13.0-16.5); Lymphocyte % 39.9 % (19-41); Mean Corpuscular Hgb 31.2 pg (27.0-32.0); Mean Corpuscular Volume 97.4 fL (80-94); Mean Platelet Vol. 10.8 fl (6.2-12.0); Monocyte# 0.69 X10^3/uL; Monocyte% 8.9 % (0-10); NRBC Flagged by Analyzer 0 % (0-5); Neutrophil # 3.43 X10^3/uL (2.7-7.7); Neutrophil % 44.3 % (47-70); Platelet Count 244 K/mm3 (150-450); RBC Distribution Width CV 14.5 % (11.6-14.6); RBC Distribution Width SD 51.8 fl (35.1-43.9); Red Blood Count 4.65 M/mm3 (4.6-6.2); White Blood Count 7.8 K/mm3 (4.4-11.0)
[2022-09-01 10:23] LABS: Anion Gap 7 (5-15); BUN 15 mg/dL (7-18); BUN/Creat Ratio 12.8 RATIO (10-20); Calcium,Total 8.6 mg/dL (8.5-10.1); Chloride 106 mmol/L (98-107); Creatinine, Serum 1.17 mg/dL (0.70-1.30); EST Glomerular Filtration Rate 64 mL/min (>60); Est Glom Filt Rate - Afr Amer 78 mL/min (>60); Glucose 116 mg/dL (74-106); Potassium 4.8 mmol/L (3.5-5.1); Sodium Level 137 mmol/L (136-145)
== END ==
LOC: OLS.WHLCAR 05:00
PROVIDERS: PCP Family Medicine Geriatric Medicine; Visit Provider Internal Medicine
DX: E11.9 Type 2 diabetes mellitus without complications (principal)
CPT/HCPCS: 36415; 80048; 85025

== ENCOUNTER → 2022-09-15 | Outpatient (REF) | payer MEDICARE, OTHER, SELFPAY ==
[2022-09-15 10:12] LABS: Absolute Lymphocyte Count 3.34 X10^3/uL (0.83-4.51); Absolute Neutrophil Count 3.3 X10^3/uL (2.0-7.7); Basophil# 0.09 X10^3/uL; Basophil% 1.1 % (0-1); Eosinophil# 0.18 X10^3/uL; Eosinophils% 2.3 % (0-5); Hematocrit 42.5 % (40-54); Hemoglobin 13.4 g/dL (13.0-16.5); Lymphocyte # 3.34 X10^3/ul (0.83-4.51); Mean Corp Hgb Conc 31.5 g/dL (32-36); Mean Corpuscular Hgb 31.7 pg (27.0-32.0); Mean Corpuscular Volume 100.5 fL (80-94); Monocyte# 0.81 X10^3/uL; Monocyte% 10.2 % (0-10); NRBC Flagged by Analyzer 0 % (0-5); Neutrophil # 3.27 X10^3/uL (2.7-7.7); Neutrophil % 41.1 % (47-70); Platelet Count 203 K/mm3 (150-450); RBC Distribution Width CV 14.5 % (11.6-14.6); RBC Distribution Width SD 53.6 fl (35.1-43.9); Red Blood Count 4.23 M/mm3 (4.6-6.2)
[2022-09-15 10:28] LABS: Anion Gap 7 (5-15); BUN 13 mg/dL (7-18); BUN/Creat Ratio 14.1 RATIO (10-20); Calcium,Total 8.6 mg/dL (8.5-10.1); Chloride 108 mmol/L (98-107); Creatinine, Serum 0.92 mg/dL (0.70-1.30); EST Glomerular Filtration Rate 85 mL/min (>60); Est Glom Filt Rate - Afr Amer 103 mL/min (>60); Glucose 88 mg/dL (74-106); Potassium 4.4 mmol/L (3.5-5.1); Sodium Level 140 mmol/L (136-145)
== END ==
LOC: OLS.WHLTSB 05:20
PROVIDERS: PCP Family Medicine Geriatric Medicine; Visit Provider Internal Medicine
DX: E11.9 Type 2 diabetes mellitus without complications (principal)
CPT/HCPCS: 36415; 80048; 85025

== ENCOUNTER → 2022-09-23 | Outpatient (REF) | payer MEDICARE, OTHER, SELFPAY ==
[2022-09-23 10:18] LABS: CPK Total, Creatine Kinase 37 U/L (39-308)
== END ==
LOC: OLS.WHLTSB 05:00
PROVIDERS: PCP Family Medicine Geriatric Medicine; Visit Provider Internal Medicine
DX: I45.10 Unspecified right bundle-branch block (principal)
CPT/HCPCS: 36415; 82550

== ENCOUNTER → 2022-09-29 05:00 | Outpatient (REF) | payer MEDICARE, OTHER, SELFPAY ==
[2022-09-29 09:38] LABS: Absolute Lymphocyte Count 2.98 X10^3/uL (0.83-4.51); Absolute Neutrophil Count 3.2 X10^3/uL (2.0-7.7); Basophil% 1.3 % (0-1); Eosinophils% 2.7 % (0-5); Hematocrit 41.4 % (40-54); Hemoglobin 12.9 g/dL (13.0-16.5); Lymphocyte # 2.98 X10^3/ul (0.83-4.51); Lymphocyte % 40.2 % (19-41); Mean Corp Hgb Conc 31.2 g/dL (32-36); Mean Corpuscular Hgb 31.4 pg (27.0-32.0); Mean Corpuscular Volume 100.7 fL (80-94); Mean Platelet Vol. 10.9 fl (6.2-12.0); Monocyte% 9.4 % (0-10); NRBC Flagged by Analyzer 0 % (0-5); Neutrophil # 3.18 X10^3/uL (2.7-7.7); Neutrophil % 42.9 % (47-70); Platelet Count 211 K/mm3 (150-450); RBC Distribution Width CV 14.8 % (11.6-14.6); RBC Distribution Width SD 55.4 fl (35.1-43.9); Red Blood Count 4.11 M/mm3 (4.6-6.2); White Blood Count 7.4 K/mm3 (4.4-11.0)
[2022-09-29 10:00] LABS: Anion Gap 3 (5-15); BUN 13 mg/dL (7-18); BUN/Creat Ratio 13.1 RATIO (10-20); Calcium,Total 8.7 mg/dL (8.5-10.1); Chloride 108 mmol/L (98-107); Creatinine, Serum 0.99 mg/dL (0.70-1.30); EST Glomerular Filtration Rate 78 mL/min (>60); Est Glom Filt Rate - Afr Amer 94 mL/min (>60); Glucose 83 mg/dL (74-106); Potassium 4.9 mmol/L (3.5-5.1); Sodium Level 138 mmol/L (136-145)
== END ==
LOC: PR 05:00
PROVIDERS: PCP Family Medicine Geriatric Medicine; Visit Provider Internal Medicine
DX: E11.9 Type 2 diabetes mellitus without complications (principal); M25.462 Effusion, left knee; M25.562 Pain in left knee; M62.81 Muscle weakness (generalized); R27.8 Other lack of coordination; S70.01XD Contusion of right hip, subsequent encounter
CPT/HCPCS: 36415; 80048; 85025

== ENCOUNTER → 2022-10-13 | Outpatient (REF) | payer MEDICARE, OTHER, SELFPAY ==
[2022-10-13 08:54] LABS: Absolute Lymphocyte Count 2.27 X10^3/uL (0.83-4.51); Absolute Neutrophil Count 3.8 X10^3/uL (2.0-7.7); Basophil# 0.09 X10^3/uL; Basophil% 1.3 % (0-1); Eosinophil# 0.18 X10^3/uL; Eosinophils% 2.5 % (0-5); Hematocrit 41.7 % (40-54); Hemoglobin 13.3 g/dL (13.0-16.5); Lymphocyte # 2.27 X10^3/ul (0.83-4.51); Lymphocyte % 31.8 % (19-41); Mean Corp Hgb Conc 31.9 g/dL (32-36); Mean Corpuscular Hgb 31.7 pg (27.0-32.0); Mean Corpuscular Volume 99.3 fL (80-94); Mean Platelet Vol. 10.7 fl (6.2-12.0); Monocyte# 0.69 X10^3/uL; Monocyte% 9.7 % (0-10); NRBC Flagged by Analyzer 0 % (0-5); Neutrophil # 3.75 X10^3/uL (2.7-7.7); Neutrophil % 52.5 % (47-70); Platelet Count 230 K/mm3 (150-450); RBC Distribution Width CV 14.5 % (11.6-14.6); RBC Distribution Width SD 52.9 fl (35.1-43.9); White Blood Count 7.1 K/mm3 (4.4-11.0)
[2022-10-13 09:19] LABS: Anion Gap 6 (5-15); BUN 11 mg/dL (7-18); BUN/Creat Ratio 11.2 RATIO (10-20); Calcium,Total 8.9 mg/dL (8.5-10.1); Chloride 109 mmol/L (98-107); Creatinine, Serum 0.98 mg/dL (0.70-1.30); EST Glomerular Filtration Rate 79 mL/min (>60); Est Glom Filt Rate - Afr Amer 95 mL/min (>60); Glucose 94 mg/dL (74-106); Potassium 4.4 mmol/L (3.5-5.1); Sodium Level 140 mmol/L (136-145)
== END ==
LOC: OLS.WHLTSB 05:00
PROVIDERS: PCP Family Medicine Geriatric Medicine; Visit Provider Internal Medicine
DX: E11.9 Type 2 diabetes mellitus without complications (principal)
CPT/HCPCS: 36415; 80048; 85025

== ENCOUNTER → 2022-10-27 | Outpatient (REF) | payer MEDICARE, OTHER, SELFPAY ==
[2022-10-27 07:57] LABS: Absolute Lymphocyte Count 2.73 X10^3/uL (0.83-4.51); Absolute Neutrophil Count 4.1 X10^3/uL (2.0-7.7); Basophil% 1.2 % (0-1); Eosinophil# 0.29 X10^3/uL; Eosinophils% 3.6 % (0-5); Hematocrit 42.5 % (40-54); Hemoglobin 13.1 g/dL (13.0-16.5); Lymphocyte # 2.73 X10^3/ul (0.83-4.51); Lymphocyte % 33.7 % (19-41); Mean Corp Hgb Conc 30.8 g/dL (32-36); Mean Corpuscular Hgb 31.1 pg (27.0-32.0); Mean Platelet Vol. 11.4 fl (6.2-12.0); Monocyte# 0.82 X10^3/uL; Monocyte% 10.1 % (0-10); NRBC Flagged by Analyzer 0 % (0-5); Neutrophil # 4.05 X10^3/uL (2.7-7.7); Platelet Count 179 K/mm3 (150-450); RBC Distribution Width CV 13.7 % (11.6-14.6); RBC Distribution Width SD 51.4 fl (35.1-43.9); Red Blood Count 4.21 M/mm3 (4.6-6.2); White Blood Count 8.1 K/mm3 (4.4-11.0)
[2022-10-27 08:25] LABS: Anion Gap 6 (5-15); BUN 16 mg/dL (7-18); BUN/Creat Ratio 16.6 RATIO (10-20); Calcium,Total 8.8 mg/dL (8.5-10.1); Chloride 108 mmol/L (98-107); Creatinine, Serum 0.96 mg/dL (0.70-1.30); EST Glomerular Filtration Rate 81 mL/min (>60); Est Glom Filt Rate - Afr Amer 97 mL/min (>60); Glucose 107 mg/dL (74-106); Potassium 4.9 mmol/L (3.5-5.1); Sodium Level 140 mmol/L (136-145)
== END ==
LOC: OLS.WHLTSB 05:00
PROVIDERS: PCP Family Medicine Geriatric Medicine; Visit Provider Internal Medicine
DX: E11.9 Type 2 diabetes mellitus without complications (principal)
CPT/HCPCS: 36415; 80048; 85025

== ENCOUNTER → 2022-11-10 | Outpatient (REF) | payer MEDICARE, OTHER, SELFPAY ==
[2022-11-10 09:33] LABS: Absolute Lymphocyte Count 2.53 X10^3/uL (0.83-4.51); Absolute Neutrophil Count 3.4 X10^3/uL (2.0-7.7); Basophil# 0.08 X10^3/uL; Basophil% 1.1 % (0-1); Eosinophil# 0.22 X10^3/uL; Eosinophils% 3.1 % (0-5); Hematocrit 43.2 % (40-54); Hemoglobin 13.8 g/dL (13.0-16.5); Lymphocyte # 2.53 X10^3/ul (0.83-4.51); Lymphocyte % 35.8 % (19-41); Mean Corp Hgb Conc 31.9 g/dL (32-36); Mean Corpuscular Hgb 31.9 pg (27.0-32.0); Mean Corpuscular Volume 99.8 fL (80-94); Mean Platelet Vol. 11.2 fl (6.2-12.0); Monocyte# 0.73 X10^3/uL; Monocyte% 10.3 % (0-10); NRBC Flagged by Analyzer 0 % (0-5); Neutrophil # 3.41 X10^3/uL (2.7-7.7); Neutrophil % 48.3 % (47-70); Platelet Count 200 K/mm3 (150-450); RBC Distribution Width CV 13.6 % (11.6-14.6); Red Blood Count 4.33 M/mm3 (4.6-6.2); White Blood Count 7.1 K/mm3 (4.4-11.0)
[2022-11-10 11:13] LABS: Anion Gap 4 (5-15); BUN 14 mg/dL (7-18); BUN/Creat Ratio 12.5 RATIO (10-20); Calcium,Total 9.1 mg/dL (8.5-10.1); Chloride 106 mmol/L (98-107); Creatinine, Serum 1.12 mg/dL (0.70-1.30); EST Glomerular Filtration Rate 68 mL/min (>60); Est Glom Filt Rate - Afr Amer 82 mL/min (>60); Glucose 96 mg/dL (74-106); Potassium 4.6 mmol/L (3.5-5.1); Sodium Level 139 mmol/L (136-145)
== END ==
LOC: OLS.WHLTSB 05:00
PROVIDERS: PCP Family Medicine Geriatric Medicine; Visit Provider Internal Medicine
DX: E11.9 Type 2 diabetes mellitus without complications (principal)
CPT/HCPCS: 36415; 80048; 85025

== ENCOUNTER → 2022-11-24 | Outpatient (REF) | payer MEDICARE, OTHER, SELFPAY ==
[2022-11-24 09:10] LABS: Absolute Lymphocyte Count 2.59 X10^3/uL (0.83-4.51); Absolute Neutrophil Count 3.6 X10^3/uL (2.0-7.7); Basophil# 0.08 X10^3/uL; Basophil% 1.1 % (0-1); Eosinophil# 0.31 X10^3/uL; Eosinophils% 4.2 % (0-5); Hemoglobin 13.3 g/dL (13.0-16.5); Lymphocyte # 2.59 X10^3/ul (0.83-4.51); Lymphocyte % 35.3 % (19-41); Mean Corp Hgb Conc 30.9 g/dL (32-36); Mean Corpuscular Hgb 31.4 pg (27.0-32.0); Mean Corpuscular Volume 101.4 fL (80-94); Mean Platelet Vol. 11.3 fl (6.2-12.0); Monocyte# 0.71 X10^3/uL; Monocyte% 9.7 % (0-10); NRBC Flagged by Analyzer 0 % (0-5); Neutrophil # 3.55 X10^3/uL (2.7-7.7); Neutrophil % 48.3 % (47-70); Platelet Count 199 K/mm3 (150-450); RBC Distribution Width CV 13.6 % (11.6-14.6); RBC Distribution Width SD 50.8 fl (35.1-43.9); Red Blood Count 4.24 M/mm3 (4.6-6.2); White Blood Count 7.3 K/mm3 (4.4-11.0)
[2022-11-24 09:20] LABS: Anion Gap 7 (5-15); BUN 16 mg/dL (7-18); BUN/Creat Ratio 16.4 RATIO (10-20); Calcium,Total 8.6 mg/dL (8.5-10.1); Chloride 109 mmol/L (98-107); Creatinine, Serum 0.97 mg/dL (0.70-1.30); EST Glomerular Filtration Rate 79 mL/min (>60); Est Glom Filt Rate - Afr Amer 96 mL/min (>60); Glucose 90 mg/dL (74-106); Potassium 4.3 mmol/L (3.5-5.1); Sodium Level 140 mmol/L (136-145)
== END ==
LOC: OLS.WHLTSB 04:00
PROVIDERS: PCP Family Medicine Geriatric Medicine; Referring Provider Internal Medicine; Visit Provider Internal Medicine
DX: E11.9 Type 2 diabetes mellitus without complications (principal)
CPT/HCPCS: 36415; 80048; 85025

== ENCOUNTER → 2022-12-08 | Outpatient (REF) | payer MEDICARE, OTHER, SELFPAY ==
[2022-12-08 09:17] LABS: Absolute Lymphocyte Count 3.37 X10^3/uL (0.83-4.51); Absolute Neutrophil Count 3.9 X10^3/uL (2.0-7.7); Basophil# 0.02 X10^3/uL; Basophil% 0.2 % (0-1); Eosinophil# 0.16 X10^3/uL; Eosinophils% 1.9 % (0-5); Hematocrit 40.7 % (40-54); Hemoglobin 12.9 g/dL (13.0-16.5); Lymphocyte # 3.37 X10^3/ul (0.83-4.51); Lymphocyte % 39.7 % (19-41); Mean Corp Hgb Conc 31.7 g/dL (32-36); Mean Platelet Vol. 11.1 fl (6.2-12.0); Monocyte# 0.76 X10^3/uL; NRBC Flagged by Analyzer 0 % (0-5); Neutrophil # 3.92 X10^3/uL (2.7-7.7); Neutrophil % 46.3 % (47-70); Platelet Count 203 K/mm3 (150-450); RBC Distribution Width CV 13.3 % (11.6-14.6); RBC Distribution Width SD 49.7 fl (35.1-43.9); Red Blood Count 4.03 M/mm3 (4.6-6.2); White Blood Count 8.5 K/mm3 (4.4-11.0)
[2022-12-08 09:26] LABS: Anion Gap 1 (5-15); BUN 21 mg/dL (7-18); BUN/Creat Ratio 18.6 RATIO (10-20); Calcium,Total 8.3 mg/dL (8.5-10.1); Chloride 108 mmol/L (98-107); Creatinine, Serum 1.13 mg/dL (0.70-1.30); EST Glomerular Filtration Rate 67 mL/min (>60); Est Glom Filt Rate - Afr Amer 81 mL/min (>60); Glucose 106 mg/dL (74-106); Potassium 5.1 mmol/L (3.5-5.1); Sodium Level 141 mmol/L (136-145)
== END ==
LOC: OLS.WHLTSB 05:00
PROVIDERS: PCP Family Medicine Geriatric Medicine; Visit Provider Internal Medicine
DX: E11.9 Type 2 diabetes mellitus without complications (principal)
CPT/HCPCS: 36415; 80048; 85025

== ENCOUNTER → 2022-12-14 | Outpatient (REF) | payer MEDICARE, OTHER, SELFPAY ==
[2022-12-14 08:56] LABS: Cholesterol 160 mg/dL (200); High Density Lipoprotein 51 mg/dL; Triglycerides 109 mg/dL; Very Low Density Lipoprotein 22 mg/dL (5-40)
== END ==
LOC: OLS.WHLTSB 04:00
PROVIDERS: PCP Family Medicine Geriatric Medicine; Referring Provider Internal Medicine; Visit Provider Internal Medicine
DX: E78.5 Hyperlipidemia, unspecified (principal)
CPT/HCPCS: 36415; 80061

== ENCOUNTER → 2022-12-22 | Outpatient (REF) | payer MEDICARE, OTHER, SELFPAY ==
[2022-12-22 09:51] LABS: Absolute Lymphocyte Count 2.26 X10^3/uL (0.83-4.51); Absolute Neutrophil Count 3.9 X10^3/uL (2.0-7.7); Basophil# 0.06 X10^3/uL; Basophil% 0.8 % (0-1); Eosinophil# 0.16 X10^3/uL; Eosinophils% 2.2 % (0-5); Hematocrit 42.7 % (40-54); Hemoglobin 13.1 g/dL (13.0-16.5); Lymphocyte # 2.26 X10^3/ul (0.83-4.51); Lymphocyte % 31.7 % (19-41); Mean Corp Hgb Conc 30.7 g/dL (32-36); Mean Corpuscular Hgb 31.8 pg (27.0-32.0); Mean Corpuscular Volume 103.6 fL (80-94); Mean Platelet Vol. 11.2 fl (6.2-12.0); Monocyte# 0.66 X10^3/uL; Monocyte% 9.2 % (0-10); NRBC Flagged by Analyzer 0 % (0-5); Neutrophil # 3.93 X10^3/uL (2.7-7.7); Neutrophil % 55.1 % (47-70); Platelet Count 180 K/mm3 (150-450); RBC Distribution Width CV 13.1 % (11.6-14.6); RBC Distribution Width SD 49.7 fl (35.1-43.9); Red Blood Count 4.12 M/mm3 (4.6-6.2); White Blood Count 7.1 K/mm3 (4.4-11.0)
[2022-12-22 10:05] LABS: Anion Gap 4 (5-15); BUN 14 mg/dL (7-18); Calcium,Total 8.8 mg/dL (8.5-10.1); Chloride 108 mmol/L (98-107); Creatinine, Serum 1.17 mg/dL (0.70-1.30); EST Glomerular Filtration Rate 64 mL/min (>60); Est Glom Filt Rate - Afr Amer 78 mL/min (>60); Glucose 114 mg/dL (74-106); Potassium 4.8 mmol/L (3.5-5.1); Sodium Level 138 mmol/L (136-145)
== END ==
LOC: OLS.WHLTSB 05:30
PROVIDERS: PCP Family Medicine Geriatric Medicine; Visit Provider Internal Medicine
DX: E11.9 Type 2 diabetes mellitus without complications (principal); F01.50 Vascular dementia, unspecified severity, without behavioral disturbance, psychotic disturbance, mood disturbance, and anxiety; M62.81 Muscle weakness (generalized)
CPT/HCPCS: 36415; 80048; 85025

== ENCOUNTER → 2023-01-05 | Outpatient (REF) | payer MEDICARE, OTHER, SELFPAY ==
[2023-01-05 08:02] LABS: Absolute Lymphocyte Count 2.81 X10^3/uL (0.83-4.51); Basophil# 0.07 X10^3/uL; Eosinophil# 0.19 X10^3/uL; Eosinophils% 2.8 % (0-5); Hematocrit 42.9 % (40-54); Hemoglobin 13.3 g/dL (13.0-16.5); Lymphocyte # 2.81 X10^3/ul (0.83-4.51); Lymphocyte % 40.8 % (19-41); Mean Corpuscular Hgb 31.6 pg (27.0-32.0); Mean Corpuscular Volume 101.9 fL (80-94); Mean Platelet Vol. 10.9 fl (6.2-12.0); Monocyte# 0.71 X10^3/uL; Monocyte% 10.3 % (0-10); NRBC Flagged by Analyzer 0 % (0-5); Neutrophil % 43.5 % (47-70); Platelet Count 241 K/mm3 (150-450); RBC Distribution Width SD 48.7 fl (35.1-43.9); Red Blood Count 4.21 M/mm3 (4.6-6.2); White Blood Count 6.9 K/mm3 (4.4-11.0)
[2023-01-05 08:08] LABS: Anion Gap 4 (5-15); BUN 15 mg/dL (7-18); BUN/Creat Ratio 14.6 RATIO (10-20); Calcium,Total 8.5 mg/dL (8.5-10.1); Chloride 107 mmol/L (98-107); Creatinine, Serum 1.03 mg/dL (0.70-1.30); EST Glomerular Filtration Rate 74 mL/min (>60); Est Glom Filt Rate - Afr Amer 90 mL/min (>60); Glucose 102 mg/dL (74-106); Potassium 4.1 mmol/L (3.5-5.1); Sodium Level 137 mmol/L (136-145)
== END ==
LOC: OLS.WHLTSB 05:00
PROVIDERS: PCP Family Medicine Geriatric Medicine; Visit Provider Internal Medicine
DX: E11.9 Type 2 diabetes mellitus without complications (principal)
CPT/HCPCS: 36415; 80048; 85025

== ENCOUNTER → 2023-01-19 | Outpatient (REF) | payer MEDICARE, OTHER, SELFPAY ==
[2023-01-19 08:52] LABS: Absolute Neutrophil Count 3.7 X10^3/uL (2.0-7.7); Basophil# 0.07 X10^3/uL; Basophil% 0.9 % (0-1); Eosinophil# 0.27 X10^3/uL; Eosinophils% 3.5 % (0-5); Hematocrit 43.1 % (40-54); Hemoglobin 13.5 g/dL (13.0-16.5); Lymphocyte % 36.2 % (19-41); Mean Corp Hgb Conc 31.3 g/dL (32-36); Mean Corpuscular Hgb 31.3 pg (27.0-32.0); Mean Corpuscular Volume 99.8 fL (80-94); Mean Platelet Vol. 11.1 fl (6.2-12.0); Monocyte# 0.78 X10^3/uL; Monocyte% 10.1 % (0-10); NRBC Flagged by Analyzer 0 % (0-5); Neutrophil # 3.72 X10^3/uL (2.7-7.7); Platelet Count 207 K/mm3 (150-450); RBC Distribution Width CV 12.9 % (11.6-14.6); RBC Distribution Width SD 47.6 fl (35.1-43.9); Red Blood Count 4.32 M/mm3 (4.6-6.2); White Blood Count 7.7 K/mm3 (4.4-11.0)
[2023-01-19 09:12] LABS: Anion Gap 6 (5-15); BUN 13 mg/dL (7-18); Calcium,Total 8.7 mg/dL (8.5-10.1); Chloride 105 mmol/L (98-107); Creatinine, Serum 1.08 mg/dL (0.70-1.30); EST Glomerular Filtration Rate 71 mL/min (>60); Est Glom Filt Rate - Afr Amer 85 mL/min (>60); Glucose 88 mg/dL (74-106); Sodium Level 136 mmol/L (136-145)
== END ==
LOC: OLS.WHLTSB 05:00
PROVIDERS: PCP Family Medicine Geriatric Medicine; Visit Provider Internal Medicine
DX: E11.9 Type 2 diabetes mellitus without complications (principal)
CPT/HCPCS: 36415; 80048; 85025

== ENCOUNTER → 2023-02-02 | Outpatient (REF) | payer MEDICARE, OTHER, SELFPAY ==
[2023-02-02 09:24] LABS: Absolute Lymphocyte Count 2.53 X10^3/uL (0.83-4.51); Absolute Neutrophil Count 4.7 X10^3/uL (2.0-7.7); Basophil% 1.2 % (0-1); Eosinophil# 0.27 X10^3/uL; Eosinophils% 3.2 % (0-5); Hemoglobin 13.6 g/dL (13.0-16.5); Lymphocyte # 2.53 X10^3/ul (0.83-4.51); Lymphocyte % 29.8 % (19-41); Mean Corp Hgb Conc 30.9 g/dL (32-36); Mean Corpuscular Hgb 31.6 pg (27.0-32.0); Mean Corpuscular Volume 102.1 fL (80-94); Mean Platelet Vol. 10.7 fl (6.2-12.0); Monocyte# 0.78 X10^3/uL; Monocyte% 9.2 % (0-10); NRBC Flagged by Analyzer 0 % (0-5); Neutrophil # 4.73 X10^3/uL (2.7-7.7); Neutrophil % 55.7 % (47-70); Platelet Count 231 K/mm3 (150-450); RBC Distribution Width CV 13.2 % (11.6-14.6); RBC Distribution Width SD 50.1 fl (35.1-43.9); Red Blood Count 4.31 M/mm3 (4.6-6.2); White Blood Count 8.5 K/mm3 (4.4-11.0)
[2023-02-02 09:36] LABS: Anion Gap 5 (5-15); BUN 17 mg/dL (7-18); BUN/Creat Ratio 16.8 RATIO (10-20); Calcium,Total 8.8 mg/dL (8.5-10.1); Chloride 111 mmol/L (98-107); Creatinine, Serum 1.01 mg/dL (0.70-1.30); EST Glomerular Filtration Rate 76 mL/min (>60); Est Glom Filt Rate - Afr Amer 92 mL/min (>60); Glucose 93 mg/dL (74-106); Potassium 4.5 mmol/L (3.5-5.1); Sodium Level 141 mmol/L (136-145)
== END ==
LOC: OLS.WHLTSB 05:00
PROVIDERS: PCP Family Medicine Geriatric Medicine; Visit Provider Internal Medicine
DX: E11.9 Type 2 diabetes mellitus without complications (principal)
CPT/HCPCS: 36415; 80048; 85025

== ENCOUNTER → 2023-02-16 | Outpatient (REF) | payer MEDICARE, OTHER, SELFPAY ==
[2023-02-16 10:03] LABS: Anion Gap 8 (5-15); BUN 12 mg/dL (7-18); BUN/Creat Ratio 11.7 RATIO (10-20); Calcium,Total 8.9 mg/dL (8.5-10.1); Chloride 107 mmol/L (98-107); Creatinine, Serum 1.03 mg/dL (0.70-1.30); EST Glomerular Filtration Rate 74 mL/min (>60); Est Glom Filt Rate - Afr Amer 90 mL/min (>60); Glucose 109 mg/dL (74-106); Potassium 4.3 mmol/L (3.5-5.1); Sodium Level 138 mmol/L (136-145)
[2023-02-16 10:11] LABS: Absolute Lymphocyte Count 3.03 X10^3/uL (0.83-4.51); Absolute Neutrophil Count 3.3 X10^3/uL (2.0-7.7); Basophil# 0.08 X10^3/uL; Basophil% 1.1 % (0-1); Eosinophil# 0.24 X10^3/uL; Eosinophils% 3.3 % (0-5); Hematocrit 48.6 % (40-54); Hemoglobin 15.3 g/dL (13.0-16.5); Lymphocyte # 3.03 X10^3/ul (0.83-4.51); Lymphocyte % 41.1 % (19-41); Mean Corp Hgb Conc 31.5 g/dL (32-36); Mean Corpuscular Hgb 31.5 pg (27.0-32.0); Mean Platelet Vol. 11.3 fl (6.2-12.0); Monocyte# 0.64 X10^3/uL; Monocyte% 8.7 % (0-10); NRBC Flagged by Analyzer 0 % (0-5); Neutrophil # 3.29 X10^3/uL (2.7-7.7); Neutrophil % 44.4 % (47-70); Platelet Count 249 K/mm3 (150-450); RBC Distribution Width CV 13.1 % (11.6-14.6); RBC Distribution Width SD 48.6 fl (35.1-43.9); Red Blood Count 4.86 M/mm3 (4.6-6.2); White Blood Count 7.4 K/mm3 (4.4-11.0)
== END ==
LOC: OLS.WHLTSB 05:10
PROVIDERS: PCP Family Medicine Geriatric Medicine; Visit Provider Internal Medicine
DX: E11.9 Type 2 diabetes mellitus without complications (principal); M25.462 Effusion, left knee; M62.81 Muscle weakness (generalized)
CPT/HCPCS: 36415; 80048; 85025

== ENCOUNTER → 2023-03-02 | Outpatient (REF) | payer MEDICARE, OTHER, SELFPAY ==
[2023-03-02 08:42] LABS: Absolute Lymphocyte Count 3.09 X10^3/uL (0.83-4.51); Absolute Neutrophil Count 2.9 X10^3/uL (2.0-7.7); Basophil# 0.09 X10^3/uL; Basophil% 1.3 % (0-1); Eosinophil# 0.25 X10^3/uL; Eosinophils% 3.6 % (0-5); Hematocrit 42.4 % (40-54); Hemoglobin 13.2 g/dL (13.0-16.5); Lymphocyte # 3.09 X10^3/ul (0.83-4.51); Mean Corp Hgb Conc 31.1 g/dL (32-36); Mean Corpuscular Hgb 30.6 pg (27.0-32.0); Mean Corpuscular Volume 98.1 fL (80-94); Mean Platelet Vol. 11.5 fl (6.2-12.0); Monocyte# 0.67 X10^3/uL; Monocyte% 9.5 % (0-10); NRBC Flagged by Analyzer 0 % (0-5); Neutrophil # 2.86 X10^3/uL (2.7-7.7); Neutrophil % 40.6 % (47-70); Platelet Count 208 K/mm3 (150-450); RBC Distribution Width SD 46.5 fl (35.1-43.9); Red Blood Count 4.32 M/mm3 (4.6-6.2)
[2023-03-02 09:24] LABS: Anion Gap 6 (5-15); BUN 15 mg/dL (7-18); BUN/Creat Ratio 12.8 RATIO (10-20); Calcium,Total 8.9 mg/dL (8.5-10.1); Chloride 108 mmol/L (98-107); Creatinine, Serum 1.17 mg/dL (0.70-1.30); EST Glomerular Filtration Rate 64 mL/min (>60); Est Glom Filt Rate - Afr Amer 78 mL/min (>60); Glucose 93 mg/dL (74-106); Potassium 4.7 mmol/L (3.5-5.1); Sodium Level 136 mmol/L (136-145)
== END ==
LOC: OLS.WHLTSB 05:00
PROVIDERS: PCP Family Medicine Geriatric Medicine; Visit Provider Internal Medicine
DX: E11.9 Type 2 diabetes mellitus without complications (principal)
CPT/HCPCS: 36415; 80048; 85025

== ENCOUNTER → 2023-03-16 | Outpatient (REF) | payer MEDICARE, OTHER, SELFPAY ==
[2023-03-16 08:48] LABS: Absolute Lymphocyte Count 2.95 X10^3/uL (0.83-4.51); Absolute Neutrophil Count 3.6 X10^3/uL (2.0-7.7); Basophil# 0.07 X10^3/uL; Basophil% 0.9 % (0-1); Eosinophil# 0.28 X10^3/uL; Eosinophils% 3.7 % (0-5); Hemoglobin 12.9 g/dL (13.0-16.5); Lymphocyte # 2.95 X10^3/ul (0.83-4.51); Lymphocyte % 38.7 % (19-41); Mean Corp Hgb Conc 30.7 g/dL (32-36); Mean Corpuscular Hgb 30.8 pg (27.0-32.0); Mean Corpuscular Volume 100.2 fL (80-94); Monocyte# 0.69 X10^3/uL; NRBC Flagged by Analyzer 0 % (0-5); Neutrophil # 3.58 X10^3/uL (2.7-7.7); Neutrophil % 46.9 % (47-70); Platelet Count 208 K/mm3 (150-450); RBC Distribution Width CV 13.7 % (11.6-14.6); RBC Distribution Width SD 50.6 fl (35.1-43.9); Red Blood Count 4.19 M/mm3 (4.6-6.2); White Blood Count 7.6 K/mm3 (4.4-11.0)
[2023-03-16 08:56] LABS: Anion Gap 5 (5-15); BUN 20 mg/dL (7-18); Calcium,Total 9.1 mg/dL (8.5-10.1); Chloride 110 mmol/L (98-107); Creatinine, Serum 1.11 mg/dL (0.70-1.30); EST Glomerular Filtration Rate 68 mL/min (>60); Est Glom Filt Rate - Afr Amer 83 mL/min (>60); Glucose 91 mg/dL (74-106); Potassium 4.2 mmol/L (3.5-5.1); Sodium Level 141 mmol/L (136-145)
--- OUTSIDE RECORDS SUMMARY | 2023-03-16 21:49 | XMS RPT_ITS | CCD ---
Author Name Unknown Address [address] [place] [address] Organization [facility] Care Team Providers Care Dry Cleaning Counter Clerk Name Role Phone BOYD Hicks, Shavon Avila Unavailable Unavailabl e Darian Garcia Unavailable Unavailable [facility] Nurse Unavailable Unavailable Darian Garcia Unavailable Unavailable Pauline Muir Unavailable Unavailable Allergies Allergy Classification Reported Allergen(s) Allergy Type Date of Onset Reaction(s) Facility (5 sources) Sulfonamides (Antibiotic) drug allergy 01-03-2014 itching [facility] Work Phone: Medications Completed/Discontinued Medications Medication Drug Class(es) Dates Sig (Normalized) Sig (Original) AMLODIPINE BESY-BENAZEPRIL HCL (10 sources) Dihydropyridine Calcium Channel Verna, Angiotensin Converting Enzyme Inhibitor Start: 01-03-2014 take 1 tablet by mouth once daily LOTREL 10-40 MG CAPS One tablet by mouth daily AMLODIPINE BESY-BENAZEPRIL HCL [id number] Bel Jackson RN Problems Active Problems Problem Classification Problem Date Documented Date Episodic/Chronic Acute cerebrovascular disease (5 sources) Cerebrovascular accident; Translations: [Cerebral infarction, unspecified] Onset: 01-03-2014 01-03-2014 Chronic Cardiac and circulatory congenital anomalies (5 sources) Atrial septal defect; Translations: [Atrial septal defect] Onset: 01-03-2014 01-03-2014 Chronic Conduction disorders (5 sources) Right bundle branch block; Translations: [Unspecified right bundle-branch block] Onset: 03-05-2014 03-05-2014 Chronic Diabetes mellitus without complication (5 sources) Diabetes mellitus; Translations: [Type 2 diabetes mellitus without complications] Onset: 01-03-2014 01-03-2014 Chronic Disorders of lipid metabolism (5 sources) Hyperlipidemia; Translations: [Hyperlipidemia, unspecified] Onset: 01-03-2014 01-03-2014 Chronic Essential hypertension (5 sources) Hypertensive disorder; Translations: [Essential (primary) hypertension] Onset: 01-03-2014 01-03-2014 Chronic Other nutritional; endocrine; and metabolic disorders (8 sources) Body mass index (BMI) 37.0-37.9, adult; Translations: [Body mass index (BMI) 38.0-38.9, adult] Onset: 01-07-2014 01-07-2014 Chronic Other nutritional; endocrine; and metabolic disorders (2 sources) Body mass index (BMI) 38.0-38.9, adult; Translations: [Body mass index (BMI) 38.0-38.9, adult] Onset: 01-07-2014 03-04-2016 Chronic Transient cerebral ischemia (5 sources) Transient cerebral ischemia; Translations: [Transient cerebral ischemic attack, unspecified] Onset: 01-03-2014 01-03-2014 Chronic Unclassified (2 sources) Long-term drug therapy; Translations: [Long-term (current) use of other medications] Onset: 01-07-2014 01-07-2014 Past or Other Problems Problem Classification Problem Date Documented Da te Episodic/Chronic Other aftercare (3 sources) Long-term (current) use of other medications; Translations: [Long-term (current) use of other medications] Onset: 01-07-2014 01-07-2014 Episodic Other lower respiratory disease (4 sources) Dyspnea on exertion; Translations: [Other forms of dyspnea] Onset: 08-31-2016 08-31-2016 Episodic Residual codes; unclassified (5 sources) FH: Hypertension; Translations: [Family history of ischemic heart disease and other diseases of the circulatory system] 01-03-2014 Episodic Syncope (5 sources) Syncope and collapse; Translations: [Syncope and collapse] Onset: 01-03-2014 01-03-2014 Episodic Results Test Name Value Interpretation Reference Range Facil ity Vital Signs Date Time Vital Sign Value Performing Clinician Hector hook 08-31-2016 11:07-0400 BMI (Body Mass Index) 37.59 kg/m2 Pauline Gomez [employer] [facility] Work Phone: 08-31-2016 11:07-0400 BP Diastolic 72 mm[Hg] Pauline Muir [facility] Work Phone: 08-31-2016 11:07-0400 BP Systolic 166 mm[Hg] Pauline Muir [facility] Work Phone: 08-31-2016 11:07-0400 Height 177.8 cm Pauline Muir [facility] Work Phone: 08-31-2016 11:07-0400 Pulse (Heart Rate) 94 /min Pauline Muir [facility] Work Phone: 08-31-2016 11:07-0400 Respiratory Rate 18 /min Pauline Muir [facility] Work Phone: 08-31-2016 11:07-0400 Weight 118.84 kg Pauline Muir [facility] Work Phone: 03-04-2016 14:10-0500 BMI (Body Mass Index) 38.45 kg/m2 Harumi DeFinis [facility] Work Phone: 03-04-2016 14:10-0500 BP Diastolic 82 mm[Hg] Harumi DeFinis [facility] Work Phone: 03-04-2016 14:10-0500 BP Systolic 148 mm[Hg] Harumi DeFinis [facility] Work Phone: 03-04-2016 14:10-0500 BSA (Body Surface Area) 2.37 m2 Harumi DeFinis [facility] Work Phone: 03-04-2016 14:10-0500 Height 177.8 cm Harumi DeFinis [facility] Work Phone: 03-04-2016 14:10-0500 Pulse (Heart Rate) 70 /min Harumi DeFinis [facility] Work Phone: 03-04-2016 14:10-0500 Respiratory Rate 18 /min Harumi DeFinis [facility] Work Phone: 03-04-2016 14:10-0500 Weight 121.56 kg Harumi DeFinis [facility] Work Phone: 03-18-2014 10:25-0500 BP Diastolic 82 mm[Hg] Harumi DeFinis [facility] Work Phone: 03-18-2014 10:25-0500 BP Diastolic 84 mm[Hg] Harumi DeFinis [facility] Work Phone: 03-18-2014 10:25-0500 BP Systolic 162 mm[Hg] Harumi DeFinis [facility] Work Phone: 03-18-2014 10:25-0500 BP Systolic 168 mm[Hg] Harumi DeFinis [facility] Work Phone: 03-18-2014 10:25-0500 Pulse (Heart Rate) 90 /min Harumi DeFinis [facility] Work Phone: 01-07-2014 15:42-0400 BP Diastolic 50 mm[Hg] Harumi DeFinis [facility] Work Phone: 01-07-2014 15:42-0400 BP Diastolic 60 mm[Hg] Harumi DeFinis [facility] Work Phone: 01-07-2014 15:42-0400 BP Systolic 120 mm[Hg] Harumi DeFinis [facility] Work Phone: 01-07-2014 15:42-0400 BP Systolic 100 mm[Hg] Harumi DeFinis [facility] Work Phone: 01-07-2014 15:42-0400 BP Systolic 104 mm[Hg] Harumi DeFinis [facility] Work Phone: 01-07-2014 15:42-0400 Pulse (Heart Rate) 100 /min Harumi DeFinis [facility] Work Phone: 01-07-2014 15:42-0400 Pulse (Heart Rate) 80 /min Harumi DeFinis [facility] Work Phone: 01-07-2014 15:42-0400 Pulse (Heart Rate) 96 /min Harumi DeFinis [facility] Work Phone: Procedures Date Procedure Procedure Detail Performing Clinician Start: 08-31-2016 End: 08-31-2016 Dietary management education, guidance, and counseling Pauline Muir Start: 08-31-2016 End: 09-02-2016 Pulmonary Function Test - complete Jose Avery MD Work Phone: Start: 08-31-2016 End: 09-29-2016 Stress Echocardiogram - Dobutamine Jose Avery MD Work Phone: Start: 03-04-2016 End: 03-04-2016 Dietary management education, guidance, and counseling Darian Garcia Start: 03-04-2016 End: 03-04-2016 NING Avery MD Work Phone: Start: 03-04-2016 End: 03-04-2016 Follow Up Appt 6 months Jose Avery MD Work Phone: Start: 02-25-2015 End: 02-25-2015 NING Avery MD Work Phone: Start: 02-25-2015 End: 02-25-2015 Follow Up Appt 1 year Austin Grant Work Phone: Start: 04-30-2014 End: 05-07-2014 *BMP Jose Avery MD Work Phone: Start: 04-30-2014 End: 05-07-2014 Ct angiography, neck Jose Avery MD Work Phone: Start: 04-30-2014 End: 04-30-2014 NING Avery MD Work Phone: Start: 04-30-2014 End: 05-01-2014 Documentation of current medications Jose Avery MD Work Phone: Start: 04-30-2014 End: 04-30-2014 Follow Up Appt 6 months Jose Avery MD Work Phone: Start: 04-30-2014 End: 05-01-2014 Pedal pulse taking Jose Avery MD Work Phone: Start: 03-18-2014 End: 04-03-2014 Carotid duplex oJse Avery MD Work Phone: Start: 03-18-2014 End: 03-18-2014 NING Avery MD Work Phone: Start: 03-18-2014 End: 03-18-2014 Follow Up Appt 1 month Jose Avery MD Work Phone: Start: 03-18-2014 End: 03-18-2014 Follow Up Appt 1 year Austin Grant Work Phone: Start: 03-18-2014 End: 02-18-2015 Remote 30 day ecg rev/report Jose Avery MD Work Phone: Start: 01-21-2014 End: 01-21-2014 Follow Up BP Check Jose Avery MD Work Phone: Start: 01-07-2014 End: 01-07-2014 DJN Jose Avery MD Work Phone: Start: 01-07-2014 End: 01-07-2014 Follow Up Appt 1 year [facility] Grant Work Phone: Start: 01-07-2014 End: 02-07-2014 Stress Echocardiogram - Dobutamine Jose Avery MD Work Phone: Plan of Treatment Date Care Activity Detail Author Start: 03-08-2017 End: 03-08-2017 Appointment Appointment [facility] Work Phone: Start: 08-31-2016 End: 08-31-2016 Appointment Appointment [facility] Work Phone: Start: 08-31-2016 End: 08-31-2016 NING BARCLAY [facility] Work Phone: Start: 08-31-2016 End: 08-31-2016 Follow Up Appt 6 months Follow Up Appt 6 months [facility] Work Phone: Start: 08-31-2016 End: 08-31-2016 Pulmonary Function Test - complete Pulmonary Function Test - complete [facility] Work Phone: Start: 08-31-2016 End: 08-31-2016 Stress Echocardiogram - Dobutamine Stress Echocardiogram - Dobutamine [facility] Work Phone: Start: 03-04-2016 End: 03-04-2016 NING CORRINEN [facility] Work Phone: Start: 03-04-2016 End: 03-04-2016 Follow Up Appt 6 months Follow Up Appt 6 months [facility] Work Phone: Start: 02-25-2015 End: 02-25-2015 NING CORRINEN [facility] Work Phone: Start: 02-25-2015 End: 02-25-2015 Follow Up Appt 1 year Follow Up Appt 1 year [facility] Work Phone: Start: 04-30-2014 End: 05-07-2014 *BMP *BMP [facility] Work Phone: Start: 04-30-2014 End: 04-30-2014 Ct angiography, neck CTA Neck [facility] Work Phone: Start: 04-30-2014 End: 04-30-2014 NING NING [facility] Work Phone: Start: 04-30-2014 End: 04-30-2014 Follow Up Appt 6 months Follow Up Appt 6 months [facility] Work Phone: Start: 03-18-2014 End: 03-18-2014 Carotid duplex Carotid duplex [facility] Work Phone: Start: 03-18-2014 End: 03-18-2014 NING NING [facility] Work Phone: Start: 03-18-2014 End: 03-18-2014 Follow Up Appt 1 month Follow Up Appt 1 month [facility] Work Phone: Start: 03-18-2014 End: 03-18-2014 Follow Up Appt 1 year Follow Up Appt 1 year [facility] Work Phone: Start: 03-18-2014 End: 03-18-2014 Remote 30 day ecg rev/report 30 Day Holter Monitor [facility] Work Phone: Start: 01-21-2014 End: 01-21-2014 Follow Up BP Check Follow Up BP Check [facility] Work Phone: Start: 01-07-2014 End: 01-07-2014 DJN DJN [facility] Work Phone: Start: 01-07-2014 End: 01-07-2014 Follow Up Appt 1 year Follow Up Appt 1 year [facility] Work Phone: Start: 01-07-2014 End: 01-07-2014 Stress Echocardiogram - Dobutamine Stress Echocardiogram - Dobutamine [facility] Work Phone: Patient Education [facility] Work Phone: Additional Source Comments FOR RECORDS PERTAINING TO PATIENTS WHO ARE OR HAVE BEEN ENROLLED IN A CHEMICAL DEPENDENCY/SUBSTANCEABUSE PROGRAM, SOME INFORMATION MAY BE OMITTED. This clinical summary was aggregated from multiple sources. Caution should be exercised in using it in the provision of clinical care. This summary normalizes information from multiple sources, and as a consequence, information in this document may materially change the coding, format and clinical context of patient data. In addition, data may be omitted in some cases. CLINICAL DECISIONS SHOULD BE BASED ON THE PRIMARY CLINICAL RECORDS. [employer] [facility]. provides no warranty or guarantee of the accuracy or completeness of information in this document.
== END ==
LOC: OLS.WHLTSB 05:00
PROVIDERS: PCP Family Medicine Geriatric Medicine; Visit Provider Internal Medicine
DX: E11.9 Type 2 diabetes mellitus without complications (principal); M25.462 Effusion, left knee; M25.562 Pain in left knee; M62.81 Muscle weakness (generalized)
CPT/HCPCS: 36415; 80048; 85025

== ENCOUNTER → 2023-04-13 | Outpatient (CLI) | payer MEDICARE, OTHER, SELFPAY ==
--- OUTSIDE RECORDS SUMMARY | 2023-04-13 11:39 | XMS RPT_ITS | CCD ---
Author Name Unknown Address [address] [place] [address] Organization [facility] Care Team Providers Care Industrial Sales Representative Name Role Phone BOYD Hicks, Shavon Avila Unavailable Unavailabl e Darian Garcia Unavailable Unavailable [facility] Nurse Unavailable Unavailable Darian Garcia Unavailable Unavailable Pauline Muir Unavailable Unavailable Allergies Allergy Classification Reported Allergen(s) Allergy Type Date of Onset Reaction(s) Facility (5 sources) Sulfonamides (Antibiotic) drug allergy 01-03-2014 itching [facility] Work Phone: Medications Completed/Discontinued Medications Medication Drug Class(es) Dates Sig (Normalized) Sig (Original) AMLODIPINE BESY-BENAZEPRIL HCL (10 sources) Dihydropyridine Calcium Channel Verna, Angiotensin Converting Enzyme Inhibitor Start: 01-03-2014 take 1 tablet by mouth once daily LOTREL 10-40 MG CAPS One tablet by mouth daily AMLODIPINE BESY-BENAZEPRIL HCL [id number] Bel Jackson RN Problems Active Problems Problem [...] (Body Mass Index) 37.59 kg/m2 Pauline Gomez [employer] [facility] Work Phone: 08-31-2016 11:07-0400 BP Diastolic 72 mm[Hg] Pauline Muir [facility] Work Phone: 08-31-2016 11:07-0400 BP Systolic 166 mm[Hg] Pauline Muir [facility] Work Phone: 08-31-2016 11:07-0400 Height 177.8 cm Pauline Muir [facility] Work Phone: 08-31-2016 11:07-0400 Pulse (Heart Rate) 94 /min Pauline Muir [facility] Work Phone: 08-31-2016 11:07-0400 Respiratory Rate 18 /min Pauline Muir [facility] Work Phone: 08-31-2016 11:07-0400 Weight 118.84 kg Pauline Muir [facility] Work Phone: 03-04-2016 14:10-0500 BMI (Body Mass Index) 38.45 kg/m2 Harumi DeFinis [facility] Work Phone: 03-04-2016 14:10-0500 BP Diastolic 82 mm[Hg] Harumi DeFinis [facility] Work Phone: 03-04-2016 14:10-0500 BP Systolic 148 mm[Hg] Harumi DeFinis [facility] Work Phone: 03-04-2016 14:10-0500 BSA (Body Surface Area) 2.37 m2 Harumi DeFinis [facility] Work Phone: 03-04-2016 14:10-0500 Height 177.8 cm Harumi DeFinis [facility] Work Phone: 03-04-2016 14:10-0500 Pulse (Heart Rate) 70 /min Harumi DeFinis [facility] Work Phone: 03-04-2016 14:10-0500 Respiratory Rate 18 /min Harumi DeFinis [facility] Work Phone: 03-04-2016 14:10-0500 Weight 121.56 kg Harumi DeFinis [facility] Work Phone: 03-18-2014 10:25-0500 BP Diastolic 82 mm[Hg] Harumi DeFinis [facility] Work Phone: 03-18-2014 10:25-0500 BP Diastolic 84 mm[Hg] Harumi DeFinis [facility] Work Phone: 03-18-2014 10:25-0500 BP Systolic 162 mm[Hg] Harumi DeFinis [facility] Work Phone: 03-18-2014 10:25-0500 BP Systolic 168 mm[Hg] Harumi DeFinis [facility] Work Phone: 03-18-2014 10:25-0500 Pulse (Heart Rate) 90 /min Harumi DeFinis [facility] Work Phone: 01-07-2014 15:42-0400 BP Diastolic 50 mm[Hg] Harumi DeFinis [facility] Work Phone: 01-07-2014 15:42-0400 BP Diastolic 60 mm[Hg] Harumi DeFinis [facility] Work Phone: 01-07-2014 15:42-0400 BP Systolic 120 mm[Hg] Harumi DeFinis [facility] Work Phone: 01-07-2014 15:42-0400 BP Systolic 100 mm[Hg] Harumi DeFinis [facility] Work Phone: 01-07-2014 15:42-0400 BP Systolic 104 mm[Hg] Harumi DeFinis [facility] Work Phone: 01-07-2014 15:42-0400 Pulse (Heart Rate) 100 /min Harumi DeFinis [facility] Work Phone: 01-07-2014 15:42-0400 Pulse (Heart Rate) 80 /min Harumi DeFinis [facility] Work Phone: 01-07-2014 15:42-0400 Pulse (Heart Rate) 96 /min Harumi DeFinis [facility] Work Phone: Procedures Date Procedure [...] Phone: Start: 03-18-2014 End: 04-03-2014 Carotid duplex Jose Avery MD Work Phone: Start: 03-18-2014 [...] Author Start: 03-08-2017 End: 03-08-2017 Appointment Appointment [facility] Work Phone: Start: 08-31-2016 End: 08-31-2016 Appointment Appointment [facility] Work Phone: Start: 08-31-2016 End: 08-31-2016 NING BARCLAY [facility] Work Phone: Start: 08-31-2016 End: 08-31-2016 Follow Up Appt 6 months Follow Up Appt 6 months [facility] Work Phone: Start: 08-31-2016 End: 08-31-2016 Pulmonary Function Test - complete Pulmonary Function Test - complete [facility] Work Phone: Start: 08-31-2016 End: 08-31-2016 Stress Echocardiogram - Dobutamine Stress Echocardiogram - Dobutamine [facility] Work Phone: Start: 03-04-2016 End: 03-04-2016 NING CORRINEN [facility] Work Phone: Start: 03-04-2016 End: 03-04-2016 Follow Up Appt 6 months Follow Up Appt 6 months [facility] Work Phone: Start: 02-25-2015 End: 02-25-2015 NING CORRINEN [facility] Work Phone: Start: 02-25-2015 End: 02-25-2015 Follow Up Appt 1 year Follow Up Appt 1 year [facility] Work Phone: Start: 04-30-2014 End: 05-07-2014 *BMP *BMP [facility] Work Phone: Start: 04-30-2014 End: 04-30-2014 Ct angiography, neck CTA Neck [facility] Work Phone: Start: 04-30-2014 End: 04-30-2014 NING NING [facility] Work Phone: Start: 04-30-2014 End: 04-30-2014 Follow Up Appt 6 months Follow Up Appt 6 months [facility] Work Phone: Start: 03-18-2014 End: 03-18-2014 Carotid duplex Carotid duplex [facility] Work Phone: Start: 03-18-2014 End: 03-18-2014 NING NING [facility] Work Phone: Start: 03-18-2014 End: 03-18-2014 Follow Up Appt 1 month Follow Up Appt 1 month [facility] Work Phone: Start: 03-18-2014 End: 03-18-2014 Follow Up Appt 1 year Follow Up Appt 1 year [facility] Work Phone: Start: 03-18-2014 End: 03-18-2014 Remote 30 day ecg rev/report 30 Day Holter Monitor [facility] [employer] Work Phone: Start: 01-21-2014 End: 01-21-2014 Follow Up BP Check Follow Up BP Check [facility] Work Phone: Start: 01-07-2014 End: 01-07-2014 DJN DJN [facility] Work Phone: Start: 01-07-2014 End: 01-07-2014 Follow Up Appt 1 year Follow Up Appt 1 year [facility] Work Phone: Start: 01-07-2014 End: 01-07-2014 Stress Echocardiogram - Dobutamine Stress Echocardiogram - Dobutamine [facility] Work Phone: Patient Education [facility] Work Phone: Additional [...] BE BASED ON THE PRIMARY CLINICAL RECORDS. [facility] [facility]. provides no warranty or guarantee of the accuracy or completeness of information in this document.
[2023-04-13 12:44] LABS: Absolute Neutrophil Count 5.8 X10^3/uL (2.0-7.7); Basophil# 0.06 X10^3/uL; Basophil% 0.7 % (0-1); Eosinophil# 0.12 X10^3/uL; Eosinophils% 1.3 % (0-5); Hematocrit 44.5 % (40-54); Hemoglobin 14.1 g/dL (13.0-16.5); Lymphocyte % 22.4 % (19-41); Mean Corp Hgb Conc 31.7 g/dL (32-36); Mean Corpuscular Hgb 31.5 pg (27.0-32.0); Mean Corpuscular Volume 99.6 fL (80-94); Mean Platelet Vol. 11.1 fl (6.2-12.0); Monocyte# 0.81 X10^3/uL; Monocyte% 9.1 % (0-10); NRBC Flagged by Analyzer 0 % (0-5); Platelet Count 216 K/mm3 (150-450); RBC Distribution Width CV 13.9 % (11.6-14.6); RBC Distribution Width SD 51.5 fl (35.1-43.9); Red Blood Count 4.47 M/mm3 (4.6-6.2); White Blood Count 8.9 K/mm3 (4.4-11.0)
[2023-04-13 13:05] LABS: Vitamin D,25 Hydroxy 20.2 ng/mL
[2023-04-13 13:39] LABS: ALB/GLOB Ratio 0.9 RATIO (0.9-2.4); AST(SGOT) 11 U/L (15-37); Alanine Aminotransfer ALT/SGPT 17 U/L (16-61); Albumin, Serum 3.1 g/dL (3.2-5.0); Alkaline Phosphatase 41 U/L (45-117); Anion Gap 7 (5-15); BUN 23 mg/dL (7-18); BUN/Creat Ratio 21.1 RATIO (10-20); Calcium,Total 8.9 mg/dL (8.5-10.1); Chloride 110 mmol/L (98-107); Creatinine, Serum 1.09 mg/dL (0.70-1.30); EST Glomerular Filtration Rate 70 mL/min (>60); Est Glom Filt Rate - Afr Amer 84 mL/min (>60); Globulin 3.6 g/dL (2.2-4.2); Glucose 205 mg/dL (74-106); Potassium 4.8 mmol/L (3.5-5.1); Protein, Total 6.7 g/dL (6.4-8.2); Sodium Level 138 mmol/L (136-145); Thyroid Stim Hormone (TSH) 0.83 uIU/mL (0.358-3.74)
== END | disposition home or self-care (01) ==
LOC: POLAB3 11:18
PROVIDERS: PCP Family Medicine Geriatric Medicine; Visit Provider Family Medicine Geriatric Medicine
DX: E11.65 Type 2 diabetes mellitus with hyperglycemia (principal); I10 Essential (primary) hypertension; E55.9 Vitamin D deficiency, unspecified
CPT/HCPCS: 36415; 80053; 82306; 84443; 85025

== ENCOUNTER 2023-04-20 09:49 | Outpatient (RCR) | payer MEDICARE, OTHER, SELFPAY ==
[2023-04-20 10:12] VITALS: BP 145/70; PULSE 79; RESP 16; TEMP 36.8; BMI 33.3
--- NOTE | 2023-04-20 12:15 | HP.PCM_ITS ---
History of Present Illness Date of Service: 04/20/23 Chief Complaint: Follow-up on bilateral buttock cheeks open wounds decubitus ulcers History of Wound: 78-year-old white male with Alzheimer's disease has developed bilateral butt cheek open areas that are pretty big from sitting in a chair all day long. states he sleeps in that lounge chair and eats in the lounge chair and refuses to get up. Patient is not using his bed at all. has been using Neosporin ointment on them for the last month or 2 that they have been around [facility] Medical History Anterolisthesis Atrial septal defect Bifascicular block Closed fracture of left proximal tibia CVA (cerebral vascular accident) (~07/2006) DDD (degenerative disc disease), lumbar Deep vein thrombophlebitis of right leg Depression Diabetes mellitus, type II Effusion, left knee Essential hypertension Fall Hyperlipidemia Left knee pain Migraines CRYSTAL (obstructive sleep apnea) Osteoarthritis of left knee Right bundle branch block Syncope and collapse Tear of medial meniscus of left knee TIA (transient ischemic attack) (~10/2013) Home Medications acetaminophen 500 mg tablet 1,000 mg PO Q8 pain 06/30/22 [History Last Taken Unknown] nystatin 100,000 unit/gram topical powder ([facility] [place]) 1 applic topical BID redness 06/30/22 [History Last Taken Unknown] menthol 0.44 %-zinc oxide 20.6 % topical ointment (Calmoseptine) 1 applic topical BID #0 grams 07/27/22 [Rx Last Taken Unknown] sennosides 8.6 mg-docusate sodium 50 mg tablet (Stool Softener-Stimulant Laxative) 2 tab PO BID #0 tabs 07/27/22 [Rx Last Taken Unknown] meclizine 12.5 mg tablet 12.5 mg PO DAILY PRN VERTIGO/DIZZINESS #90 tabs 10/04/22 [Rx Last Taken Unknown] clopidogrel 75 mg tablet (Plavix) 75 mg PO DAILY blood thinner #90 tabs 10/25/22 [Rx Last Taken Unknown] furosemide 20 mg tablet See Rx Instructions .Route .COMPLEX #90 TABLETS 10/25/22 [Rx Last Taken Unknown] losartan 100 mg tablet 100 mg PO DAILY #90 tabs 10/25/22 [Rx Last Taken Unknown] metformin 1,000 mg tablet 1,000 mg PO BID diabetes #180 tabs 10/25/22 [Rx Last Taken Unknown] metoprolol tartrate 25 mg tablet 25 mg PO BID #180 tabs 10/25/22 [Rx Last Taken Unknown] pioglitazone 15 mg tablet 15 mg PO QHS diabetes #90 tabs 10/25/22 [Rx Last Taken Unknown] pravastatin 40 mg tablet 40 mg PO QHS #90 tabs 10/25/22 [Rx Last Taken Unknown] diltiazem HCl 180 mg capsule,extended release 24 hr 240 mg PO DAILY 04/20/23 [History Last Taken Unknown] vitamin B complex (B Complex-Vitamin B12 tablet) 1 tab PO DAILY 04/20/23 [History Last Taken Unknown] Allergy/AdvReac Type Severity Reaction Status Date / Time Sulfa (Sulfonamide Allergy Hives Verified 04/20/23 10:23 Antibiotics) Family History Mother Hypertension Surgical History Hx of local excision of skin lesion Social History household members: spouse housing: house Smoking Status: Former smoker alcohol intake: never substance use type: does not use what type of physical activity do you participate in: none ROS Constitutional Constitutional: Reports systems reviewed and no addt'l complaints, except as documented Eyes Eyes: Reports systems reviewed and no addt'l complaints, except as documented ENT HEENT: Reports systems reviewed and no addt'l complaints, except as documented Cardiovascular Cardiovascular: Reports systems reviewed and no addt'l complaints, except as documented Respiratory/Chest Respiratory/Chest: Reports systems reviewed and no addt'l complaints, except as documented Gastrointestinal Gastrointestinal: Reports systems reviewed and no addt'l complaints, except as documented Genitourinary Genitourinary: Reports systems reviewed and no addt'l complaints, except as documented Musculoskeletal Musculoskeletal: Reports systems reviewed and no addt'l complaints, except as documented Integumentary Integumentary: Reports wounds and other Details: Bilateral open wounds on each buttocks Neurologic Neurologic: Reports systems reviewed and no addt'l complaints, except as documented Psychiatric Psychiatric: Reports systems reviewed and no addt'l complaints, except as documented Endocrine Endocrinology: Reports systems reviewed and no addt'l complaints, except as documented Hematologic/Lymphatic Hematologic/Lymphatic: Reports systems reviewed and no addt'l complaints, except as documented Allergic/Immunologic Allergic/Immunologic: Reports systems reviewed and no addt'l complaints, except as documented Vital Signs Vital Signs Vital Signs: 04/20/23 10:12 Temperature 98.2 F Temperature Source Temporal Pulse Rate 79 Respiratory Rate 16 Blood Pressure 145/70 H Blood Pressure Mean 95 Blood Pressure Source Monitor Blood Pressure Position Sitting Blood Pressure Location Right Arm Oxygen Delivery Method Room Air Weight Weight: 232 lb Body Mass Index (BMI) 33.3 Physical Exam Const alert General Appearance: cooperative Orientation / Consciousness: awake HEENT normocephalic Resp normal respiratory effort Effort and Inspection: able to speak in complete sentences Auscultation: clear to auscultation bilaterally Cardio regular rate and regular rhythm Palpation: normal PMI Rate: regular rate Rhythm: regular rhythm Skin Wound Narrative: 2 open wounds on either buttocks decubitus ulcers stage II Neuro oriented x3 Psych Appearance: grossly normal Speech: normal speech Thought Content: normal thought content Judgement: judgement good Debridement Note Debridement Note Wound debrided: Right buttocks Laterality: Right Wound Grade/Stage: Stage II Type of Debridement: Excisional debridement Anesthesia Used: 5% Lidocaine Gel Depth: Down to and including healthy tissue and in the subcutaneous layer Percentage of wound debrided: 100 Instrument Used: 5mm curette Tissue Removed: Fibrin Severity: Fat Layer Exposed Amount of bleeding with debridement: Mild Bleeding Controlled with: Compression and gauze Patient tolerated procedure: Patient tolerated procedure well Post-Debridement Measurements and Additional Note: Post-Debridement Measurements/Treatment - Nurse 1 - General Ulcer Assessment Start: 04/20/23 10:11 Freq: Status: Active Protocol: JOVAN Activity Type Activity Date Activity User E-sign Co-sign Detail Recorded Client Recorded Date Recorded By Document 04/20/23 10:12 [facility] Desktop 04/20/23 10:21 [facility] 04/20/23 10:12 - Today's Visit Information Type of service Initial Visit Arrival Mode Ambulatory Transfer Assistance None Accompanied by Patient Identification Verified (Name & Yes ) Patient Requires Transmission-Based No Precautions Height and Weight Height 5 ft 10 in Weight 232 lb Weight in Pounds 232.0 lbs Body Mass Index (BMI) 33.3 BMI Classification Obese BSA - Jani 2.22 Vital Signs Temperature (97.8 F-99.1 F) 98.2 F Temperature Source Temporal Pulse Rate (60-100) 79 Pulse Location Monitor Respiratory Rate (12-18) 16 Respiratory rate source Observation Oxygen Delivery Method Room Air Blood Pressure (90/60-120/80) 145/70 H Blood Pressure Mean 95 Source Monitor Position Sitting Blood Pressure Location Right Arm History Since Last Visit- (Skip if this is Patient's initial visit) Left Footwear Regular Shoe Right Footwear Regular Shoe Pain Scale: 0-10 Numeric Is Patient Pain Free? Yes Communication Assessment Preferred language Albanian Associate Professor Of Surgery Required No Able to Read Yes Able to Write Yes Communication Tools None Right Hearing Abillity Hard of Hearing ,Use of Hearing Aid Left Hearing Abillity Hard of Hearing ,Use of Hearing Aid Visual Assistive Devices Glasses Teaching Assessment Preferences Verbal,Written, Audio/Visual, Demonstration Barriers to Learning None Readiness To Learn Good Willingness to Engage in Self Management Med Activies Readiness to Engage in Self Management Med Activities Anxiety Level Calm Cooperation Cooperative Perception Coherent Interest in Health Problem Asks Questions Education Importance Acknowledges Need Does Patient Smoke tobacco or other No substances Smoking Status Former smoker Is Patient Diabetic Yes Culture/Shinto/Ramp Lead Cultural/Shinto Needs that may affect No Treatment Plan Teaching: Wound Center *Welcome to the Wound Center -Person Taught Patient, Significant Other -Teaching Method Discussion -Response to teaching Verbalize understanding Welcome to the Wound Care Center English ARREDONDO - Nurse 1 - General Ulcer Measurement Start: 04/20/23 10:11 Freq: Status: Active Protocol: Activity Type Activity Date Activity User E-sign Co-sign Detail Recorded Client Recorded Date Recorded By Document 04/20/23 10:12 [facility] Desktop 04/20/23 10:21 [facility] 04/20/23 10:12 Wound Center Nurse 1 #2- L BUTTOCK -Combined with other wound No -Current Size (cm) - Length 1.5 -Current Size (cm) - Width 1.2 -Current Size (cm) - Depth 0.2 -Total Square Cm 1.80 -Date of Last Picture (Recall this 04/20/23 field) -Photo Taken Yes -Epithelialization None Present -Tunneling No -Undermining/Tunneling No -Circular Undermining No -Exudate Amt Medium -Exudate Type Serosanguineous -Wound Margin Distinct, Outline Attached -Granulation Amt None Present (0 %) -Slough/Fibrin Yes -Necrosis Amt Large (67-100%) -Necrotic Tissue Type Adherent Slough -Texture (Angelic-wound Skin Appearance) Assessed, Scarring -Moisture (Angelic-wound Skin Appearance) Assessed -Color (Angelic-wound Skin Appearance) Assessed, Erythema -Temperature (Angelic-wound Skin No Abnormality Appearance) (Pt Warm) -Tenderness on Palpation (Angelic-wound Yes Skin Appearance) -Ulcer Cleansing Soap and Water -Foul Odor after Cleansing No -Anesthetic Used 5% Lidocaine Gel #1- R BUTTOCK -Combined with other wound No -Current Size (cm) - Length 3.7 -Current Size (cm) - Width 2 -Current Size (cm) - Depth 0.2 -Total Square Cm 7.4 -Date of Last Picture (Recall this 04/20/23 field) -Photo Taken Yes -Epithelialization None Present -Tunneling No -Undermining/Tunneling No -Circular Undermining No -Exudate Amt Medium -Exudate Type Serosanguineous -Wound Margin Distinct, Outline Attached -Granulation Amt None Present (0 %) -Slough/Fibrin Yes -Necrosis Amt Large (67-100%) -Necrotic Tissue Type Adherent Slough -Texture (Angelic-wound Skin Appearance) Assessed, Scarring -Moisture (Angelic-wound Skin Appearance) Assessed -Color (Angelic-wound Skin Appearance) Assessed, Erythema -Temperature (Angelic-wound Skin No Abnormality Appearance) (Pt Warm) -Tenderness on Palpation (Angelic-wound Yes Skin Appearance) -Ulcer Cleansing Soap and Water -Foul Odor after Cleansing No -Anesthetic Used 5% Lidocaine Gel WC - Nurse 2 - General Ulcer CM Notes Start: 04/20/23 10:11 Freq: Status: Active Protocol: Activity Type Activity Date Activity User E-sign Co-sign Detail Recorded Client Recorded Date Recorded By Document 04/20/23 10:38 [facility] Desktop 04/20/23 10:51 [facility] 04/20/23 10:38 Wound Center Nurse 2 #2- L BUTTOCK -Time 10:39 -Correct Patient Yes -Correct Side, Site, Position Yes -Correct Procedure Yes -Procedure Performed Yes -Type of Procedure Debridement -Clinical Debridement Subcutaneous -Tissue Removed Subcutaneous -Post Debridement (cm) - Length 3.5 -Post Debridement (cm) - Width 2.0 -Post Debridement (cm) - Depth 0.2 -Total Square (Post) (cm) 7.00 -Area of Debridement (cm) - Length 3.5 -Area of Debridement (cm) - Width 2.0 -Total Square (Area) (cm) 7.00 -Tunneling No -Undermining/Tunneling No -Circular Undermining No -Wound/Ulcer Outcome Not Healed -Ulcer Cleansing Rinsed/ Irrigated with Saline -Foul Odor after Cleansing No -Bioengineered Tissue No -Bleeding Controlled with Pressure -Treatment Response Procedure Tolerated Well -Offloading No -Debridement - Subq, 1st 20sq cm Yes #1- R BUTTOCK -Time 10:41 -Correct Patient Yes -Correct Side, Site, Position Yes -Correct Procedure Yes -Procedure Performed Yes -Type of Procedure Debridement -Clinical Debridement Subcutaneous -Tissue Removed Subcutaneous -Post Debridement (cm) - Length 2.0 -Post Debridement (cm) - Width 1.2 -Post Debridement (cm) - Depth 0.2 -Total Square (Post) (cm) 2.40 -Area of Debridement (cm) - Length 2.0 -Area of Debridement (cm) - Width 1.2 -Total Square (Area) (cm) 2.40 -Tunneling No -Undermining/Tunneling No -Circular Undermining No -Wound/Ulcer Outcome Not Healed -Ulcer Cleansing Rinsed/ Irrigated with Saline -Foul Odor after Cleansing No -Bioengineered Tissue No -Bleeding Controlled with Pressure -Treatment Response Procedure Tolerated Well -Offloading No -Debridement - Subq, 1st 20sq cm No Pain Scale: 0-10 Numeric Is Patient Pain Free? Yes - Nurse 3 - General Ulcer D/C NN Start: 04/20/23 10:11 Freq: Status: Active Protocol: Activity Type Activity Date Activity User E-sign Co-sign Detail Recorded Client Recorded Date Recorded By Document 04/20/23 11:10 [facility] Desktop 04/20/23 11:11 [facility] 04/20/23 11:10 Wound Care Center Nurse 3 #2- L BUTTOCK -Ulcer Cleansing Rinsed/ Irrigated with Saline -Foul Odor after Cleansing No -Primary Dressing Applied Aquacel Extra, Mepilex Border -Aquacel Extra 1 -Mepilex Border 3 #1- R BUTTOCK -Ulcer Cleansing Rinsed/ Irrigated with Saline -Foul Odor after Cleansing No -Primary Dressing Applied Aquacel Extra, Mepilex Border -Aquacel Extra 0 -Mepilex Border 0 Treatment Response Procedure Tolerated Well Pain Scale: 0-10 Numeric Is Patient Pain Free? Yes WC - Visit Discharge Discharge Condition Stable Ambulatory Status Ambulatory, Walker Transportation Private Auto Accompanied by Additional Wound Wound debrided: Left buttocks decubitus ulcer Laterality: Left Wound Grade/Stage: Stage II Type of Debridement: Excisional debridement Anesthesia Used: 5% Lidocaine Gel Depth: Down to and including healthy tissue and in the subcutaneous layer Percentage of wound debrided: 100 Instrument Used: 5mm curette Tissue Removed: Fibrin Severity: Fat Layer Exposed Amount of bleeding with debridement: Mild Bleeding Controlled with: Compression and gauze Patient tolerated procedure: Patient tolerated procedure well Assessment/Plan Assessment/Plan (1) Decubitus ulcer of right buttock, stage 2: CODE(S): L89.312 - Pressure ulcer of right buttock, stage 2 (2) Decubitus ulcer of left buttock, stage 2: CODE(S): L89.322 - Pressure ulcer of left buttock, stage 2 (3) Alzheimer's dementia: CODE(S): G30.9 - Alzheimer's disease, unspecified; F02.80 - Dementia in other diseases classified elsewhere, unspecified severity, without behavioral disturbance, psychotic disturbance, mood disturbance, and anxiety QUALIFIERS: Alzheimer's disease onset: late onset Dementia severity: moderate Dementia behavioral or psychological symptom: with agitation Qualified Code(s): G30.1 - Alzheimer's disease with late onset; F02.B11 - Dementia in other diseases classified elsewhere, moderate, with agitation PLAN: is opted to have home health care come in and do the dressing changes 2 times a week Wash buttocks areas with antibacterial soap such as Dial. Apply the Aquacel extra to wound base moistened and cover with absorbent dressings every day. Try to offload by having a pillow on it and get him to lay off off his back and more honest ankle to the side when in his chair Did write for a gel cushion for his sitting. Follow-up in 1 week
== END 2023-04-20 23:59 | disposition home or self-care (01) ==
LOC: WC 09:49
PROVIDERS: PCP Family Medicine Geriatric Medicine; Referring Provider Family Medicine Geriatric Medicine; Visit Provider Nurse Practitioner
DX: L89.312 Pressure ulcer of right buttock, stage 2 (principal); L89.322 Pressure ulcer of left buttock, stage 2; G30.1 Alzheimer's disease with late onset; F02.B11 Dementia in other diseases classified elsewhere, moderate, with agitation; E11.9 Type 2 diabetes mellitus without complications; I10 Essential (primary) hypertension; E78.5 Hyperlipidemia, unspecified; Z79.02 Long term (current) use of antithrombotics/antiplatelets; Z79.84 Long term (current) use of oral hypoglycemic drugs; Z79.899 Other long term (current) drug therapy; Z87.891 Personal history of nicotine dependence
CPT/HCPCS: 11042; 99203; G0463

== ENCOUNTER 2023-05-11 10:15 | Outpatient (RCR) | payer MEDICARE, OTHER, SELFPAY ==
[2023-04-21 00:35] VITALS: BP 145/70; PULSE 79; RESP 16; TEMP 36.8; BMI 33.3
[2023-04-27 10:16] VITALS: BP 142/55; PULSE 56; RESP 20; TEMP 36.6; BMI 33.3
--- NOTE | 2023-04-27 10:57 | PN.PCM_ITS ---
History of Present Illness Date of Service: 04/27/23 Chief Complaint: Follow-up on bilateral buttock cheeks open wounds decubitus ulcers History of Wound: 78-year-old white male with Alzheimer's disease has developed bilateral butt cheek open areas that are pretty big from sitting in a chair all day long. states he sleeps in that lounge chair and eats in the lounge chair and refuses to get up. Patient is not using his bed at all. has been using Neosporin ointment on them for the last month or 2 that they have been around Progress of Wound: Right buttocks is healed left buttocks slightly still open stage II. Clean no sign of infection doing well. Unable to get home health because she is already receiving physical therapy and she can only have 1 therapy at a time. has been doing the dressing change she is doing very well with no complaints. Subjective Subjective Patient is agreeable and so his with treatments we will continue using the Aquacel extra to the wound with Adaptic over top Objective Data Objective Data Again no sign of infection healing well right buttocks is resolved left buttocks is still slightly open it was the worst of the 2. has taken back the foam cushion and is getting a gel cushion ordered. Vital Signs: Vital Signs Temp Pulse Resp BP 98 F 56 L 20 H 142/55 H 04/27/23 10:16 04/27/23 10:16 04/27/23 10:16 04/27/23 10:16 Weight: 232 lb Body Mass Index (BMI) 33.3 Physical Exam Const alert General Appearance: cooperative Orientation / Consciousness: awake HEENT normocephalic Resp normal respiratory effort Effort and Inspection: able to speak in complete sentences Auscultation: clear to auscultation bilaterally Cardio regular rate and regular rhythm Palpation: normal PMI Rate: regular rate Rhythm: regular rhythm Skin Wound Narrative: 2 open wounds on either buttocks decubitus ulcers stage II Neuro oriented x3 Psych Appearance: grossly normal Speech: normal speech Thought Content: normal thought content Judgement: judgement good Debridement Note Debridement Note Wound debrided: Right buttocks No debridement was completed: No debridement was completed today Post-Debridement Measurements and Additional Note: Post-Debridement Measurements/Treatment MARIA ELENA - Nurse 1 - General Ulcer Assessment Start: 04/27/23 10:15 Freq: Status: Active Protocol: JOVAN Activity Type Activity Date Activity User E-sign Co-sign Detail Recorded Client Recorded Date Recorded By Document 04/27/23 10:16 DL [facility] 04/27/23 10:23 DL 04/27/23 10:16 - Today's Visit Information Type of service Follow-up Visit (Physician/FUND DEVELOPMENT MANAGER ) Arrival Mode Ambulatory, Walker Transfer Assistance None Patient Identification Verified (Name & Yes ) Patient Requires Transmission-Based No Precautions Height and Weight Body Mass Index (BMI) 33.3 BMI Classification Obese Vital Signs Temperature (97.8 F-99.1 F) 98 F Temperature Source Temporal Pulse Rate (60-100) 56 L Pulse Location Monitor Respiratory Rate (12-18) 20 H Respiratory rate source Observation Blood Pressure (90/60-120/80) 142/55 H Blood Pressure Mean (mm Hg) 84 Source Monitor History Since Last Visit- (Skip if this is Patient's initial visit) Have you changed medications since your No last visit? Any new allergies or adverse reactions No Had a fall/change in ADL's that may No increase risk of falls Signs or symptoms of abuse and/or No neglect since last visit Have you been in the hospital since your No last visit? Has dressing in place as prescribed Yes Has compression in place as prescribed N/A Experienced any changes in pain level or No management Pain Scale: 0-10 Numeric Is Patient Pain Free? Yes - Nurse 1 - General Ulcer Measurement Start: 04/27/23 10:15 Freq: Status: Active Protocol: Activity Type Activity Date Activity User E-sign Co-sign Detail Recorded Client Recorded Date Recorded By Document 04/27/23 10:16 [email or web address] 04/27/23 10:23 04/27/23 10:16 Wound Center Nurse 1 #1- R BUTTOCK -Current Size (cm) - Length 0.1 -Current Size (cm) - Width 0.1 -Current Size (cm) - Depth 0.1 -Total Square Cm 0.01 -Exudate Amt None Present -Wound Margin Flat & Intact -Granulation Amt Large (67-100%) -Granulation Quality [place] -Necrosis Amt None Present (0 %) -Necrotic Tissue Type Adherent Slough -Structure Exposed N/A -Texture (Angelic-wound Skin Appearance) Scarring -Moisture (Angelic-wound Skin Appearance) No Abnormality -Color (Angelic-wound Skin Appearance) No Abnormality -Temperature (Angelic-wound Skin No Abnormality Appearance) (Pt Warm) -Tenderness on Palpation (Angelic-wound No Skin Appearance) -Ulcer Cleansing Rinsed/ Irrigated with Saline -Foul Odor after Cleansing No #2- L BUTTOCK -Current Size (cm) - Length 1.1 -Current Size (cm) - Width 0.5 -Current Size (cm) - Depth 0.1 -Total Square Cm 0.55 -Exudate Amt Small -Exudate Type Serosanguineous -Wound Margin Distinct, Outline Attached -Granulation Amt Large (67-100%) -Granulation Quality [place]bes -Necrosis Amt Small (1-33%) -Necrotic Tissue Type Adherent Slough -Structure Exposed N/A -Texture (Angelic-wound Skin Appearance) Scarring -Moisture (Angelic-wound Skin Appearance) No Abnormality -Color (Angelic-wound Skin Appearance) No Abnormality -Temperature (Angelic-wound Skin No Abnormality Appearance) (Pt Warm) -Tenderness on Palpation (Angelic-wound No Skin Appearance) -Ulcer Cleansing Wound Cleanser -Foul Odor after Cleansing No -Anesthetic Used 5% Lidocaine Gel WC - Nurse 2 - General Ulcer CM Notes Start: 04/27/23 10:15 Freq: Status: Active Protocol: Activity Type Activity Date Activity User E-sign Co-sign Detail Recorded Client Recorded Date Recorded By Document 04/27/23 10:36 MW Desktop 04/27/23 10:39 MW 04/27/23 10:36 Wound Center Nurse 2 #1- R BUTTOCK -Time 10:36 -Correct Patient Yes -Correct Side, Site, Position Yes -Correct Procedure Yes -Procedure Performed No -Post Debridement (cm) - Length 0 -Post Debridement (cm) - Width 0 -Post Debridement (cm) - Depth 0 -Total Square (Post) (cm) 0 -Wound/Ulcer Outcome Healed- Epithelialized #2- L BUTTOCK -Time 10:36 -Correct Patient Yes -Correct Side, Site, Position Yes -Correct Procedure Yes -Procedure Performed Yes -Type of Procedure Debridement -Clinical Debridement Subcutaneous -Tissue Removed Subcutaneous -Post Debridement (cm) - Length 2.3 -Post Debridement (cm) - Width 1.7 -Post Debridement (cm) - Depth 0.2 -Total Square (Post) (cm) 3.91 -Area of Debridement (cm) - Length 2.3 -Area of Debridement (cm) - Width 1.7 -Total Square (Area) (cm) 3.91 -Tunneling No -Undermining/Tunneling No -Circular Undermining No -Wound/Ulcer Outcome Not Healed -Ulcer Cleansing Rinsed/ Irrigated with Saline -Foul Odor after Cleansing No -Bioengineered Tissue No -Bleeding Controlled with Pressure -Treatment Response Procedure Tolerated Well -Offloading No -Debridement - Subq, 1st 20sq cm Yes Pain Scale: 0-10 Numeric Is Patient Pain Free? Yes - Nurse 3 - General Ulcer D/C NN Start: 04/27/23 10:15 Freq: Status: Active Protocol: Activity Type Activity Date Activity User E-sign Co-sign Detail Recorded Client Recorded Date Recorded By Document 04/27/23 10:54 [facility] Desktop 04/27/23 10:54 [facility] 04/27/23 10:54 Wound Care Center Nurse 3 #2- L BUTTOCK -Ulcer Cleansing Rinsed/ Irrigated with Saline -Foul Odor after Cleansing No -Primary Dressing Applied Aquacel Extra -Other Dressing applied pts own border drsg -Aquacel Extra 1 Treatment Response Procedure Tolerated Well Pain Scale: 0-10 Numeric Is Patient Pain Free? Yes WC - Visit Discharge Discharge Condition Stable Ambulatory Status Ambulatory, Walker Transportation Private Auto Accompanied by Additional Wound Wound debrided: Left buttocks Wound Grade/Stage: Stage II Type of Debridement: Excisional debridement Anesthesia Used: 5% Lidocaine Gel Depth: Down to and including healthy tissue Percentage of wound debrided: 100 Instrument Used: 5mm curette and - Tissue Removed: Fibrin Severity: Fat Layer Exposed Amount of bleeding with debridement: Mild Bleeding Controlled with: Compression and gauze Patient tolerated procedure: Patient tolerated procedure well Assessment/Plan Assessment/Plan (1) Decubitus ulcer of right buttock, stage 2: CODE(S): L89.312 - Pressure ulcer of right buttock, stage 2 (2) Decubitus ulcer of left buttock, stage 2: CODE(S): L89.322 - Pressure ulcer of left buttock, stage 2 (3) Alzheimer's dementia: CODE(S): G30.9 - Alzheimer's disease, unspecified; F02.80 - Dementia in other diseases classified elsewhere, unspecified severity, without behavioral disturbance, psychotic disturbance, mood disturbance, and anxiety QUALIFIERS: Alzheimer's disease onset: late onset Dementia severity: moderate Dementia behavioral or psychological symptom: with agitation Qualified Code(s): G30.1 - Alzheimer's disease with late onset; F02.B11 - Dementia in other diseases classified elsewhere, moderate, with agitation PLAN: Right buttocks resolved DC any treatments Wash left buttocks areas with antibacterial soap such as Dial. Apply the Aquacel extra to wound base moistened and cover with absorbent dressings every day. Try to offload by having a pillow on it and get him to lay off off his back and more honest ankle to the side when in his chair Did write for a gel cushion for his sitting. Follow-up in 2 week
[2023-05-11 10:10] VITALS: BP 157/59; PULSE 84; RESP 16; TEMP 36.1; BMI 33.3
--- NOTE | 2023-05-11 11:48 | PN.PCM_ITS ---
History of Present Illness Date of Service: 05/11/23 Chief Complaint: Follow-up on bilateral buttock cheeks open wounds decubitus ulcers History of Wound: 78-year-old white male with Alzheimer's disease has developed bilateral butt cheek open areas that are pretty big from sitting in a chair all day long. states he sleeps in that lounge chair and eats in the lounge chair and refuses to get up. Patient is not using his bed at all. has been using Neosporin ointment on them for the last month or 2 that they have been around Progress of Wound: Both areas right and left buttocks are healed patient will be discharged from the wound center Subjective Subjective is very pleased with outcomes Objective Data Objective Data Skin is supple and no sign of any redness patient will continue treatments as needed but will be discharged from the wound center follow-up as needed Vital Signs: Vital Signs Temp Pulse Resp BP O2 Del Method 96.9 F L 84 16 157/59 H Room Air 05/11/23 10:10 05/11/23 10:10 05/11/23 10:10 05/11/23 10:10 05/11/23 10:10 Oxygen Delivery Method Room Air Weight: 232 lb Body Mass Index (BMI) 33.3 Physical Exam Const alert General Appearance: cooperative Orientation / Consciousness: awake HEENT normocephalic Resp normal respiratory effort Effort and Inspection: able to speak in complete sentences Auscultation: clear to auscultation bilaterally Cardio regular rate and regular rhythm Palpation: normal PMI Rate: regular rate Rhythm: regular rhythm Skin Wound Narrative: 2 open wounds on either buttocks decubitus ulcers stage II Neuro oriented x3 Psych Appearance: grossly normal Speech: normal speech Thought Content: normal thought content Judgement: judgement good Debridement Note Debridement Note No debridement was completed: No debridement was completed today Post-Debridement Measurements and Additional Note: Post-Debridement Measurements/Treatment MARIA ELENA - Nurse 1 - General Ulcer Assessment Start: 04/27/23 10:15 Freq: Status: Active Protocol: JOVAN Activity Type Activity Date Activity User E-sign Co-sign Detail Recorded Client Recorded Date Recorded By Document 04/27/23 10:16 DL Desktop 04/27/23 10:23 DL Document 05/11/23 10:10 DL Desktop 05/11/23 10:15 DL 04/27/23 05/11/23 10:16 10:10 - Today's Visit Information Type of service Follow-up Visit Follow-up Visit (Physician/AGRICULTURAL TECHNICAL OFFICER (Physician/AGRICULTURAL TECHNICAL OFFICER ) ) Arrival Mode Ambulatory, Ambulatory, Walker Walker Transfer Assistance None None Patient Identification Verified (Name & Yes Yes ) Patient Requires Transmission-Based No No Precautions Height and Weight Body Mass Index (BMI) 33.3 33.3 BMI Classification Obese Obese Vital Signs Temperature (97.8 F-99.1 F) 98 F 96.9 F L Temperature Source Temporal Temporal Pulse Rate (60-100) 56 L 84 Pulse Location Monitor Monitor Respiratory Rate (12-18) 20 H 16 Respiratory rate source Observation Observation Oxygen Delivery Method Room Air Blood Pressure (90/60-120/80) 142/55 H 157/59 H Blood Pressure Mean (mm Hg) 84 91 Source Monitor Monitor Position Sitting Blood Pressure Location Left Arm History Since Last Visit- (Skip if this is Patient's initial visit) Have you changed medications since your No No last visit? Any new allergies or adverse reactions No No Had a fall/change in ADL's that may No No increase risk of falls Signs or symptoms of abuse and/or No No neglect since last visit Have you been in the hospital since your No No last visit? Has dressing in place as prescribed Yes Yes Has compression in place as prescribed N/A N/A Has offloadiing in place as prescribed N/A Experienced any changes in pain level or No No management Left Footwear Regular Shoe Right Footwear Regular Shoe Pain Scale: 0-10 Numeric Is Patient Pain Free? Yes Yes - Nurse 1 - General Ulcer Measurement Start: 04/27/23 10:15 Freq: Status: Active Protocol: Activity Type Activity Date Activity User E-sign Co-sign Detail Recorded Client Recorded Date Recorded By Document 04/27/23 10:16 DL Desktop 04/27/23 10:23 DL Document 05/11/23 10:10 DL Desktop 05/11/23 10:15 DL 04/27/23 05/11/23 10:16 10:10 Wound Center Nurse 1 #2- L BUTTOCK -Combined with other wound No -Current Size (cm) - Length 1.1 0.1 -Current Size (cm) - Width 0.5 0.1 -Current Size (cm) - Depth 0.1 0.1 -Total Square Cm 0.55 0.01 -Date of Last Picture (Recall this 05/11/23 field) -Photo Taken Yes -Epithelialization Large 67-100% -Exudate Amt Small None Present -Exudate Type Serosanguineous -Wound Margin Distinct, Outline Attached -Granulation Amt Large (67-100%) -Granulation Quality Pillow -Necrosis Amt Small (1-33%) -Necrotic Tissue Type Adherent Slough -Structure Exposed N/A -Texture (Angelic-wound Skin Appearance) Scarring Assessed, Scarring -Moisture (Angelic-wound Skin Appearance) No Abnormality Assessed -Color (Angelic-wound Skin Appearance) No Abnormality Assessed, Erythema -Temperature (Angelic-wound Skin No Abnormality No Abnormality Appearance) (Pt Warm) (Pt Warm) -Tenderness on Palpation (Angelic-wound No No Skin Appearance) -Ulcer Cleansing Wound Cleanser Soap and Water -Foul Odor after Cleansing No No -Anesthetic Used 5% Lidocaine Gel #1- R BUTTOCK -Current Size (cm) - Length 0.1 -Current Size (cm) - Width 0.1 -Current Size (cm) - Depth 0.1 -Total Square Cm 0.01 -Exudate Amt None Present -Wound Margin Flat & Intact -Granulation Amt Large (67-100%) -Granulation Quality Pillow -Necrosis Amt None Present (0 %) -Necrotic Tissue Type Adherent Slough -Structure Exposed N/A -Texture (Angelic-wound Skin Appearance) Scarring -Moisture (Angelic-wound Skin Appearance) No Abnormality -Color (Angelic-wound Skin Appearance) No Abnormality -Temperature (Angelic-wound Skin No Abnormality Appearance) (Pt Warm) -Tenderness on Palpation (Angelic-wound No Skin Appearance) -Ulcer Cleansing Rinsed/ Irrigated with Saline -Foul Odor after Cleansing No WC - Nurse 2 - General Ulcer CM Notes Start: 04/27/23 10:15 Freq: Status: Active Protocol: Activity Type Activity Date Activity User E-sign Co-sign Detail Recorded Client Recorded Date Recorded By Document 04/27/23 10:36 MW Desktop 04/27/23 10:39 MW Document 05/11/23 10:25 MW Desktop 05/11/23 10:29 MW 04/27/23 05/11/23 10:36 10:25 Wound Center Nurse 2 #2- L BUTTOCK -Time 10:36 10:25 -Correct Patient Yes Yes -Correct Side, Site, Position Yes Yes -Correct Procedure Yes Yes -Procedure Performed Yes No -Type of Procedure Debridement -Clinical Debridement Subcutaneous -Tissue Removed Subcutaneous -Post Debridement (cm) - Length 2.3 0 -Post Debridement (cm) - Width 1.7 0 -Post Debridement (cm) - Depth 0.2 0 -Total Square (Post) (cm) 3.91 0 -Area of Debridement (cm) - Length 2.3 -Area of Debridement (cm) - Width 1.7 -Total Square (Area) (cm) 3.91 -Tunneling No -Undermining/Tunneling No -Circular Undermining No -Wound/Ulcer Outcome Not Healed Healed- Epithelialized -Ulcer Cleansing Rinsed/ Irrigated with Saline -Foul Odor after Cleansing No -Bioengineered Tissue No -Bleeding Controlled with Pressure -Treatment Response Procedure Tolerated Well -Offloading No -Debridement - Subq, 1st 20sq cm Yes #1- R BUTTOCK -Time 10:36 -Correct Patient Yes -Correct Side, Site, Position Yes -Correct Procedure Yes -Procedure Performed No -Post Debridement (cm) - Length 0 -Post Debridement (cm) - Width 0 -Post Debridement (cm) - Depth 0 -Total Square (Post) (cm) 0 -Wound/Ulcer Outcome Healed- Epithelialized Pain Scale: 0-10 Numeric Is Patient Pain Free? Yes Yes - Nurse 3 - General Ulcer D/C NN Start: 04/27/23 10:15 Freq: Status: Active Protocol: Activity Type Activity Date Activity User E-sign Co-sign Detail Recorded Client Recorded Date Recorded By Document 04/27/23 10:54 F Desktop 04/27/23 10:54 BMF Document 05/11/23 10:37 MW Desktop 05/11/23 10:38 MW 04/27/23 05/11/23 10:54 10:37 Wound Care Center Nurse 3 #2- L BUTTOCK -Ulcer Cleansing Rinsed/ Irrigated with Saline -Foul Odor after Cleansing No -Primary Dressing Applied Aquacel Extra -Other Dressing applied pts own border drsg -Aquacel Extra 1 Right -Lotion applied to leg before No compression wrap -Compression Wrap Rajendra Wrap Left -Lotion applied to leg before No compression wrap -Compression Wrap Rajendra Wrap Treatment Response Procedure Procedure Tolerated Well Tolerated Well Pain Scale: 0-10 Numeric Is Patient Pain Free? Yes Yes Teaching: Wound Center Compression Wraps & Stockings -Person Taught Patient,Family -Teaching Method Discussion, Demonstration -Response to teaching Verbalize understanding Offload: Mattress, Cushion, Reposition -Person Taught Patient,Family -Teaching Method Discussion -Response to teaching Verbalize understanding WC - Visit Discharge Discharge Condition Stable Stable Ambulatory Status Ambulatory, Ambulatory Walker Transportation Private Auto Private Auto Accompanied by Medication Reconcilliation completed & No provided to patient/care provider Clinical Summary of Care Provided Yes Assessment/Plan Assessment/Plan (1) Decubitus ulcer of right buttock, stage 2: CODE(S): L89.312 - Pressure ulcer of right buttock, stage 2 (2) Decubitus ulcer of left buttock, stage 2: CODE(S): L89.322 - Pressure ulcer of left buttock, stage 2 (3) Alzheimer's dementia: CODE(S): G30.9 - Alzheimer's disease, unspecified; F02.80 - Dementia in other diseases classified elsewhere, unspecified severity, without behavioral disturbance, psychotic disturbance, mood disturbance, and anxiety QUALIFIERS: Alzheimer's disease onset: late onset Dementia severity: moderate Dementia behavioral or psychological symptom: with agitation Qualified Code(s): G30.1 - Alzheimer's disease with late onset; F02.B11 - Dementia in other diseases classified elsewhere, moderate, with agitation PLAN: All areas have resolved patient will be discharged from the wound center and may follow-up as needed
== END 2023-05-12 09:05 | disposition home or self-care (01) ==
LOC: WC 10:15
PROVIDERS: PCP Family Medicine Geriatric Medicine; Referring Provider Family Medicine Geriatric Medicine; Visit Provider Nurse Practitioner
DX: L89.312 Pressure ulcer of right buttock, stage 2 (principal); L89.322 Pressure ulcer of left buttock, stage 2; G30.1 Alzheimer's disease with late onset; F02.B0 Dementia in other diseases classified elsewhere, moderate, without behavioral disturbance, psychotic disturbance, mood disturbance, and anxiety; Z79.02 Long term (current) use of antithrombotics/antiplatelets; Z79.899 Other long term (current) drug therapy
CPT/HCPCS: 11042; 99213; G0463

== ENCOUNTER → 2024-04-24 | Outpatient (CLI) | payer MEDICARE, OTHER, SELFPAY ==
[2024-04-24 11:37] LABS: Absolute Lymphocyte Count 2.64 X10^3/uL (0.83-4.51); Absolute Neutrophil Count 3.6 X10^3/uL (2.0-7.7); Basophil# 0.06 X10^3/uL; Basophil% 0.8 % (0-1); Eosinophil# 0.33 X10^3/uL; Eosinophils% 4.6 % (0-5); Hematocrit 48.6 % (40-54); Lymphocyte # 2.64 X10^3/ul (0.83-4.51); Lymphocyte % 36.5 % (19-41); Mean Corp Hgb Conc 30.9 g/dL (32-36); Mean Corpuscular Hgb 30.4 pg (27.0-32.0); Mean Corpuscular Volume 98.6 fL (80-94); Mean Platelet Vol. 11.7 fl (6.2-12.0); Monocyte# 0.57 X10^3/uL; Monocyte% 7.9 % (0-10); NRBC Flagged by Analyzer 0 % (0-5); Neutrophil # 3.59 X10^3/uL (2.7-7.7); Neutrophil % 49.6 % (47-70); Platelet Count 206 K/mm3 (150-450); RBC Distribution Width CV 13.4 % (11.6-14.6); RBC Distribution Width SD 48.5 fl (35.1-43.9); Red Blood Count 4.93 M/mm3 (4.6-6.2); White Blood Count 7.2 K/mm3 (4.4-11.0)
[2024-04-24 12:15] LABS: ALB/GLOB Ratio 0.8 RATIO (0.9-2.4); AST(SGOT) 11 U/L (15-37); Alanine Aminotransfer ALT/SGPT 17 U/L (16-61); Albumin, Serum 3.3 g/dL (3.2-5.0); Alkaline Phosphatase 54 U/L (45-117); Anion Gap 7 (5-15); BUN 27 mg/dL (7-18); BUN/Creat Ratio 15.8 RATIO (10-20); Calcium,Total 9.6 mg/dL (8.5-10.1); Chloride 108 mmol/L (98-107); Creatinine, Serum 1.71 mg/dL (0.70-1.30); EST Glomerular Filtration Rate 41 mL/min (>60); Est Glom Filt Rate - Afr Amer 50 mL/min (>60); Globulin 4.3 g/dL (2.2-4.2); Glucose 149 mg/dL (74-106); Potassium 5.4 mmol/L (3.5-5.1); Protein, Total 7.6 g/dL (6.4-8.2); Sodium Level 141 mmol/L (136-145); Thyroid Stim Hormone (TSH) 0.723 uIU/mL (0.358-3.740)
== END | disposition home or self-care (01) ==
LOC: POLAB3 10:32
PROVIDERS: PCP Family Medicine Geriatric Medicine; Visit Provider Family Medicine Geriatric Medicine
DX: E11.65 Type 2 diabetes mellitus with hyperglycemia (principal); I10 Essential (primary) hypertension; E55.9 Vitamin D deficiency, unspecified
CPT/HCPCS: 36415; 80053; 82306; 84443; 85025

== ENCOUNTER → 2024-04-26 | Outpatient (CLI) | payer MEDICARE, OTHER, SELFPAY ==
[2024-04-26 14:00] LABS: Anion Gap 8 (5-15); BUN 26 mg/dL (7-18); BUN/Creat Ratio 17.6 RATIO (10-20); Calcium,Total 9.4 mg/dL (8.5-10.1); Chloride 110 mmol/L (98-107); Creatinine, Serum 1.48 mg/dL (0.70-1.30); EST Glomerular Filtration Rate 49 mL/min (>60); Est Glom Filt Rate - Afr Amer 59 mL/min (>60); Glucose 128 mg/dL (74-106); Potassium 5.5 mmol/L (3.5-5.1); Sodium Level 144 mmol/L (136-145)
== END | disposition home or self-care (01) ==
LOC: POLAB3 10:32
PROVIDERS: PCP Family Medicine Geriatric Medicine; Visit Provider Family Medicine Geriatric Medicine
DX: I10 Essential (primary) hypertension (principal)
CPT/HCPCS: 36415; 80048

== ENCOUNTER → 2024-05-01 | Outpatient (CLI) | payer MEDICARE, OTHER, SELFPAY ==
[2024-05-01 13:18] LABS: Anion Gap 10 (5-15); BUN 28 mg/dL (7-18); BUN/Creat Ratio 18.9 RATIO (10-20); Calcium,Total 9.2 mg/dL (8.5-10.1); Chloride 108 mmol/L (98-107); Creatinine, Serum 1.48 mg/dL (0.70-1.30); EST Glomerular Filtration Rate 49 mL/min (>60); Est Glom Filt Rate - Afr Amer 59 mL/min (>60); Glucose 155 mg/dL (74-106); Potassium 3.8 mmol/L (3.5-5.1); Sodium Level 141 mmol/L (136-145)
== END | disposition home or self-care (01) ==
LOC: LAB 11:17
PROVIDERS: PCP Family Medicine Geriatric Medicine; Referring Provider Family Medicine Geriatric Medicine; Visit Provider Family Medicine Geriatric Medicine
DX: I10 Essential (primary) hypertension (principal)
CPT/HCPCS: 36415; 80048

== ENCOUNTER → 2024-10-23 | Outpatient (CLI) | payer MEDICARE, OTHER, SELFPAY ==
[2024-10-23 10:41] LABS: Hematocrit 47.1 % (40-54); Hemoglobin 15.3 g/dL (13.0-16.5); Immature Granulocytes Count 0.100 X10^3/uL (0.0-0.0); Mean Corp Hgb Conc 32.5 g/dL (32-36); Mean Corpuscular Volume 96.7 fL (80-94); Mean Platelet Vol. 10.4 fl (6.2-12.0); NRBC Flagged by Analyzer 0 % (0-5); Platelet Count 265 K/mm3 (150-450); RBC Distribution Width CV 13.3 % (11.6-14.6); RBC Distribution Width SD 47.8 fl (35.1-43.9); Red Blood Count 4.87 M/mm3 (4.6-6.2); White Blood Count 9.1 K/mm3 (4.4-11.0)
[2024-10-23 11:54] LABS: AST(SGOT) 18 U/L (<=37); Alanine Aminotransfer ALT/SGPT 10 U/L (<=46); Albumin, Serum 4.1 g/dL (3.4-4.8); Alkaline Phosphatase 66 U/L (40-129); Anion Gap 14 (5-15); BUN 23 mg/dL (4-19); BUN/Creat Ratio 20.5 RATIO (10-20); Calcium,Total 9.4 mg/dL (7.6-11.0); Carbon Dioxide 21.8 mmol/L (21.0-32.0); Chloride 102 mmol/L (98-108); Globulin 3.5 g/dL (2.2-4.2); Glucose 148 mg/dL (70-99); Potassium 5.0 mmol/L (3.3-5.1); Vitamin D,25 Hydroxy 23.8 ng/mL (30-100)
[2024-10-23 18:32] LABS: Xtra Tube Kwok EXTRA TUBE
== END | disposition home or self-care (01) ==
PROVIDERS: PCP Family Medicine Geriatric Medicine; Visit Provider Family Medicine Geriatric Medicine
DX: E11.65 Type 2 diabetes mellitus with hyperglycemia (principal); I10 Essential (primary) hypertension; E55.9 Vitamin D deficiency, unspecified; R68.83 Chills (without fever)
CPT/HCPCS: 36415; 80053; 82306; 84443; 85025; 87631